=== PATIENT | female | born 1975 | race Caucasian/White ===

== ENCOUNTER → 2018-02-13 17:10 | Outpatient (CLI) | payer OTHER, SELFPAY | PROVIDERS: Family Provider Family Medicine; PCP Family Medicine; Visit Provider Otolaryngology Otolaryngology/Facial Plastic Surgery | DX: J31.2 Chronic pharyngitis (principal) | CPT/HCPCS: 87070 ==

== ENCOUNTER → 2018-04-16 18:28 | Outpatient (CLI) | payer OTHER, SELFPAY ==
[2018-04-24 09:43] LABS: HPV APTIMA, High Risk Negative (Negative)
== END ==
PROVIDERS: Family Provider Family Medicine; PCP Family Medicine; Visit Provider Nurse Practitioner Women's Health
DX: Z12.4 Encounter for screening for malignant neoplasm of cervix (principal)
CPT/HCPCS: 88175; G0145

== ENCOUNTER → 2018-04-20 08:52 | Outpatient (CLI) | payer OTHER, SELFPAY ==
--- NOTE | 2018-04-20 08:58 | BI_ITS ---
MAMMOGRAPHY - BILATERAL SCREENING REASON FOR EXAM: Female, 42 years old. Routine annual screening examination. PERTINENT HISTORY: Non-contributory. TECHNIQUE: Digital bilateral breast maria de jesus (3D mammographic acquisition) in the CC and MLO projections. 2-D mediolateral oblique (MLO) and craniocaudad (CC) views of both breasts were obtained. CAD: Full Field Digital Mammography with Computer Added Detection was performed. COMPARISON: None. Baseline examination. FINDINGS: Breast Composition: The breasts are extremely dense, which lowers the sensitivity of mammography. There are no dominant masses or suspicious calcifications. No other significant abnormalities are identified. BI/SCREENING MAMM (CAD), BILAT IMPRESSION: Negative screening mammogram. Yearly followup mammogram recommended. (A) ASSESSMENT CATEGORY: BIRADS Category 1: Negative. A letter regarding these results will be sent to the patient by the facility within 30 days. Approximately 10% of breast cancers are not detected by mammography. A normal mammogram should not delay biopsy of a clinically suspicious abnormality. [id number] Electronically Signed: Jaydon Carrazna MD at 8:52 EDT Tel [phone], Service support ,
--- NOTE | 2018-04-20 09:06 | US_ITS ---
STUDY: ULTRASOUND TRANSVAGINAL CLINICAL: Female, 42 years old. Irregular menstruation TECHNIQUE: Transvaginal COMPARISON: None. FINDINGS: The uterus is slightly enlarged and anteverted. It measures 10.9 x 6.9 x 6.0 cm. There are multiple uterine fibroids identified. The first is in the right myometrial wall measures 3.8 cm in widest diameter. The second is adjacent to the endometrial canal and measures 1.9 cm in widest diameter. The third is in the left myometrial wall with a maximum diameter of 2.4 cm. The fourth is adjacent to the endometrial canal and measures 1.3 cm. Both ovaries are visualized and they both demonstrate vascular flow through the. The right ovary measures 5.3 x 3.3 x 2.7 cm [multiple cysts within it with the largest measuring 3.3 x 2.2 x 2.2 cm. The left ovary measures 2.8 x 2.6 x 1.8 cm and has a 1.7 cm cyst within it. Is a small amount of free fluid in the cul-de-sac.] . US/Pelvic (Non ) IMPRESSION: Multiple uterine fibroids. Bilateral ovarian cysts. The largest on the right measures 3.3 cm in widest diameter. A small amount of free fluid in the cul-de-sac Electronically Signed: Omero Shukla, at 15:49 EDT Tel , Service support ,
--- NOTE | 2018-04-20 09:49 | US_ITS ---
STUDY: ULTRASOUND TRANSVAGINAL CLINICAL: Female, 42 years old. Irregular menstruation TECHNIQUE: Transvaginal COMPARISON: None. FINDINGS: The uterus is slightly enlarged and anteverted. It measures 10.9 x 6.9 x 6.0 cm. There are multiple uterine fibroids identified. The first is in the right myometrial wall measures 3.8 cm in widest diameter. The second is adjacent to the endometrial canal and measures 1.9 cm in widest diameter. The third is in the left myometrial wall with a maximum diameter of 2.4 cm. The fourth is adjacent to the endometrial canal and measures 1.3 cm. Both ovaries are visualized and they both demonstrate vascular flow through the. The right ovary measures 5.3 x 3.3 x 2.7 cm [multiple cysts within it with the largest measuring 3.3 x 2.2 x 2.2 cm. The left ovary measures 2.8 x 2.6 x 1.8 cm and has a 1.7 cm cyst within it. Is a small amount of free fluid in the cul-de-sac.] . US/Transvaginal Non- IMPRESSION: Multiple uterine fibroids. Bilateral ovarian cysts. The largest on the right measures 3.3 cm in widest diameter. A small amount of free fluid in the cul-de-sac Electronically Signed: Omero Shukla, at 15:49 EDT Tel , Service support ,
== END ==
PROVIDERS: Family Provider Family Medicine; PCP Family Medicine; Visit Provider Nurse Practitioner Women's Health
DX: D25.9 Leiomyoma of uterus, unspecified (principal); N83.202 Unspecified ovarian cyst, left side; N83.201 Unspecified ovarian cyst, right side; N92.6 Irregular menstruation, unspecified; Z12.31 Encounter for screening mammogram for malignant neoplasm of breast
CPT/HCPCS: 76830; 76856; 77063; 77067; 93976; C1769; C1894

== ENCOUNTER → 2018-05-27 16:07 | Outpatient (CLI) | payer OTHER, SELFPAY ==
[2018-05-27 18:33] LABS: Absolute Lymphocyte Count 1.74 X10^3/ul (0.83-4.51); Absolute Neutrophil Count 3.1 X10^3/uL (2.0-7.7); Basophil# 0.05 X10^3/uL; Basophil% 0.9 % (0-1); Eosinophil# 0.34 X10^3/uL; Eosinophils% 5.9 % (0-5); Hematocrit 30.1 % (37-47); Hemoglobin 9.9 g/dl (12.0-15.0); Lymphocyte # 1.74 X10^3/ul (4.0); Mean Corp Hgb Conc 32.9 g/gl (32-36); Mean Corpuscular Hgb 28.2 pg (27.0-32.0); Mean Corpuscular Volume 85.8 fL (81-99); Mean Platelet Vol. 12.2 fl (6.2-12.0); Monocyte# 0.57 X10^3/uL; Monocyte% 9.8 % (0-10); Neutrophil % 53.4 % (47-70); Platelet Count 319 K/mm3 (150-450); RBC Distribution Width SD 45.5 fl (35.1-43.9); Red Blood Count 3.51 M/mm3 (4.2-5.4); White Blood Count 5.8 K/mm3 (4.4-11.0)
[2018-05-27 18:43] LABS: POSITIVE COUNT NO; POSITIVE DIFFERENTIAL NO; POSITIVE MORPHOLOGY NO
[2018-05-31 09:54] LABS: Vitamin D 1,25-Dihydroxy 74.9 pg/mL (19.9-79.3)
== END ==
PROVIDERS: Family Provider Family Medicine; PCP Family Medicine; Visit Provider Obstetrics & Gynecology
DX: D25.9 Leiomyoma of uterus, unspecified (principal); R53.83 Other fatigue
CPT/HCPCS: 36415; 82652; 85025

== ENCOUNTER → 2018-07-10 15:28 | Outpatient (CLI) | payer OTHER, SELFPAY | PROVIDERS: Family Provider Family Medicine; PCP Family Medicine; Visit Provider Nurse Practitioner Women's Health | DX: N39.0 Urinary tract infection, site not specified (principal) | CPT/HCPCS: 87077; 87086; 87088; 87186 ==

== ENCOUNTER 2018-08-08 05:27 | Day surgery (SDC) | payer OTHER, SELFPAY ==
[2018-08-08] VITALS (13 sets, daily range): BP systolic 96–125; BP diastolic 65–83; PULSE 64–97; RESP 16–18; TEMP 36.1–37.1; O2SAT 95–100; BMI 27.7
--- NOTE | 2018-08-08 | IMM_PTH ---
PATIENT: MARY CORBETT LOC: [facility] [place] U#:[id number] AGE/SX: 42/F ROOM: RE08/08/[address]: Dr. Gale Goodwin MD : 1975 BED: DIS: 08/09/2018 SPEC #: [id number] RECD: 08/09/18 14:16 STATUS: JHONATAN REJeff #: [id number] HARVEY: 08/08/18 00:[address]: Gale Goodwin DEPT: IMMUNOHISTOCHEMISTRY RECD BY: Ann-Marie Conn ENTERED: 08/09/18 14:21 SP TYPE: IMMUNO OTHR DR: Dr. Tito Chandler MD Tissues: Uterus, NOS Procedures: Calretinin (initial) SMA (add) CK20 (add) CK7 (add) CK8 (add) DESMIN (add) Vimentin (add) PHYSICIAN & INSTITUTION [place] [id number] SPECIMEN INFORMATION: Tissue Source: Uterus, cervix and bilateral fallopian tubes Clinical Info: Uterine fibroid Specimen Number: [id number] #8 CPT code: 30405, 15720 x6 METHODOLOGY: Deparaffinized sections of prefer/formalin-fixed tissue or PAP/DQ stained slides are incubated with monoclonal/polyclonal antibodies/oligonucleotide probes. Localization is made via biotin free immunoperoxidase method. Appropriate controls are performed and reacted as expected. Results on target cell population are indicated in the following table: RESULTS: ANTIBODY / CLONE RESULT Block #8 CALRET (polyclonal) positive Vimentin (V9) positive CK7 (OV-TL12/30) positive CK8 (74rxhsU69) positive CK20 (KS20.8) negative Actin (1A4) positive (in background smooth muscle) Desmin (CE-R-11) positive (in background smooth muscle) These tests were developed and their performance characteristics determined by [facility]. They may not have been cleared or approved by the U.S. Food and Drug Administration. The FDA has determined that such clearance or approval is not necessary. INTERPRETATION: Uterus, hysterectomy: Consistent with adenomatoid tumor. Case has been reviewed in consultation with Dr. Johnson who concurs with the above diagnosis. IDC:CHENG SJ:chiara 08/12/18
--- NOTE | 2018-08-08 | HYST_PTH ---
PATIENT: MARY CORBETT LOC: [facility] [place] U#:[id number] AGE/SX: 42/F ROOM: RE08/08/[address]: Dr. Gale Goodwin MD : 1975 BED: DIS: 08/09/2018 SPEC #: [id number] RECD: 08/08/18 13:30 STATUS: JHONATAN KAROLINA #: [id number] HARVEY: 08/08/18 00:[address]: Gale Goodwin DEPT: SURGICAL PATHOLOGY RECD BY: Jerald Pearce ENTERED: 08/08/18 13:30 SP TYPE: HYSTERECT OTHR DR: Dr. Tito Chandler MD Tissues: Uterus, NOS Procedures: Surgery Specimen Level V HEADER OPERATION: Hysterectomy, lap-assisted vaginal, bilateral salpingectomy PRE-OP DIAGNOSIS: Uterine fibroid TISSUE SUBMITTED: Uterus, cervix and bilateral fallopian tubes MICROSCOPIC DIAGNOSIS Uterus, cervix and bilateral fallopian tubes, vaginal hysterectomy and bilateral salpingectomy: Cervix - chronic cystic cervicitis and squamous metaplasia. Endometrium - proliferative endometrium. - Benign endometrial polyps. Myometrium - leiomyomas (1 and 1.5 cm in greatest dimension). - Adenomatoid tumor (~3 cm in greatest dimension). See comment. Bilateral fallopian tubes - no pathologic diagnosis. Bilateral paratubal cysts. SJ:rg 08/09/18 COMMENT Immunohistochemistry ([id number]) supports the diagnosis of adenomatoid nodule. This case has been reviewed in consultation with Dr. Johnson who concurs with the above diagnosis. MICROSCOPIC DESCRIPTION Slides are reviewed. GROSS DESCRIPTION Received in fixative is one container labeled with the patient's name and designated uterus, cervix and bilateral fallopian tubes. The specimen consists of a hysterectomy specimen previously opened anteriorly and consisting of a uterus with cervix and attached bilateral fallopian tubes. The uterus with cervix weighs 133 gm and measures 11 x 8 x 5 cm. The serosal surface is catalan, glistening. The ectocervical mucosa is unremarkable. The external os is circular in contour. The endocervical canal measures 2.5 cm in length and the endocervical mucosa is catalan, glistening and unremarkable. The triangular endometrial cavity measures 5 cm in length and up to 3 cm in width. A polypoid lesion is noted measuring 1 x 0.8 x 0.2 cm. The myometrial wall underneath the polyp is not indurated. The larger polypoid lesion is present in the posterior uterine wall and a smaller polypoid lesion is also noted in the anterior uterine wall measuring 0.5 cm in greatest dimension. The myometrial wall underneath the polyp is not indurated. The rest of the endometrium is catalan, congested and measures <0.1 cm in thickness. Sections of the uterine wall reveal two submucosal and intramural nodular masses measuring 1 and 1.5 cm in greatest dimension. Sections of these masses reveal catalan whorled cut surfaces without areas of hemorrhage, necrosis or cystic degeneration. An ill-defined nodular mass is also noted measuring ~3 cm in greatest dimension. The uninvolved uterine wall measures up to 3 cm in thickness. The right fallopian tube measures 7.5 cm in length and up to 0.8 cm in diameter. The fimbrial end is identified. Two paratubal cysts are noted measuring 0.5 and 1 cm in greatest dimension. The fallopian tube is interrupted in the middle consistent with previous tubal occlusion. Sections reveal unremarkable cut surfaces. The left fallopian tube measures 6 cm in length and up to 0.6 cm in diameter. The fimbrial end is identified. It is interrupted in the middle consistent with previous tubal occlusion. Sections reveal unremarkable cut surfaces. Teenage Babysitter sections are submitted in 11 cassettes as follows: 1 - anterior cervix, 2 - posterior cervix, 3 & 4 - anterior uterine wall, 5 & 6 - posterior uterine wall, 7 - endometrial polyps with underlying uterine wall, 8 - ill-defined nodular mass, 9 - intramural and submucosal nodular masses, 10 - right fallopian tube and paratubal cyst, 11 - left fallopian tube. / VALDEZ:chiara 08/08/18 TC:1 CPT: 65902
--- NOTE | 2018-08-08 05:29 | HP.PCM_ITS ---
- Problem List (1) Uterine fibroid Status: Acute Qualifiers: Comment: chance BARBER cysto History and Physical Date of Admission: 08/08/18 05/27/18 Height 5 ft 5 in 05/27/18 Weight: 169 lb 05/27/18 Body Mass Index (BMI) 28.1 05/27/18 Blood Pressure 116/72 Intake Visit Reasons: Discuss treatment options/surgery [employer] Laboratory Assistant Required: No Accompanied by: Is patient in pain?: No Allergies latex Allergy (Verified 05/27/18 15:34) Rash sulfamethoxazole [From Bactrim] Allergy (Verified 05/27/18 15:34) Hives trimethoprim [From Bactrim] Allergy (Verified 05/27/18 15:34) Hives Medications acyclovir 400 mg tablet 400 mg PO BID 04/16/18 [History Confirmed 05/27/18] omeprazole 20 mg capsule,delayed release 20 mg PO QDAY 04/16/18 [History Confirmed 05/27/18] metronidazole 500 mg tablet 500 mg PO BID 7 Days #14 tab 05/27/18 [Rx Confirmed 05/27/18] Post menopausal: No Patient : No : No PFSH Medical History GERD (gastroesophageal reflux disease) (Acute) Recurrent cold sores (Acute) Surgical History H/O tubal ligation (Acute) Hx of appendectomy (Acute) Family History Mother Cancer brain Grandmother Cancer Father Cancer throat Uncle Cancer Social History Smoking Status: Current every day smoker alcohol intake: current details: social substance use type: does not use caffeine: Yes what type of physical activity do you participate in: none seatbelt use: always do you feel safe at home: Yes additional social history: [employer] Patient works at [employer] Discuss treatment options/surgery: Details: MARY CORBETT is a 42 year old who presents for an enlarged uterus due to multiple fibroids, has a history of 2 SVDs. Pregancy History 2 Elective abortions Hx Para 2 Spontaneous abortions Hx # Term Pregnancies Ectopic pregnancies Hx # Pregnancies Multiple births # of living children Past Pregnancies Del. Date Name GA/Weeks Outcome Route Bth Weight Infant Gen Labor Lgth Anesthesia Del Locatn Provider FOB Unknown 1996 Licha Unknown 1999 George JONES Const Constitutional: Denies poor appetite, headache(s), fever(s), increased appetite, weight gain, weight loss or fatigue Cardio Card: Denies chest pain Resp Resp: Denies dyspnea or cough GI GI: Reports as per HPI; denies vomiting, nausea, abdominal pain or constipation : Reports as per HPI; denies urinary urgency, vaginal discharge, urinary frequency, vaginal itching, vaginal odor, vaginal dryness, urinary incontinence, urinary hesitancy, difficulty urinating, painful urination or nipple discharge Skin Skin/Breast: Denies breast lump, breast pain, breast skin changes, nipple discharge or change in hair Exam Const General: cooperative, healthy appearing, comfortable, no acute distress, well developed Nutritional Appearance: average body habitus Orientation: alert HENMT Head: normal to inspection, normocephalic Neck Neck: normal visual inspection, trachea midline Thyroid: thyroid normal Resp Effort & Inspection: normal respiratory effort GI Inspection: normal to inspection, non-distended Palpation: soft, no hepatosplenomegaly Skin General: no rashes or lesions noted Assessment & Plan Problems 1. Intramural leiomyoma of uterus D25.1 plan LAVH BS cysto Plan discussed surgical risks including risks of anesthesia, infection, bleeding, injury to bowel, bladder or blood vessels, and patient wishes to proceed with surgery. plan lavh bs cysto. US findings- The uterus is slightly enlarged and anteverted. It measures 10.9 x 6.9 x 6.0 cm. There are multiple uterine fibroids identified. The first is in the right myometrial wall measures 3.8 cm in widest diameter. The second is adjacent to the endometrial canal and measures 1.9 cm in widest diameter. The third is in the left myometrial wall with a maximum diameter of 2.4 cm. The fourth is adjacent to the endometrial canal and measures 1.3 cm. Both ovaries are visualized and they both demonstrate vascular flow through the. The right ovary measures 5.3 x 3.3 x 2.7 cm [multiple cysts within it with the largest measuring 3.3 x 2.2 x 2.2 cm. The left ovary measures 2.8 x 2.6 x 1.8 cm and has a 1.7 cm cyst within it. Is a small amount of free fluid in the cul-de-sac.] UPDATE- I have seen the patient and performed any clinically relevant updates to the history and physical exam. Gale Goodwin MD
--- NOTE | 2018-08-08 05:41 | EKG12_ITS ---
Test Reason : PRE OP Blood Pressure : / mmHG Vent. Rate : 077 BPM Atrial Rate : 077 BPM P-R Int : 136 ms QRS Dur : 078 ms QT Int : 380 ms P-R-T Axes : 027 029 013 degrees QTc Int : 430 ms Normal sinus rhythm Normal ECG No previous ECGs available Confirmed by EDWARD GUILLAUME, CHANDRAKANT ([id number]), publication editor MARYSE COURTNEY ([id number]) on 08/12/2018 4:00:04 PM Referred By: Gale Goodwin Confirmed By:CHANDRAKANT LEON MD
[2018-08-08] MEDS: Phenazopyridine 95 MG Tablet 190 MG PO (06:06)
[2018-08-08 06:33] LABS: Hematocrit 36.3 % (37-47); Hemoglobin 12.3 g/dl (12.0-15.0); Mean Corp Hgb Conc 33.9 g/gl (32-36); Mean Corpuscular Hgb 30.8 pg (27.0-32.0); Mean Platelet Vol. 11.4 fl (6.2-12.0); Platelet Count 258 K/mm3 (150-450); RBC Distribution Width CV 17.5 % (11.6-14.6); RBC Distribution Width SD 56.2 fl (35.1-43.9); Red Blood Count 3.99 M/mm3 (4.2-5.4); Scan Indicated on CBC? Y/N NO; White Blood Count 4.8 K/mm3 (4.4-11.0)
[2018-08-08] MEDS: Bupivacaine Mpf 0.5% 30 ML VIAL (06:57)
--- NOTE | 2018-08-08 07:37 | PCM.OPRPT ---
Problem List (1) Uterine fibroid Status: Acute Qualifiers: Comment: plan LAVH BS cysto Report of Operation Date of Procedure: 08/08/18 Pre-Operative Diagnosis: aub fibroids Post-Operative Diagnosis: Same Surgery/Procedure Performed:: lavh bs cysto Description of Surgical Findings:: Enlarged uterus with 3 fibroids submucosal and intramural. Normal uterus and tubes. Mild left sigmoid adhesions normal upper abdomen heel shaver: Trupti Bah heel shaver: Katelin Tracy Type of Anesthesia:: General Special Medications: ricky Specimen's removed: uterus fibroids tubes Drains: marinelli Estimated Blood Loss (mL): 50 Fluids Replaced: crystalloid Description of Procedure: Patient received preoperative antibiotics and SCDs were on preoperatively. Patient was taken back to the operating room and placed in the dorsal lithotomy position. General anesthesia was induced and patient was prepped and draped in normal sterile fashion. Uterine manipulator was placed inside the uterus and Marinelli catheter placed in the bladder. The umbilicus was grasped with towel clamps and an intraumbilical incision was made after injecting with quarter percent Marcaine and a Veress needle entered into the abdomen confirmed to be intra-abdominal with a low opening pressure. Abdomen was insufflated with CO2 gas and the Veress needle removed and the 5 mm trocar was placed under direct visualization without complication. Right and left lower quadrants were transilluminated and injected with quarter percent Marcaine and 5 mm ports placed under direct visualization. Pelvis was well visualized see operative findings for additional information. Bilateral fallopian tubes were identified and transected with the LigaSure device across the mesosalpinx to the level of the utero-ovarian ligament which was also transected with the LigaSure device. The broad ligament was opened up by transecting the round ligament bilaterally and skeletonizing the uterine vessels bilaterally and creating a bladder flap using the LigaSure device. The uterine arteries were transected bilaterally with good visualization of the bladder and the ureters were seen to be inferior lateral to the operative area. Attention was then paid to the vaginal portion of the procedure and the cervix was grasped with Catherine clamps and circumferentially injected with dilute vasopressin. A circumferential incision was made and the vaginal mucosa was mobilized off posteriorly and the cul-de-sac entered into sharply and a longneck speculum placed. The anterior cul-de-sac was then identified and entered into sharply. The uterosacral ligaments were clamped cut and suture ligated with 0 Monocryl bilaterally followed by the cardinal ligaments which were clamped cut and suture ligated bilaterally with 0 Monocryl. The uterus serially descended and was removed without difficulty with minimal morcellation. Pelvic sidewall pedicles were checked and noted to have excellent hemostasis. The vaginal mucosa was reapproximated incorporating the posterior peritoneum. This was reapproximated using 0 Vicryl [id number] sutures. Excellent hemostasis was noted. The cystoscopy was then performed and bilateral ureteral strong spray was noted and the bladder was noted to have no abnormality or lesions seen. Marinelli catheter was replaced and then attention paid to the abdominal portion of the procedure again. The pelvis and cul-de-sac was well visualized and no significant active bleeding noted but some raw areas were seen on the peritoneum and therefore Ricky was applied. Pressure was taken down and the areas visualized and noted of excellent hemostasis. All ports were removed under direct visualization without complication and the abdomen was desufflated of air. The instruments removed from the abdomen and the vagina vaginal sweep was negative. Port sites on the abdomen were closed with 4-0 Monocryl interrupted sutures and Steri's and windows were applied. She was awoken and taken recovery in stable condition. Grafts/Implants Used: none - Complications none - Admit VTE Documentation VTE Present on Admission: No VTE Mechan Device Prophylaxis: SCD's
--- NOTE | 2018-08-08 07:40 | OP.PCM_ITS ---
Problem List (1) Uterine fibroid Status: Acute Qualifiers: Comment: plan LAVH BS cysto Report of Operation Date of Procedure: 08/08/18 Pre-Operative Diagnosis: aub fibroids Post-Operative Diagnosis: Same Surgery/Procedure Performed:: lavh bs cysto Description of Surgical Findings:: Enlarged uterus with 3 fibroids submucosal and intramural. Normal uterus and tubes. Mild left sigmoid adhesions normal upper abdomen delivery driver/customer service: Trupti Bah delivery driver/customer service: Katelin Tracy Type of Anesthesia:: General Special Medications: ricky Specimen's removed: uterus fibroids tubes Drains: marinelli Estimated Blood Loss (mL): 50 Fluids Replaced: crystalloid Description of Procedure: Patient received preoperative antibiotics and SCDs were on preoperatively. Patient was taken back to the operating room and placed in the dorsal lithotomy position. General anesthesia was induced and patient was prepped and draped in normal sterile fashion. Uterine manipulator was placed inside the uterus and Marinelli catheter placed in the bladder. The umbilicus was grasped with towel clamps and an intraumbilical incision was made after injecting with quarter percent Marcaine and a Veress needle entered into the abdomen confirmed to be intra-abdominal with a low opening pressure. Abdomen was insufflated with CO2 gas and the Veress needle removed and the 5 mm trocar was placed under direct visualization without complication. Right and left lower quadrants were transilluminated and injected with quarter percent Marcaine and 5 mm ports cookie dimas under direct visualization. Pelvis was well visualized see operative findings for additional information. Bilateral fallopian tubes were identified and transected with the LigaSure device across the mesosalpinx to the level of the utero-ovarian ligament which was also transected with the LigaSure device. The broad ligament was opened up by transecting the round ligament bilaterally and skeletonizing the uterine vessels bilaterally and creating a bladder flap using the LigaSure device. The uterine arteries were transected bilaterally with good visualization of the bladder and the ureters were seen to be inferior lateral to the operative area. Attention was then paid to the vaginal portion of the procedure and the cervix was grasped with Catherine clamps and circumferentially injected with dilute vasopressin. A circumferential incision was made and the vaginal mucosa was mobilized off posteriorly and the cul-de-sac entered into sharply and a longneck speculum placed. The anterior cul-de-sac was then identified and entered into sharply. The uterosacral ligaments were clamped cut and suture ligated with 0 Monocryl bilaterally followed by the cardinal ligaments which were clamped cut and suture ligated bilaterally with 0 Monocryl. The uterus serially descended and was removed without difficulty with minimal morcellation. Pelvic sidewall pedicles were checked and noted to have excellent hemostasis. The vaginal mucosa was reapproximated incorporating the posterior peritoneum. This was reapproximated using 0 Vicryl [id number] sutures. Excellent hemostasis was noted. The cystoscopy was then performed and bilateral ureteral strong spray was noted and the bladder was noted to have no abnormality or lesions seen. Marinelli catheter was replaced and then attention pa id to the abdominal portion of the procedure again. The pelvis and cul-de-sac was well visualized and no significant active bleeding noted but some raw areas were seen on the peritoneum and therefore Ricky was applied. Pressure was taken down and the areas visualized and noted of excellent hemostasis. All ports were removed under direct visualization without complication and the abdomen was desufflated of air. The instruments removed from the abdomen and the vagina vaginal sweep was negative. Port sites on the abdomen were closed with 4-0 Monocryl interrupted sutures and Steri's and windows were applied. She was awoken and taken recovery in stable condition. Grafts/Implants Used: none - Complications none - Admit VTE Documentation VTE Present on Admission: No VTE Mechan Device Prophylaxis: SCD's
[2018-08-08] MEDS: Vasopressin 20 UNITS/ML Vial (08:45)
[2018-08-08] MEDS: Lactated Ringers 1,000 ML 125 ML IV ×2 (12:04→20:51)
[2018-08-08] MEDS: Ketorolac 30 MG/ML Syringe IV ×2 (13:13→17:18)
--- NOTE | 2018-08-08 15:19 | DCINST_ITS ---
Discharge Diet: No Restrictions Discharge Activity: Return to Normal Activity, May Not Drive, May Shower May resume sexual activity in: 6-8 weeks Call your doctor if your incision/area has: Continuous Slow Oozing, Sudden Increased Bleeding, Increased Pain/ Swelling, Increased Redness, Foul Smelling Discharge Call your doctor if you observe: Fever of 101 or Higher, Inability to urinate, Inability to have a bowel movement, Using more than one pad per hour Allergies/Adverse Reactions: Allergies latex Allergy (Verified 05/27/18 15:34) Rash sulfamethoxazole [From Bactrim] Allergy (Verified 05/27/18 15:34) Hives trimethoprim [From Bactrim] Allergy (Verified 05/27/18 15:34) Hives Medications to take at Discharge acyclovir 400 mg tablet 400 mg PO BID 04/16/18 omeprazole 20 mg capsule,delayed release 20 mg PO BID 04/16/18 Naproxen [Naprosyn] 250 - 500 mg PO Q8H PRN PRN #30 tablet 08/08/18 Oxycodone HCl/Acetaminophen [Percocet 5-325] 1 - 2 tablet PO Q4H PRN PRN 7 Days #28 tablet 08/08/18 The following prescriptions were given: Oxycodone HCl/Acetaminophen [Percocet 5-325] 1 - 2 tablet PO Q4H PRN PRN 7 Days #28 tablet PRN Reason: Moderate-Severe pain Naproxen [Naprosyn] 250 - 500 mg PO Q8H PRN PRN #30 tablet PRN Reason: MILD PAIN Primary Care Physician: Tito Chandler MD [Primary Care Provider] - Test Results: Test results from this visit will be discussed in further detail at your follow- up appointment, if applicable. Please Follow Up With: Gale Goodwin MD - [phone]
[2018-08-08] MEDS: oxyCODONE 5 MG Tablet PO (15:29)
[2018-08-08] MEDS: Enoxaparin 40 MG/0.4 ML Syringe SC (20:53)
[2018-08-09] MEDS: Ketorolac 30 MG/ML Syringe IV ×2 (00:30→06:21)
[2018-08-09] MEDS: 0.9% NaCl Peripheral Flush Adult/Peds IV ×2 (00:30→06:22)
[2018-08-09 02:02] VITALS: BP 103/52; PULSE 75; RESP 14; TEMP 36.9; O2SAT 97
[2018-08-09] MEDS: oxyCODONE 5 MG Tablet PO (04:01)
[2018-08-09 07:15] LABS: Hematocrit 30.5 % (37-47); Hemoglobin 10.2 g/dl (12.0-15.0); Mean Corp Hgb Conc 33.4 g/gl (32-36); Mean Corpuscular Hgb 30.6 pg (27.0-32.0); Mean Corpuscular Volume 91.6 fL (81-99); Platelet Count 216 K/mm3 (150-450); RBC Distribution Width CV 17.1 % (11.6-14.6); RBC Distribution Width SD 54.6 fl (35.1-43.9); Red Blood Count 3.33 M/mm3 (4.2-5.4); White Blood Count 13.8 K/mm3 (4.4-11.0)
[2018-08-09 07:37] LABS: Scan Indicated on CBC? Y/N NO
[2018-08-09 07:52] VITALS: BP 97/65; PULSE 64; RESP 16; TEMP 36.9; O2SAT 96
[2018-08-09 07:57] VITALS: PULSE 70
--- NOTE | 2018-08-09 20:29 | PN.OBGYN_ITS ---
Subjective: doing well no complaints - Physical Exam General: Alert, Oriented x3 Vital Signs Temp Pulse Resp BP Pulse Ox 98.5 F 70 16 97/65 96 08/09/18 07:52 08/09/18 07:57 08/09/18 07:52 08/09/18 07:52 08/09/18 07:52 Oxygen Flow Rate (L/min) 2 Oxygen Delivery Method Room Air Weight: 166 lb 10.711 oz Body Mass Index (BMI) 27.7 Intake and Output for Last 24 Hours 08/07/18 08/08/18 08/09/18 23:59 23:59 23:59 Intake Total 3433 / 3433 1982 / 1982 Output Total 930 / 930 1450 / 1450 Balance 2503 / 2503 533 / 533 Laboratory Tests Past 24 Hrs 08/09/18 06:28 WBC 13.8 H RBC 3.33 L Hgb 10.2 L Hct 30.5 L MCV 91.6 MCH 30.6 MCHC 33.4 RDW 17.1 H RDW Differential 54.6 H Plt Count 216 MPV 12.0 Medical Necessity - Tobacco Use Smoking Status: Current every day smoker Tobacco Use: Cigarettes Assessment/Plan All Active Problems (Last Reviewed 05/27/18 @ 15:34 by Bonnie Kirk) Uterine fibroid (Acute) s/p [facility] routine care [facility]
== END 2018-08-09 09:31 | disposition home or self-care (01) ==
LOC: SDC 05:29 → AC 05:29 → MS2 08-09 07:54
PROVIDERS: Family Provider Family Medicine; PCP Family Medicine; Referring Provider Obstetrics & Gynecology; Visit Provider Obstetrics & Gynecology
PROC: 0UT9FZZ Resection of Uterus, Via Natural or Artificial Opening With Percutaneous Endoscopic Assistance (ICD-10-PCS; CPT 58552; principal; 2018-08-08 07:05)
DX: D25.1 Intramural leiomyoma of uterus (principal); N84.0 Polyp of corpus uteri; D26.1 Other benign neoplasm of corpus uteri; N83.8 Other noninflammatory disorders of ovary, fallopian tube and broad ligament; N87.9 Dysplasia of cervix uteri, unspecified; D25.0 Submucous leiomyoma of uterus; K21.9 Gastro-esophageal reflux disease without esophagitis; G25.81 Restless legs syndrome; Z79.899 Other long term (current) drug therapy; F17.200 Nicotine dependence, unspecified, uncomplicated
CPT/HCPCS: 00940; 58552; 36415; 85027; 86850; 86900; 88307; 88341; 88342; 93005; J7120; A4216; J2405

== ENCOUNTER → 2018-09-13 15:51 | Outpatient (CLI) | payer OTHER, SELFPAY ==
--- NOTE | 2018-09-13 16:01 | CT_ITS ---
STUDY: CT LUMBAR SPINE WITHOUT CONTRAST REASON FOR EXAM: Female, 42 years old. Chronic back pain after injury 10 years ago RADIATION DOSAGE (If Supplied By Facility): CTDIvol = ( 29.77 ) mGy, DLP = ( 870.45 ) mGycm TECHNIQUE: The patient was scanned in a multi detector CT scanner. High resolution transaxial imaging was performed. Images were obtained from L1 to L5. Sagittal and coronal images were reconstructed. Individualized dose optimization techniques were used for this CT. COMPARISON: None FINDINGS: Normal lumbar lordosis. There is no substantial scoliosis. A pathologic fracture of the L2 vertebral body is noted with minimal loss of anterior height and no significant retropulsion. The central aspect of the vertebral body is abnormally hypodense with sclerotic margins. Pattern of coarse residual peripheral trabeculation within the vertebral body suggests an underlying large hemangioma. Remote fracture of the left L2 transverse process. L1-2: Normal endplates. Normal disc height and morphology. Normal bilateral facet joints. Normal central canal and bilateral lateral recesses. Normal bilateral intervertebral neural foramina. L2-3: Normal endplates. Normal disc height and morphology. Normal bilateral facet joints. Normal central canal and bilateral lateral recesses. Normal bilateral intervertebral neural foramina. L3-4: Normal endplates. Normal disc height and morphology. Normal bilateral facet joints. Normal central canal and bilateral lateral recesses. Normal bilateral intervertebral neural foramina. L4-5: Normal endplates. Normal disc height and morphology. Normal bilateral facet joints. Normal central canal and bilateral lateral recesses. Normal bilateral intervertebral neural foramina. L5-S1: Disc osteophyte complex with moderate bilateral foraminal stenoses. Normal visualized paraspinous soft tissue structures. Indeterminate complex cystic lesion in the right kidney measuring 4.[address]/Spine Lumbar without Contrast IMPRESSION: Pathologic fracture of L2 with minimal loss of height and no retropulsion. Pattern of coarse trabeculation suggests an underlying large vertebral body hemangioma. Differential could also include plasmacytoma and other neoplastic entities. Overall, neurosurgery consultation and pre and postcontrast MRI are recommended. Indeterminate complex cystic lesion in the right ovary measuring up to 4.1 cm. Dedicated renal ultrasound or postcontrast CT or MRI is recommended. Electronically Signed: Orlando Harp MD at 2:50 EST Tel , Service support ,
== END ==
PROVIDERS: Family Provider Family Medicine; PCP Family Medicine
DX: M84.48XA Pathological fracture, other site, initial encounter for fracture (principal)
CPT/HCPCS: 72131

== ENCOUNTER → 2018-09-24 21:34 | Outpatient (CLI) | payer OTHER, SELFPAY ==
[2018-09-24 16:08] VITALS: BMI 28.6
== END ==
PROVIDERS: Family Provider Family Medicine; PCP Family Medicine; Referring Provider Obstetrics & Gynecology; Visit Provider Obstetrics & Gynecology
DX: N89.8 Other specified noninflammatory disorders of vagina (principal)
CPT/HCPCS: 87070; 87205

== ENCOUNTER → 2018-10-07 15:17 | Outpatient (CLI) | payer OTHER, SELFPAY ==
[2018-09-24 16:08] VITALS: BMI 28.6
--- NOTE | 2018-10-07 15:22 | MRI_ITS ---
STUDY: MRI LUMBAR SPINE WITH AND WITHOUT CONTRAST REASON FOR EXAM: Female, 42 years old. L2 vertebral fracture/hemangioma TECHNIQUE: Standardized fat and water weighted pulse sequences were obtained in the sagittal and axial planes. 7 ml of Gadavist contrast material was administered for the contrast portion of the examination. COMPARISON: None FINDINGS: There is diffuse low signal intensity seen within the L2 vertebral body on the T1-weighted imaging sequence which demonstrates multiple areas of both increased signal intensity and low signal on the T2-weighted imaging sequence and similar-appearing findings on the STIR imaging sequence. There is multifocal enhancement following contrast administration. The lesion extends into the left pedicle. There is mild compression of the vertebral body consistent with pathologic fracture but no retropulsion of bony fragments. T12-L1: Normal endplates. Normal disc height, hydration and morphology. Normal bilateral facet joints. Normal central canal and bilateral lateral recesses. Normal bilateral intervertebral neural foramina. Normal lumbar lordosis. There is no substantial scoliosis. Normal conus medullaris that terminates at T12-L1 L1-2: . Normal disc height, desiccation and normal morphology. Normal bilateral facet joints. Normal central canal and bilateral lateral recesses. Normal bilateral intervertebral neural foramina. L2-3: . Normal disc height, desiccation and normal morphology. Normal bilateral facet joints. Normal central canal and bilateral lateral recesses. Normal bilateral intervertebral neural foramina. L3-4: Normal endplates. Normal disc height, desiccation and tiny central disc protrusion.. Normal bilateral facet joints. Normal central canal and bilateral lateral recesses. Normal bilateral intervertebral neural foramina. L4-5: Normal endplates. Normal disc height, desiccation and minor annular bulge with tiny annular tear but no disc protrusion. Normal l bilateral facet joints. Normal central canal and bilateral lateral recesses. Normal bilateral intervertebral neural foramina. L5-S1: Normal endplates. Normal disc height, desiccation and minor annular bulge.. Bilateral facet arthropathy.. Normal central canal and bilateral lateral recesses. Minor bilateral neural foraminal encroachment Normal visualized sacral ala. There is a large multi septated cyst in the right kidney. Normal visualized paraspinous soft tissue structures. MRI/Spine Lumbar W/WO Contrast IMPRESSION: Pathologic fracture of L2 demonstrating changes which may be consistent with atypical hemangioma. Malignant neoplasm less likely but not entirely excluded. Mild spinal stenosis at L5-S1 secondary to annular bulge and facet arthropathy Tiny central disc protrusion at L3-4 without spinal stenosis Electronically Signed: Felipe Mazariegos MD at 19:20 EST , Service support ,
[2018-10-07 17:33] LABS: Absolute Lymphocyte Count 2.03 X10^3/ul (0.83-4.51); Absolute Neutrophil Count 2.9 X10^3/uL (2.0-7.7); Basophil# 0.07 X10^3/uL; Basophil% 1.2 % (0-1); Eosinophil# 0.43 X10^3/uL; Eosinophils% 7.2 % (0-5); Hematocrit 36.7 % (37-47); Hemoglobin 12.1 g/dl (12.0-15.0); Lymphocyte # 2.03 X10^3/ul (4.0); Lymphocyte % 33.9 % (19-41); Mean Corpuscular Hgb 30.9 pg (27.0-32.0); Mean Corpuscular Volume 93.9 fL (81-99); Mean Platelet Vol. 11.8 fl (6.2-12.0); Monocyte# 0.54 X10^3/uL; Neutrophil # 2.91 X10^3/uL (2.7-7.7); Neutrophil % 48.5 % (47-70); Platelet Count 265 K/mm3 (150-450); RBC Distribution Width CV 13.1 % (11.6-14.6); RBC Distribution Width SD 44.7 fl (35.1-43.9); Red Blood Count 3.91 M/mm3 (4.2-5.4)
[2018-10-07 17:34] LABS: POSITIVE COUNT NO; POSITIVE DIFFERENTIAL NO; POSITIVE MORPHOLOGY NO
== END ==
PROVIDERS: Family Provider Family Medicine; PCP Family Medicine; Referring Provider Orthopaedic Surgery Orthopaedic Surgery of the Spine; Visit Provider Orthopaedic Surgery Orthopaedic Surgery of the Spine
DX: S32.029A Unspecified fracture of second lumbar vertebra, initial encounter for closed fracture (principal); D18.09 Hemangioma of other sites; D64.9 Anemia, unspecified
CPT/HCPCS: 36415; 72158; 85025; A9585

== ENCOUNTER → 2018-10-12 10:06 | Outpatient (CLI) | payer OTHER, SELFPAY ==
[2018-09-24 16:08] VITALS: BMI 28.6
[2018-10-12 11:20] LABS: Color, Urine Yellow (Yellow); Glucose, Dipstick Normal (Normal); Ketone-Dipstick Negative (Negative); Leukocyte Esterase-Dipstick 25 /ul (Negative); Nitrite-Dipstick Negative (Negative); Occult Blood-Urine Negative /ul (Negative); Protein-Dipstick 15 mg/dl (Negative); Specific Gravity, Urine 1.015 (1.002-1.030); Urine Bilirubin Dipstick Negative (Negative); Urine Clarity Sl. Cloudy (Clear); Urine Urobilinogen Normal (Normal)
[2018-10-12 11:55] LABS: AST(SGOT) 25 U/L (15-37); Alanine Aminotransfer ALT/SGPT 34 U/L (13-56); Albumin, Serum 3.6 g/dL (3.2-5.0); Alkaline Phosphatase 139 U/L (45-117); Anion Gap 5 (5-15); BUN 19 mg/dL (7-18); BUN/Creat Ratio 26.8 RATIO (10-20); Calcium,Total 8.8 mg/dL (8.5-10.1); Chloride 109 mmol/L (98-107); Cholesterol 165 mg/dL (200); Creatinine, Serum 0.71 mg/dL (0.55-1.02); EST Glomerular Filtration Rate 95 mL/min (>60); Est Glom Filt Rate - Afr Amer 115 mL/min (>60); Globulin 3.5 g/dL (2.2-4.2); Glucose 93 mg/dL (74-106); High Density Lipoprotein 46 mg/dL; Iron 88 ug/dL (50-170); Iron Binding Capacity,Total 350 ug/dL (250-450); Potassium 4.6 mmol/L (3.5-5.1); Protein, Total 7.1 g/dL (6.4-8.2); Sodium Level 142 mmol/L (136-145); Thyroid Stim Hormone (TSH) 2.18 uIU/mL (0.358-3.74); Triglycerides 125 mg/dL; Very Low Density Lipoprotein 25 mg/dL (5-40)
== END ==
PROVIDERS: Family Provider Family Medicine; PCP Family Medicine; Referring Provider Family Medicine; Visit Provider Family Medicine
DX: D64.9 Anemia, unspecified (principal); R53.83 Other fatigue
CPT/HCPCS: 36415; 80053; 80061; 81002; 83540; 83550; 84443

== ENCOUNTER → 2019-06-21 09:13 | Outpatient (CLI) | payer OTHER, SELFPAY ==
[2018-09-24 16:08] VITALS: BMI 28.6
[2019-06-21 10:19] LABS: Absolute Neutrophil Count 3.4 X10^3/uL (2.0-7.7); Basophil# 0.07 X10^3/uL; Basophil% 1.1 % (0-1); Eosinophil# 0.41 X10^3/uL; Eosinophils% 6.2 % (0-5); Hematocrit 38.6 % (37-47); Hemoglobin 12.7 g/dL (12.0-15.0); Lymphocyte % 31.7 % (19-41); Mean Corp Hgb Conc 32.9 g/dL (32-36); Mean Corpuscular Hgb 31.4 pg (27.0-32.0); Mean Corpuscular Volume 95.3 fL (81-99); Mean Platelet Vol. 11.8 fl (6.2-12.0); Monocyte# 0.69 X10^3/uL; Monocyte% 10.4 % (0-10); NRBC Flagged by Analyzer 0 % (0-5); Neutrophil # 3.35 X10^3/uL (2.7-7.7); Neutrophil % 50.4 % (47-70); Platelet Count 254 K/mm3 (150-450); RBC Distribution Width CV 13.4 % (11.6-14.6); RBC Distribution Width SD 47.3 fl (35.1-43.9); Red Blood Count 4.05 M/mm3 (4.2-5.4); White Blood Count 6.6 K/mm3 (4.4-11.0)
[2019-06-21 10:20] LABS: Color, Urine Yellow (Yellow); Glucose, Dipstick Normal (Normal); Ketone-Dipstick Negative (Negative); Leukocyte Esterase-Dipstick Negative /ul (Negative); Nitrite-Dipstick Negative (Negative); Occult Blood-Urine Negative /ul (Negative); Protein-Dipstick Negative (Negative); Specific Gravity, Urine 1.015 (1.002-1.030); Urine Bilirubin Dipstick Negative (Negative); Urine Clarity Clear (Clear); Urine Urobilinogen Normal (Normal); Urine pH 6.5 (5.0 - 8.0)
[2019-06-21 10:43] LABS: AST(SGOT) 42 U/L (15-37); Alanine Aminotransfer ALT/SGPT 48 U/L (13-56); Albumin, Serum 3.3 g/dL (3.2-5.0); Alkaline Phosphatase 171 U/L (45-117); Anion Gap 3 (5-15); BUN 10 mg/dL (7-18); BUN/Creat Ratio 12.3 RATIO (10-20); Calcium,Total 8.7 mg/dL (8.5-10.1); Chloride 111 mmol/L (98-107); Cholesterol 160 mg/dL (200); Creatinine, Serum 0.81 mg/dL (0.55-1.02); EST Glomerular Filtration Rate 81 mL/min (>60); Est Glom Filt Rate - Afr Amer 98 mL/min (>60); Globulin 3.4 g/dL (2.2-4.2); Glucose 94 mg/dL (74-106); High Density Lipoprotein 44 mg/dL; Potassium 4.5 mmol/L (3.5-5.1); Protein, Total 6.7 g/dL (6.4-8.2); Sodium Level 142 mmol/L (136-145); Triglycerides 102 mg/dL; Very Low Density Lipoprotein 20 mg/dL (5-40)
== END ==
PROVIDERS: Family Provider Family Medicine; PCP Family Medicine; Referring Provider Family Medicine; Visit Provider Family Medicine
DX: Z00.00 Encounter for general adult medical examination without abnormal findings (principal); Z12.31 Encounter for screening mammogram for malignant neoplasm of breast; D64.9 Anemia, unspecified
CPT/HCPCS: 36415; 80053; 80061; 81002; 85025

== ENCOUNTER → 2019-06-25 15:25 | Outpatient (CLI) | payer OTHER, SELFPAY ==
[2018-09-24 16:08] VITALS: BMI 28.6
--- NOTE | 2019-06-25 15:27 | BI_ITS ---
MAMMOGRAPHY - BILATERAL SCREENING 3-D TOMOSYNTHESIS REASON FOR EXAM: Female, 43 years old. Bilateral Screening 3-D tomosynthesis PERTINENT HISTORY: No significant family history. TECHNIQUE: 2-D mammograms and 3-D Tomosynthesis of the breast (s) were performed. CAD was performed. COMPARISON: 04/20/2018 FINDINGS: The breast composition is heterogeneously dense that can obscure small breast masses. Unremarkable bilateral breast parenchyma. No dense spiculated masses or suspicious microcalcifications are identified. No architectural distortion is identified. There is no skin thickening or retraction. There has been no significant change since the prior study. BI/SCREEN MAMM (CAD) W/[place] BILAT IMPRESSION: No mammographic signs of malignancy. Routine yearly mammograms recommended. ASSESSMENT CATEGORY: BIRADS Category 1: Negative. A letter regarding these results will be sent to the patient by the facility within 30 days. FOLLOW UP RECOMMENDATION: Yearly follow up mammogram recommended. (A) Approximately 10% of breast cancers are not detected by mammography. A normal mammogram should not delay biopsy of a clinically suspicious abnormality. Electronically Signed: Feliz Angeles MD at 16:46 EDT Tel [phone], Service support ,
== END ==
PROVIDERS: Family Provider Family Medicine; PCP Family Medicine; Referring Provider Family Medicine; Visit Provider Family Medicine
DX: Z12.31 Encounter for screening mammogram for malignant neoplasm of breast (principal)
CPT/HCPCS: 77063; 77067

== ENCOUNTER → 2019-11-01 09:37 | Outpatient (CLI) | payer OTHER, SELFPAY ==
[2018-09-24 16:08] VITALS: BMI 28.6
[2019-11-01 10:36] LABS: Absolute Lymphocyte Count 2.27 X10^3/uL (0.83-4.51); Absolute Neutrophil Count 3.1 X10^3/uL (2.0-7.7); Basophil# 0.11 X10^3/uL; Basophil% 1.7 % (0-1); Eosinophils% 4.6 % (0-5); Hematocrit 40.4 % (37-47); Hemoglobin 13.3 g/dL (12.0-15.0); Lymphocyte # 2.27 X10^3/ul (4.0); Mean Corp Hgb Conc 32.9 g/dL (32-36); Mean Corpuscular Hgb 31.3 pg (27.0-32.0); Mean Corpuscular Volume 95.1 fL (81-99); Mean Platelet Vol. 11.1 fl (6.2-12.0); Monocyte# 0.66 X10^3/uL; Monocyte% 10.2 % (0-10); NRBC Flagged by Analyzer 0 % (0-5); Neutrophil # 3.12 X10^3/uL (2.7-7.7); Neutrophil % 48.2 % (47-70); Platelet Count 298 K/mm3 (150-450); RBC Distribution Width CV 12.9 % (11.6-14.6); RBC Distribution Width SD 44.7 fl (35.1-43.9); Red Blood Count 4.25 M/mm3 (4.2-5.4); White Blood Count 6.5 K/mm3 (4.4-11.0)
[2019-11-01 11:01] LABS: Iron 90 ug/dL (50-170)
== END ==
PROVIDERS: Family Provider Family Medicine; PCP Family Medicine; Referring Provider Family Medicine; Visit Provider Family Medicine
DX: D64.9 Anemia, unspecified (principal)
CPT/HCPCS: 36415; 83540; 85025

== ENCOUNTER → 2020-06-10 11:00 | Outpatient (CLI) | payer OTHER, SELFPAY ==
[2018-09-24 16:08] VITALS: BMI 28.6
--- NOTE | 2020-06-10 11:03 | US_ITS ---
STUDY: ULTRASOUND OF THE FEMALE PELVIS - COMPLETE REASON FOR EXAM: Female, 44 years old. BILATERAL PELVIC PAIN LMP: Unknown. TECHNIQUE: Transabdominal TECHNICAL QUALITY: Adequate. COMPARISON: April 20, 2018 FINDINGS: The uterus is not seen consistent with hysterectomy The right ovary is visualized. The right ovary measures 5.3 x 3.2 x 2.4 cm. There are 2.5 and 2.0 cm cysts. There is no visualized right adnexal mass or complex lesion. There is normal arterial and normal venous vascularity. The left ovary is visualized. The left ovary measures 3.7 x 2.1 x 1.9 cm. There is 1.9 cm cyst. There is no visualized left adnexal mass or complex lesion. There is normal arterial and normal venous vascularity. There is mild fluid in the cul-de-sac. The pre void volume of the bladder was 455 ml. US/Pelvic (Non ) IMPRESSION: Bilateral adnexal cysts. Status post hysterectomy. Mild free fluid. Electronically Signed: Kenneth Bates MD at 9:59 EDT , Service support ,
--- NOTE | 2020-06-10 11:03 | US_ITS ---
STUDY: ABDOMINAL ULTRASOUND REASON FOR EXAM: Female, 44 years old. ABD PAIN, ,HX RT RENAL CELL CA TECHNIQUE: Transabdominal ultrasound was performed with real-time and static browne scale imaging. TECHNICAL QUALITY: Adequate. COMPARISON: None. FINDINGS: Liver: The liver measures 14.1 cm. There is normal echogenicity of the liver. The bile ducts are within normal limits. There is hepatic color flow. The direction of portal flow is hepatopetal. There is no demonstrated mass lesion. Portal vein measurement: Gallbladder: Normal distended gallbladder. The gallbladder wall measures 2.4 mm. There is a negative sonographic Burciaga''s sign. There is no pericholecystic fluid. There are no gallstones. There is a 7 mm x 6 mm x 4 mm gallbladder polyp adherent to the gallbladder wall. Common Bile Duct (C.B.D.): The common bile duct measures 2.6 mm. Pancreas: Normal size of the head, body and tail of the pancreas. There is normal echogenicity of the pancreas. There is no demonstrated pancreatic mass or cyst. Spleen: Normal size of the spleen. The spleen measures 8.2 cm x 2.2 cm x 3.2 cm. Right Kidney: Normal size of the right kidney. The right kidney measures 10.7 cm x 5.1 cm x 4.4 cm. Normal renal cortex. The right cortex measures 1 cm. There is no demonstrated renal mass or cyst. There is no right hydronephrosis. Left Kidney: Normal size of the left kidney. The left kidney measures 10.9 cm x 4.7 cm x 6.4 cm. Normal renal cortex. The left cortex measures 2.0 cm. There is no demonstrated renal mass or cyst. There is no left hydronephrosis. Aorta: Unremarkable. I.V.C.: The IVC is patent. There is no ascites. US/Abdomen Complete IMPRESSION: Findings suggestive of a 7 mm x 6 mm x 4 mm gallbladder polyp. Electronically Signed: Jaydon Carranza, at 12:24 EDT , Service support ,
== END ==
LOC: US 11:02
PROVIDERS: PCP Family Medicine; Referring Provider Family Medicine; Visit Provider Family Medicine
DX: R10.2 Pelvic and perineal pain (principal); Z90.710 Acquired absence of both cervix and uterus
CPT/HCPCS: 76700; 76856; 93976

== ENCOUNTER → 2020-07-07 15:53 | Outpatient (CLI) | payer OTHER, SELFPAY ==
[2018-09-24 16:08] VITALS: BMI 28.6
--- NOTE | 2020-07-07 15:55 | BI_ITS ---
MAMMOGRAPHY - BILATERAL SCREENING REASON FOR EXAM: Female, 44 years old. Routine annual screening examination. PERTINENT HISTORY: Non-contributory. TECHNIQUE: Digital bilateral breast [place] (3D mammographic acquisition) in the CC and MLO projections. 2-D mediolateral oblique (MLO) and craniocaudad (CC) views of both breasts were obtained. CAD: Full Field Digital Mammography with Computer Added Detection was performed. COMPARISON: Comparison is made with prior examination dated 06/25/2019 and 04/20/2018. FINDINGS: Breast Composition: The breasts are extremely dense, which lowers the sensitivity of mammography. There are no dominant masses or suspicious calcifications. No other significant abnormalities are identified. There has been no significant change since the prior study. BI/SCREEN MAMM (CAD) W/[place] BILAT IMPRESSION: Stable bilateral screening mammogram. Yearly follow-up mammogram recommended. (A) ASSESSMENT CATEGORY: BIRADS Category 1: Negative. A letter regarding these results will be sent to the patient by the facility within 30 days. Approximately 10% of breast cancers are not detected by mammography. A normal mammogram should not delay biopsy of a clinically suspicious abnormality. [id number] Electronically Signed: Jaydon Carranza, at 7:06 EDT , Service support ,
== END ==
PROVIDERS: PCP Family Medicine; Referring Provider Family Medicine; Visit Provider Family Medicine
DX: Z12.31 Encounter for screening mammogram for malignant neoplasm of breast (principal)
CPT/HCPCS: 77063; 77067

== ENCOUNTER → 2020-07-24 11:47 | Outpatient (CLI) | payer OTHER, SELFPAY ==
[2018-09-24 16:08] VITALS: BMI 28.6
[2020-07-24 12:06] LABS: Color, Urine Yellow (Yellow); Glucose, Dipstick Normal (Normal); Ketone-Dipstick Negative (Negative); Leukocyte Esterase-Dipstick 25 /ul (Negative); Nitrite-Dipstick Negative (Negative); Occult Blood-Urine Negative /ul (Negative); Protein-Dipstick 15 mg/dl (Negative); Specific Gravity, Urine 1.015 (1.002-1.030); Urine Bilirubin Dipstick Negative (Negative); Urine Clarity Sl. Cloudy (Clear); Urine Urobilinogen 1 mg/dl (Normal)
[2020-07-24 12:10] LABS: Absolute Lymphocyte Count 2.09 X10^3/uL (0.83-4.51); Absolute Neutrophil Count 2.8 X10^3/uL (2.0-7.7); Basophil# 0.07 X10^3/uL; Basophil% 1.2 % (0-1); Eosinophils% 6.6 % (0-5); Hematocrit 39.6 % (37-47); Hemoglobin 13.1 g/dL (12.0-15.0); Lymphocyte # 2.09 X10^3/ul (4.0); Lymphocyte % 34.6 % (19-41); Mean Corp Hgb Conc 33.1 g/dL (32-36); Mean Corpuscular Hgb 32.4 pg (27.0-32.0); Mean Platelet Vol. 11.6 fl (6.2-12.0); Monocyte# 0.63 X10^3/uL; Monocyte% 10.4 % (0-10); NRBC Flagged by Analyzer 0 % (0-5); Neutrophil # 2.81 X10^3/uL (2.7-7.7); Neutrophil % 46.5 % (47-70); Platelet Count 252 K/mm3 (150-450); RBC Distribution Width SD 46.6 fl (35.1-43.9); Red Blood Count 4.04 M/mm3 (4.2-5.4)
[2020-07-24 12:22] LABS: ALB/GLOB Ratio 1.1 RATIO (0.9-2.4); AST(SGOT) 27 U/L (15-37); Alanine Aminotransfer ALT/SGPT 36 U/L (13-56); Albumin, Serum 3.7 g/dL (3.2-5.0); Alkaline Phosphatase 156 U/L (45-117); Anion Gap 3 (5-15); BUN 12 mg/dL (7-18); BUN/Creat Ratio 14.1 RATIO (10-20); Calcium,Total 9.3 mg/dL (8.5-10.1); Chloride 110 mmol/L (98-107); Cholesterol 157 mg/dL (200); Creatinine, Serum 0.85 mg/dL (0.55-1.02); EST Glomerular Filtration Rate 77 mL/min (>60); Est Glom Filt Rate - Afr Amer 93 mL/min (>60); Globulin 3.4 g/dL (2.2-4.2); Glucose 95 mg/dL (74-106); High Density Lipoprotein 78 mg/dL; Potassium 4.1 mmol/L (3.5-5.1); Protein, Total 7.1 g/dL (6.4-8.2); Sodium Level 143 mmol/L (136-145); Triglycerides 54 mg/dL; Very Low Density Lipoprotein 11 mg/dL (5-40)
== END ==
PROVIDERS: PCP Family Medicine; Referring Provider Family Medicine; Visit Provider Family Medicine
DX: Z00.00 Encounter for general adult medical examination without abnormal findings (principal)
CPT/HCPCS: 36415; 80053; 80061; 81002; 85025

== ENCOUNTER 2020-07-30 15:00 | Emergency (ER) | payer OTHER, SELFPAY ==
[2018-09-24 16:08] VITALS: BMI 28.6
[2020-07-30 15:01] VITALS: BP 137/86; PULSE 98; RESP 16; TEMP 36.4; O2SAT 99; BMI 20.3
--- NOTE | 2020-07-30 16:43 | ED.RN ---
pt name called from triage twice to go back to a room. pt not present in waiting room upon calling name. pt returns to ed from outside. still awaiting room.
--- NOTE | 2020-07-30 17:08 | ED.VIS.GEN ---
History of Present Illness Chief Complaint: Dental Informant: Patient Narrative: Patient is a 44-year-old previously healthy female who presents to the emergency department for dental infection. This is been going on over the past 5 days. She did see her dentist 3 days ago and was started on penicillin. She has taken almost 3 days worth so far. She feels like the swelling has slightly decreased. She still having pain. She has been taking Melbeta at home which does give her some relief but she is using it sparingly. Any systemic symptoms including any fever/chills. She is having a difficult time chewing due to the pain. She was told by her dentist to come in for IV antibiotics if her symptoms have not improved significantly. She denies any difficulty with swallowing or handling secretions. No shortness of breath. No chest pain. Past Medical History - Allergies and Home Meds Allergies/Adverse Reactions: Allergies latex Allergy (Verified 07/30/20 15:01) Rash sulfamethoxazole [From Bactrim] Allergy (Verified 07/30/20 15:01) Hives trimethoprim [From Bactrim] Allergy (Verified 07/30/20 15:01) Hives Primary Care Physician: Tito Chandler MD [Primary Care Provider] - Prior records reviewed: Yes Past Medical History: None Smoking Status: Current every day smoker Review of Systems All systems negative except as indicated General: Denies: Chills, Fever, Sweats Eyes: Denies: Visual changes - bilaterally, Diplopia ENT: Reports: - - Dental pain, facial swelling. Denies: Rhinorrhea, Sore throat Cardiovascular: Denies: Chest pain, Palpitations Respiratory: Denies: Dyspnea, Cough, Dyspnea on exertion Gastrointestinal: Denies: Abdominal pain, Nausea, Vomiting Musculoskeletal: Denies: Back pain, Extremity Pain Skin: Denies: Rash, Wounds Neurological: Denies: Headache, Weakness, Numbness Physical Exam Vital Signs/Narrative: Vital Signs Temp Pulse Resp BP Pulse Ox 07/30/20 15:01 97.5 F L 98 16 137/86 H 99 Inital Vital Signs reviewed: Yes General: Well nourished, Well developed, No Acute Distress Head: Normocephalic, Atraumatic Eyes: Perrl, EOMI ENT: Moist mucous membranes, No rhinorrhea, - - Facial swelling along the left cheek. No eye involvement. No obvious drainable fluctuating abscess. No overlying skin changes. This is very tender to touch. No changes around external ear. Neck: Supple, Nontender, No lymphadenopathy Cardiovascular: Regular rate, Regular rhythm, No murmurs Respiratory: No distress, CTA bilaterally, Chest nontender Abdomen: Soft, Nondistended Back: Nontender, Normal Inspection Extremities: Nontender, No edema Skin: Normal color, No rash Neurological: Alert, Oriented x3, Cranial nerves II-XII grossly intact, Normal Strength, Normal Sensation Psychological: Normal affect, Normal Mood Diagnostic/Tx/Re-eval - Medical Decision Making Patient presents to the emergency department for dental pain. Upon arrival to the ED vital signs within normal limits. I discussed IV versus oral antibiotics and the efficacy of both. I do not feel is necessary to give any IV antibiotics as she has been improving on the penicillin. She understands that it will take some time. Patient given a dose of Toradol. Recommend symptomatic treatment along with continued penicillin treatment at home. She needs follow-up with her dentist. Warning signs and symptoms which to return to the ED are reviewed with her. She understands and is agreeable this plan. Patient discharged home in stable condition. ED Disposition - Plan for ED Patient: Disposition: Home or Assisted Living Diagnosis: Dental infection Instructions: ED ABSCESS DENTAL Referrals: Tito Chandler MD [Primary Care Provider] - Additional Instructions: Please follow-up with your dentist in the next 2 to 3 days.
[2020-07-30] MEDS: Ketorolac 30 MG/ML Syringe IM (17:18)
== END 2020-07-30 17:34 | disposition home or self-care (01) ==
PROVIDERS: Emergency Provider Emergency Medicine; PCP Family Medicine
DX: K04.7 Periapical abscess without sinus (principal); F17.200 Nicotine dependence, unspecified, uncomplicated; Z88.1 Allergy status to other antibiotic agents; Z88.2 Allergy status to sulfonamides
CPT/HCPCS: 96372; 99282

== ENCOUNTER 2020-11-30 20:50 | Emergency (ER) | payer OTHER, SELFPAY ==
[2020-11-30 20:51] VITALS: BP 113/75; PULSE 92; RESP 18; TEMP 36.7; O2SAT 97; BMI 19.6
[2020-11-30] MEDS: 0.9% Normal Saline 1,000 ML 1000 ML IV (21:23)
[2020-11-30] MEDS: Ondansetron 4 MG/2 ML Vial IV (21:23)
--- NOTE | 2020-11-30 21:25 | ED.VIS.GEN ---
History of Present Illness Chief Complaint: Nausea/Vomiting/Diarrhea Informant: Patient Narrative: Patient is a 45-year-old female who presents to the emergency department for nausea/vomiting and diarrhea. Her initial symptoms started around 5 AM this morning. She does not know of any sick contact exposures. Nobody else in the household has similar symptoms. She denies any recent traveling or antibiotic use. She has developed some abdominal discomfort with the vomiting. She states he has had 3 episodes of throwing up but too numerous to count episodes of nonbloody, nonmelanotic diarrhea. She denies any fevers but has had chills. She denies any chest pain or shortness of breath. No cough. She has not tried taking anything for her symptoms. She states she would not have come into the emergency department if her did not make her. Past Medical History - Allergies and Home Meds Allergies/Adverse Reactions: Allergies latex Allergy (Verified 07/30/20 15:01) Rash sulfamethoxazole [From Bactrim] Allergy (Verified 07/30/20 15:01) Hives trimethoprim [From Bactrim] Allergy (Verified 07/30/20 15:01) Hives Primary Care Physician: Tito Chandler MD [Primary Care Provider] - 1-2 Days if not improving Prior records reviewed: Yes Past Medical History: - - GERD, cold sores Surgical History: - - Partial hysterectomy Smoking Status: Current every day smoker Review of Systems All systems negative except as indicated General: Reports: Chills. Denies: Fever, Sweats Eyes: Denies: Visual changes - bilaterally, Diplopia ENT: Denies: Rhinorrhea, Sore throat Cardiovascular: Denies: Chest pain, Palpitations Respiratory: Denies: Dyspnea, Cough, Dyspnea on exertion Gastrointestinal: Reports: Abdominal pain, Nausea, Vomiting, Diarrhea. Denies: Melena, Hematochezia Genitourinary: Denies: Dysuria, Hematuria, Frequency Musculoskeletal: Denies: Back pain, Extremity Pain Skin: Denies: Rash, Wounds Neurological: Denies: Headache, Weakness, Numbness Physical Exam Vital Signs/Narrative: Vital Signs Temp Pulse Resp BP Pulse Ox 11/30/20 20:51 98.1 F 92 18 113/75 97 Inital Vital Signs reviewed: Yes General: Well nourished, Well developed, No Acute Distress Head: Normocephalic, Atraumatic Eyes: Perrl, EOMI ENT: Moist mucous membranes, No rhinorrhea Neck: Supple, Nontender Cardiovascular: Regular rate, Regular rhythm, No murmurs Respiratory: No distress, CTA bilaterally, Chest nontender Abdomen: Soft, Nondistended, Normal bowel sounds, Tender - Lower quadrant midline. No pain over McBurney's point. Negative Burciaga sign. Back: Nontender, Normal Inspection. Negative for: CVA tenderness Extremities: Nontender, No edema Skin: Normal color, No rash Neurological: Alert, Oriented x3, Cranial nerves II-XII grossly intact, Normal Strength, Normal Sensation Psychological: Normal affect, Normal Mood Diagnostic/Tx/Re-eval - Medical Decision Making Patient presents emerged part for nausea/vomiting and diarrhea. Upon arrival to the emergency department she is not hypotensive or tachycardic. She is afebrile. She appears in no acute distress. Will treat symptomatically with a dose of Zofran start IV fluids. Will check basic lab work. Patient's lab work did not reveal any significant acute abnormality. CO2 is mildly low. She is feeling better after IV fluids and antiemetics. She does feel comfortable going home. Do not feel any CT imaging of the abdomen is necessary at this time as her main concern was the vomiting and diarrhea. This could be related to a gastritis. I do not feel it is acute surgical pathology given her benign abdominal exam. She is given a prescription for Zofran for home treatment. If she develops any worsening symptoms including pain or fever/chills she needs to return to the emergency department. She otherwise is follow-up with her PCP. She understands and is agreeable this plan. Discharged home in stable condition. All questions were answered. ED Disposition - Plan for ED Patient: Disposition: Home or Assisted Living Diagnosis: Nausea and vomiting, Diarrhea Instructions: ED Diarrhea, Unknown Cause, ED Vomiting (Adult) Prescriptions: Ondansetron [Zofran Odt] 4 mg PO Q8H PRN PRN #10 tab PRN Reason: Nausea Transmission Status: Received by [employer] [facility][id number] Referrals: Tito Chandler MD [Primary Care Provider] - 1-2 Days if not improving
[2020-11-30 21:34] LABS: Red Blood Cells-Urine 0 SEEN /hpf (0-5)
[2020-11-30 21:37] LABS: Absolute Lymphocyte Count 1.13 X10^3/uL (0.83-4.51); Basophil# 0.04 X10^3/uL; Basophil% 0.4 % (0-1); Color, Urine Yellow (Yellow); Eosinophil# 0.09 X10^3/uL; Eosinophils% 0.9 % (0-5); Glucose, Dipstick Normal (Normal); Hematocrit 44.3 % (37-47); Hemoglobin 15.1 g/dL (12.0-15.0); Ketone-Dipstick 150 mg/dl (Negative); Leukocyte Esterase-Dipstick 25 /ul (Negative); Lymphocyte # 1.13 X10^3/ul (4.0); Lymphocyte % 11.2 % (19-41); Mean Corp Hgb Conc 34.1 g/dL (32-36); Mean Corpuscular Hgb 31.9 pg (27.0-32.0); Mean Corpuscular Volume 93.5 fL (81-99); Mean Platelet Vol. 11.5 fl (6.2-12.0); Monocyte# 0.81 X10^3/uL; Monocyte% 8.1 % (0-10); NRBC Flagged by Analyzer 0 % (0-5); Neutrophil # 7.96 X10^3/uL (2.7-7.7); Neutrophil % 79.2 % (47-70); Nitrite-Dipstick Negative (Negative); Occult Blood-Urine 10 /ul (Negative); Platelet Count 208 K/mm3 (150-450); Protein-Dipstick 30 mg/dl (Negative); RBC Distribution Width CV 12.5 % (11.6-14.6); RBC Distribution Width SD 43.5 fl (35.1-43.9); Red Blood Count 4.74 M/mm3 (4.2-5.4); Urine Bilirubin Dipstick Negative (Negative); Urine Clarity Cloudy (Clear); Urine Urobilinogen Normal (Normal); White Blood Count 10.1 K/mm3 (4.4-11.0)
[2020-11-30 21:44] LABS: Amorphous Sediment 2+; Bacteria 2+ /hpf (None Seen); Mucous, Urine 1+ /hpf (<or=2+); Squamous Epithelial Cells - UA 10-25 SEEN /hpf (5-10); White Blood Cells 0-5 SEEN /hpf (0-5)
[2020-11-30 21:54] LABS: ALB/GLOB Ratio 1.1 RATIO (0.9-2.4); AST(SGOT) 16 U/L (15-37); Alanine Aminotransfer ALT/SGPT 28 U/L (13-56); Albumin, Serum 3.8 g/dL (3.2-5.0); Alkaline Phosphatase 141 U/L (45-117); Anion Gap 9 (5-15); BUN 12 mg/dL (7-18); BUN/Creat Ratio 16.3 RATIO (10-20); Calcium,Total 9.2 mg/dL (8.5-10.1); Chloride 109 mmol/L (98-107); Creatinine, Serum 0.74 mg/dL (0.55-1.02); EST Glomerular Filtration Rate 91 mL/min (>60); Est Glom Filt Rate - Afr Amer 110 mL/min (>60); Estimated Creatinine Clearance 80.23 ml/min; Globulin 3.5 g/dL (2.2-4.2); Glucose 100 mg/dL (74-106); Lipase 80 U/L (73-393); Potassium 3.6 mmol/L (3.5-5.1); Protein, Total 7.3 g/dL (6.4-8.2); Sodium Level 138 mmol/L (136-145)
[2020-11-30 23:16] VITALS: BP 102/74; PULSE 84; RESP 18; O2SAT 94
== END 2020-11-30 23:17 | disposition home or self-care (01) ==
PROVIDERS: Emergency Provider Emergency Medicine; PCP Family Medicine
DX: R11.2 Nausea with vomiting, unspecified (principal); R19.7 Diarrhea, unspecified; F17.200 Nicotine dependence, unspecified, uncomplicated
CPT/HCPCS: 80053; 81001; 83690; 85025; 96374; 99283; J7030; A4216; J2405

== ENCOUNTER → 2021-03-03 16:45 | Outpatient (CLI) | payer OTHER, SELFPAY ==
[2021-03-03 16:17] VITALS: BMI 19.6
[2021-03-03 18:03] LABS: Hemoglobin A1c 5.3 % (3.8-5.6)
== END ==
PROVIDERS: PCP Family Medicine; Referring Provider Obstetrics & Gynecology; Visit Provider Obstetrics & Gynecology
DX: N89.8 Other specified noninflammatory disorders of vagina (principal); Z13.1 Encounter for screening for diabetes mellitus
CPT/HCPCS: 36415; 83036; 87070; 87077; 87205

== ENCOUNTER → 2021-04-26 13:37 | Outpatient (CLI) | payer OTHER, SELFPAY ==
[2021-04-26 11:49] VITALS: BMI 19.6
== END ==
PROVIDERS: PCP Family Medicine; Referring Provider Obstetrics & Gynecology; Visit Provider Obstetrics & Gynecology
DX: B37.3 Candidiasis of vulva and vagina (principal)
CPT/HCPCS: 87070; 87205

== ENCOUNTER → 2021-06-24 | Outpatient (CLI) | payer OTHER, SELFPAY | END | disposition home or self-care (01) | LOC: LABSPEC 16:34 | PROVIDERS: PCP Family Medicine; Visit Provider Obstetrics & Gynecology | DX: R30.9 Painful micturition, unspecified (principal) | CPT/HCPCS: 87077; 87086; 87088; 87186 ==

== ENCOUNTER → 2022-10-31 | Outpatient (CLI) | payer OTHER, SELFPAY ==
[2022-10-31 18:09] LABS: Mucous, Urine 0 SEEN /hpf (<or=2+)
[2022-10-31 18:23] LABS: Glucose, Dipstick Normal (Normal); Ketone-Dipstick Negative (Negative); Leukocyte Esterase-Dipstick 500 /ul (Negative); Nitrite-Dipstick Positive (Negative); Occult Blood-Urine 150 /ul (Negative); Protein-Dipstick 30 mg/dl (Negative); Urine Clarity Sl. Cloudy (Clear); Urine Urobilinogen 4 mg/dl (Normal)
[2022-10-31 18:46] LABS: Color, Urine SEE COMMENT BELOW (Yellow); Urine Bilirubin Dipstick 3 mg/dL (Negative)
[2022-10-31 19:07] LABS: Bacteria 4+ /hpf (None Seen); Red Blood Cells-Urine 0-5 SEEN /hpf (0-5); Squamous Epithelial Cells - UA 0-5 SEEN /hpf (5-10)
[2022-10-31 19:14] LABS: White Blood Cells 10-25 SEEN /hpf (0-5)
== END | disposition home or self-care (01) ==
PROVIDERS: PCP Family Medicine; Visit Provider Physician Assistant Surgical
DX: N39.0 Urinary tract infection, site not specified (principal)
CPT/HCPCS: 81001; 87077; 87086; 87088; 87186

== ENCOUNTER 2023-06-06 08:05 | Day surgery (SDC) | payer OTHER, SELFPAY ==
[2023-06-06 08:36] VITALS: BP 112/72; PULSE 62; RESP 18; TEMP 36.4; O2SAT 100; BMI 24.9
[2023-06-06] MEDS: Lactated Ringers 1,000 ML 15 ML IV (08:54)
--- NOTE | 2023-06-06 09:15 | COLBX_PTH ---
PATIENT: MARY CORBETT LOC: EN U#:[id number] AGE/SX: 47/F ROOM: RE06/06/[address]: Dr. Gianfranco Hernandez DO : 1975 BED: DIS: 06/06/2023 SPEC #: [id number] RECD: 06/06/23 11:33 STATUS: JHONATAN KAROLINA #: [id number] HARVEY: 06/06/23 09:[address]: Gianfranco Hernandez DEPT: SURGICAL PATHOLOGY RECD BY: Josselyn Marino ENTERED: 06/06/23 13:27 SP TYPE: COLON BX NATACHA DR: Dr. Tito Chandler MD Tissues: COLON BIOPSY Procedures: Surgery Specimen Level IV HEADER OPERATION: Colonoscopy - open access (MAC), biopsy PRE-OP DIAGNOSIS: Screening TISSUE SUBMITTED: Hepatic flexure polyp biopsy MICROSCOPIC DIAGNOSIS Gastric polyp at hepatic flexure, biopsy: Fragments of tubular adenoma. AM:chiara 06/07/2023 MICROSCOPIC DESCRIPTION Slides are reviewed. GROSS DESCRIPTION Received in fixative is one container labeled with the patient's name and designated hepatic flexure polyp. The specimen consists of multiple irregular fragments of light catalan soft tissue that in aggregate measure 1.0 x 0.5 x 0.1 cm. The specimen is totally submitted in one cassette. / AM:chiara 06/06/2023 TC:5 CPT: 07346
--- NOTE | 2023-06-06 09:26 | HP.PCM_ITS ---
[facility] - General General Date of Admission: 06/06/23 Date of Service: 06/06/23 Chief Complaint: Screening colonoscopy HPI Narrative MARY CORBETT, is a 47 F who presents today for screening colonoscopy. She has a positive family history of colon cancer in a sister who was diagnosed at the age of 53. Currently now she has not had any pain. She is not having any nausea, vomiting or diarrhea. She has no change in bowel habits. She denies any lower GI bleeding. Overall she is in very good health. [facility] Medical History (Updated 05/31/23 @ 15:46 by Alesia De La Paz) Anxiety Arthritis Bladder disease Cancer Cancer of kidney Depression Former smoker GERD (gastroesophageal reflux disease) History of steroid therapy Polyarthritis Rash Recurrent cold sores Wears glasses Home Medications acyclovir 400 mg tablet 400 mg PO DAILY 04/16/18 [History Last Taken Unknown] cholecalciferol (vitamin D3) 1,250 mcg (50,000 unit) capsule 1,250 mcg PO QWEEK 04/30/23 [History Last Taken Unknown] Allergy/AdvReac Type Severity Reaction Status Date / Time famciclovir Allergy Hives Verified 04/30/23 16:16 latex Allergy Rash Verified 04/30/23 16:16 sulfamethoxazole Allergy Hives Verified 04/30/23 16:16 [From Bactrim] trimethoprim [From Bactrim] Allergy Hives Verified 04/30/23 16:16 Family History (Updated 04/30/23 @ 16:14 by Kelly Guzmán) Mother Cancer brain Grandmother Cancer Father Cancer throat Uncle Cancer Sister Colon cancer Surgical History (Updated 05/31/23 @ 15:46 by Alesia De La Paz) H/O tubal ligation History of kidney surgery Hx of appendectomy Social History Smoking Status: Former smoker alcohol intake: current details: social substance use type: does not use caffeine: Yes what type of physical activity do you participate in: none seatbelt use: always do you feel safe at home: Yes additional social history: [employer] Patient works at [employer] ROS Review of Systems ROS Unobtainable: other Constitutional Constitutional: Denies fatigue, fever(s), poor appetite, weight gain or weight loss ENT HEENT: Denies mouth lesions Cardiovascular Cardiovascular: Denies abdominal bloating, abdominal edema or abdominal pain Respiratory/Chest Respiratory/Chest: Denies change in mental status, change in phlegm color, chest congestion or chest tightness Gastrointestinal Gastrointestinal: Denies belching, bloating, change in bowel habits, change in stool character, chewing difficulty, coffee ground emesis, constipation, cramping, diarrhea, dyspepsia, dysphagia, early satiety, excessive flatus, fecal incontinence, heartburn, hematemesis, hematochezia, hemorrhoids, loose stools, melena, nausea, odynophagia, rectal bleeding, tenesmus, vomiting or weight changes Genitourinary Genitourinary: Denies abdominal discomfort, burning urination or itching Musculoskeletal Musculoskeletal: Reports as per HPI; Denies muscle weakness or myalgias Integumentary Integumentary: Denies jaundice Neurologic Neurologic: Denies lack of coordination or weakness Psychiatric Psychiatric: Denies confusion, depression, memory loss, mood swings, paranoia or suicidal ideation Endocrine Endocrinology: Denies systems reviewed and no addt'l complaints, except as documented Hematologic/Lymphatic Hematologic/Lymphatic: Denies anemia, easy bleeding, easy bruising or lymphadenopathy Allergic/Immunologic Allergic/Immunologic: Denies systems reviewed and no addt'l complaints, except as documented Vital Signs Vital Signs Vital Signs: 06/06/23 08:36 06/06/23 08:36 Temperature 97.5 F L Temperature Source Temporal Pulse Rate 62 Respiratory Rate 18 Respiratory Pattern Normal Blood Pressure 112/72 Blood Pressure Mean 85 Blood Pressure Source Monitor Blood Pressure Position Semi-Fowlers Blood Pressure Location Left Arm Pulse Ox 100 Oxygen Delivery Method Room Air Weight Weight: 149 lb 14.629 oz Body Mass Index (BMI) 24.9 Physical Exam Const alert General Appearance: cooperative Orientation / Consciousness: oriented to person HEENT hearing grossly normal bilaterally Head and Scalp: normal to inspection Face and Sinus: face symmetric Nose: external nose normal Mouth: oral and palatal mucosa normal Eyes conjunctivae normal General Eye: normal appearance of both eyes Neck full ROM General: normal visual inspection Lymph Lymphatic: no lymphadenopathy noted Chest inspection of chest normal and palpation of chest normal Chest: symmetrical chest wall rise Resp normal respiratory effort Effort and Inspection: able to speak in complete sentences Cardio regular rate GI non-distended Percussion: normal to percussion Rectal Exam: deferred Neuro Speech: speech normal Gait (Neuro): normal gait Assessment & Plan Assessment/Plan (1) Encounter for screening for malignant neoplasm of colon: PLAN: 47-year-old comes in for screening colonoscopy. She was explained alternatives, risk, benefits include not withstanding bleeding, infection, sepsis, perforation, need for emergent surgery . She will have an ASA of 2.
[2023-06-06 10:05] VITALS: BP 112/72; BP 117/84; PULSE 75; RESP 16; TEMP 36.3; O2SAT 99
--- NOTE | 2023-06-06 10:05 | OP.CCLET_ITS ---
06/06/2023 Tito Chandler Re : Colonoscopy procedure for Julia Lentz Dear Ramesh This procedure was performed on Tuesday, June 06, 2023. My impressions and recommendations are as follows: Impressions : - Diverticulosis in the sigmoid colon. - One 5 mm polyp at the hepatic flexure, removed with a cold snare. Resected and retrieved. - The examination was otherwise normal on direct and retroflexion views. Recommendations : - Discharge patient to home. - Resume previous diet. - Continue present medications. - Await pathology results. - Repeat colonoscopy in 5 years for surveillance. My findings are described in the full procedure note, which is enclosed. If I can be of further assistance, please feel free to contact me at . Sincerely, Gianfranco Hernandez, 06/06/2023 10:04:47 AM This report has been signed electronically.
--- NOTE | 2023-06-06 10:05 | OP.COLON_ITS ---
Patient Name: Julia Lentz Procedure Date: 06/06/2023 9:27 AM Date of : 1975 Age: 47 Procedure: Colonoscopy Indications: Screening for colorectal malignant neoplasm Providers: Gianfranco Hernandez DO Medicines: Monitored Anesthesia Care Patient Profile: This is a 47 year old female. Refer to note in patient chart for documentation of history and physical. Last Colonoscopy: none. The patient's first colonoscopy is today. Complications: No immediate complications. Procedure: Pre-Anesthesia Assessment: - Prior to the procedure, a History and Physical was performed, and patient medications and allergies were reviewed. The patient is competent. The risks and benefits of the procedure and the sedation options and risks were discussed with the patient. All questions were answered and informed consent was obtained. Patient identification and proposed procedure were verified by the physician in the pre-procedure area. Mental Status Examination: alert and oriented. Respiratory Examination: clear to auscultation. CV Examination: normal. Prophylactic Antibiotics: The patient does not require prophylactic antibiotics. Prior Anticoagulants: The patient has taken no previous anticoagulant or antiplatelet agents. ASA Grade Assessment: II - A patient with mild systemic disease. After reviewing the risks and benefits, the patient was deemed in satisfactory condition to undergo the procedure. The anesthesia plan was to use monitored anesthesia care (MAC). Immediately prior to administration of medications, the patient was re-assessed for adequacy to receive sedatives. The heart rate, respiratory rate, oxygen saturations, blood pressure, adequacy of pulmonary ventilation, and response to care were monitored throughout the procedure. The physical status of the patient was re-assessed after the procedure. After I obtained informed consent, the scope was passed under direct vision. Throughout the procedure, the patient's blood pressure, pulse, and oxygen saturations were monitored continuously. The pediatric colonoscope was introduced through the anus and advanced to the cecum, identified by appendiceal orifice and ileocecal valve. The colonoscopy was performed without difficulty. The patient tolerated the procedure well. The quality of the bowel preparation was good. Scope In: 9:41:09 AM Scope Withdrawal Time 0 hours 8 minutes 6 seconds Scope Out: 9:57:57 AM Total Procedure Duration Time 0 hours 16 minutes 48 seconds Findings: The perianal and digital rectal examinations were normal. A few small-mouthed diverticula were found in the sigmoid colon. A 5 mm polyp was found in the hepatic flexure. The polyp was sessile. The polyp was removed with a cold snare. Resection and retrieval were complete. Verification of patient identification for the specimen was done. Estimated blood loss was minimal. The exam was otherwise without abnormality on direct and retroflexion views. Impression: - Diverticulosis in the sigmoid colon. - One 5 mm polyp at the hepatic flexure, removed with a cold snare. Resected and retrieved. - The examination was otherwise normal on direct and retroflexion views. Recommendation: - Discharge patient to home. - Resume previous diet. - Continue present medications. - Await pathology results. - Repeat colonoscopy in 5 years for surveillance. Procedure Code(s): --- Professional --- 29371, Colonoscopy, flexible; with removal of tumor(s), polyp(s), or other lesion(s) by snare technique CPT copyright 2017 [employer]. All rights reserved. The codes documented in this report are preliminary and upon product manager e commerce review may be revised to meet current compliance requirements. Gianfranco Hernandez DO 06/06/2023 10:04:47 AM This report has been signed electronically. Number of Addenda: 0 Note Initiated On: 06/06/2023 9:27 AM
[2023-06-06 10:10] VITALS: BP 112/72; BP 119/78; PULSE 64; RESP 16; O2SAT 97
[2023-06-06 10:15] VITALS: BP 104/78; BP 112/72; PULSE 66; RESP 16; O2SAT 100
[2023-06-06 10:18] VITALS: BP 112/72; BP 113/79; PULSE 65; RESP 16; TEMP 36.8; O2SAT 99
[2023-06-06 10:38] VITALS: BP 112/72
== END 2023-06-06 11:01 | disposition home or self-care (01) ==
LOC: EN 08:10 → AC 08:10
PROVIDERS: PCP Family Medicine; Referring Provider Family Medicine; Visit Provider Internal Medicine Gastroenterology
PROC: 0DJD8ZZ Inspection of Lower Intestinal Tract, Via Natural or Artificial Opening Endoscopic (ICD-10-PCS; CPT 45378; principal; 2023-06-06 09:10)
DX: Z12.11 Encounter for screening for malignant neoplasm of colon (principal); D12.3 Benign neoplasm of transverse colon; K57.30 Diverticulosis of large intestine without perforation or abscess without bleeding; Z90.5 Acquired absence of kidney; Z85.528 Personal history of other malignant neoplasm of kidney; Z87.891 Personal history of nicotine dependence; Z80.0 Family history of malignant neoplasm of digestive organs
CPT/HCPCS: 45385; 88305; J7120; J2405

== ENCOUNTER → 2023-07-25 | Outpatient (CLI) | payer OTHER, SELFPAY ==
--- NOTE | 2023-07-25 10:05 | RAD_ITS ---
INDICATION: Inflammatory polyarthropathy EXAMINATION/TECHNIQUE: X-RAY - XR Spine Lumbar Min 4 Views COMPARISON: Lumbar spine CT 09/13/2018. FINDINGS: 5 views of the lumbar spine. BONES: Vertebroplasty cement within L2 vertebral body compression deformity. Normal anatomic alignment without evidence of acute fracture or subluxation. No concerning bony lesion or abnormal sclerosis to suggest lesion. DISCS/JOINTS: No significant degenerative change. SOFT TISSUES: Atherosclerotic vascular calcifications.. RAD/L/S Spine Min 4 Views IMPRESSION: Stable lumbar spine without obvious acute fracture. No significant degenerative change. If there is persistent clinical concern for spine fracture and this is a trauma patient, recommend dedicated lumbar spine CT. Electronically Signed: Aly Magaña MD at 2:55 EDT ,
--- NOTE | 2023-07-25 10:10 | RAD_ITS ---
STUDY: X-RAY - PELVIS REASON FOR EXAM: Female, 47 years old. Inflammatory polyarthropathy TECHNIQUE: One view of the pelvis was obtained. COMPARISON: None. FINDINGS: There is a non-specific bowel gas pattern. Normal visualized soft tissue structures. Normal bilateral iliac wings, sacroiliac joints and visualized sacrum. Normal visualized bilateral superior and inferior pubic rami. There is narrowing with sclerosis of the pubic symphysis. Normal ischial tuberosities. Normal visualized right femoral head. Normal right acetabulum. Normal right hip joint. Normal visualized left femoral head. Normal left acetabulum. Normal left hip joint. RAD/Pelvis 1 or 2 Views IMPRESSION: No definite acute or significant abnormality seen. Electronically Signed: Jorge Lange MD at 22:34 EDT ,
[2023-07-25 12:11] LABS: Erythrocyte Sedimentation Rate 32 mm/hr (0-30)
[2023-07-25 12:12] LABS: Absolute Lymphocyte Count 1.96 X10^3/uL (0.83-4.51); Absolute Neutrophil Count 2.4 X10^3/uL (2.0-7.7); Basophil% 1.8 % (0-1); Eosinophil# 0.36 X10^3/uL; Eosinophils% 6.6 % (0-5); Hematocrit 39.1 % (37-47); Hemoglobin 12.8 g/dL (12.0-15.0); Lymphocyte # 1.96 X10^3/ul (0.83-4.51); Lymphocyte % 35.8 % (19-41); Mean Corp Hgb Conc 32.7 g/dL (32-36); Mean Corpuscular Hgb 31.8 pg (27.0-32.0); Mean Corpuscular Volume 97.3 fL (81-99); Mean Platelet Vol. 11.9 fl (6.2-12.0); Monocyte# 0.63 X10^3/uL; Monocyte% 11.5 % (0-10); NRBC Flagged by Analyzer 0 % (0-5); Neutrophil # 2.42 X10^3/uL (2.7-7.7); Neutrophil % 44.3 % (47-70); Platelet Count 292 K/mm3 (150-450); RBC Distribution Width CV 12.8 % (11.6-14.6); RBC Distribution Width SD 46.5 fl (35.1-43.9); Red Blood Count 4.02 M/mm3 (4.2-5.4); White Blood Count 5.5 K/mm3 (4.4-11.0)
[2023-07-25 13:02] LABS: ALB/GLOB Ratio 0.8 RATIO (0.9-2.4); AST(SGOT) 78 U/L (15-37); Alanine Aminotransfer ALT/SGPT 97 U/L (13-56); Albumin, Serum 3.5 g/dL (3.2-5.0); Alkaline Phosphatase 355 U/L (45-117); Anion Gap 4 (5-15); BUN 12 mg/dL (7-18); BUN/Creat Ratio 16.6 RATIO (10-20); CRP 6.21 mg/L (0.0-3.0); Calcium,Total 9.3 mg/dL (8.5-10.1); Chloride 108 mmol/L (98-107); Creatinine, Serum 0.72 mg/dL (0.55-1.02); EST Glomerular Filtration Rate 91 mL/min (>60); Est Glom Filt Rate - Afr Amer 110 mL/min (>60); Globulin 4.2 g/dL (2.2-4.2); Glucose 102 mg/dL (74-106); Protein, Total 7.7 g/dL (6.4-8.2); Sodium Level 139 mmol/L (136-145)
[2023-07-25 13:26] LABS: Hepatitis B Surface Antibody Reactive; Hepatitis B Surface Antigen Non-Reactive (Nonreactive); Hepatitis C Antibody Non-Reactive (Nonreactive)
[2023-07-26 13:08] LABS: CCP IgG Antibodies 1 units (0-19)
== END | disposition home or self-care (01) ==
PROVIDERS: PCP Family Medicine; Referring Provider Internal Medicine Rheumatology; Visit Provider Internal Medicine Rheumatology
DX: M06.4 Inflammatory polyarthropathy (principal); M47.897 Other spondylosis, lumbosacral region; Q66.70 Congenital pes cavus, unspecified foot; B00.2 Herpesviral gingivostomatitis and pharyngotonsillitis
CPT/HCPCS: 36415; 72110; 72170; 80053; 85025; 85652; 86140; 86200; 86431; 86706; 86803; 87340

== ENCOUNTER 2023-08-23 06:43 | Emergency (ER) | payer OTHER, SELFPAY ==
[2023-08-23 06:44] VITALS: BP 145/103; PULSE 63; RESP 15; TEMP 36.6; O2SAT 99
--- NOTE | 2023-08-23 06:58 | EDS_ITS ---
HPI History of Present Illness Chief Complaint: Back Detail of Chief Complaint: Mid back pain Informant: patient and spouse/S.O. Onset/Context/Timing Onset: Weeks Context: - (Patient has been present for weeks.) Timing: Continuous Quality: Tingly sharp prickly Location: Para dorsal spine T5-T10 Current Severity: Severe Maximum Severity: Severe Worsened by: Movement, breathing, cough Relieved by: Nothing Associated Symptoms Associated Symptoms: Night sweats, recent diagnosis rheumatoid arthritis Narrative Narrative: Patient is a 47-year-old woman with history of rheumatoid arthritis who presents with weeks of atraumatic paradorsal's tenderness and pain that she describes as a tingly sharp prickly like pain. She states movement, breathing and any type of activity increases the pain. Nothing alleviates the pain. She was recently placed on prednisone to treat her rheumatoid arthritis. She was placed on Mobic by her doctor and has had no improvement over the past 2 weeks. Patient denies fever or chills. Patient denies weight loss. Patient denies cardiac symptoms or cardiac equivalent symptoms. Patient does have a slight cough. Her cough is nonproductive. There is no history of VTE and she has no risk factors for VTE. She denies leg pain, swelling or discoloration. She denies abdominal pain, nausea, vomiting or diarrhea. She denies intolerance to greasy or fried foods. She states she had a ultrasound in the past that revealed a fatty liver. She is scheduled for another ultrasound ultrasound prior to starting treatment for her rheumatoid arthritis. She denies dysuria, frequency, urgency or hematuria. She is status post partial hysterectomy. Has a remote history of renal/ureteral lithiasis. Prior similar symptoms: No Recent Illness/Hospitalization: No PFSH PFS Medical History Anxiety Arthritis Bladder disease Cancer Cancer of kidney Depression Former smoker GERD (gastroesophageal reflux disease) History of steroid therapy Polyarthritis Rash Recurrent cold sores Wears glasses Home Medications acyclovir 400 mg tablet 400 mg PO DAILY 04/16/18 [History Last Taken Unknown] cholecalciferol (vitamin D3) 1,250 mcg (50,000 unit) capsule 1,250 mcg PO QWEEK 04/30/23 [History Last Taken Unknown] hydrocodone-acetaminophen 5-325mg 5mg-325mg 1 tab PO Q6H PRN PRN Pain 3 days #10 TABLETS 08/23/23 [Rx Last Taken Unknown] Allergy/AdvReac Type Severity Reaction Status Date / Time famciclovir Allergy Hives Verified 08/23/23 06:49 latex Allergy Rash Verified 08/23/23 06:49 sulfamethoxazole Allergy Hives Verified 08/23/23 06:49 [From Bactrim] trimethoprim [From Bactrim] Allergy Hives Verified 08/23/23 06:49 Family History Mother Cancer brain Grandmother Cancer Father Cancer throat Uncle Cancer Sister Colon cancer Surgical History (Updated 08/23/23 @ 07:[address] Steven Sims MD) H/O tubal ligation History of kidney surgery Hx of appendectomy Social History (Updated 08/23/23 @ 07:[address] Steven Sims MD) household members: spouse Smoking Status: Former smoker alcohol intake: current details: social substance use type: does not use caffeine: Yes what type of physical activity do you participate in: none seatbelt use: always do you feel safe at home: Yes additional social history: [employer] Patient works at [employer] ROS ROS ED Constitutional Constitutional ED: Reports sweats; Denies chills, fever(s), subjective or weight loss Eyes Eyes: Denies blurry vision or change in vision ENT ENT ED: Denies ear pain, rhinorrhea or sore throat Cardiovascular Cardiovascular: Denies chest pain, orthopnea, palpitations, paroxysmal nocturnal dyspnea or racing heartbeat Respiratory/Chest Respiratory/Chest: Reports cough; Denies dyspnea, dyspnea on exertion, orthopnea, paroxysmal nocturnal dyspnea or sputum Gastrointestinal Gastrointestinal: Denies abdominal pain, constipation, diarrhea, melena, nausea or vomiting Genitourinary Genitourinary ED: Denies dysuria, hematuria or urinary frequency Musculoskeletal Musculoskeletal: Reports back pain; Denies arthralgias, myalgias or neck pain Integumentary Denies abscess or rash Neurologic Neurologic: Denies paresthesias or weakness Endocrine Endocrinology: Denies cold intolerance or heat intolerance Hematologic/Lymphatic Hematologic/Lymphatic: Reports systems reviewed and no addt'l complaints, except as documented EXAM Physical Exam Const Vital Signs: 08/23/23 06:44 Temperature 97.9 F Temperature Source Temporal Pulse Rate 63 Respiratory Rate 15 Blood Pressure 145/103 H Blood Pressure Mean 117 Pulse Ox 99 Oxygen Delivery Method Room Air Positive well nourished, well developed and obese Constitutional Narrative: As I entered the room patient was crying. General Appearance ED: well developed; Negative for cyanotic, diaphoretic, NAD or pallor Nutritional Appearance: obese HEENT Reports moist mucous membranes HEENT Narrative: Head is atraumatic and normocephalic. Ears are normal. Nares are patent. Posterior pharynx is normal. Eyes PERRL and EOMs intact bilaterally General Eye ED: Negative for pale conjunctiva or scleral icterus Neck no lymphadenopathy, supple and no JVD Chest Wall palpation of chest normal Resp normal respiratory effort and clear to auscultation bilaterally Cardio regular rate, regular rhythm, S1 normal heart sound, S2 normal heart sound and no murmurs GI normal to inspection, nondistended, normoactive bowel sounds, non-tender, non- distended and no masses; Negative for hepatosplenomegaly Palpation: soft Back/Spine no CVA tenderness Thoracic Spine / Upper Back: paraspinal muscle tenderness bilateral T5, T6, T7, T8, T9 and T10 Extremity normal to inspection Extremity Narrative: There is no asymmetry, swelling, discoloration, leg vein distention, palpable cords or tenderness along the distribution of the deep venous system. General Extremety ED: Negative for edema or tenderness General Extremity: Negative for edema Neuro oriented x3, CN's II-XII intact bilaterally and no sensory deficits noted Sensorium / Orientation: alert Motor Exam: strength 5/5 throughout Psych Mood & Affect: depressed and tearful Skin no rashes or lesions noted, no wounds and skin turgor normal General Skin Exam: Negative for jaundice or pallor MDM MDM MDM Narrative Medical decision making narrative: Even though there is a pleuritic component history and physical exam is not consistent with DVT. Furthermore patient is PERC negative. This may be exacerbation of rheumatoid arthritis. Also need to entertain possibility of compression fraction. Since patient has a cough which is unusual for her also need to consider parapneumonic process. There is no concern for biliary disease based on history and physical review of prior records indicates patient has history of renal carcinoma. In light of this 1 would need to consider possibility of malignancy. For this reason comprehensive metabolic panel was obtained to assess alkaline phosphatase, transaminases, calcium and a ESR was added. ESR may be elevated due to her rheumatoid arthritis. Since she has no urologic symptoms UA was not obtained even though she has prior history of renal/ureteral lithiasis. History & Record Review Additional record(s) reviewed:: Prior outpatient record (Patient had a hysterectomy in 2018 for fibroids. Has had recent colonoscopy for cancer screening by Dr. Hernandez June 2023), Prior ED visit and Prior labs Lab Data Attestation: I reviewed the patient's lab results. Lab results narrative: CBC is unremarkable. ESR is elevated at 67. This could be due to her rheumatoid arthritis. Transaminases are slightly elevated at 39 and 79 which could be due to fatty liver. Glucose is slightly evaded 122 with a normal CO2 and anion gap. Albumin is normal. Calcium is normal. Alkaline phosphatase is normal. Labs: Laboratory Results - last 24 hr 08/23/23 07:20 WBC 9.3 RBC 4.32 Hgb 13.7 Hct 41.2 MCV 95.4 MCH 31.7 MCHC 33.3 RDW Std Deviation 44.2 H RDW Coeff of Marge 12.6 Plt Count 423 MPV 10.9 Immature Gran % (Auto) 0.300 Neut % (Auto) 71.1 H Lymph % (Auto) 19.5 [place] % (Auto) 8.0 Eos % (Auto) 0.6 Baso % (Auto) 0.5 Absolute Neuts (auto) 6.6 Absolute Lymphs (auto) 1.80 Nucleated RBC % 0 ESR 67 H Sodium 139 Potassium 3.9 Chloride 109 H Carbon Dioxide 23.0 Anion Gap 7 BUN 14 Creatinine 0.62 Est GFR (MDRD) Af Amer 131 Est GFR (MDRD) Non-Af 108 BUN/Creatinine Ratio 22.4 H Glucose 122 H Calcium 9.3 Total Bilirubin 0.40 AST 39 H ALT 79 H Alkaline Phosphatase 314 H Total Protein 8.2 Albumin 3.6 Globulin 4.6 H Albumin/Globulin Ratio 0.8 L Radiography Chest X-Ray - ED: 2 View and Read by ED Physician (Cardiac silhouette and size normal. Perihilar regions unremarkable. Lung parenchyma is normal. Osseous structures reveal degenerative disc disease multiple levels dorsal spine. There is no obvious fracture noted.) Diagnostic Testing: Clinical Impression(s) from Imaging Studies Chest X-Ray 08/23/23 07:35 IMPRESSION: No radiographic evidence of acute cardiopulmonary disease. Electronically Signed: Gabby Viera MD at 8:12 EDT , Allergy report was read. And there is no discrepancy when compared to my interpretation. Treatment and Re-Evaluation :: Reassessed informed of her laboratory results at 0849. Patient reports no improvement. However, she is no longer crying. Additional dose of morphine was ordered. Patient was reassessed at 0959. Her pain has improved. She was discharged prescription for Vicodin. She was instructed [facility]. She was instructed to continue taking the prednisone and Mobic she was prescribed. Discharge Plan Triage Chief Complaint: Back ED Provider: Steven Sims Dx/Rx/DC Orders Clinical Impression: Rheumatoid arthritis, Bilateral thoracic back pain Instructions: ED Back Pain (Acute or Chronic), ED Rheumatoid Arthritis Prescriptions: New hydrocodone-acetaminophen [hydrocodone-acetaminophen] 5-325 mg tablet 1 tab PO Q6H PRN PRN (Reason: Pain) 3 Days Qty: 10 0RF No Action acyclovir 400 mg tablet 400 mg PO DAILY cholecalciferol (vitamin D3) 1,250 mcg (50,000 unit) capsule 1,250 mcg PO QWEEK Primary Care Provider: Tito Chandler Referrals: Tito Chandler MD [Primary Care Provider] - 3-5 Days if not improving Disposition Disposition: Home, Self Care
[2023-08-23] MEDS: Ondansetron 4 MG/2 ML Vial IV (07:20)
[2023-08-23] MEDS: Ketorolac 15 MG/ML Vial IV (07:20)
[2023-08-23] MEDS: Morphine 4 MG/ML Syringe IV ×2 (07:20→09:07)
--- NOTE | 2023-08-23 07:35 | RAD_ITS ---
INDICATION: Mid back pain, cough EXAMINATION/TECHNIQUE: X-RAY - XR Chest 2 Views COMPARISON: Lumbar spine dated July 25, 2023 FINDINGS: LINES/DEVICES: None. LUNGS: No consolidation, edema or effusion. No pneumothorax. MEDIASTINUM AND CARDIOVASCULAR STRUCTURES: Cardiac silhouette not enlarged. Central airways and mediastinal contour are unremarkable. BONES AND SOFT TISSUES: There are degenerative changes of the thoracic spine. There is evidence of prior L2 vertebral plasty. RAD/Chest PA and Lateral IMPRESSION: No radiographic evidence of acute cardiopulmonary disease. Electronically Signed: Gabby Viera MD at 8:12 EDT ,
[2023-08-23 07:37] LABS: Absolute Neutrophil Count 6.6 X10^3/uL (2.0-7.7); Basophil# 0.05 X10^3/uL; Basophil% 0.5 % (0-1); Eosinophil# 0.06 X10^3/uL; Eosinophils% 0.6 % (0-5); Hematocrit 41.2 % (37-47); Hemoglobin 13.7 g/dL (12.0-15.0); Lymphocyte % 19.5 % (19-41); Mean Corp Hgb Conc 33.3 g/dL (32-36); Mean Corpuscular Hgb 31.7 pg (27.0-32.0); Mean Corpuscular Volume 95.4 fL (81-99); Mean Platelet Vol. 10.9 fl (6.2-12.0); Monocyte# 0.74 X10^3/uL; NRBC Flagged by Analyzer 0 % (0-5); Neutrophil # 6.57 X10^3/uL (2.7-7.7); Neutrophil % 71.1 % (47-70); Platelet Count 423 K/mm3 (150-450); RBC Distribution Width CV 12.6 % (11.6-14.6); RBC Distribution Width SD 44.2 fl (35.1-43.9); Red Blood Count 4.32 M/mm3 (4.2-5.4); White Blood Count 9.3 K/mm3 (4.4-11.0)
[2023-08-23 07:47] LABS: Erythrocyte Sedimentation Rate 67 mm/hr (0-30)
[2023-08-23 07:56] LABS: ALB/GLOB Ratio 0.8 RATIO (0.9-2.4); AST(SGOT) 39 U/L (15-37); Alanine Aminotransfer ALT/SGPT 79 U/L (13-56); Albumin, Serum 3.6 g/dL (3.2-5.0); Alkaline Phosphatase 314 U/L (45-117); Anion Gap 7 (5-15); BUN 14 mg/dL (7-18); BUN/Creat Ratio 22.4 RATIO (10-20); Calcium,Total 9.3 mg/dL (8.5-10.1); Chloride 109 mmol/L (98-107); Creatinine, Serum 0.62 mg/dL (0.55-1.02); EST Glomerular Filtration Rate 108 mL/min (>60); Est Glom Filt Rate - Afr Amer 131 mL/min (>60); Globulin 4.6 g/dL (2.2-4.2); Glucose 122 mg/dL (74-106); Potassium 3.9 mmol/L (3.5-5.1); Protein, Total 8.2 g/dL (6.4-8.2); Sodium Level 139 mmol/L (136-145)
[2023-08-23 10:26] VITALS: BP 135/77; PULSE 61; RESP 15; O2SAT 97
== END 2023-08-23 10:27 | disposition home or self-care (01) ==
PROVIDERS: Emergency Provider Emergency Medicine; PCP Family Medicine; Visit Provider Emergency Medicine
DX: M45.4 Ankylosing spondylitis of thoracic region (principal); Z87.891 Personal history of nicotine dependence
CPT/HCPCS: 71046; 80053; 85025; 85652; 96374; 96375; 96376; 99283; J7030; A4216; J2405

== ENCOUNTER → 2023-08-30 | Outpatient (CLI) | payer OTHER, SELFPAY ==
--- NOTE | 2023-08-30 07:58 | US_ITS ---
STUDY: ABDOMINAL ULTRASOUND - RIGHT UPPER QUADRANT REASON FOR VISIT: Female, 47 years old ELEVATED LIVER ENZYMES TECHNIQUE: Ultrasound evaluation of the right upper quadrant was performed with real-time and static browne-scale imaging. TECHNICAL QUALITY: Adequate. COMPARISON: Comparison is made with prior sonogram dated June 10, 2020. FINDINGS: Liver: The liver measures 14.7 cm. There is increased echogenicity consistent with fatty infiltration. The bile ducts are within normal limits. There is hepatic color flow. The direction of portal flow is hepatopetal. There is no demonstrated mass lesion. Gallbladder: Normal distended gallbladder. The gallbladder wall measures 1.5 mm. There is a negative sonographic Burciaga''s sign. There is no pericholecystic fluid. There are no gallstones. There is a 3 mm x 3 mm x 2 mm gallbladder polyp. Common Bile Duct (C.B.D.): The common bile duct measures 5 mm. Pancreas: Normal size of the head, body and tail of the pancreas. There is increased echogenicity of the pancreas. There is no demonstrated pancreatic mass or cyst. Right Kidney: Normal size of the right kidney. The right kidney measures 10.4 cm x 5.1 cm x 4.5 cm. Normal renal cortex. The right cortex measures 1.2 cm. There is no demonstrated renal mass or cyst. There is no right hydronephrosis. US/Abdomen Limited IMPRESSION: Fatty infiltration of the liver. Small gallbladder polyp. Electronically Signed: Jaydon Carranza MD at 15:07 EDT ,
[2023-08-30 09:58] LABS: ALB/GLOB Ratio 0.8 RATIO (0.9-2.4); AST(SGOT) 28 U/L (15-37); Alanine Aminotransfer ALT/SGPT 47 U/L (13-56); Albumin, Serum 3.1 g/dL (3.2-5.0); Alkaline Phosphatase 199 U/L (45-117); Anion Gap 4 (5-15); BUN 15 mg/dL (7-18); BUN/Creat Ratio 21.5 RATIO (10-20); Calcium,Total 9.1 mg/dL (8.5-10.1); Chloride 108 mmol/L (98-107); EST Glomerular Filtration Rate 95 mL/min (>60); Est Glom Filt Rate - Afr Amer 115 mL/min (>60); Glucose 100 mg/dL (74-106); Protein, Total 7.1 g/dL (6.4-8.2); Sodium Level 140 mmol/L (136-145)
[2023-08-31 16:09] LABS: ANTINUCLEAR ANTIBODIES DIRECT Negative (Negative); Anti-Mitochondrial AB 176.1 Units (0.0-20.0); Anti-Smooth Muscle ABS 9 Units (0-19); Cytoplasmic Ab (C-ANCA) <1:20 titer (Neg:<1:20); Hepatitis A AB, Total Negative (Negative); Immunoglobulin A 150 mg/dL (87-352); Immunoglobulin G 820 mg/dL (586-1602); Immunoglobulin M 341 mg/dL (26-217); Perinuclear Ab (P-ANCA) <1:20 titer (Neg:<1:20)
== END | disposition home or self-care (01) ==
PROVIDERS: PCP Family Medicine; Referring Provider Internal Medicine Rheumatology; Visit Provider Internal Medicine Rheumatology
DX: M06.4 Inflammatory polyarthropathy (principal); M47.897 Other spondylosis, lumbosacral region; M77.11 Lateral epicondylitis, right elbow; B00.2 Herpesviral gingivostomatitis and pharyngotonsillitis; Q66.70 Congenital pes cavus, unspecified foot
CPT/HCPCS: 36415; 76705; 80053; 82784; 83516; 86038; 86256; 86334; 86708

== ENCOUNTER 2023-09-05 10:59 | Emergency (ER) | payer OTHER, SELFPAY ==
[2023-09-05 11:00] VITALS: BP 146/87; PULSE 83; RESP 14; TEMP 36.2; O2SAT 99; BMI 27.8
--- NOTE | 2023-09-05 11:12 | CT_ITS ---
STUDY: CT ABDOMEN AND PELVIS WITH CONTRAST REASON FOR EXAM: Female, 47 years old. Abdominal pain, constipation. RADIATION DOSAGE (If Supplied By Facility): CTDIvol = ( 13.09 ) mGy, DLP = ( 829.39 ) mGycm TECHNIQUE: Transaxial images were obtained from the dome of the diaphragm to the symphysis pubis without oral contrast. IV 100mL Isovue-300 was administered. Sagittal and coronal images were reconstructed. Individualized dose optimization techniques were used for this CT. COMPARISON: Comparison is made with prior ultrasound of the abdomen dated August 30, 2023. FINDINGS: The visualized lung bases are unremarkable. The visualized portions of the heart are within normal limits. Normal liver. There are surgical clips in the gallbladder fossa consistent with a prior cholecystectomy. Normal spleen. Normal pancreas. Normal bilateral adrenal glands. Normal right kidney. Normal left kidney. Normal visualized stomach. Normal small intestine. Findings inconclusive for colitis of the right hemicolon. There are surgical clips in the region of the appendix consistent with a prior appendectomy. There is scattered atherosclerotic calcification of the abdominal aorta, without a demonstrated aneurysm. Normal inferior vena cava. Normal retroperitoneum. Normal urinary bladder. There is absence of the uterus consistent with a prior hysterectomy. Small amount of free fluid in the pelvis. There is a 3.6 cm x 2.6 cm septated cyst in the left ovary. Normal abdominal wall. Prior vertebroplasty of the L2 vertebrae. Disc space narrowing at the L4-L5 and L5-S1 levels. CT/Abdomen/Pelvis W IV Cont ONLY IMPRESSION: Colitis of the right hemicolon. Septated cyst in the left ovary. Small amount of free fluid in the pelvis. Electronically Signed: Jaydon Carranza MD at 12:44 EDT ,
--- NOTE | 2023-09-05 11:14 | EDS_ITS ---
HPI <JOSÉ MANUEL Carnes - Last Filed: 09/05/23 13:06> History of Present Illness Chief Complaint: Constipation Narrative Narrative: 47-year-old female states she took Vicodin x4 days last month for back pain and since then has been constipated. She had 1 bowel movement on August 23 and another on September 03 after taking women's gentle laxatives and magnesium citrate. After drinking a bottle of mag citrate she vomited and since then has had poor p.o. intake but did have loose stool movement. Over the last 2 days she has had abdominal pain mainly in the epigastric region. No history of obstruction. She has had appendectomy, partial hysterectomy, and partial nephrectomy. PFSH <JOSÉ MANUEL Carnes - Last Filed: 09/05/23 13:06> [facility] Medical History Anxiety Arthritis Bladder disease Cancer Cancer of kidney Depression Former smoker GERD (gastroesophageal reflux disease) History of steroid therapy Polyarthritis Rash Recurrent cold sores Wears glasses Home Medications acyclovir 400 mg tablet 400 mg PO DAILY 04/16/18 [History Last Taken Unknown] cholecalciferol (vitamin D3) 1,250 mcg (50,000 unit) capsule 1,250 mcg PO QWEEK 04/30/23 [History Last Taken Unknown] hydrocodone-acetaminophen 5-325mg 5mg-325mg 1 tab PO Q6H PRN PRN Pain 3 days #10 TABLETS 08/23/23 [Rx Last Taken Unknown] dicyclomine 20 mg tablet 20 mg PO BID PRN abdominal pain #10 tabs 09/05/23 [Rx Last Taken Unknown] ondansetron 4 mg disintegrating tablet 4 mg PO Q8H PRN PRN Nausea #10 tabs 09/05/23 [Rx Last Taken Unknown] Allergy/AdvReac Type Severity Reaction Status Date / Time famciclovir Allergy Hives Verified 09/05/23 11:01 latex Allergy Rash Verified 09/05/23 11:01 sulfamethoxazole Allergy Hives Verified 09/05/23 11:01 [From Bactrim] trimethoprim [From Bactrim] Allergy Hives Verified 09/05/23 11:01 Family History Mother Cancer brain Grandmother Cancer Father Cancer throat Uncle Cancer Sister Colon cancer Surgical History H/O tubal ligation History of kidney surgery Hx of appendectomy Social History (Updated 08/23/23 @ 07:[address] Steven Sims MD) household members: spouse Smoking Status: Former smoker alcohol intake: current details: social substance use type: does not use caffeine: Yes what type of physical activity do you participate in: none seatbelt use: always do you feel safe at home: Yes additional social history: [employer] Patient works at [employer] ROS <JOSÉ MANUEL Carnes - Last Filed: 09/05/23 13:06> ROS ED ROS Narrative Constitutional: Negative for fever, chills, malaise. CVS: Negative for chest pain. Respiratory: Negative for shortness of breath. GI: Positive for abdominal pain, nausea, vomiting, constipation. Negative for melena, hematochezia. : Negative for dysuria. EXAM <JOSÉ MANUEL Carnes - Last Filed: 09/05/23 13:06> Physical Exam Narrative Exam Narrative: CONST: Patient sitting in no acute distress. EYES: Normal inspection.NECK: Normal inspection. RESP: No respiratory distress, CTAB. CVS: Regular rate and rhythm, no murmur, no gallop. ABD: Soft and nontender, no guarding or rebound, nondistended, no hepatosplenomegaly. Rectum: No stool in rectal vault. SKIN: Color normal, no rash, warm, dry, intact. EXTREMITIES: Normal appearance, no pedal edema. NEURO: Oriented x4. PSYCH: Normal affect. Const Vital Signs: 09/05/23 11:00 Temperature 97.1 F L Temperature Source Temporal Pulse Rate 83 Respiratory Rate 14 Blood Pressure 146/87 H Blood Pressure Mean 106 Pulse Ox 99 Oxygen Delivery Method Room Air <Dr. Ad Hutchison MD - Last Filed: 09/05/23 12:27> Physical Exam Const Vital Signs: 09/05/23 11:00 Temperature 97.1 F L Temperature Source Temporal Pulse Rate 83 Respiratory Rate 14 Blood Pressure 146/87 H Blood Pressure Mean 106 Pulse Ox 99 Oxygen Delivery Method Room Air MDM <JOSÉ MANUEL Carnes - Last Filed: 09/05/23 13:06> MDM MDM Narrative Medical decision making narrative: Patient typically typically has daily bowel movements but after a short course of opioids last month has had 2 BMs in the last 2 weeks and a few days of decreased appetite and abdominal pain. She appears well and nontoxic. Vital signs within normal limits. She has a soft, nonsurgical abdomen and rectum has no stool present. Labs and CT were ordered to rule out constipation versus obstruction versus other process such as diverticulitis. CBC is within normal limits. CMP shows chronically elevated alkaline phosphatase, otherwise normal. Lipase WNL. CT shows colitis of right hemicolon. There is no diverticulitis or obstruction and no leukocytosis I do not think this requires antibiotics. Her pain was controlled with IV morphine, Toradol, and Bentyl here. I prescribed Bentyl and Zofran for home and recommended a MiraLAX regimen. Return precautions were discussed and she was discharged in stable condition. Lab Data Attestation: I reviewed the patient's lab results. Labs: Laboratory Results - last 24 hr 09/05/23 11:20 WBC 7.9 RBC 4.08 L Hgb 13.2 Hct 38.1 MCV 93.4 MCH 32.4 H MCHC 34.6 RDW Std Deviation 42.1 RDW Coeff of Marge 12.1 Plt Count 295 MPV 10.8 Immature Gran % (Auto) 0.300 Neut % (Auto) 70.2 H Lymph % (Auto) 18.5 L [place] % (Auto) 9.0 Eos % (Auto) 1.1 Baso % (Auto) 0.9 Absolute Neuts (auto) 5.6 Absolute Lymphs (auto) 1.46 Nucleated RBC % 0 Sodium 138 Potassium 3.6 Chloride 108 H Carbon Dioxide 25.0 Anion Gap 5 BUN 12 Creatinine 0.62 Estim Creat Clear Calc 91.79 Est GFR (MDRD) Af Amer 132 Est GFR (MDRD) Non-Af 109 BUN/Creatinine Ratio 19.4 Glucose 101 Calcium 8.9 Total Bilirubin 0.50 AST 32 ALT 52 Alkaline Phosphatase 209 H Total Protein 7.2 Albumin 3.1 L Globulin 4.1 Albumin/Globulin Ratio 0.8 L Lipase 32 Radiography Diagnostic Testing: Clinical Impression(s) from Imaging Studies Abdomen/Pelvis CT 09/05/23 11:12 IMPRESSION: Colitis of the right hemicolon. Septated cyst in the left ovary. Small amount of free fluid in the pelvis. Electronically Signed: Jaydon Carranza MD at 12:44 EDT , <Dr. Ad Hutchison MD - Last Filed: 09/05/23 12:27> [facility] Lab Data Labs: Laboratory Results - last 24 hr 09/05/23 11:20 WBC 7.9 RBC 4.08 L Hgb 13.2 Hct 38.1 MCV 93.4 MCH 32.4 H MCHC 34.6 RDW Std Deviation 42.1 RDW Coeff of Marge 12.1 Plt Count 295 MPV 10.8 Immature Gran % (Auto) 0.300 Neut % (Auto) 70.2 H Lymph % (Auto) 18.5 L [place] % (Auto) 9.0 Eos % (Auto) 1.1 Baso % (Auto) 0.9 Absolute Neuts (auto) 5.6 Absolute Lymphs (auto) 1.46 Nucleated RBC % 0 Sodium 138 Potassium 3.6 Chloride 108 H Carbon Dioxide 25.0 Anion Gap 5 BUN 12 Creatinine 0.62 Estim Creat Clear Calc 91.79 Est GFR (MDRD) Af Amer 132 Est GFR (MDRD) Non-Af 109 BUN/Creatinine Ratio 19.4 Glucose 101 Calcium 8.9 Total Bilirubin 0.50 AST 32 ALT 52 Alkaline Phosphatase 209 H Total Protein 7.2 Albumin 3.1 L Globulin 4.1 Albumin/Globulin Ratio 0.8 L Lipase 32 Radiography Diagnostic Testing: Clinical Impression(s) from Imaging Studies Abdomen/Pelvis CT 09/05/23 11:12 IMPRESSION: Colitis of the right hemicolon. Septated cyst in the left ovary. Small amount of free fluid in the pelvis. Electronically Signed: Jaydon Carranza MD at 12:44 EDT , Treatment and Re-Evaluation :: I have personally performed a face to face assessment of the patient and have reviewed the RILEY Note. I performed a substantive portion of the visit including all aspects of the following. My tompkins findings include: History: Patient complains of constipation. This seems to have started after some Vicodin. But is continued. She is now getting cramping. She tried softener and some magnesium citrate. But that induce some nausea but no actual vomiting. She did have some liquid stool. No blood. She has not had fevers. She has pain in her abdomen more upper than lower but it is all over. She has already had hysterectomy, appendectomy and partial nephrectomy for kidney cancer in 2019. Never had diverticulitis. Exam: Does look mildly uncomfortable. She looks slightly dry. Abdomen is soft. There is some mild tenderness but I am not localizing it clearly to 1 area. Does not appear to be distended. Medical Decision Making: Patient is not improving with laxatives. She still having pain. She is developed nausea. We will do blood work and CT. Discharge Plan Triage Chief Complaint: Constipation ED Midlevel Provider: Barbara Galeana ED Provider: Ad Hutchison Dx/Rx/DC Orders Clinical Impression: Colitis, Constipation Instructions: Anatomy of the Digestive System, ED Constipation (Adult) Prescriptions: New dicyclomine 20 mg tablet 20 mg PO BID PRN (Reason: abdominal pain) Qty: 10 0RF ondansetron 4 mg tablet,disintegrating 4 mg PO Q8H PRN PRN (Reason: Nausea) Qty: 10 0RF No Action acyclovir 400 mg tablet 400 mg PO DAILY cholecalciferol (vitamin D3) 1,250 mcg (50,000 unit) capsule 1,250 mcg PO QWEEK hydrocodone-acetaminophen [hydrocodone-acetaminophen] 5-325 mg tablet 1 tab PO Q6H PRN PRN (Reason: Pain) 3 Days Qty: 10 0RF Primary Care Provider: Tito Chandler Referrals: Tito Chandler MD [Primary Care Provider] -
[2023-09-05] MEDS: 0.9% Normal Saline (1000mL) 1,000 ML 999 ML IV (11:20)
[2023-09-05] MEDS: Ondansetron 4 MG/2 ML Vial IV (11:21)
[2023-09-05] MEDS: Morphine 4 MG/ML Syringe IV ×2 (11:21→12:33)
[2023-09-05 11:38] LABS: Absolute Lymphocyte Count 1.46 X10^3/uL (0.83-4.51); Absolute Neutrophil Count 5.6 X10^3/uL (2.0-7.7); Basophil# 0.07 X10^3/uL; Basophil% 0.9 % (0-1); Eosinophil# 0.09 X10^3/uL; Eosinophils% 1.1 % (0-5); Hematocrit 38.1 % (37-47); Hemoglobin 13.2 g/dL (12.0-15.0); Lymphocyte # 1.46 X10^3/ul (0.83-4.51); Lymphocyte % 18.5 % (19-41); Mean Corp Hgb Conc 34.6 g/dL (32-36); Mean Corpuscular Hgb 32.4 pg (27.0-32.0); Mean Corpuscular Volume 93.4 fL (81-99); Mean Platelet Vol. 10.8 fl (6.2-12.0); Monocyte# 0.71 X10^3/uL; NRBC Flagged by Analyzer 0 % (0-5); Neutrophil # 5.55 X10^3/uL (2.7-7.7); Neutrophil % 70.2 % (47-70); Platelet Count 295 K/mm3 (150-450); RBC Distribution Width CV 12.1 % (11.6-14.6); RBC Distribution Width SD 42.1 fl (35.1-43.9); Red Blood Count 4.08 M/mm3 (4.2-5.4); White Blood Count 7.9 K/mm3 (4.4-11.0)
[2023-09-05 11:51] LABS: ALB/GLOB Ratio 0.8 RATIO (0.9-2.4); AST(SGOT) 32 U/L (15-37); Alanine Aminotransfer ALT/SGPT 52 U/L (13-56); Albumin, Serum 3.1 g/dL (3.2-5.0); Alkaline Phosphatase 209 U/L (45-117); Anion Gap 5 (5-15); BUN 12 mg/dL (7-18); BUN/Creat Ratio 19.4 RATIO (10-20); Calcium,Total 8.9 mg/dL (8.5-10.1); Chloride 108 mmol/L (98-107); Creatinine, Serum 0.62 mg/dL (0.55-1.02); EST Glomerular Filtration Rate 109 mL/min (>60); Est Glom Filt Rate - Afr Amer 132 mL/min (>60); Estimated Creatinine Clearance 91.79 ml/min; Globulin 4.1 g/dL (2.2-4.2); Glucose 101 mg/dL (74-106); Lipase 32 U/L (13-75); Potassium 3.6 mmol/L (3.5-5.1); Protein, Total 7.2 g/dL (6.4-8.2); Sodium Level 138 mmol/L (136-145)
[2023-09-05] MEDS: Dicyclomine 20 MG/2 ML Vial IM (12:42)
[2023-09-05 13:00] VITALS: BP 138/76; PULSE 64; RESP 14; TEMP 37; O2SAT 99
[2023-09-05] MEDS: Ketorolac 15 MG/ML Vial IV (13:15)
== END 2023-09-05 13:43 | disposition home or self-care (01) ==
PROVIDERS: Physician Assistant; Emergency Provider Emergency Medicine; PCP Family Medicine; Visit Provider Emergency Medicine
DX: K52.9 Noninfective gastroenteritis and colitis, unspecified (principal); K59.00 Constipation, unspecified; Z87.891 Personal history of nicotine dependence; Z90.5 Acquired absence of kidney
CPT/HCPCS: 74177; 80053; 83690; 85025; 96361; 96372; 96374; 96375; 96376; 99283; J7030; Q9967; A4216; J2405

== ENCOUNTER 2023-09-07 06:30 | Observation (INO) | payer OTHER, SELFPAY ==
[2023-09-07] VITALS (9 sets, daily range): BP systolic 110–137; BP diastolic 69–109; PULSE 70–100; RESP 15–26; TEMP 36.3–36.7; O2SAT 97–99; BMI 27.5; BMI 27.6
--- NOTE | 2023-09-07 07:04 | EX.ED.DYSGE1 ---
HPI History of Present Illness Chief Complaint: Back Informant: patient Narrative Narrative: Patient presents with with epigastric pain and some back pain. Patient states that all this started on about 23 August. It started in her right back. When I have her localize it it is actually her right lower lateral chest wall. She was seen here and evaluated. Sent home with some pain meds. Few days after that she felt constipated. She had stopped the pain meds though because of this. She was then seen again a couple days ago. By that point she had developed pain in the epigastrium area. Possibly a little bit more to the right side but more epigastric. The pain in the back was still there. But for about 4 to 6 days now most of the pain is epigastric. She does have nausea. She occasionally vomits but no blood. She did start taking MiraLAX. She has had several stools. They are softer almost a little bit watery. But no black or blood. She has never had a fever throughout this. She states she cannot get any relief from the pain meds. She states it hurts continuously. The nausea is continuous. These are both despite medications. She has never had anything like this. She has no travel surgery immobilization personal or family history of DVT or PE. She is not short of breath. Sometimes breathing makes the area hurt though. She has not had a cholecystectomy. She has had appendectomy and hysterectomy. Her primary physician ordered an ultrasound. I reviewed these outpatient tests that were done on 30 August. Showed a gallbladder polyp but no other marked abnormalities. Patient also states that she has had some mild elevation of liver function test since about February of this year. She states her physician worked her up and did extensive hepatitis panels all of which were negative. [facility] Medical History Anxiety Arthritis Bladder disease Cancer Cancer of kidney Depression Former smoker GERD (gastroesophageal reflux disease) History of steroid therapy Polyarthritis Rash Recurrent cold sores Wears glasses Home Medications acyclovir 400 mg tablet 400 mg PO DAILY 04/16/18 [History Last Taken Unknown] cholecalciferol (vitamin D3) 1,250 mcg (50,000 unit) capsule 1,250 mcg PO QWEEK 04/30/23 [History Last Taken Unknown] hydrocodone-acetaminophen 5-325mg 5mg-325mg 1 tab PO Q6H PRN PRN Pain 3 days #10 TABLETS 08/23/23 [Rx Last Taken Unknown] dicyclomine 20 mg tablet 20 mg PO BID PRN abdominal pain #10 tabs 09/05/23 [Rx Last Taken Unknown] ondansetron 4 mg disintegrating tablet 4 mg PO Q8H PRN PRN Nausea #10 tabs 09/05/23 [Rx Last Taken Unknown] Allergy/AdvReac Type Severity Reaction Status Date / Time famciclovir Allergy Hives Verified 09/05/23 11:01 latex Allergy Rash Verified 09/05/23 11:01 sulfamethoxazole Allergy Hives Verified 09/05/23 11:01 [From Bactrim] trimethoprim [From Bactrim] Allergy Hives Verified 09/05/23 11:01 Family History Mother Cancer brain Grandmother Cancer Father Cancer throat Uncle Cancer Sister Colon cancer Surgical History H/O tubal ligation History of kidney surgery Hx of appendectomy Social History household members: spouse Smoking Status: Former smoker alcohol intake: current details: social substance use type: does not use caffeine: Yes what type of physical activity do you participate in: none seatbelt use: always do you feel safe at home: Yes additional social history: [employer] Patient works at [employer] ROS ROS ED ROS Narrative A complete review of systems was performed and is negative except as documented in the history of present illness. Some specific details below. Constitutional: No recent fevers or chills at any time during the last 2 weeks of symptoms EYE: No visual complaints or pain. No change in eye color. ENT: No difficulty swallowing. No swelling. No pain. She denies GERD or ever having GERD. But the pain does seem to be a little worse when she lays down. But it stays in the same position. CV: No anterior chest pain or palpitations. It did start with pain in the right posterior lower chest wall. Her symptoms are nonexertional. Respiratory: No dyspnea. No hemoptysis. No difficulty taking breaths. Occasionally it hurts in the epigastric area with a deep breath but not in the chest. GI: Please see history of present illness. : No frequency dysuria or hematuria. Musculoskeletal: No recent trauma. No falls. Skin: No rash. Nondiaphoretic. Neuro: No focal weakness or numbness. No radicular symptoms. Endocrine: No polyuria or polydipsia. EXAM Physical Exam Narrative Exam Narrative: CONSTITUTIONAL: Patient does look uncomfortable. She is holding an empty emesis bag with 1 hand and her other hand is held over the epigastric region. HEENT: No notable trauma. Mucous membranes do look slightly dry. EYES: No conjunctival injection. No icterus. CARDIOVASCULAR: Regular rate. Rate is about 90. Regular rhythm. No notable murmur. No JVD. Tones are not muffled. Peripheral pulses are intact. RESPIRATORY: No respiratory distress. Breathing is unlabored. No wheezes. No rhonchi. No rales. No pain with a deep breath in the deep breath does not seem to aggravate her symptoms at this time. She describes the right lower chest as the area of pain but is not notably tender. There is a small lipoma in the area but its not at all inflamed. GASTROINTESTINAL: Not distended. Bowel sounds are normal. There is some epigastric tenderness and slight right upper quadrant tenderness but no left upper quadrant. Burciaga sign is negative. GENITOURINARY: No tenderness over the bladder. No CVA tenderness. The pain that still exists in her back is higher than the CVA region. This pain is also much less than the anterior pain. MUSCULOSKELETAL: Atraumatic. No peripheral edema. No cord. No tenderness along the deep venous system. No asymmetry. NEUROLOGICAL: Patient is alert and appropriate. No focal deficit noted. SKIN: No noted rashes. No diaphoresis. PSYCHIATRIC: Patient is tearful. She is very cooperative. She does look uncomfortable. Const Vital Signs: 09/07/23 06:31 09/07/23 06:37 Temperature 97.3 F L Temperature Source Temporal Pulse Rate 100 Respiratory Rate 26 H Respiratory Effort Normal Non-Labored Blood Pressure 136/109 H Blood Pressure Mean 118 Pulse Ox 99 Oxygen Delivery Method Room Air MDM MDM MDM Narrative Medical decision making narrative: Patient has now had 3 ER evaluations for this. She has had outpatient ultrasound. Her last CT findings inconclusive of colitis of the right hemicolon. She may have had some colitis due to straining from const patient. But she had no fever no white count. With her multiple visits and evaluations including outpatient and no diagnosis we will repeat blood work. I will give her meds for symptom control. I will do CT angiogram to make sure we do not see an acute vascular abnormality. I think if there has been ischemic areas on the last scan going on for days or weeks that would have been noted. But we will expand our search at this time. I also reviewed prior outpatient colonoscopy from June of this year that showed a polyp and some sigmoid diverticulosis. The procedure was done by gastroenterology, Dr. Hernandez. Patient CBC shows new minimal elevation of white count at 11.2. Hemoglobin and platelets are normal. Patient's metabolic panel shows shows marked abnormalities. Her carbon dioxide is slightly low but normal anion gap. Glucose is minimally elevated. Patient's liver function test shows mild elevation of the alkaline phosphatase but similar to the past. Patient's lactic acid is normal at 1.1. Patient's lipase is normal at 33 Patient's troponin is negative at 5 Patient's urinalysis shows My independent interpretation of the patient's CTA of the chest abdomen and pelvis show no marked abnormalities. No sign of intrathoracic illness. I do not see PE. Final reading shows no marked abnormalities and slight improvement of her right-sided colitis. I did discuss the case with Dr. Hernandez as he has done a colonoscopy on her before. He looked over some of the outpatient blood work that her primary physician had done and feels that this may be justify diagnosis of primary biliary cholangitis. She may need further work-up such as HIDA scan and further medicines. But with her now having her third visit to the ER and fourth visit to the medical system in the last less than 2 weeks not improving we will bring her in the hospital. Dr. Hernandez then looked further at some images. We find prior images it looks like she had kyphoplasty back in 2018 or early 2019. Looking at prior images this looks to be potentially a lytic lesion which makes me think this could be related to the kidney cancer. My understanding for the patient is that she had surgery in that resolved all of her symptoms. But I do not think her pain is coming from this L2 lesion. It is much higher than that and is only off to the right. But most of her pain is anterior. But with this further information, further work-up for metastatic disease may be important. Lab Data Attestation: I reviewed the patient's lab results. Labs: Laboratory Results - last 24 hr 09/07/23 09/07/23 06:45 07:25 WBC 11.2 H RBC 4.22 Hgb 13.3 Hct 38.4 MCV 91.0 MCH 31.5 MCHC 34.6 RDW Std Deviation 39.7 RDW Coeff of Marge 11.9 Plt Count 298 MPV 12.3 H Immature Gran % (Auto) 0.300 Neut % (Auto) 72.4 H Lymph % (Auto) 18.2 L [place] % (Auto) 7.4 Eos % (Auto) 1.0 Baso % (Auto) 0.7 Absolute Neuts (auto) 8.1 H Absolute Lymphs (auto) 2.04 Nucleated RBC % 0 Sodium 138 Potassium 3.7 Chloride 107 Carbon Dioxide 20.0 L Anion Gap 11 BUN 9 Creatinine 0.70 Estim Creat Clear Calc 81.30 Est GFR (MDRD) Af Amer 114 Est GFR (MDRD) Non-Af 95 BUN/Creatinine Ratio 12.9 Glucose 109 H Lactic Acid 1.1 Calcium 9.3 Total Bilirubin 0.60 AST 31 ALT 45 Alkaline Phosphatase 209 H Troponin I High Sens 5 Total Protein 7.8 Albumin 3.3 Globulin 4.5 H Albumin/Globulin Ratio 0.7 L Lipase 33 Radiography Diagnostic Testing: Clinical Impression(s) from Imaging Studies Chest/Abdomen/Pelvis CTA 09/07/23 07:11 IMPRESSION: No abnormality seen within the thoracic or abdominal aorta. Mild residual inflammatory changes in the right hemicolon. Small amount of free fluid in the pelvis. Stable left ovarian cyst. Normal contrast-enhanced CT of the chest. Normal contrast-enhanced CT of the abdomen and pelvis. Electronically Signed: Jaydon Carranza MD at 8:57 EDT , EKG Initial EKG: Comments: My independent interpretation of the patient's EKG shows normal sinus rhythm with a rate at 77. No ectopy. Mild nonspecific changes but no sign of acute ST elevation or depression. NH interval, QRS duration and QTc are normal. The EKG is similar to a prior of 08 August 2018. Discharge Plan Triage Chief Complaint: Back ED Provider: Ad Hutchison Dx/Rx/DC Orders Clinical Impression: Intractable vomiting with nausea, Colitis, Intractable abdominal pain, History of kidney cancer Prescriptions: No Action acyclovir 400 mg tablet 400 mg PO DAILY cholecalciferol (vitamin D3) 1,250 mcg (50,000 unit) capsule 1,250 mcg PO QWEEK hydrocodone-acetaminophen [hydrocodone-acetaminophen] 5-325 mg tablet 1 tab PO Q6H PRN PRN (Reason: Pain) 3 Days Qty: 10 0RF dicyclomine 20 mg tablet 20 mg PO BID PRN (Reason: abdominal pain) Qty: 10 0RF ondansetron 4 mg tablet,disintegrating 4 mg PO Q8H PRN PRN (Reason: Nausea) Qty: 10 0RF Primary Care Provider: Tito Chandler Referrals: Tito Chandler MD [Primary Care Provider] - Disposition Disposition: Acute Care Hospital [facility]
--- NOTE | 2023-09-07 07:11 | CT_ITS ---
INDICATION: Back pain that radiates to the front of the chest. EXAMINATION: CTA CHEST, ABDOMEN AND PELVIS WITH CONTRAST - TECHNIQUE: A CTA of the chest, abdomen, and pelvis is obtained with sagittal and coronal reconstructed MIP views. Three-dimensional surface rendered sequence of the thoracic and abdominal aorta was obtained. A radiation dose optimization technique was used for this scan. mL of Isovue-[id number]. Oral contrast: None. COMPARISON: Comparison is made with prior examination dated September 05, 2023. FINDINGS: CT CHEST: THORACIC AORTA: No atheromatous disease, no aneurysmal changes or dissection. ABDOMINAL AORTA: No aneurysm or dissection. Scattered atherosclerotic plaque.. The iliac arteries are unremarkable. LUNGS: The lungs are well-expanded without acute or chronic changes. No effusions or pneumothorax. MEDIASTINUM: The thyroid gland is normal. No mediastinal or hilar adenopathy. HEART: Heart is normal size. No pericardial effusion. No CAD. CT ABDOMEN AND PELVIS: LIVER: The liver enhances homogeneously. No masses identified. GALLBLADDER: The CBD is normal. The patient is status post cholecystectomy. SPLEEN: Normal. PANCREAS: No masses or inflammation. ADRENAL GLANDS: Normal. KIDNEYS AND URETERS: The kidneys both enhance appropriately. There are normal size and shape. No hydronephrosis or nephrolithiasis. No renal masses or cysts. STOMACH: Normal. SMALL BOWEL: No abnormal distention of the small bowel. MESENTERY: No mesenteric inflammation. No ascites. COLON: The inflammatory changes in the right hemicolon have improved. The colon otherwise is normal. There is a large fatty ileocecal valve. APPENDIX: Patient status post appendectomy. IVC: Normal. RETROPERITONEUM: No retroperitoneal lymphadenopathy. PELVIC STRUCTURES: Normal bladder. Small amount of free fluid is seen in the left hemipelvis. Status post hysterectomy. SOFT TISSUES ABDOMEN: The anterior abdominal wall is normal. SOFT TISSUE CHEST: The extrathoracic soft tissues are normal. BONES: Prior vertebral plasty of the L2 vertebrae. CT/CTA Chst, Abd, Pel W and/or WO IMPRESSION: No abnormality seen within the thoracic or abdominal aorta. Mild residual inflammatory changes in the right hemicolon. Small amount of free fluid in the pelvis. Stable left ovarian cyst. Normal contrast-enhanced CT of the chest. Normal contrast-enhanced CT of the abdomen and pelvis. Electronically Signed: Jaydon Carranza MD at 8:57 EDT ,
--- NOTE | 2023-09-07 07:13 | EKG12_ITS ---
Test Reason : EPIGASTRIC PAIN Blood Pressure : / mmHG Vent. Rate : 077 BPM Atrial Rate : 077 BPM P-R Int : 136 ms QRS Dur : 084 ms QT Int : 388 ms P-R-T Axes : 063 063 032 degrees QTc Int : 439 ms Normal sinus rhythm Normal ECG Confirmed by MARIA DEL ROSARIO GUILLAUME, ISH ([id number]), continuity editor CAROLE OTERO ([id number]) on 09/17/2023 7:43:47 AM Referred By: Confirmed By:GABO MIX MD
[2023-09-07] MEDS: Ondansetron 4 MG/2 ML Vial IV ×2 (07:22→14:17)
[2023-09-07] MEDS: Morphine 4 MG/ML Syringe IV ×2 (07:22→09:25)
[2023-09-07] MEDS: 0.9% Normal Saline (1000mL) 1,000 ML 1000 ML IV (07:22)
[2023-09-07 07:35] LABS: Absolute Lymphocyte Count 2.04 X10^3/uL (0.83-4.51); Absolute Neutrophil Count 8.1 X10^3/uL (2.0-7.7); Basophil# 0.08 X10^3/uL; Basophil% 0.7 % (0-1); Eosinophil# 0.11 X10^3/uL; Hematocrit 38.4 % (37-47); Hemoglobin 13.3 g/dL (12.0-15.0); Lymphocyte # 2.04 X10^3/ul (0.83-4.51); Lymphocyte % 18.2 % (19-41); Mean Corp Hgb Conc 34.6 g/dL (32-36); Mean Corpuscular Hgb 31.5 pg (27.0-32.0); Mean Platelet Vol. 12.3 fl (6.2-12.0); Monocyte# 0.83 X10^3/uL; Monocyte% 7.4 % (0-10); NRBC Flagged by Analyzer 0 % (0-5); Neutrophil # 8.11 X10^3/uL (2.7-7.7); Neutrophil % 72.4 % (47-70); Platelet Count 298 K/mm3 (150-450); RBC Distribution Width CV 11.9 % (11.6-14.6); RBC Distribution Width SD 39.7 fl (35.1-43.9); Red Blood Count 4.22 M/mm3 (4.2-5.4); White Blood Count 11.2 K/mm3 (4.4-11.0)
[2023-09-07 07:54] LABS: ALB/GLOB Ratio 0.7 RATIO (0.9-2.4); AST(SGOT) 31 U/L (15-37); Alanine Aminotransfer ALT/SGPT 45 U/L (13-56); Albumin, Serum 3.3 g/dL (3.2-5.0); Alkaline Phosphatase 209 U/L (45-117); Anion Gap 11 (5-15); BUN 9 mg/dL (7-18); BUN/Creat Ratio 12.9 RATIO (10-20); Calcium,Total 9.3 mg/dL (8.5-10.1); Chloride 107 mmol/L (98-107); EST Glomerular Filtration Rate 95 mL/min (>60); Est Glom Filt Rate - Afr Amer 114 mL/min (>60); Globulin 4.5 g/dL (2.2-4.2); Glucose 109 mg/dL (74-106); Lipase 33 U/L (13-75); Potassium 3.7 mmol/L (3.5-5.1); Protein, Total 7.8 g/dL (6.4-8.2); Sodium Level 138 mmol/L (136-145); Troponin-I HS 5 pg/mL (3.0-54.0)
[2023-09-07 08:09] LABS: Lactic Acid 1.1 mmol/L (0.4-1.9)
[2023-09-07] MEDS: Pantoprazole Sodium 80 MG in 0.9% Normal Saline (50mL Bag) 15 ML 420 MG IV BOLUS (09:29)
--- NOTE | 2023-09-07 09:42 | NM_ITS ---
CLINICAL: 47-year-old female with history of abdominal pain. RADIONUCLIDE HEPATOBILIARY SCINTIGRAPHY COMPARISON: CT of the abdomen-pelvis report of 09/05/2023 FINDINGS: Following the intravenous administration of 5.1 mCi of 99m Tc Mebrofenin, hepatobiliary images reveal: 1. Relatively prompt and homogeneous radiopharmaceutical concentration is noted by a normal sized liver. No parenchymal defects are identified. 2. Gallbladder activity is identified at 30 minutes post radiopharmaceutical administration. 3. Small intestinal tract is not visualized during 60 minutes of pre-CCK sequential imaging. Small bowel activity is identified following the administration of cholecystokinin. 4. Washout of the radiopharmaceutical by the hepatic parenchyma occurs in a normal fashion on qualitative inspection. Cholecystokinin (0.02 ug/kg) was administered intravenously over a 30-minute period. The post CCK gallbladder ejection fraction calculated at 20 minutes following Cholecystokinin administration was noted to be < 5 % (normal greater than 35%). NM/Hepatobilliary Img w/Pharm Int IMPRESSION: 1. ABNORMAL 99m Tc Mebrofenin hepatobiliary imaging examination with Cholecystokinin. A. A gallbladder ejection fraction calculated to be less than 35% following the administration of Cholecystokinin is consistent with the presence of functional hepatobiliary disease (gallbladder and/or sphincter of Oddi dyskinesia) and/or organic hepatobiliary disease (chronic acalculous cholecystitis and/or cystic duct syndrome) in patients with intermediate to high pretest likelihoods of hepatobiliary illness. (Forrest Carlin et al, Journal of Nuclear Medicine 32:1695, 1991). Electronically Signed: Rishabh Vasquez DO at 11:57 EDT ,
--- NOTE | 2023-09-07 09:43 | HP.PCM.HOS_ITS ---
HPI - General General Date of Admission: 09/07/23 Date of Service: 09/07/23 Chief Complaint: Epigastric discomfort HPI Narrative MARY CORBETT, is a 47 F who presents to the emergency department with epigastric discomfort associated with nausea and diarrhea. Patient symptoms started on 23 August 2023. Has had multiple visits to the ED. Symptoms initially started with back pain. Was prescribed Vicodin which resulted in patient being constipated. She subsequently tried stool softeners which were not helpful had to resort to MiraLAX. She was in her usual state of health prior to going to bed woke up on the morning of her presentation with significant epigastric discomfort. Presented to the emergency department as a result. Stated above she had significant nausea with epigastric discomfort and several loose bowel movement. [facility] Medical History Anxiety Arthritis Bladder disease Cancer Cancer of kidney Depression Former smoker GERD (gastroesophageal reflux disease) History of steroid therapy Polyarthritis Rash Recurrent cold sores Wears glasses Home Medications acyclovir 400 mg tablet 400 mg PO DAILY 04/16/18 [History Last Taken Unknown] cholecalciferol (vitamin D3) 1,250 mcg (50,000 unit) capsule 1,250 mcg PO QWEEK 04/30/23 [History Last Taken Unknown] hydrocodone-acetaminophen 5-325mg 5mg-325mg 1 tab PO Q6H PRN PRN Pain 3 days #10 TABLETS 08/23/23 [Rx Last Taken Unknown] dicyclomine 20 mg tablet 20 mg PO BID PRN abdominal pain #10 tabs 09/05/23 [Rx L ast Taken Unknown] ondansetron 4 mg disintegrating tablet 4 mg PO Q8H PRN PRN Nausea #10 tabs 09/05/23 [Rx Last Taken Unknown] Allergy/AdvReac Type Severity Reaction Status Date / Time famciclovir Allergy Hives Verified 09/05/23 11:01 latex Allergy Rash Verified 09/05/23 11:01 sulfamethoxazole Allergy Hives Verified 09/05/23 11:01 [From Bactrim] trimethoprim [From Bactrim] Allergy Hives Verified 09/05/23 11:01 Family History Mother Cancer brain Grandmother Cancer Father Cancer throat Uncle Cancer Sister Colon cancer Surgical History H/O tubal ligation History of kidney surgery Hx of appendectomy Social History household members: spouse Smoking Status: Former smoker alcohol intake: current details: social substance use type: does not use caffeine: Yes what type of physical activity do you participate in: none seatbelt use: always do you feel safe at home: Yes additional social history: [employer] Patient works at [employer] Narrative GENERAL: denies fever, chills, night sweats, weight loss, anorexia HEENT: denies headache, sinus congestion, or drainage, dysphagia RESPIRATORY: denies cough, sputum production, shortness of breath, dyspnea on exertion CARDIAC: denies chest pain, palpitations, orthopnea, PND GASTROINTESTINAL: Gastric discomfort, nausea, and diarrhea GENITOURINARY: denies dysuria, urgency, frequency, heamaturia EXTREMITY: denies swelling MUSCULOSKELETAL: denies current joint pain or tenderness NEUROLOGIC: denies focal numbness, weakness, tingling HEMATOLOGIC: denies easy bruising and/or hemorrhage INTEGUMENT: denies rashes PSYCHIATRIC: denies suicidal or homicidal ideation Vital Signs Vital Signs Vital Signs: 09/07/23 06:31 09/07/23 06:37 Temperature 97.3 F L Temperature Source Temporal Pulse Rate 100 Respiratory Rate 26 H Respiratory Effort Normal Non-Labored Blood Pressure 136/109 H Blood Pressure Mean 118 Pulse Ox 99 Oxygen Delivery Method Room Air Weight Weight: 70.4 kg Body Mass Index (BMI) 27.5 Physical Exam Narrative GENERAL: cooperative HEENT: Atraumatic; normocephalic EYES; Anicteric, Normal Conjunctiva NECK; supple, normal thyroid, RESPIRATORY: Diminished to auscultation CARDIOVASCULAR: Regular S1 S2, GI: soft, normoactive bowel sounds, : No Renal angle tenderness; EXTREMITIES: No edema, no clubbing, MUSCULOSKELETAL: no muscle wasting NEURO: Awake; no lateralizing signs. SKIN: No Rash PSYCH; Flat affect Results Lab / Micro Data 09/07/23 06:45 09/07/23 06:45 Labs: Laboratory Results - last 24 hr 09/07/23 06:45: WBC 11.2 H, RBC 4.22, Hgb 13.3, Hct 38.4, MCV 91.0, MCH 31.5, MCHC 34.6, RDW Std Deviation 39.7, RDW Coeff of Marge 11.9, Plt Count 298, MPV 12.3 H, Immature Gran % (Auto) 0.300, Neut % (Auto) 72.4 H, Lymph % (Auto) 18.2 L, Norton % (Auto) 7.4, Eos % (Auto) 1.0, Baso % (Auto) 0.7, Absolute Neuts (auto) 8.1 H, Absolute Lymphs (auto) 2.04, Nucleated RBC % 0, Sodium 138, Potassium 3.7, Chloride 107, Carbon Dioxide 20.0 L, Anion Gap 11, BUN 9, Creatinine 0.70, Estim Creat Clear Calc 81.30, Est GFR (MDRD) Af Amer 114, Est GFR (MDRD) Non-Af 95, BUN/Creatinine Ratio 12.9, Glucose 109 H, Calcium 9.3, Total Bilirubin 0.60, AST 31, ALT 45, Alkaline Phosphatase 209 H, Troponin I High Sens 5, Total Protein 7.8, Albumin 3.3, Globulin 4.5 H, Albumin/Globulin Ratio 0.7 L, Lipase 33 09/07/23 07:25: Lactic Acid 1.1 Radiology Impression Chest/Abdomen/Pelvis CTA 09/07/23 07:11 IMPRESSION: No abnormality seen within the thoracic or abdominal aorta. Mild residual inflammatory changes in the right hemicolon. Small amount of free fluid in the pelvis. Stable left ovarian cyst. Normal contrast-enhanced CT of the chest. Normal contrast-enhanced CT of the abdomen and pelvis. Electronically Signed: Jaydon Carranza MD at 8:57 EDT , Assessment & Plan Assessment/Plan (1) Intractable abdominal pain: PLAN: Plan Patient is a 47-year-old lady presented with epigastric discomfort with associated nausea and diarrhea 1. Epigastric discomfort ? Suspected to be secondary to gastritis Differential diagnoses include peptic ulcer disease. Patient has been admitted to regular nursing floor for symptom management. Started on Protonix. Consult placed to Dr. Hernandez with GI. Subsequent management decision including possible EGD deferred to GI 2. 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 Based on work-up as outpatient GI has been placed on consult 3. Recurrent herpes labialis ? Patient is on suppressive therapy with acyclovir 4. Previous history of tobacco dependence ? Patient did quit in November 2022 continued cessation encouraged 5. Diarrhea ? Medication induced diarrhea as a result of MiraLAX use. Suspected offending medications discontinued 6. DVT prophylaxis ? Low risk early ambulation encouraged Time spent in the patient's overall evaluation,decision-making process, review of diagnostic data, adjustment of management, discussion with other providers, nursing nursing and ancillary staff involved in patient's care documentation, 55 Minutes Charges/Coding Visit Charges Inpatient E&M: 78998 Init Hosp L2
[2023-09-07] MEDS: KCL 20MEQ in 0.45%NS 20 MEQ/1,000 ML IV.SOLN. 150 MEQ IV ×2 (14:05→22:29)
[2023-09-07] MEDS: 0.9% Saline Lock 10 ML Syringe IV ×2 (14:17→22:29)
[2023-09-07] MEDS: HYDROmorphone 0.5 MG/0.5 ML SYRINGE IV (14:17)
--- NOTE | 2023-09-07 17:10 | CON.PCM.GI_ITS ---
HPI Consult Data Date of Consult: 09/07/23 HPI Narrative Reason for Consultation: Abdominal pain with nausea vomiting HPI Narrative: MARY CORBETT, is a 47 F who t presents with with epigastric pain and some back pain. Patient states that all this started on about 23 August. It started in her right back. When I have her localize it it is actually her right lower lateral chest wall. She was seen here and evaluated. Sent home with some pain meds. Few days after that she felt constipated. She had stopped the pain meds though because of this. She was then seen again a couple days ago. By that point she had developed pain in the epigastrium area. Possibly a little bit more to the right side but more epigastric. The pain in the back was still there. But for about 4 to 6 days now most of the pain is epigastric. She does have nausea. She occasionally vomits but no blood. She did start taking MiraLAX. She has had several stools. They are softer almost a little bit watery. But no black or blood. She has never had a fever throughout this. She states she cannot get any relief from the pain meds. She states it hurts continuously. The nausea is continuous. These are both despite medications. She has never had anything like this. She has no travel surgery immobilization personal or family history of DVT or PE. She is not short of breath. Sometimes breathing makes the area hurt though. She has not had a cholecystectomy. She has had appendectomy and hysterectomy. Her primary physician ordered an ultrasound. I reviewed these outpatient tests that were done on 30 August. Showed a gallbladder polyp but no other marked abnormalities. Patient also states that she has had some mild elevation of liver function test since about February of this year. She states her physician worked her up and did extensive hepatitis panels all of which were negative. Her labs were positive for antimitochondrial antibody. [facility] Medical History (Updated 09/07/23 @ 13:36 by Lucía Barrientos) Anxiety Arthritis Bladder disease Cancer Cancer of kidney Depression Former smoker GERD (gastroesophageal reflux disease) History of steroid therapy Irregular heart beat Polyarthritis Rash Recurrent cold sores Wears glasses Home Medications acyclovir 400 mg tablet 400 mg PO DAILY 04/16/18 [History Last Taken 09/07/23] cholecalciferol (vitamin D3) 1,250 mcg (50,000 unit) capsule 1,250 mcg PO QWEEK 04/30/23 [History Last Taken 09/03/23] hydrocodone-acetaminophen 5-325mg 5mg-325mg 1 tab PO Q6H PRN PRN Pain 3 days #10 TABLETS 08/23/23 [Rx Last Taken Unknown] dicyclomine 20 mg tablet 20 mg PO BID PRN abdominal pain #10 tabs 09/05/23 [Rx Last Taken 09/07/23 00:00] ondansetron 4 mg disintegrating tablet 4 mg PO Q8H PRN PRN Nausea #10 tabs 09/05/23 [Rx Last Taken 09/07/23 00:00] Allergy/AdvReac Type Severity Reaction Status Date / Time famciclovir Allergy Hives Verified 09/05/23 11:01 latex Allergy Rash Verified 09/05/23 11:01 sulfamethoxazole Allergy Hives Verified 09/05/23 11:01 [From Bactrim] trimethoprim [From Bactrim] Allergy Hives Verified 09/05/23 11:01 Family History Mother Cancer brain Grandmother Cancer Father Cancer throat Uncle Cancer Sister Colon cancer Surgical History (Updated 09/07/23 @ 13:36 by Lucía Barrientos) H/O kyphoplasty H/O tubal ligation History of kidney surgery Hx of appendectomy Social History household members: spouse Smoking Status: Former smoker alcohol intake: current details: social substance use type: does not use caffeine: Yes what type of physical activity do you participate in: none seatbelt use: always do you feel safe at home: Yes additional social history: [employer] Patient works at [employer] Narrative GENERAL: denies fever, chills, night sweats, weight loss, anorexia HEENT: denies headache, sinus congestion, or drainage, dysphagia RESPIRATORY: denies cough, sputum production, shortness of breath, dyspnea on exertion CARDIAC: denies chest pain, palpitations, orthopnea, PND GASTROINTESTINAL: Gastric discomfort, nausea, and diarrhea GENITOURINARY: denies dysuria, urgency, frequency, heamaturia EXTREMITY: denies swelling MUSCULOSKELETAL: denies current joint pain or tenderness NEUROLOGIC: denies focal numbness, weakness, tingling HEMATOLOGIC: denies easy bruising and/or hemorrhage INTEGUMENT: denies rashes PSYCHIATRIC: denies suicidal or homicidal ideation Physical Exam Narrative GENERAL: cooperative HEENT: Atraumatic; normocephalic EYES; Anicteric, Normal Conjunctiva NECK; supple, normal thyroid, RESPIRATORY: Diminished to auscultation CARDIOVASCULAR: Regular S1 S2, GI: soft, normoactive bowel sounds, : No Renal angle tenderness; EXTREMITIES: No edema, no clubbing, MUSCULOSKELETAL: no muscle wasting NEURO: Awake; no lateralizing signs. SKIN: No Rash PSYCH; Flat affect Lab / Micro Data 09/07/23 06:45 09/07/23 06:45 Labs: Laboratory Results - last 24 hr 09/07/23 06:45: WBC 11.2 H, RBC 4.22, Hgb 13.3, Hct 38.4, MCV 91.0, MCH 31.5, MCHC 34.6, RDW Std Deviation 39.7, RDW Coeff of Marge 11.9, Plt Count 298, MPV 12.3 H, Immature Gran % (Auto) 0.300, Neut % (Auto) 72.4 H, Lymph % (Auto) 18.2 L, Butts % (Auto) 7.4, Eos % (Auto) 1.0, Baso % (Auto) 0.7, Absolute Neuts (auto) 8.1 H, Absolute Lymphs (auto) 2.04, Nucleated RBC % 0, Sodium 138, Potassium 3.7, Chloride 107, Carbon Dioxide 20.0 L, Anion Gap 11, BUN 9, Creatinine 0.70, Estim Creat Clear Calc 81.30, Est GFR (MDRD) Af Amer 114, Est GFR (MDRD) Non-Af 95, BUN/Creatinine Ratio 12.9, Glucose 109 H, Calcium 9.3, Total Bilirubin 0.60, AST 31, ALT 45, Alkaline Phosphatase 209 H, Troponin I High Sens 5, Total Pro tein 7.8, Albumin 3.3, Globulin 4.5 H, Albumin/Globulin Ratio 0.7 L, Lipase 33 09/07/23 07:25: Lactic Acid 1.1 Radiology Impression Chest/Abdomen/Pelvis CTA 09/07/23 07:11 IMPRESSION: No abnormality seen within the thoracic or abdominal aorta. Mild residual inflammatory changes in the right hemicolon. Small amount of free fluid in the pelvis. Stable left ovarian cyst. Normal contrast-enhanced CT of the chest. Normal contrast-enhanced CT of the abdomen and pelvis. Electronically Signed: Jaydon Carranza MD at 8:57 EDT , Hepatobiliary Scan Nuclear Medicine 09/07/23 09:42 IMPRESSION: 1. ABNORMAL 99m Tc Mebrofenin hepatobiliary imaging examination with Cholecystokinin. A. A gallbladder ejection fraction calculated to be less than 35% following the administration of Cholecystokinin is consistent with the presence of functional hepatobiliary disease (gallbladder and/or sphincter of Oddi dyskinesia) and/or organic hepatobiliary disease (chronic acalculous cholecystitis and/or cystic duct syndrome) in patients with intermediate to high pretest likelihoods of hepatobiliary illness. (Forrest Carlin et al, Journal of Nuclear Medicine 32:1695, 1990). Electronically Signed: Rishabh Vasquez DO at 11:57 EDT , Assessment & Plan Assessment/Plan (1) Intractable abdominal pain: PLAN: Plan Patient is a 47-year-old lady presented with epigastric discomfort with asso ciated nausea and diarrhea her CT shows improving colitis likely secondary to mild ischemic colitis from constipation from pain medicine. However she still does have a lot of nausea and abdominal pain. Differential diagnosis does include gastritis and peptic ulcer disease. She should undergo an upper endoscopy to evaluate upper GI tract. She was explained alternatives, risk, benefits include not withstanding bleeding, infection, sepsis, perforation, need for emergent or . She will have an ASA of 2. Charges/Coding Visit Charges Inpatient E&M: 42005 Init Hosp L3
[2023-09-07] MEDS: Lactated Ringers 1,000 ML 15 ML IV (17:32)
--- NOTE | 2023-09-07 18:31 | OP.EGD_ITS ---
Patient Name: Julia Lentz Procedure Date: 09/07/2023 6:10 PM Date of : 1975 Age: 47 Procedure: Upper GI endoscopy Indications: Abdominal pain in the right upper quadrant Providers: Gianfranco Hernandez DO Medicines: Monitored Anesthesia Care Patient Profile: This is a 47 year old female. Refer to note in patient chart for documentation of history and physical. Patient has symptoms of acute right upper quadrant abdominal pain. Complications: No immediate complications. Procedure: Pre-Anesthesia Assessment: - Prior to the procedure, a History and Physical was performed, and patient medications and allergies were reviewed. The patient is competent. The risks and benefits of the procedure and the sedation options and risks were discussed with the patient. All questions were answered and informed consent was obtained. Patient identification and proposed procedure were verified by the physician in the pre-procedure area. Mental Status Examination: alert and oriented. Airway Examination: normal oropharyngeal airway and neck mobility. Respiratory Examination: clear to auscultation. CV Examination: normal. Prophylactic Antibiotics: The patient does not require prophylactic antibiotics. Prior Anticoagulants: The patient has taken no previous anticoagulant or antiplatelet agents. ASA Grade Assessment: II - A patient with mild systemic disease. After reviewing the risks and benefits, the patient was deemed in satisfactory condition to undergo the procedure. The anesthesia plan was to use monitored anesthesia care (MAC). Immediately prior to administration of medications, the patient was re-assessed for adequacy to receive sedatives. The heart rate, respiratory rate, oxygen saturations, blood pressure, adequacy of pulmonary ventilation, and response to care were monitored throughout the procedure. The physical status of the patient was re-assessed after the procedure. After obtaining informed consent, the endoscope was passed under direct vision. Throughout the procedure, the patient's blood pressure, pulse, and oxygen saturations were monitored continuously. The gastroscope was introduced through the mouth, and advanced to the second part of duodenum. The upper GI endoscopy was accomplished without difficulty. The patient tolerated the procedure well. Scope In: 6:21:20 PM Scope Out: 6:26:51 PM Total Procedure Duration Time 0 hours 5 minutes 31 seconds Findings: LA Grade B (one or more mucosal breaks greater than 5 mm, not extending between the tops of two mucosal folds) esophagitis with no bleeding was found 34 to 37 cm from the incisors. Patchy moderate inflammation characterized by congestion (edema), erosions and erythema was found in the gastric body. One oozing cratered duodenal ulcer with pigmented material was found in the first portion of the duodenum. The lesion was 20 mm in largest dimension. Area was successfully injected with 5 mL of a 0.1 mg/mL solution of epinephrine for hemostasis. Biopsies were taken with a cold forceps for histology. Verification of patient identification for the specimen was done. Estimated blood loss was minimal. Coagulation for hemostasis using heater probe was successful. Estimated blood loss was minimal. Impression: - LA Grade B erosive esophagitis. - Acute gastritis. - Oozing duodenal ulcer with pigmented material. Injected. Biopsied. Treated with a heater probe. Recommendation: - Return patient to [facility] care. - Use sucralfate tablets 1 gram PO QID for 1 month. - Use Protonix (pantoprazole) 40 mg PO BID for 12 weeks. - Continue present medications. Procedure Code(s): --- Professional --- 16639, 59, Esophagogastroduodenoscopy, flexible, transoral; with control of bleeding, any method 01663, 51, Esophagogastroduodenoscopy, flexible, transoral; with biopsy, single or multiple CPT copyright 2021 [employer]. All rights reserved. The codes documented in this report are preliminary and upon food cart attendant review may be revised to meet current compliance requirements. Gianfranco Hernandez DO 09/07/2023 6:30:56 PM This report has been signed electronically. Number of Addenda: 0 Note Initiated On: 09/07/2023 6:10 PM
--- NOTE | 2023-09-07 18:31 | OP.CCLET_ITS ---
09/07/2023 Tito Chandler Re : Upper GI endoscopy procedure for Julia Lentz Dear Ramesh This procedure was performed on Thursday, September 07, 2023. My impressions and recommendations are as follows: Impressions : - LA Grade B erosive esophagitis. - Acute gastritis. - Oozing duodenal ulcer with pigmented material. Injected. Biopsied. Treated with a heater probe. Recommendations : - Return patient to [facility] care. - Use sucralfate tablets 1 gram PO QID for 1 month. - Use Protonix (pantoprazole) 40 mg PO BID for 12 weeks. - Continue present medications. My findings are described in the full procedure note, which is enclosed. If I can be of further assistance, please feel free to contact me at . Sincerely, Gianfranco Friend, 09/07/2023 6:30:56 PM This report has been signed electronically.
[2023-09-07] MEDS: Pantoprazole Sodium 40 MG Tablet PO (22:30)
[2023-09-07] MEDS: Acetaminophen 325 MG Tablet 650 MG PO (22:37)
[2023-09-08] MEDS: KCL 20MEQ in 0.45%NS 20 MEQ/1,000 ML IV.SOLN. 150 MEQ IV (05:06)
[2023-09-08 06:10] VITALS: BP 113/79; PULSE 67; RESP 18; TEMP 36.4; O2SAT 98
[2023-09-08] MEDS: Sucralfate 1 GM Tablet PO ×2 (06:13→12:47)
--- NOTE | 2023-09-08 07:02 | PN.HOSP_ITS ---
Reason for Visit Reason for Visit: Diagnoses Unspecified abdominal pain (09/07/23) Subjective Subjective Patient HIDA scan did show ABNORMAL 99m Tc Mebrofenin hepatobiliary imaging examination with Cholecystokinin. Consult subsequently placed general surgery Case discussed with Dr. Christianson. No plans for surgical intervention at this point. Patient was also seen in consultation by GI and plans for patient to undergo endoscopic evaluation to evaluate the upper GI Objective Data Objective Data Vital Signs: Vital Signs Temp Pulse Resp BP Pulse Ox O2 Del Method 97.5 F L 67 18 113/79 98 Room Air 09/08/23 06:10 09/08/23 06:10 09/08/23 06:10 09/08/23 06:10 09/08/23 06:10 09/08/23 06:10 Oxygen Delivery Method Room Air Weight: 70.76 kg Body Mass Index (BMI) 27.6 Intake & Output: Intake and Output for Last 24 Hours 09/06/23 09/07/23 09/08/23 23:59 23:59 23:59 Intake Total 1989.5 / 1988.5 1092.5 / 1092.5 Output Total 100 / 100 Balance 1889.5 / 1889.5 1092.5 / 1092.5 Lab / Micro Data 09/08/23 06:52 09/08/23 06:52 Labs: Laboratory Results - last 24 hr 09/07/23 06:45: WBC 11.2 H, RBC 4.22, Hgb 13.3, Hct 38.4, MCV 91.0, MCH 31.5, MCHC 34.6, RDW Std Deviation 39.7, RDW Coeff of Marge 11.9, Plt Count 298, MPV 12.3 H, Immature Gran % (Auto) 0.300, Neut % (Auto) 72.4 H, Lymph % (Auto) 18.2 L, [place] % (Auto) 7.4, Eos % (Auto) 1.0, Baso % (Auto) 0.7, Absolute Neuts (auto) 8.1 H, Absolute Lymphs (auto) 2.04, Nucleated RBC % 0, Sodium 138, Potassium 3.7, Chloride 107, Carbon Dioxide 20.0 L, Anion Gap 11, BUN 9, Creatinine 0.70, Estim Creat Clear Calc 81.30, Est GFR (MDRD) Af Amer 114, Est GFR (MDRD) Non-Af 95, BUN/Creatinine Ratio 12.9, Glucose 109 H, Calcium 9.3, Total Bilirubin 0.60, AST 31, ALT 45, Alkaline Phosphatase 209 H, Troponin I High Sens 5, Total Protein 7.8, Albumin 3.3, Globulin 4.5 H, Albumin/Globulin Ratio 0.7 L, Lipase 33 09/07/23 07:25: Lactic Acid 1.1 Radiography Diagnostic Testing: Radiology Impression Chest/Abdomen/Pelvis CTA 09/07/23 07:11 IMPRESSION: No abnormality seen within the thoracic or abdominal aorta. Mild residual inflammatory changes in the right hemicolon. Small amount of free fluid in the pelvis. Stable left ovarian cyst. Normal contrast-enhanced CT of the chest. Normal contrast-enhanced CT of the abdomen and pelvis. Electronically Signed: Jaydon Carranza MD at 8:57 EDT , Hepatobiliary Scan Nuclear Medicine 09/07/23 09:42 IMPRESSION: 1. ABNORMAL 99m Tc Mebrofenin hepatobiliary imaging examination with Cholecystokinin. A. A gallbladder ejection fraction calculated to be less than 35% following the administration of Cholecystokinin is consistent with the presence of functional hepatobiliary disease (gallbladder and/or sphincter of Oddi dyskinesia) and/or organic hepatobiliary disease (chronic acalculous cholecystitis and/or cystic duct syndrome) in patients with intermediate to high pretest likelihoods of hepatobiliary illness. (Forrest Carlin et al, Journal of Nuclear Medicine 32:1695, 1990). Electronically Signed: Rishabh Vasquez DO at 11:57 EDT , Physical Exam Narrative GENERAL: cooperative HEENT: Atraumatic; normocephalic EYES; Anicteric, Normal Conjunctiva NECK; supple, normal thyroid, RESPIRATORY: Diminished to auscultation CARDIOVASCULAR: Regular S1 S2, GI: soft, normoactive bowel sounds, : No Renal angle tenderness; EXTREMITIES: No edema, no clubbing, MUSCULOSKELETAL: no muscle wasting NEURO: Awake; no lateralizing signs. SKIN: No Rash PSYCH; Flat affect Assessment & Plan Assessment/Plan (1) Intractable abdominal pain: PLAN: Plan Patient is a 47-year-old lady presented with epigastric discomfort with associated nausea and diarrhea 1. Epigastric discomfort ? Suspected to be secondary to gastritis ;Differential diagnoses include peptic ulcer disease. Patient has been admitted to regular nursing floor for symptom management. Started on Protonix. Consult placed to Dr. Hernandez with GI. Subsequent management decision including possible EGD deferred to GI -09/18/2023; Patient HIDA scan did show ABNORMAL 99m Tc Mebrofenin hepatobiliary imaging examination with Cholecystokinin. Consult subsequently placed general s urgery Case discussed with Dr. Christianson. No plans for surgical intervention at this point. Patient was also seen in consultation by GI and plans for patient to undergo endoscopic evaluation to evaluate the upper GI 2. 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 Based on work-up as outpatient GI has been placed on consult 3. Recurrent herpes labialis ? Patient is on suppressive therapy with acyclovir 4. Previous history of tobacco dependence ? Patient did quit in November 2022 continued cessation encouraged 5. Diarrhea ? Medication induced diarrhea as a result of MiraLAX use. Suspected offending medications discontinued 6. DVT prophylaxis ? Low risk early ambulation encouraged Time spent in the patient's overall evaluation,decision-making process, review of diagnostic data, adjustment of management, discussion with other providers, nursing nursing and ancillary staff involved in patient's care documentation, 40 Minutes Charges/Coding Visit Charges Inpatient E&M: 73739 Subs Hosp L2
[2023-09-08 08:11] LABS: Absolute Lymphocyte Count 2.15 X10^3/uL (0.83-4.51); Absolute Neutrophil Count 4.2 X10^3/uL (2.0-7.7); Basophil# 0.06 X10^3/uL; Basophil% 0.8 % (0-1); Eosinophil# 0.15 X10^3/uL; Eosinophils% 2.1 % (0-5); Hematocrit 38.2 % (37-47); Hemoglobin 12.7 g/dL (12.0-15.0); Lymphocyte # 2.15 X10^3/ul (0.83-4.51); Lymphocyte % 29.5 % (19-41); Mean Corp Hgb Conc 33.2 g/dL (32-36); Mean Corpuscular Hgb 31.7 pg (27.0-32.0); Mean Corpuscular Volume 95.3 fL (81-99); Mean Platelet Vol. 12.2 fl (6.2-12.0); Monocyte# 0.74 X10^3/uL; Monocyte% 10.2 % (0-10); NRBC Flagged by Analyzer 0 % (0-5); Neutrophil # 4.18 X10^3/uL (2.7-7.7); Neutrophil % 57.3 % (47-70); Platelet Count 258 K/mm3 (150-450); RBC Distribution Width SD 42.1 fl (35.1-43.9); Red Blood Count 4.01 M/mm3 (4.2-5.4); White Blood Count 7.3 K/mm3 (4.4-11.0)
[2023-09-08] MEDS: Pantoprazole Sodium 40 MG Tablet PO (08:39)
[2023-09-08] MEDS: oxyCODONE 5 MG Tablet PO ×2 (08:39→16:03)
[2023-09-08] MEDS: Acyclovir 200 MG Capsule 400 MG PO (08:42)
[2023-09-08 08:46] VITALS: BP 132/83; PULSE 69; RESP 16; TEMP 36.6; O2SAT 99
--- NOTE | 2023-09-08 08:58 | EX.PCM.CON.S ---
Assessment & Plan Assessment/Plan (1) Intractable abdominal pain: PLAN: The patient has pain in the epigastric region. She had an ultrasound that showed a polyp in the gallbladder. She had a HIDA scan yesterday that showed normal filling but a decreased ejection fraction but the other abnormal part about the exam was that there was no entry of contrast into the small bowel until CCK was administered. I discussed with Dr. Hernandez who thinks she may have PBS. At this time I do not believe the patient has acute cholecystitis as there is good filling of the gallbladder. If she does have biliary dyskinesia is not explaining her epigastric pain radiating to the back. It is also constant and not intermittent like biliary dyskinesia pain would normally be. At this time I do not believe she needs laparoscopic cholecystectomy. Aly Christianson MD Pager: [facility] [address] [place] [address], [address] [place] [address] Office: HPI Consult Data Date of Consult: 09/08/23 HPI Narrative HPI Narrative: MARY CORBETT, is a 47 F who is admitted with abdominal pain. She reports her pain is epigastric and radiates to the back. She does not have right upper quadrant pain. She had EGD yesterday which showed gastritis with small ulcer. I was consulted due to abnormal HIDA exam. [facility] Medical History (Updated 09/07/23 @ 13:36 by Lucía Barrientos) Anxiety Arthritis Bladder disease Cancer Cancer of kidney Depression Former smoker GERD (gastroesophageal reflux disease) History of steroid therapy Irregular heart beat Polyarthritis Rash Recurrent cold sores Wears glasses Home Medications acyclovir 400 mg tablet 400 mg PO DAILY 04/16/18 [History Last Taken 09/07/23] cholecalciferol (vitamin D3) 1,250 mcg (50,000 unit) capsule 1,250 mcg PO QWEEK 04/30/23 [History Last Taken 09/03/23] hydrocodone-acetaminophen 5-325mg 5mg-325mg 1 tab PO Q6H PRN PRN Pain 3 days #10 TABLETS 08/23/23 [Rx Last Taken Unknown] dicyclomine 20 mg tablet 20 mg PO BID PRN abdominal pain #10 tabs 09/05/23 [Rx Last Taken 09/07/23 00:00] ondansetron 4 mg disintegrating tablet 4 mg PO Q8H PRN PRN Nausea #10 tabs 09/05/23 [Rx Last Taken 09/07/23 00:00] Allergy/AdvReac Type Severity Reaction Status Date / Time famciclovir Allergy Hives Verified 09/05/23 11:01 latex Allergy Rash Verified 09/05/23 11:01 sulfamethoxazole Allergy Hives Verified 09/05/23 11:01 [From Bactrim] trimethoprim [From Bactrim] Allergy Hives Verified 09/05/23 11:01 Family History Mother Cancer brain Grandmother Cancer Father Cancer throat Uncle Cancer Sister Colon cancer Surgical History (Updated 09/07/23 @ 13:36 by Lucía Barrientos) H/O kyphoplasty H/O tubal ligation History of kidney surgery Hx of appendectomy Social History household members: spouse Smoking Status: Former smoker alcohol intake: current details: social substance use type: does not use caffeine: Yes what type of physical activity do you participate in: none seatbelt use: always do you feel safe at home: Yes additional social history: [employer] Patient works at [employer] Constitutional Constitutional: Reports anorexia; Denies chills or fatigue Eyes Eyes: Denies blurry vision ENT HEENT: Denies abnormal hearing Cardiovascular Cardiovascular: Denies chest pain Respiratory/Chest Respiratory/Chest: Denies cough or dyspnea Gastrointestinal Gastrointestinal: Reports abdominal pain, nausea and vomiting; Denies constipation or diarrhea Genitourinary Genitourinary: Denies change in urinary stream Musculoskeletal Musculoskeletal: Denies abnormal gait Integumentary Integumentary: Denies jaundice Neurologic Neurologic: Denies abnormal gait Psychiatric Psychiatric: Denies anxiety Endocrine Endocrinology: Denies flushing Physical Exam Const alert and oriented x3 Eyes PERRL Resp normal respiratory effort GI soft to palpation and non-tender Lab / Micro Data 09/08/23 06:52 09/07/23 06:45 Labs: Laboratory Results - last 24 hr 09/08/23 06:52: WBC 7.3, RBC 4.01 L, Hgb 12.7, Hct 38.2, MCV 95.3, MCH 31.7, MCHC 33.2, RDW Std Deviation 42.1, RDW Coeff of Marge 12.0, Plt Count 258, MPV 12.2 H, Immature Gran % (Auto) 0.100, Neut % (Auto) 57.3, Lymph % (Auto) 29.5, [place] % (Auto) 10.2 H, Eos % (Auto) 2.1, Baso % (Auto) 0.8, Absolute Neuts (auto) 4.2, Absolute Lymphs (auto) 2.15, Nucleated RBC % 0 Radiology Impression Chest/Abdomen/Pelvis CTA 09/07/23 07:11 IMPRESSION: No abnormality seen within the thoracic or abdominal aorta. Mild residual inflammatory changes in the right hemicolon. Small amount of free fluid in the pelvis. Stable left ovarian cyst. Normal contrast-enhanced CT of the chest. Normal contrast-enhanced CT of the abdomen and pelvis. Electronically Signed: Jaydon Carranza MD at 8:57 EDT , Hepatobiliary Scan Nuclear Medicine 09/07/23 09:42 IMPRESSION: 1. ABNORMAL 99m Tc Mebrofenin hepatobiliary imaging examination with Cholecystokinin. A. A gallbladder ejection fraction calculated to be less than 35% following the administration of Cholecystokinin is consistent with the presence of functional hepatobiliary disease (gallbladder and/or sphincter of Oddi dyskinesia) and/or organic hepatobiliary disease (chronic acalculous cholecystitis and/or cystic duct syndrome) in patients with intermediate to high pretest likelihoods of hepatobiliary illness. (Forrest Carlin et al, Journal of Nuclear Medicine 32:1695, 1990). Electronically Signed: Rishabh Vasquez DO at 11:57 EDT ,
[2023-09-08 09:02] LABS: Anion Gap 8 (5-15); BUN 9 mg/dL (7-18); BUN/Creat Ratio 15.3 RATIO (10-20); Calcium,Total 8.9 mg/dL (8.5-10.1); Chloride 107 mmol/L (98-107); Creatinine, Serum 0.59 mg/dL (0.55-1.02); EST Glomerular Filtration Rate 115 mL/min (>60); Est Glom Filt Rate - Afr Amer 140 mL/min (>60); Estimated Creatinine Clearance 96.46 ml/min; Glucose 91 mg/dL (74-106); Magnesium 1.9 mg/dL (1.6-2.6); Phosphorus 3.2 mg/dL (2.5-4.9); Potassium 3.9 mmol/L (3.5-5.1); Sodium Level 139 mmol/L (136-145)
[2023-09-08 09:43] LABS: AST(SGOT) 24 U/L (15-37); Alanine Aminotransfer ALT/SGPT 34 U/L (13-56); Albumin, Serum 2.8 g/dL (3.2-5.0); Alkaline Phosphatase 165 U/L (45-117); Bilirubin, Direct 0.14 mg/dL (0.00-0.30); Globulin 3.7 g/dL (2.2-4.2); Protein, Total 6.5 g/dL (6.4-8.2)
--- NOTE | 2023-09-08 14:31 | DS.PCM_ITS ---
Providers Date of Admission: 09/07/23 Primary Care Physician: Dr. Tito Chandler MD Consultations 09/07/23 13:18 Consult: Gastroenterology Routine Consulting Provider: V[facility] Reason for Consult: abdominal pain EMERGENT Consult: No MD Notified: Yes Date Notified: 09/07/23 Time Notified: 09:42 Method of Notification: ED Physician Initiated Reason For Visit: NAUSEA, ADBOMINAL PAIN Diagnosis Discharge Diagnosis (1) Intractable abdominal pain: Status: Acute Code(s): R10.9 - Unspecified abdominal pain Plan Patient is a 47-year-old lady presented with epigastric discomfort with associated nausea and diarrhea 1. Epigastric discomfort ? Suspected to be secondary to gastritis ;Differential diagnoses include peptic ulcer disease. Patient has been admitted to regular nursing floor for symptom management. Started on Protonix. Consult placed to Dr. Hernandez with GI. Subsequent management decision including possible EGD deferred to GI -09/18/2023; Patient HIDA scan did show ABNORMAL 99m Tc Mebrofenin hepatobiliary imaging examination with Cholecystokinin. Consult subsequently placed general surgery Case discussed with Dr. Christianson. No plans for surgical intervention at this point. Patient was also seen in consultation by GI and plans for troy ent to undergo endoscopic evaluation to evaluate the upper GI -EGD performed the day prior results and recommendations from GI are as below Impressions : - LA Grade B erosive esophagitis. - Acute gastritis. - Oozing duodenal ulcer with pigmented material. Injected. Biopsied. Treated with a heater probe. Recommendations : - [facility]. - Use sucralfate tablets 1 gram PO QID for 1 month. - Use Protonix (pantoprazole) 40 mg PO BID for 12 weeks. - Continue present medications. 2. 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 Based on work-up as outpatient GI has been placed on consult 3. Recurrent herpes labialis ? Patient is on suppressive therapy with acyclovir 4. Previous history of tobacco dependence ? Patient did quit in November 2022 continued cessation encouraged 5. Diarrhea ? Medication induced diarrhea as a result of MiraLAX use. Suspected offending medications discontinued 6. DVT prophylaxis ? Low risk early ambulation encouraged Time spent in the patient's overall evaluation,decision-making process, review of diagnostic data, adjustment of management, discussion with other providers, nursing nursing and ancillary staff involved in patient's care documentation, 40 Minutes Medications at Discharge Home Medications acyclovir 400 mg tablet 400 mg PO DAILY 04/16/18 cholecalciferol (vitamin D3) 1,250 mcg (50,000 unit) capsule 1,250 mcg PO QWEEK 04/30/23 hydrocodone-acetaminophen 5-325mg 5mg-325mg 1 tab PO Q6H PRN PRN Pain 3 days #10 TABLETS 08/23/23 dicyclomine 20 mg tablet 20 mg PO BID PRN abdominal pain #10 tabs 09/05/23 ondansetron 4 mg disintegrating tablet 4 mg PO Q8H PRN PRN Nausea #10 tabs 1111/27 pantoprazole 40 mg tablet,delayed release 40 mg PO BID 60 days #120 tabs 09/08/23 sucralfate 1 gram tablet 1 g PO TIDAC 30 days #90 tabs 09/08/23 Hospital Course Summary of Care Provided Minutes Spent on Discharge: 40 Physical Exam Narrative GENERAL: cooperative HEENT: Atraumatic; normocephalic EYES; Anicteric, Normal Conjunctiva NECK; supple, normal thyroid, RESPIRATORY: Diminished to auscultation CARDIOVASCULAR: Regular S1 S2, GI: soft, normoactive bowel sounds, : No Renal angle tenderness; EXTREMITIES: No edema, no clubbing, MUSCULOSKELETAL: no muscle wasting NEURO: Awake; no lateralizing signs. SKIN: No Rash PSYCH; Flat affect Weight / BMI Weight Weight: 70.76 kg Body Mass Index (BMI) 27.6 ABG / Lab / Microbiology Data 09/08/23 06:52 09/08/23 06:52 Laboratory: Laboratory Results - last 24 hr 09/08/23 06:52: WBC 7.3, RBC 4.01 L, Hgb 12.7, Hct 38.2, MCV 95.3, MCH 31.7, MCHC 33.2, RDW Std Deviation 42.1, RDW Coeff of Marge 12.0, Plt Count 258, MPV 12.2 H, Immature Gran % (Auto) 0.100, Neut % (Auto) 57.3, Lymph % (Auto) 29.5, [place] % (Auto) 10.2 H, Eos % (Auto) 2.1, Baso % (Auto) 0.8, Absolute Neuts (auto) 4.2, Absolute Lymphs (auto) 2.15, Nucleated RBC % 0, Sodium 139, Potassium 3.9, Chloride 107, Carbon Dioxide 24.0, Anion Gap 8, BUN 9, Creatinine 0.59, Estim Creat Clear Calc 96.46, Est GFR (MDRD) Af Amer 140, Est GFR (MDRD) Non-Af 115, BUN/Creatinine Ratio 15.3, Glucose 91, Calcium 8.9, Phosphorus 3.2, Magnesium 1.9, Total Bilirubin 0.40, Direct Bilirubin 0.14, AST 24, ALT 34, Alkaline Phosphatase 165 H, Total Protein 6.5, Albumin 2.8 L, Globulin 3.7 D/C Instructions Discharge Diet: No restrictions Discharge Activity: Return to Normal Activity Call your doctor if you observe: Fever of 101 or Higher, Shortness of breath, Fainting spells and Chest pain Meaningful Use Info Meaningful Use Diagnoses (Choose all that apply): None applicable Discharge Plan Admission Admit Date/Time: 09/07/23 09:38 Attending Provider: Mina Mantilla Primary Care Provider: Tito Chandler Discharge Orders/Prescriptions Prescriptions: New sucralfate 1 gram Tablet 1 g PO TIDAC 30 Days Qty: 90 0RF pantoprazole 40 mg Tablet,Delayed Release (Dr/Ec) 40 mg PO BID 60 Days Qty: 120 0RF Continued acyclovir 400 mg tablet 400 mg PO DAILY cholecalciferol (vitamin D3) 1,250 mcg (50,000 unit) capsule 1,250 mcg PO QWEEK hydrocodone-acetaminophen 5-325 mg tablet 1 tab PO Q6H PRN PRN (Reason: Pain) 3 Days Qty: 10 0RF dicyclomine 20 mg tablet 20 mg PO BID PRN (Reason: abdominal pain) Qty: 10 0RF ondansetron 4 mg tablet,disintegrating 4 mg PO Q8H PRN PRN (Reason: Nausea) Qty: 10 0RF Referrals / Follow Up: Gianfranco Hernandez DO [Med Staff - Active Staff] - Within 2 Weeks Tito Chandler MD [Primary Care Provider] - Within 2 Weeks Disposition Disposition (needs filled in before D/C Order can be placed): Home, Self Care Charges/Coding Visit Charges Inpatient E&M: 26851 Disch Hosp >30min
[2023-09-08 16:00] VITALS: BP 125/65; PULSE 74; RESP 18; TEMP 36.4; O2SAT 99
--- NOTE | 2023-09-10 | EGD_PTH ---
PATIENT: MRAY CORBETT LOC: [facility]3 U#:[id number] AGE/SX: 47/F ROOM: [facility] RE09/07/[address]: Dr. Mina Mantilla MD : 1975 BED: 1 DIS: 09/08/2023 SPEC #: [id number] RECD: 09/10/23 10:13 STATUS: JHONATAN TURCIOS #: [id number] HARVEY: 09/10/23 00:[address]: Mina Mantilla DEPT: SURGICAL PATHOLOGY RECD BY: Pennie Wang ENTERED: 09/10/23 11:06 SP TYPE: EGD BIOPSY [facility] DR: Dr. Tito Chandler MD Tissues: Duodenum, NOS Procedures: Surgery Specimen Level IV HEADER OPERATION: EGD with biopsy PRE-OP DIAGNOSIS: Intractable abdominal pain POST_OP DIAGNOSIS: Intractable abdominal pain, duodenal ulcer TISSUE SUBMITTED: Duodenal ulcer MICROSCOPIC DIAGNOSIS Duodenal ulcer, biopsy: Fragments of duodenal mucosa with mild acute and chronic inflammation. : 09/11/2023 COMMENT Correlation with clinical, endoscopic findings and appropriate follow up are necessary. MICROSCOPIC DESCRIPTION Slides are reviewed. GROSS DESCRIPTION Received is one container labeled with the patient name and designated duodenal ulcer. The specimen consists of two irregular fragment of light catalan soft tissue that measures 0.6 x 0.3 x 0.1 cm. The specimen is totally submitted in one cassette. /Elsa 09/10/23 TC:2 CPT: 04899
== END 2023-09-08 16:12 | disposition home or self-care (01) ==
LOC: ED 10:10 → MS3 12:07
PROVIDERS: Internal Medicine Gastroenterology; Admitting Provider Internal Medicine; Emergency Provider Emergency Medicine; PCP Family Medicine; Visit Provider Internal Medicine
PROC: 0DJ08ZZ Inspection of Upper Intestinal Tract, Via Natural or Artificial Opening Endoscopic (ICD-10-PCS; CPT 43235; principal; 2023-09-07 17:55)
DX: K26.0 Acute duodenal ulcer with hemorrhage (principal); K52.9 Noninfective gastroenteritis and colitis, unspecified; Z87.891 Personal history of nicotine dependence; K57.30 Diverticulosis of large intestine without perforation or abscess without bleeding; K21.00 Gastro-esophageal reflux disease with esophagitis, without bleeding; K29.00 Acute gastritis without bleeding; Z79.899 Other long term (current) drug therapy; B00.1 Herpesviral vesicular dermatitis; R19.7 Diarrhea, unspecified
CPT/HCPCS: 43255; 43239; 36415; 71275; 74174; 78227; 80048; 80053; 80076; 83605; 83690; 83735; 84100; 84484; 85025; 88305; 93005; 96361; 96365; 96366; 96375; 96376; 99221; 99285; A9537; J7030; J7120; Q9967; A4216; G0378; J2405; J2805; J3490

== ENCOUNTER → 2023-12-22 | Outpatient (CLI) | payer OTHER, SELFPAY ==
--- OUTSIDE RECORDS SUMMARY | 2023-12-22 10:26 | XMS RPT_ITS | CCD ---
Author Name Unknown Address [address] [place] [address] Organization [facility] Care Team Providers Care Manager Of School Name Role Phone Mason GUILLAUME, Tito Gentile Primary Care Provider TITO CUEVAS Primary Care Unavailab le , TITO GENTILE Referring Unavailab le , TITO GENTILE Primary Care Unavailab le , TITO GENTILE Referring Unavailab le , TITO GENTILE Primary Care Unavailab le FERNY VÁZQUEZ A Referring Unavailable TITO Primary Care Unavailab le , TITO GENTILE Referring Unavailab le , TITO GENTILE Primary Care Unavailab le , TITO GENTILE Primary Care Unavailab le , TITO GENTILE Primary Care Unavailab le , TITO GENTILE Referring Unavailab le , TITO GENTILE Primary Care Unavailab le , TITO GENTILE Referring Unavailab le , TITO GENTILE Primary Care Unavailab le , TITO GENTILE Referring Unavailab le , TITO GNETILE Attending Unavailab le , TITO GENTILE Primary Care Unavailab le , TITO GENTILE Attending Unavailab le , TITO GENTILE Primary Care Unavailab le , TITO GENTILE Attending Unavailab le , TITO GENTILE Primary Care Unavailab le , TITO GENTILE Attending Unavailab le , TITO GENTILE Primary Care Unavailab le , TITO GENTILE Referring Unavailab le , TITO GENTILE Primary Care Unavailab le , TITO GENTILE Attending Unavailab le , TITO GENTILE Primary Care TITO Kurtz Attending TITO Kurtz Primary Care TITO Kurtz Referring TITO Kurtz Primary Care UnavailTITO Dey Attending TITO Kurtz Primary Care UnavailTITO Dey Referring TITO Kurtz Primary Care Nicolás Ortega MD, Tito Gentile Primary Care Provider Allergies Allergy Classification Reported Allergen(s) Allergy Type Date of Onset Reaction(s) Facility (20 sources) Sulfamethoxazole / Trimethoprim; Translations: [SULFAMETHOXAZOLE-T RIMETHOPRIM] Drug Allergy 06-27-20 05 [facility] Work Phone: (20 sources) latex gloves [Other] Propensity to adverse reactions 06-27-[address] [place] [address] Work Phone: (20 sources) famciclovir; Translations: [FAMCICLOVIR] Drug Allergy 05-06-20 21 Other: See Comments, [facility] (20 sources) Trimethoprim; Translations: [TRIMETHOPRIM] Drug Allergy 07-30-20 [facility] (3 sources) Latex; Translations: [LATEX] Propensity to adverse reactions to drug (disorder) 09-20-20 [facility] Repository (2 sources) OTHER; Translations: [OTHER] Propensity to adverse reactions (disorder) 06-27-20 05 [facility] Repository Medications Current Medications Medication Drug Class(es) Dates Sig (Normalized) Sig (Original) acyclovir 400 mg oral tablet (20 sources) Herpesvirus Nucleoside Analog DNA Polymerase Inhibitor, Herpes Simplex Virus Nucleoside Analog DNA Polymerase Inhibitor, Herpes Zoster Virus Nucleoside Analog DNA Polymerase Inhibitor Start: 11-27-2023 End: 11-26-2024 take 1 tablet by mouth once daily acyclovir (ZOVIRAX) 400 mg tablet Take 1 tablet by mouth once daily. 90 tablet 3 11/27/2023 11/26/2024 Active Completed/Discontinued Medications Medication Drug Class(es) Dates Sig (Normalized) Sig (Original) methylPREDNISolone (8 sources) Corticosteroid Start: 12-29-2021 End: 01-29-2023 methylPREDNISolone (MEDROL, YANA,) 4 mg Dose-Pack As Instructed per package 1 Package 0 12/29/2021 01/29/2023 Discontinued Problems Active Problems Problem Classification Problem Date Documented Da te Episodic/Chronic Allergic reactions (1 source) Inflammatory dermatosis; Translations: [Irritant contact dermatitis, unspecified cause] 05-21-2023 Episodic Anxiety disorders (1 source) Anxiety; Translations: [Anxiety disorder, unspecified] 09-28-2023 Chronic Cancer of kidney and renal pelvis (1 source) Renal cell carcinoma; Translations: [Malignant neoplasm of unspecified kidney, except renal pelvis] Chronic Gastroduodenal ulcer (except hemorrhage) (1 source) Acute gastric ulcer; Translations: [Acute gastric ulcer without hemorrhage or perforation] 09-28-2023 Episodic Menopausal disorders (3 sources) Menopausal flushing; Translations: [Menopausal and female climacteric states] Onset: 01-29-2023 Chronic Miscellaneous mental health disorders (2 sources) Primary insomnia; Translations: [Primary insomnia] Onset: 10-01-2023 09-28-2023 Chronic Mood disorders (1 source) Moderately severe depression; Translations: [Moderately severe depression] 09-28-2023 Chronic Nutritional deficiencies (2 sources) Vitamin D deficiency; Translations: [Vitamin D deficiency, unspecified] Onset: 04-23-2023 Chronic Other connective tissue disease (1 source) Cramp and spasm; Translations: [Leg cramping] Onset: 11-14-2023 Episodic Other diseases of kidney and ureters (20 sources) Renal mass; Translations: [Other specified disorders of kidney and ureter] Onset: 01-13-2019 01-17-2019 Chronic Other gastrointestinal disorders (20 sources) Irritable bowel syndrome with diarrhea; Translations: [Irritable bowel syndrome with diarrhea] Onset: 06-30-2020 03-08-2023 Chronic Other non-traumatic joint disorders (16 sources) Polyarthropathy; Translations: [Polyarthritis, unspecified] Onset: 03-07-2023 Chronic Other non-traumatic joint disorders (1 source) Polyarthritis, unspecified; Translations: [Polyarthritis] Onset: 03-07-2023 Chronic Residual codes; unclassified (1 source) Flushing; Translations: [Flushing] Episodic Rheumatoid arthritis and related disease (1 source) Rheumatoid arthritis; Translations: [Rheumatoid arthritis, unspecified] Onset: 09-05-2023 10-01-2023 Chronic Screening and history of mental health and substance abuse codes (1 source) Patient encounter status; Translations: [Encounter for screening for depression] Episodic Spondylosis; intervertebral disc disorders; other back problems (1 source) Low back pain; Translations: [Midline low back pain without sciatica, unspecified chronicity] 08-12-2023 Episodic Substance-related disorders (20 sources) Nicotine dependence; Translations: [Nicotine dependence, unspecified, uncomplicated] Onset: 09-19-2017 03-08-2023 Chronic Unclassified (1 source) Acute Visit Onset: 08-08-2023 Past or Other Problems Problem Classification Problem Date Documented Date Episodic/Chronic Deficiency and other anemia (20 sources) Anemia; Translations: [Anemia, unspecified] Onset: 09-30-2018 03-08-2023 Episodic E Codes: Adverse effects of medical drugs (1 source) Adverse reaction to drug; Translations: [Adverse effect of unspecified drugs, medicaments and biological substances, initial encounter] Onset: 03-12-2018 10-01-2023 Episodic Malaise and fatigue (20 sources) Fatigue; Translations: [Other fatigue] Onset: 10-10-2018 03-08-2023 Episodic Other and unspecified benign neoplasm (20 sources) Hemangioma of vertebral column; Translations: [Hemangioma of other sites] Onset: 11-08-2018 11-08-2018 Episodic Other fractures (20 sources) Compression fracture of lumbar spine; Translations: [Collapsed vertebra, not elsewhere classified, lumbar region, initial encounter for fracture] Onset: 11-08-2018 11-28-2018 Episodic Other screening for suspected conditions (not mental disorders or infectious disease) (20 sources) MRI of lumbar spine abnormal; Translations: [Abnormal findings on diagnostic imaging of other parts of musculoskeletal system] Onset: 01-29-2023 Episodic Pathological fracture (20 sources) Pathological fracture of lumbar vertebra; Translations: [Pathological fracture, other site, initial encounter for fracture] Onset: 11-28-2018 11-28-2018 Episodic Results Test Name Value Interpretation Reference Range Facil ity Vital Signs Date Time Vital Sign Value Performing Clinician Vonnie garcia 09-24-2023 16:57-0500 Body height 165.1 cm Tito Cuevas MD Work Phone: [facility] 09-24-2023 16:57-0500 Body temperature 97 [degF] Tito Cuevas MD Work Phone: [facility] 09-24-2023 16:57-0500 Body weight 71.22 kg Tito Cuevas MD Work Phone: [facility] 09-24-2023 16:57-0500 Diastolic blood pressure 80 mm[Hg] Tito Cuevas MD Work Phone: [facility] 09-24-2023 16:57-0500 Heart rate 100 /min Tito Cuevas MD Work Phone: [facility] 09-24-2023 16:57-0500 Respiratory rate 18 /min Tito Cuveas MD Work Phone: [facility] 09-24-2023 16:57-0500 SaO2% (BldA) [Mass fraction] 97 % Tito Cuevas MD Work Phone: [facility] 09-24-2023 16:57-0500 Systolic blood pressure 132 mm[Hg] Tito Cuevas MD Work Phone: [facility] 08-08-2023 17:15-0400 Body height 165.1 cm Tito Cuevas MD Work Phone: [facility] 08-08-2023 17:15-0400 Body temperature 98.4 [degF] Tito Cuevas MD Work Phone: [facility] 08-08-2023 17:15-0400 Body weight 72.94 kg Tito Cuevas MD Work Phone: [facility] 08-08-2023 17:15-0400 Diastolic blood pressure 80 mm[Hg] Tito Cuevas MD Work Phone: [facility] 08-08-2023 17:15-0400 Heart rate 75 /min Tito Cuevas MD Work Phone: [facility] 08-08-2023 17:15-0400 Respiratory rate 16 /min Tito Cuevas MD Work Phone: [facility] 08-08-2023 17:15-0400 SaO2% (BldA) [Mass fraction] 97 % Tito Cuevas MD Work Phone: [facility] 08-08-2023 17:15-0400 Systolic blood pressure 110 mm[Hg] Tito Cuevas MD Work Phone: [facility] 05-21-2023 15:56-0400 Body temperature 98.91 [degF] Ariadna Athy PA-C Work Phone: [facility] 05-21-2023 15:56-0400 Body weight 70.76 kg Ariadna Athy PA-C Work Phone: [facility] 05-21-2023 15:56-0400 Diastolic blood pressure 62 mm[Hg] Ariadna Athy PA-C Work Phone: [facility] 05-21-2023 15:56-0400 Heart rate 78 /min Ariadna Athy PA-C Work Phone: [facility] 05-21-2023 15:56-0400 Respiratory rate 18 /min Ariadna Athy PA-C Work Phone: [facility] 05-21-2023 15:56-0400 SaO2% (BldA) [Mass fraction] 99 % Ariadna Athy PA-C Work Phone: [facility] 05-21-2023 15:56-0400 Systolic blood pressure 102 mm[Hg] Ariadna Athy PA-C Work Phone: [facility] 04-23-2023 16:22-0400 Body height 165.1 cm Tito Cuevas MD Work Phone: [facility] 04-23-2023 16:22-0400 Body temperature 97.3 [degF] Tito Cuevas MD Work Phone: [facility] 04-23-2023 16:22-0400 Body weight 68.4 kg Tito Cuevas MD Work Phone: [facility] 04-23-2023 16:22-0400 Diastolic blood pressure 80 mm[Hg] Tito Cuevas MD Work Phone: [facility] 04-23-2023 16:22-0400 Heart rate 108 /min Tito Cuevas MD Work Phone: [facility] 04-23-2023 16:22-0400 Respiratory rate 14 /min Tito Cuevas MD Work Phone: [facility] 04-23-2023 16:22-0400 SaO2% (BldA) [Mass fraction] 98 % Tito Cuevas MD Work Phone: [facility] 04-23-2023 16:22-0400 Systolic blood pressure 112 mm[Hg] Tito Cuevas MD Work Phone: [facility] 03-07-2023 16:23-0400 Body height 165.1 cm Tito Cuevas MD Work Phone: [facility] 03-07-2023 16:23-0400 Body temperature 96.91 [degF] Tito Cuevas MD Work Phone: [facility] 03-07-2023 16:23-0400 Body weight 66.73 kg Tito Cuevas MD Work Phone: [facility] 03-07-2023 16:23-0400 Diastolic blood pressure 76 mm[Hg] Tito Cuevas MD Work Phone: [facility] 03-07-2023 16:23-0400 Heart rate 86 /min Tito Cuevas MD Work Phone: [facility] 03-07-2023 16:23-0400 Respiratory rate 18 /min Tito Cuevas MD Work Phone: [facility] 03-07-2023 16:23-0400 SaO2% (BldA) [Mass fraction] 99 % Tito Cuevas MD Work Phone: [facility] 03-07-2023 16:23-0400 Systolic blood pressure 124 mm[Hg] Tito Cuevas MD Work Phone: [facility] 01-29-2023 16:33-0400 Body height 165.1 cm Tito Cuevas MD Work Phone: [facility] 01-29-2023 16:33-0400 Body temperature 97.3 [degF] Tito Cuevas MD Work Phone: [facility] 01-29-2023 16:33-0400 Diastolic blood pressure 74 mm[Hg] Tito Cuevas MD Work Phone: [facility] 01-29-2023 16:33-0400 Heart rate 78 /min Tito Cuevas MD Work Phone: [facility] 01-29-2023 16:33-0400 Respiratory rate 18 /min Tito Cuevas MD Work Phone: [facility] 01-29-2023 16:33-0400 SaO2% (BldA) [Mass fraction] 99 % Tito Cuevas MD Work Phone: [facility] 01-29-2023 16:33-0400 Systolic blood pressure 122 mm[Hg] Tito Cuevas MD Work Phone: [facility] Encounters Encounter Date Encounter Type Care Provider Facility Start: 12-12-2023 Refill Tito Rehman MD Work Phone: [facility] Procedures Date Procedure Procedure Detail Performing Clinician Start: 04-18-2023 Us breast uni real t ene with image limited Tito Cuevas MD Work Phone: Start: 04-18-2023 End: 04-18-2023 Mammography Tito mullins MD Work Phone: Start: 02-28-2023 End: 02-28-2023 Mammography Tito mullins MD Work Phone: Start: 02-23-2023 Us abdominal real ti me w/image limited Tito Cuevas MD Work Phone: Start: 02-14-2023 Mri spinal canal lum bar w/o & w/contr joaquiml Ferny Vázquez MD Work Phone: Start: 02-09-2023 Lipid 1996 panel - S lj or Plasma Tito Cuevas MD Work Phone: Start: 05-08-2022 Adult depression scr eening assessment Ferny Vázquez MD Work Phone: Start: 04-11-[address] attenuation whole body Sara Narvaez PA-C Work Phone: Start: 12-29-2021 Adult depression scr eening assessment Lazarus Galvin DO, DO Work Phone: Plan of Treatment Date Care Activity Detail Author Start: 02-10-2028 Lipid 1996 panel - S lj or Plasma Lipid Screening [facility] Start: 02-10-2028 Lipid panel Lipid Screening [facility] Start: 02-10-2028 LIPID SCREEN LIPID SCREEN [facility] Start: 02-09-2026 DIABET[facility] Start: 02-09-2026 Diabetes Screening Diabetes Screenin g [facility] Start: 04-18-2024 Mammography [facility] Start: 04-18-2024 Screening for malign ant neoplasm of breast Mammogram Screening [facility] Start: 02-29-2024 Mammography MAMMOGRAM [facility] Start: 11-05-2023 Depression Assessment Depression Ass essment [facility] Start: 07-06-2023 Influenza vaccination [facility] Start: 06-18-2023 End: 08-18-2023 25-hydroxyvitamin D3 [Mass/volume] in Serum or Plasma VITAMIN D 25 HYDROXY Lab Routine Vitamin D deficiency Expected: 06/18/2023, Expires: 08/18/2023 [facility] Work Phone: Immunizations Immunization Date Immunization Notes Care Provider Tessa webb 09-05-2003 diphtheria and tetan us toxoids, adsorbed for pediatric use Lazarus Galvin DO, DO Work Phone: [facility] Work Phone: Payers Date Payer Category Payer Unknown MMO MMO [employer] [id number] 2016-Present [phone] [address] [place] [address] PPO [id number] 2016 Unknown [id number] 2002 Unknown [id number] Social History Date Type Detail Facility Start: [facility]-21-[facility] History of tobacco use Cigarette Smoker [facility] Start: 12-29-2021 End: 11-14-2023 Alcohol intake Current non-drinker of alcohol (finding) [facility] Start: 1975 Sex Assigned At Not on file [facility] Start: 02-04-2022 End: 04-11-2022 Exposure to SARS-CoV-2 (event) Not sure [facility] Start: 1975 Sex Assigned At Female [facility] Start: 11-21-2018 End: 03-07-2023 Cigarettes smoked current (pack per day) - Reported 1 [facility] Start: 11-21-2018 End: 01-29-2023 Tobacco use and exposure Smokeless tobacco non-user [facility] Start: 01-29-2023 [facility] History of tobacco use Current smoker [facility] Start: 01-29-2023 History SDOH Alcohol Frequency 1 [facility] Start: 01-29-2023 History SDOH Alcohol Std Drinks 0 [facility] Start: 01-29-2023 History SDOH Social Connections Phone 5 [facility] Start: 01-29-2023 History SDOH Social Connections Membership 2 [facility] Start: 01-29-2023 History SDOH Social Connections Living 3 [facility] Start: 01-29-2023 End: 03-07-2023 Social connection and isolation panel [facility] Do you belong to any clubs or organizations such as zoroastrianism groups, unions, fraternal or athletic groups, or school groups? No [facility] Are you now , , , , never or living with a partner? [facility] How often to you hav e a drink containing alcohol? Never [facility] How many standard dr inks containing alcohol do you have on a typical day? Patient does not drink [facility] Do you feel stress - tense, restless, nervous, or anxious, or unable to sleep at night because your mind is troubled all the time - these days [OSQ] Very much [facility] (I/We) worried wheth er (my/our) food would run out before (I/we) got money to buy more. Never true [facility] Start: 05-08-2022 Gender identity Identifies as female gender (finding) [facility] Start: 05-08-2022 Sexual orientation Heterosexual (iva martínez) [facility] Medical Equipment Procedure Code Equipment Code Equipment Origin al Text Equipment Identifier Dates [employer] - [id number] Start: 11-28-2018 Cement [employer] - [id number] Start: 11-28-2018 Clinical Notes 01-16-2022 to 12-13-2023 Telephone Encounter - Ofelia Landeros LPN - 12/13/2023 10:15 AM Tito Lizarraga MD - 09/28/2023 9:05 PM Gabriel Kline LPN - 09/24/2023 4:47 PM EST Note Date & Type Note Facility 12-13-2023 Miscellaneous Notes Pharmacy [facility] ([facility])t message requesting the following refill. Requested Prescriptions Pending Prescriptions Disp Refills ergocalciferol 50,000 unit capsule (VITAMIN D2, DRISDOL) 12 capsule 1 Sig: Take 1 capsule by mouth one time a week. Patient last appointment: 11/14/2023 Patient Phone numbers: [phone] (home) [phone] (work) Request is for script(s) to be escript to [facility]. Ofelia Landeros LPN documented in this encounter [facility] 11-15-2023 Note HNO ID: [id number] Author: TITO CUEVAS MD Service: ? Author Type: Physician Type: Progress Notes Filed: 11/15/2023 08:50 Note Text: This note was created using Thoughtlyriter. Subjective Julia Lentz is a 48 year old female.Patient is in office for follow up for chronic medical conditions. Patient was last seen in office on 10-01-2023 Patient was advised: Patient is advised to take her Zoloft as directed beginning on a half a tablet for 4 to 6 days. She also is advised to take her Protonix daily as directed. She may take BuSpar as needed for her anxiety. She is to discuss her intolerance to the ursodiol with her data security administrator. Follow-up in 3 weeks. Patient is Positive for Influenza B at this time. Patient states she is only taking Ursodiol and Acyclovir Review of Systems Constitutional: Negative. HENT: Negative. Eyes: Negative. Respiratory: Negative. Cardiovascular: Negative. Gastrointestinal: Negative. Endocrine: Negative. Genitourinary: Negative. Musculoskeletal: Negative. Skin: Negative. Allergic/Immunologic: Negative. Neurological: Negative. Hematological: Negative. Psychiatric/Behavioral: Negative. Objective BP 110/78 (BP Site: Left Arm, BP Position: Sitting, BP Cuff Size: Regular Adult) Pulse 62 Temp 36.4 ?C (97.6 ?F) (Temporal) Resp 18 Ht 165.1 cm (5' 5 ) Wt 71.7 kg (158 lb) LMP 07/12/2007 SpO2 97% BMI 26.29 kg/m? Physical Exam Vitals reviewed. Constitutional: Appearance: Normal appearance. HENT: Head: Normocephalic and atraumatic. Nose: Nose normal. Eyes: Extraocular Movements: Extraocular movements intact. Pupils: Pupils are equal, round, and reactive to light. Cardiovascular: Rate and Rhythm: Normal rate and regular rhythm. Pulmonary: Effort: Pulmonary effort is normal. Breath sounds: Normal breath sounds. Abdominal: General: Bowel sounds are normal. Palpations: Abdomen is soft. Musculoskeletal: General: Normal range of motion. Cervical back: Normal range of motion and neck supple. Skin: General: Skin is warm and dry. Capillary Refill: Capillary refill takes less than 2 seconds. Neurological: General: No focal deficit present. Mental Status: She is alert and oriented to person, place, and time. Mental status is at baseline. Psychiatric: Mood and Affect: Mood normal. Behavior: Behavior normal. Assessment and Plan Encounter Diagnosis ICD-10-CM 1. Anxiety F41.9 2. Leg cramping R25.2 MAGNESIUM BLD 3. Moderately severe depression F32.A 4. Irritable bowel syndrome with diarrhea K58.0 5. Rheumatoid arthritis, involving unspecified site, unspecified whether rheumatoid factor present ([facility]) M06.9 Patient did not start Zoloft or BuSpar. She wishes not to take medicine. Symptoms are unchanged. Encouraged her to increase activity, improve sleep, improve diet, increase exercise. Reduce stress. Check magnesium level due to leg cramps. Tito Cuevas MD [facility] 11-14-2023 Note HNO ID: [id number] Author: GABRIEL BROWN LPN Service: ? Author Type: LICENSED NURSE Type: Progress Notes Filed: 11/15/2023 08:50 Note Text: Patient is in office for follow up for chronic medical conditions. Patient was last seen in office on 10-01-2023 Patient was advised: Patient is advised to take her Zoloft as directed beginning on a half a tablet for 4 to 6 days. She also is advised to take her Protonix daily as directed. She may take BuSpar as needed for her anxiety. She is to discuss her intolerance to the ursodiol with her data security administrator. Follow-up in 3 weeks. Patient is Positive for Influenza B at this time. Patient states she is only taking Ursodiol and Acyclovir No refills needed Gabriel Brown LPN November 14, 2023 4:[address] [facility] 11-13-2023 Note HNO ID: [id number] Author: WENCESLAO MULLER APRN.TRACIE Service: ? Author Type: Nurse Practitioner Type: Progress Notes Filed: 11/13/2023 12:12 Note Text: This note was created using NoteWriter. Subjective Julia Lentz is a 48 year old female. 48 year old female with PMH IBS, RA, polyarthritis presents for illness. Acute onset 5 days ago +sore throat +headache +nasal congestion + cough +body aches +fever/chills +ill contacts at work The history is provided by the patient. No spanish interpreter/translator was used. URI She complains of cough. There is no chest tightness, difficulty breathing, frequent throat clearing, hemoptysis, hoarse voice, shortness of breath, sputum production or wheezing. This is a new problem. The current episode started in the past 7 days. The problem occurs constantly. The problem has been unchanged. The cough is non-productive. Associated symptoms include ear pain, a fever, headaches, malaise/fatigue, myalgias, nasal congestion, rhinorrhea and a sore throat. Pertinent negatives include no appetite change, chest pain, dyspnea on exertion, ear congestion, postnasal drip, trouble swallowing or weight loss. Her symptoms are aggravated by nothing. Her symptoms are alleviated by nothing. She reports no improvement on treatment. There are no known risk factors for lung disease. There is no history of asthma, bronchiectasis, bronchitis, COPD, emphysema or pneumonia. PAST MEDICAL HISTORY Diagnosis Date Dysplasia of cervix, unspecified PAST SURGICAL HISTORY Procedure Laterality Date APPENDECTOMY HYSTERECTOMY LEEP PROCEDURE ([facility])_*FL LIG/TRNSXJ FLP TUBE ABDL/VAG APPR UNI/BI ALLERGIES Famciclovir, Bactrim [Sulfamethoxazole-Trimethoprim], Latex, and Trimethoprim MEDICATIONS zolpidem (AMBIEN) 10 mg Take 1 tablet by mouth at bedtime as needed for up to 90 days. sucralfate (CARAFATE) 1 gram tablet TAKE 1 TABLET THREE TIMES DAILY BEFORE MEALS for 30 DAYS ergocalciferol 50,000 unit capsule (VITAMIN D2, DRISDOL) Take 1 capsule by mouth one time a week. acyclovir (ZOVIRAX) 400 mg tablet Take 1 tablet by mouth once daily. pantoprazole DR (PROTONIX) 40 mg tablet Take 1 tablet by mouth every 12 hours. (Patient not taking: Reported on 10/01/2023) ursodiol (ALLEN) 250 mg tablet Take 1 tablet by mouth every 12 hours. (Patient not taking: Reported on 10/01/2023) sertraline (ZOLOFT) 50 mg tablet Take 1 tablet by mouth once daily. (Patient not taking: Reported on 10/01/2023) FAMILY HISTORY Problem Relation Age of Onset Cancer Mother brain ca Breast Cancer Maternal Grandfather lung Cancer Maternal Uncle Cancer Maternal Grandmother Cancer Paternal Grandfather Social History Tobacco Use Smoking status: Former Packs/day: 1.00 Years: 29.00 Additional pack years: 0.00 Total pack years: 29.00 Types: Cigarettes Smokeless tobacco: Never Vaping Use Vaping Use: Never used Substance Use Topics Alcohol use: No Review of Systems Constitutional: Positive for fever and malaise/fatigue. Negative for appetite change and weight loss. HENT: Positive for congestion, ear pain, rhinorrhea and sore throat. Negative for hoarse voice, postnasal drip and trouble swallowing. Eyes: Negative for pain, discharge, redness and itching. Respiratory: Positive for cough. Negative for apnea, hemoptysis, sputum production, choking, chest tightness, shortness of breath and wheezing. Cardiovascular: Negative for chest pain and dyspnea on exertion. Gastrointestinal: Negative for abdominal pain. Musculoskeletal: Positive for myalgias. Skin: Negative for color change, pallor, rash and wound. Allergic/Immunologic: Negative for environmental allergies, food allergies and immunocompromised state. Neurological: Positive for headaches. Negative for dizziness and facial asymmetry. Hematological: Negative for adenopathy. Does not bruise/bleed easily. Psychiatric/Behavioral: Negative for agitation and behavioral problems. Objective BP 104/76 Pulse 89 Temp 36.8 ?C (98.3 ?F) (Tympanic) Resp 18 Wt 73.2 kg (161 lb 6.4 oz) LMP 07/12/2007 SpO2 96% BMI 26.86 kg/m? Physical Exam Vitals and nursing note reviewed. Constitutional: General: She is not in acute distress. Appearance: Normal appearance. She is normal weight. She is not ill-appearing, toxic-appearing or diaphoretic. HENT: Head: Normocephalic and atraumatic. Right Ear: Ear canal and external ear normal. Left Ear: Ear canal and external ear normal. Nose: Congestion present. No rhinorrhea. Mouth/Throat: Mouth: Mucous membranes are moist. Pharynx: Posterior oropharyngeal erythema (2 +enlarged bilateral tonsils. Uvula midline Handling secretions) present. No oropharyngeal exudate. Eyes: General: Right eye: No discharge. Left eye: No discharge. Extraocular Movements: Extraocular movements intact. Conjunctiva/sclera: Conjunctivae normal. Pupils: Pupils are (more content not included)... [facility] 10-01-2023 Note HNO ID: [id number] Author: Tito Ceuvas MD Service: ? Author Type: Physician Type: Progress Notes Filed: 10/01/2023 9:14 PM Note Text: This note was created using [employer]. Subjective Julia Lentz is a 47 year old female.Patient in the office today with reports her new medication is causing side effects. Patient was last seen in office on 09-24-2023 Patient was advised: begin BuSpar to 7.5 mg 3 times daily. Begin Zoloft 50 mg daily. She may increase Ambien to 10 mg at bedtime. Follow-up in 1 month Patient states that she has not been taking what was prescribed, due to being on so many other medications, and didn't want to mix them together. Patient has been seen by Gastroenterology and was placed on Sucralfate 1 gram three times daily before meals. Patient has been taking self off of different medications. Patient sates that Ursodiol was causing her to have chest pains with inhalation at left breast. Since taking self off of medication she has not been having any more pain. Patient also stopped taking pantoprazole, this has caused her stomach to feel better. Review of Systems Constitutional: Negative. HENT: Negative. Eyes: Negative. Respiratory: Negative. Cardiovascular: Negative. Gastrointestinal: Negative. Endocrine: Negative. Genitourinary: Negative. Musculoskeletal: Negative. Skin: Negative. Allergic/Immunologic: Negative. Neurological: Negative. Hematological: Negative. Psychiatric/Behavioral: Negative. Objective BP 138/86 (BP Site: Left Arm, BP Position: Sitting, BP Cuff Size: Regular Adult) Pulse 100 Temp 36.7 ?C (98 ?F) (Temporal) Resp 20 Ht 165.1 cm (5' 5 ) Wt 71.2 kg (157 lb) LMP 07/12/2007 SpO2 97% BMI 26.13 kg/m? Physical Exam Vitals reviewed. Constitutional: Appearance: Normal appearance. HENT: Head: Normocephalic and atraumatic. Nose: Nose normal. Eyes: Extraocular Movements: Extraocular movements intact. Pupils: Pupils are equal, round, and reactive to light. Cardiovascular: Rate and Rhythm: Normal rate and regular rhythm. Pulmonary: Effort: Pulmonary effort is normal. Breath sounds: Normal breath sounds. Abdominal: General: Bowel sounds are normal. Palpations: Abdomen is soft. Musculoskeletal: General: Normal range of motion. Cervical back: Normal range of motion and neck supple. Skin: General: Skin is warm and dry. Capillary Refill: Capillary refill takes less than 2 seconds. Neurological: General: No focal deficit present. Mental Status: She is alert and oriented to person, place, and time. Mental status is at baseline. Psychiatric: Mood and Affect: Mood normal. Behavior: Behavior normal. Assessment and Plan Encounter Diagnosis ICD-10-CM 1. Acute gastric ulcer, unspecified whether gastric ulcer hemorrhage or perforation present K25.3 2. Primary insomnia F51.01 zolpidem (AMBIEN) 10 mg 3. Moderately severe depression F32.A 4. Anxiety F41.9 Patient is advised to take her Zoloft as directed beginning on a half a tablet for 4 to 6 days. She also is advised to take her Protonix daily as directed. She may take BuSpar as needed for her anxiety. She is to discuss her intolerance to the ursodiol with her data security administrator. Follow-up in 3 weeks. Tito Cuevas MD [facility] 10-01-2023 Note HNO ID: [id number] Author: Gabriel Brown LPN Service: ? Author Type: LICENSED NURSE Type: Progress Notes Filed: 10/01/2023 9:14 PM Note Text: Patient in the office today with reports her new medication is causing side effects. Patient was last seen in office on 09-24-2023 Patient was advised: begin BuSpar to 7.5 mg 3 times daily. Begin Zoloft 50 mg daily. She may increase Ambien to 10 mg at bedtime. Follow-up in 1 month Patient states that she has not been taking what was prescribed, due to being on so many other medications, and didn't want to mix them together. Patient has been seen by Gastroenterology and was placed on Sucralfate 1 gram three times daily before meals. Patient has been taking self off of different medications. Patient sates that Ursodiol was causing her to have chest pains with inhalation at left breast. Since taking self off of medication she has not been having any more pain. Patient also stopped taking pantoprazole, this has caused her stomach to feel better. Gabriel Brown LPN October 01, 2023 11:[address] [facility] 09-28-2023 Note HNO ID: [id number] Author: Tito Cuevas MD Service: ? Author Type: Physician Type: Progress Notes Filed: 09/28/2023 9:16 PM Note Text: Carlitos Lentz is a 47 year old female.Patient is in office for transition of care visit. Patient was discharged from [facility] 09-08-2023 with an Ulcer. Patient has follow up with Gastroenterology. Patient states that in regards to the Ulcer she feels better, but over all she is tired, having insomnia Ambien was prescribed by GI and states that it makes her sleep for 2 hours then she is up again. Patient states she is also experiencing increased depression, due to her health, and everything that has occurred this year. Review of Systems Constitutional: Negative. HENT: Negative. Eyes: Negative. Respiratory: Negative. Cardiovascular: Negative. Gastrointestinal: Negative. Endocrine: Negative. Genitourinary: Negative. Musculoskeletal: Negative. Skin: Negative. Allergic/Immunologic: Negative. Neurological: Negative. Hematological: Negative. Psychiatric/Behavioral: Negative. PAST SURGICAL HISTORY Procedure Laterality Date APPENDECTOMY HYSTERECTOMY LEEP PROCEDURE ([facility])_*FL LIG/TRNSXJ FLP TUBE ABDL/VAG APPR UNI/BI PAST MEDICAL HISTORY Diagnosis Date Dysplasia of cervix, unspecified FAMILY HISTORY Problem Relation Age of Onset Cancer Mother brain ca Breast Cancer Maternal Grandfather lung Cancer Maternal Uncle Cancer Maternal Grandmother Cancer Paternal Grandfather Social History Tobacco Use Smoking status: Former Packs/day: 1.00 Years: 29.00 Additional pack years: 0.00 Total pack years: 29.00 Types: Cigarettes Smokeless tobacco: Never Vaping Use Vaping Use: Never used Substance Use Topics Alcohol use: No ALLERGIES Allergen Reactions Famciclovir Rash Bactrim [Sulfametho* Swelling Trimethoprim Hives MEDICATIONS: zolpidem (AMBIEN) 5 mg tablet TAKE 1 TABLET BY MOUTH AT BEDTIME, may repeat if no response in 30-[address] (PROTONIX) 40 mg tablet Take 1 tablet by mouth every 12 hours. ursodiol (ALLEN) 250 mg tablet Take 1 tablet by mouth every 12 hours. sucralfate (CARAFATE) 1 gram tablet TAKE 1 TABLET THREE TIMES DAILY BEFORE MEALS for 30 DAYS meloxicam (MOBIC) 15 mg tablet Take 1 tablet by mouth once daily. acyclovir (ZOVIRAX) 400 mg tablet Take 1 tablet by mouth once daily. sertraline (ZOLOFT) 50 mg tablet Take 1 tablet by mouth once daily. busPIRone (BUSPAR) 7.5 mg tablet Take 1 tablet by mouth three times a day. ergocalciferol 50,000 unit capsule (VITAMIN D2, DRISDOL) Take 1 capsule by mouth one time a week. Allergies, past surgical history, family history and past medical history were reviewed per this encounter. Medications were reviewed and verified. Objective BP 132/80 (BP Site: Left Arm, BP Position: Sitting, BP Cuff Size: Regular Adult) Pulse 100 Temp 36.1 ?C (97 ?F) (Temporal) Resp 18 Ht 165.1 cm (5' 5 ) Wt 71.2 kg (157 lb) LMP 07/12/2007 SpO2 97% BMI 26.13 kg/m? Physical Exam Vitals reviewed. Constitutional: Appearance: Normal appearance. HENT: Head: Normocephalic and atraumatic. Nose: Nose normal. Eyes: Extraocular Movements: Extraocular movements intact. Pupils: Pupils are equal, round, and reactive to light. Cardiovascular: Rate and Rhythm: Normal rate and regular rhythm. Pulmonary: Effort: Pulmonary effort is normal. Breath sounds: Normal breath sounds. Abdominal: General: Bowel sounds are normal. Palpations: Abdomen is soft. Musculoskeletal: General: Normal range of motion. Cervical back: Normal range of motion and neck supple. Skin: General: Skin is warm and dry. Capillary Refill: Capillary refill takes less than 2 seconds. Neurological: General: No focal deficit present. Mental Status: She is alert and oriented to person, place, and time. Mental status is at baseline. Psychiatric: Mood and Affect: Mood normal. Behavior: Behavior normal. Assessment and Plan Encounter Diagnosis ICD-10-CM 1. Acute gastric ulcer, unspecified whether gastric ulcer hemorrhage or perforation present K25.3 2. Anxiety F41.9 3. Moderately severe depression F32.A 4. Primary insomnia F51.01 begin BuSpar to 7.5 mg 3 times daily. Begin Zoloft 50 mg daily. She may increase Ambien to 10 mg at bedtime. Follow-up in [address] month[address] T[address] Cue[address] MD [facility] 09-28-2023 History of Presen t illness Narrative Subjective Julia Lentz is a 47 year old female.Patient is in office for transition of care visit. Patient was discharged from [facility] 09-08-2023 with an Ulcer. Patient has follow up with Gastroenterology. Patient states that in regards to the Ulcer she feels better, but over all she is tired, having insomnia Ambien was prescribed by GI and states that it makes her sleep for 2 hours then she is up again. Patient states she is also experiencing increased depression, due to her health, and everything that has occurred this year. Review of Systems Constitutional: Negative. HENT: Negative. Eyes: Negative. Respiratory: Negative. Cardiovascular: Negative. Gastrointestinal: Negative. Endocrine: Negative. Genitourinary: Negative. Musculoskeletal: Negative. Skin: Negative. Allergic/Immunologic: Negative. Neurological: Negative. Hematological: Negative. Psychiatric/Behavioral: Negative. PAST SURGICAL HISTORY Procedure Laterality Date APPENDECTOMY HYSTERECTOMY LEEP PROCEDURE ([facility])_*FL LIG/TRNSXJ FLP TUBE ABDL/VAG APPR UNI/BI PAST MEDICAL HISTORY Diagnosis Date Dysplasia of cervix, unspecified FAMILY HISTORY Problem Relation Age of Onset Cancer Mother brain ca Breast Cancer Maternal Grandfather lung Cancer Maternal Uncle Cancer Maternal Grandmother Cancer Paternal Grandfather Social History Tobacco Use Smoking status: Former Packs/day: 1.00 Years: 29.00 Additional pack years: 0.00 Total pack years: 29.00 Types: Cigarettes Smokeless tobacco: Never Vaping Use Vaping Use: Never used Substance Use Topics Alcohol use: No ALLERGIES Allergen Reactions Famciclovir Rash Bactrim [Sulfametho* Swelling Trimethoprim Hives MEDICATIONS: zolpidem (AMBIEN) 5 mg tablet TAKE 1 TABLET BY MOUTH AT BEDTIME, may repeat if no response in 30-[address] (PROTONIX) 40 mg tablet Take 1 tablet by mouth every 12 hours. ursodiol (ALLEN) 250 mg tablet Take 1 tablet by mouth every 12 hours. sucralfate (CARAFATE) 1 gram tablet TAKE 1 TABLET THREE TIMES DAILY BEFORE MEALS for 30 DAYS meloxicam (MOBIC) 15 mg tablet Take 1 tablet by mouth once daily. acyclovir (ZOVIRAX) 400 mg tablet Take 1 tablet by mouth once daily. sertraline (ZOLOFT) 50 mg tablet Take 1 tablet by mouth once daily. busPIRone (BUSPAR) 7.5 mg tablet Take 1 tablet by mouth three times a day. ergocalciferol 50,000 unit capsule (VITAMIN D2, DRISDOL) Take 1 capsule by mouth one time a week. Allergies, past surgical history, family history and past medical history were reviewed per this encounter. Medications were reviewed and verified. Objective BP 132/80 (BP Site: Left Arm, BP Position: Sitting, BP Cuff Size: Regular Adult) Pulse 100 Temp 36.1 C (97 F) (Temporal) Resp 18 Ht 165.1 cm (5' 5 ) Wt 71.2 kg (157 lb) LMP 07/12/2007 SpO2 97% BMI 26.13 kg/m Physical Exam Vitals reviewed. Constitutional: Appearance: Normal appearance. HENT: Head: Normocephalic and atraumatic. Nose: Nose normal. Eyes: Extraocular Movements: Extraocular movements intact. Pupils: Pupils are equal, round, and reactive to light. Cardiovascular: Rate and Rhythm: Normal rate and regular rhythm. Pulmonary: Effort: Pulmonary effort is normal. Breath sounds: Normal breath sounds. Abdominal: General: Bowel sounds are normal. Palpations: Abdomen is soft. Musculoskeletal: General: Normal range of motion. Cervical back: Normal range of motion and neck supple. Skin: General: Skin is warm and dry. Capillary Refill: Capillary refill takes less than 2 seconds. Neurological: General: No focal deficit present. Mental Status: She is alert and oriented to person, place, and time. Mental status is at baseline. Psychiatric: Mood and Affect: Mood normal. Behavior: Behavior normal. Assessment and Plan Encounter Diagnosis ICD-10-CM 1. Acute gastric ulcer, unspecified whether gastric ulcer hemorrhage or perforation present K25.3 2. Anxiety F41.9 3. Moderately severe depression F32.A 4. Primary insomnia F51.01 begin BuSpar to 7.5 mg 3 times daily. Begin Zoloft 50 mg daily. She may increase Ambien to 10 mg at bedtime. Follow-up in 1 month. Tito Cuevas MD Patient is in office for transition of care visit. Patient was discharged from [facility] 09-08-2023 with an Ulcer. Patient has follow up with Gastroenterology. Patient states that in regards to the Ulcer she feels better, but over all she is tired, having insomnia Ambien was prescribed by GI and states that it makes her sleep for 2 hours then she is up again. Patient states she is also experiencing increased depression, due to her health, and everything that has occurred this year. No refills needed Gabriel Brown LPN September 24, 2023 5:00 PM documented in this encounter [facility] 09-24-2023 Note HNO ID: [id number] Author: Gabriel Brown LPN Service: ? Author Type: LICENSED NURSE Type: Progress Notes Filed: 09/28/2023 9:16 PM Note Text: Patient is in office for transition of care visit. Patient was discharged from [facility] 09-08-2023 with an Ulcer. Patient has follow up with Gastroenterology. Patient states that in regards to the Ulcer she feels better, but over all she is tired, having insomnia Ambien was prescribed by GI and states that it makes her sleep for 2 hours then she is up again. Patient states she is also experiencing increased depression, due to her health, and everything that has occurred this year. No refills needed Gabriel Brown LPN September 24, 2023 5:[address] [facility] 08-12-2023 Note HNO ID: [id number] Author: Tito Cuevas MD Service: ? Author Type: Physician Type: Progress Notes Filed: 08/12/2023 8:32 PM Note Text: This note was created using [employer]. Subjective Julia Lentz is a 47 year old female.Patient Julia is here because she is having low back pain and right arm pain She called off two days last week because she was in so much pain, she got sent home from work She had an appointment with arthritis doctor Tawny and she was told that she has rheumatoid arthritis She has a follow up appointment with her Dr Hector was going to put her on Methotrexate but cannot because Julia's liver enzymes are elevated She is instead suggesting Plaquenil Julia wants dr Cuevas's opinion on this medication A liver ultrasound has been ordered The pain is in her low mid back the pain is not radiating She said it hurst so bad at times she can't walk, sleep, sit, etc. Review of Systems Constitutional: Negative. HENT: Negative. Eyes: Negative. Respiratory: Negative. Cardiovascular: Negative. Gastrointestinal: Negative. Endocrine: Negative. Genitourinary: Negative. Musculoskeletal: Negative. Skin: Negative. Allergic/Immunologic: Negative. Neurological: Negative. Hematological: Negative. Psychiatric/Behavioral: Negative. Objective BP 110/80 (BP Site: Left Arm, BP Position: Sitting) Pulse 75 Temp 36.9 ?C (98.4 ?F) (Temporal) Resp 16 Ht 165.1 cm (5' 5 ) Wt 72.9 kg (160 lb 12.8 oz) LMP 07/12/2007 SpO2 97% BMI 26.76 kg/m? Physical Exam Vitals reviewed. Constitutional: Appearance: Normal appearance. HENT: Head: Normocephalic and atraumatic. Nose: Nose normal. Eyes: Extraocular Movements: Extraocular movements intact. Pupils: Pupils are equal, round, and reactive to light. Cardiovascular: Rate and Rhythm: Normal rate and regular rhythm. Pulmonary: Effort: Pulmonary effort is normal. Breath sounds: Normal breath sounds. Abdominal: General: Bowel sounds are normal. Palpations: Abdomen is soft. Musculoskeletal: General: Swelling, tenderness and signs of injury present. Normal range of motion. Cervical back: Normal range of motion and neck supple. Skin: General: Skin is warm and dry. Capillary Refill: Capillary refill takes less than 2 seconds. Neurological: General: No focal deficit present. Mental Status: She is alert and oriented to person, place, and time. Mental status is at baseline. Psychiatric: Mood and Affect: Mood normal. Behavior: Behavior normal. Assessment and Plan Encounter Diagnosis ICD-10-CM 1. Midline low back pain without sciatica, unspecified chronicity M54.50 2. Polyarthritis, unspecified M13.0 Treat with meloxicam. Follow-up with insulation inspector. Okay to begin Plaquenil if she cannot take methotrexate. If she has more questions she may discuss this with her insulation inspector. Tito Cuevas MD [facility] 08-12-2023 History of Presen t illness Narrative This note was created using [employer]. Subjective Julia Lentz is a 47 year old female.Patient Julia is here because she is having low back pain and right arm pain She called off two days last week because she was in so much pain, she got sent home from work She had an appointment with arthritis doctor Tawny and she was told that she has rheumatoid arthritis She has a follow up appointment with her Dr Hector was going to put her on Methotrexate but cannot because Julia's liver enzymes are elevated She is instead suggesting Plaquenil Julia wants dr Cuevas's opinion on this medication A liver ultrasound has been ordered The pain is in her low mid back the pain is not radiating She said it hurst so bad at times she can't walk, sleep, sit, etc. Review of Systems Constitutional: Negative. HENT: Negative. Eyes: Negative. Respiratory: Negative. Cardiovascular: Negative. Gastrointestinal: Negative. Endocrine: Negative. Genitourinary: Negative. Musculoskeletal: Negative. Skin: Negative. Allergic/Immunologic: Negative. Neurological: Negative. Hematological: Negative. Psychiatric/Behavioral: Negative. Objective BP 110/80 (BP Site: Left Arm, BP Position: Sitting) Pulse 75 Temp 36.9 C (98.4 F) (Temporal) Resp 16 Ht 165.1 cm (5' 5 ) Wt 72.9 kg (160 lb 12.8 oz) LMP 07/12/2007 SpO2 97% BMI 26.76 kg/m Physical Exam Vitals reviewed. Constitutional: Appearance: Normal appearance. HENT: Head: Normocephalic and atraumatic. Nose: Nose normal. Eyes: Extraocular Movements: Extraocular movements intact. Pupils: Pupils are equal, round, and reactive to light. Cardiovascular: Rate and Rhythm: Normal rate and regular rhythm. Pulmonary: Effort: Pulmonary effort is normal. Breath sounds: Normal breath sounds. Abdominal: General: Bowel sounds are normal. Palpations: Abdomen is soft. Musculoskeletal: General: Swelling, tenderness and signs of injury present. Normal range of motion. Cervical back: Normal range of motion and neck supple. Skin: General: Skin is warm and dry. Capillary Refill: Capillary refill takes less than 2 seconds. Neurological: General: No focal deficit present. Mental Status: She is alert and oriented to person, place, and time. Mental status is at baseline. Psychiatric: Mood and Affect: Mood normal. Behavior: Behavior normal. Assessment and Plan Encounter Diagnosis ICD-10-CM 1. Midline low back pain without sciatica, unspecified chronicity M54.50 2. Polyarthritis, unspecified M13.0 Treat with meloxicam. Follow-up with insulation inspector. Okay to begin Plaquenil if she cannot take methotrexate. If she has more questions she may discuss this with her insulation inspector. Tito Cuevas MD Patient Julia is here because she is having low back pain and right arm pain She called off two days last week because she was in so much pain, she got sent home from work She had an appointment with arthritis doctor Tawny and she was told that she has rheumatoid arthritis She has a follow up appointment with her Dr Hector was going to put her on Methotrexate but cannot because Julia's liver enzymes are elevated She is instead suggesting Plaquenil Julia wants dr Cuevas's opinion on this medication A liver ultrasound has been ordered The pain is in her low mid back the pain is not radiating She said it hurst so bad at times she can't walk, sleep, sit, etc. Ofelia Landeros LPN August 08, 2023 5:19 PM ' documented in this encounter [facility] 08-08-2023 Note HNO ID: [id number] Author: Ofelia Landeros LPN Service: ? Author Type: LICENSED NURSE Type: Progress Notes Filed: 08/12/2023 8:32 PM Note Text: Patient Julia is here because she is having low back pain and right arm pain She called off two days last week because she was in so much pain, she got sent home from work She had an appointment with arthritis doctor Tawny and she was told that she has rheumatoid arthritis She has a follow up appointment with her Dr Hector was going to put her on Methotrexate but cannot because Julia's liver enzymes are elevated She is instead suggesting Plaquenil Julia wants dr Cuevas's opinion on this medication A liver ultrasound has been ordered The pain is in her low mid back the pain is not radiating She said it hurst so bad at times she can't walk, sleep, sit, etc. Ofelia Landeros LPN August 08, 2023 5:19 PM [facility] 05-21-2023 Note HNO ID: [id number] Author: Ariadna Rubio PA-C Service: ? Author Type: Physician Hotel Maintenance Technician Type: Progress Notes Filed: 05/21/2023 4:58 PM Note Text: This note was created using [employer]. Subjective Julia Lentz is a 47 year old female. HPI Presents with sores on her ears since she had gotten her hair dyed 6 days ago. She states it had started almost immediately when the stylus started dying her hair. She has had her hair this color previously. She has had a reaction to bleaching her hair before but not usually with dark color. She states it is very itchy. She has had some crusting on her ears. She also had some sores on her scalp. No other new exposures. She tried some antibiotic ointment [id number]. Review of Systems HENT: Ear sores, scalp sores All other systems reviewed and are negative. PAST MEDICAL HISTORY Diagnosis Date Dysplasia of cervix, unspecified Current Outpatient Medications Medication Sig Dispense Refill ergocalciferol 50,000 unit capsule (VITAMIN D2, DRISDOL) Take 1 capsule by mouth one time a week. 12 capsule 1 acyclovir (ZOVIRAX) 400 mg tablet Take 1 tablet by mouth once daily. 90 tablet 3 mupirocin (BACTROBAN) 2 % ointment Apply to affected area three times daily for 5 days. 30 g 0 predniSONE (DELTASONE) 20 mg tablet Take 2 tablets by mouth once daily for 5 days. 10 tablet 0 No current facility-administered medications for this visit. PAST SURGICAL HISTORY Procedure Laterality Date APPENDECTOMY HYSTERECTOMY LEEP PROCEDURE ([facility])_*FL LIG/TRNSXJ FLP TUBE ABDL/VAG APPR UNI/BI FAMILY HISTORY Problem Relation Age of Onset Cancer Mother brain ca Breast Cancer Maternal Grandfather lung Cancer Maternal Uncle Cancer Maternal Grandmother Cancer Paternal Grandfather Social History Tobacco Use Smoking status: Former Packs/day: 1.00 Years: 29.00 Total pack years: 29.00 Types: Cigarettes Smokeless tobacco: Never Vaping Use Vaping Use: Never used Substance Use Topics Alcohol use: No Objective BP 102/62 Pulse 78 Temp 37.2 ?C (98.9 ?F) Resp 18 Wt 70.8 kg (156 lb) LMP 07/12/2007 SpO2 99% BMI 25.96 kg/m? Physical Exam Vitals reviewed. Constitutional: Appearance: Normal appearance. HENT: Head: Normocephalic. Ears: Comments: Patient has erythema and some crusting in the bilateral helix of both ears. Some small spots scattered on her scalp as well. Skin: General: Skin is warm and dry. Findings: Rash present. Neurological: General: No focal deficit present. Mental Status: She is alert. Assessment and Plan ASSESSMENT/PLAN: 1. Irritant dermatitis - ICD9: 692.9, ICD10: L24.9 - Oral Steriod tx -Prednisone burst and topical mupirocin - discussed skin care of rash - follow up if symptoms persist or worsen. Ariadna Rubio PA-C [facility] 05-21-2023 History of Presen t illness Narrative This note was created using Fitzeal. Subjective Julia Lentz is a 47 year old female. HPI Presents with sores on her ears since she had gotten her hair dyed 6 days ago. She states it had started almost immediately when the stylus started dying her hair. She has had her hair this color previously. She has had a reaction to bleaching her hair before but not usually with dark color. She states it is very itchy. She has had some crusting on her ears. She also had some sores on her scalp. No other new exposures. She tried some antibiotic ointment [id number]. Review of Systems HENT: Ear sores, scalp sores All other systems reviewed and are negative. PAST MEDICAL HISTORY Diagnosis Date Dysplasia of cervix, unspecified Current Outpatient Medications Medication Sig Dispense Refill ergocalciferol 50,000 unit capsule (VITAMIN D2, DRISDOL) Take 1 capsule by mouth one time a week. 12 capsule 1 acyclovir (ZOVIRAX) 400 mg tablet Take 1 tablet by mouth once daily. 90 tablet 3 mupirocin (BACTROBAN) 2 % ointment Apply to affected area three times daily for 5 days. 30 g 0 predniSONE (DELTASONE) 20 mg tablet Take 2 tablets by mouth once daily for 5 days. 10 tablet 0 No current facility-administered medications for this visit. PAST SURGICAL HISTORY Procedure Laterality Date APPENDECTOMY HYSTERECTOMY LEEP PROCEDURE ([facility])_*FL LIG/TRNSXJ FLP TUBE ABDL/VAG APPR UNI/BI FAMILY HISTORY Problem Relation Age of Onset Cancer Mother brain ca Breast Cancer Maternal Grandfather lung Cancer Maternal Uncle Cancer Maternal Grandmother Cancer Paternal Grandfather Social History Tobacco Use Smoking status: Former Packs/day: 1.00 Years: 29.00 Total pack years: 29.00 Types: Cigarettes Smokeless tobacco: Never Vaping Use Vaping Use: Never used Substance Use Topics Alcohol use: No Objective BP 102/62 Pulse 78 Temp 37.2 C (98.9 F) Resp 18 Wt 70.8 kg (156 lb) LMP 07/12/2007 SpO2 99% BMI 25.96 kg/m Physical Exam Vitals reviewed. Constitutional: Appearance: Normal appearance. HENT: Head: Normocephalic. Ears: Comments: Patient has erythema and some crusting in the bilateral helix of both ears. Some small spots scattered on her scalp as well. Skin: General: Skin is warm and dry. Findings: Rash present. Neurological: General: No focal deficit present. Mental Status: She is alert. Assessment and Plan ASSESSMENT/PLAN: 1. Irritant dermatitis - ICD9: 692.9, ICD10: L24.9 - Oral Steriod tx -Prednisone burst and topical mupirocin - discussed skin care of rash - follow up if symptoms persist or worsen. Ariadna Rubio PA-C documented in this encounter [facility] 04-25-2023 Miscellaneous Notes Patient notified of result information on My Chart. Notification will be sent to this nurse if message has not been read within 2 days. Patient will be contacted by another form of communication if notification of not reading My Chart message is received. Gabriel Brown LPN April 25, 2023 11:10 AM ----- Message from Tito Cuevas MD sent at 04/25/2023 9:36 AM EDT ----- Sed rate increased. DOMENICA and rheumatoid factor negative. Consult rheumatology in [place] documented in this encounter [facility] 04-24-2023 Miscellaneous Notes Referral faxed to [facility] (for colonoscopy) #[phone] fax#[phone]. Ofelia Landeros LPN April 24, 2023 2:45 PM documented in this encounter [facility] 04-23-2023 Note HNO ID: [id number] Author: Tito Cuevas MD Service: ? Author Type: Physician Type: Progress Notes Filed: 04/23/2023 5:40 PM Note Text: This note was created using Fitzeal. Subjective Julia Lentz is a 47 year old female. Julia presents today for follow-up. She is continues to have occasional hot flashes but they seem to be improving. She has increased joint pain especially her fingers. And hands. She reports that gastroenterology never contacted her about completing her colonoscopy. She has a first-degree relative recently diagnosed with colon cancer. Review of Systems Constitutional: Negative. HENT: Negative. Eyes: Negative. Respiratory: Negative. Cardiovascular: Negative. Gastrointestinal: Negative. Endocrine: Negative. Genitourinary: Negative. Musculoskeletal: Positive for arthralgias. Skin: Negative. Allergic/Immunologic: Negative. Neurological: Negative. Hematological: Negative. Psychiatric/Behavioral: Negative. Objective BP 112/80 (BP Site: Left Arm, BP Position: Sitting) Pulse 108 Temp 36.3 ?C (97.3 ?F) (Temporal) Resp 14 Ht 165.1 cm (5' 5 ) Wt 68.4 kg (150 lb 12.8 oz) LMP 07/12/2007 SpO2 98% BMI 25.09 kg/m? Physical Exam Vitals reviewed. Constitutional: Appearance: Normal appearance. HENT: Head: Normocephalic and atraumatic. Nose: Nose normal. Eyes: Extraocular Movements: Extraocular movements intact. Pupils: Pupils are equal, round, and reactive to light. Cardiovascular: Rate and Rhythm: Normal rate and regular rhythm. Pulmonary: Effort: Pulmonary effort is normal. Breath sounds: Normal breath sounds. Abdominal: General: Bowel sounds are normal. Palpations: Abdomen is soft. Musculoskeletal: General: Swelling and tenderness present. Normal range of motion. Cervical back: Normal range of motion and neck supple. Skin: General: Skin is warm and dry. Capillary Refill: Capillary refill takes less than 2 seconds. Neurological: General: No focal deficit present. Mental Status: She is alert and oriented to person, place, and time. Mental status is at baseline. Psychiatric: Mood and Affect: Mood normal. Behavior: Behavior normal. Assessment and Plan Encounter Diagnosis ICD-10-CM 1. Polyarthritis M13.0 SED RATE WESTERGREN DOMENICA BLOOD RHEUMATOID FACTOR BL 2. Screening for colon cancer Z12.11 CONSULT TO GENERAL SURGERY Repeat consult for colon cancer screening. Labs as above for polyarthritis evaluation. Tito Cuevas MD [facility] 04-23-2023 Note HNO ID: [id number] Author: Ofelia Landeros LPN Service: ? Author Type: LICENSED NURSE Type: Progress Notes Filed: 04/23/2023 5:40 PM Note Text: Patient is in office for follow up for chronic medical conditions. Patient was last seen in office on 03-07-2023 with complaint of hot flashes, hormone testing was negative for being menopausal.patient also had an ultrasound due to mammogram results, and there is a benign lesion in breast. Patient was advised to recheck in one year. She has an elevated sed rate Ofelia Landeros LPN April 23, 2023 4:[address] [facility] 04-23-2023 History of Presen t illness Narrative This note was created using Fitzeal. Subjective Julia Lentz is a 47 year old female. Julia presents today for follow-up. She is continues to have occasional hot flashes but they seem to be improving. She has increased joint pain especially her fingers. And hands. She reports that gastroenterology never contacted her about completing her colonoscopy. She has a first-degree relative recently diagnosed with colon cancer. Review of Systems Constitutional: Negative. HENT: Negative. Eyes: Negative. Respiratory: Negative. Cardiovascular: Negative. Gastrointestinal: Negative. Endocrine: Negative. Genitourinary: Negative. Musculoskeletal: Positive for arthralgias. Skin: Negative. Allergic/Immunologic: Negative. Neurological: Negative. Hematological: Negative. Psychiatric/Behavioral: Negative. Objective BP 112/80 (BP Site: Left Arm, BP Position: Sitting) Pulse 108 Temp 36.3 C (97.3 F) (Temporal) Resp 14 Ht 165.1 cm (5' 5 ) Wt 68.4 kg (150 lb 12.8 oz) LMP 07/12/2007 SpO2 98% BMI 25.09 kg/m Physical Exam Vitals reviewed. Constitutional: Appearance: Normal appearance. HENT: Head: Normocephalic and atraumatic. Nose: Nose normal. Eyes: Extraocular Movements: Extraocular movements intact. Pupils: Pupils are equal, round, and reactive to light. Cardiovascular: Rate and Rhythm: Normal rate and regular rhythm. Pulmonary: Effort: Pulmonary effort is normal. Breath sounds: Normal breath sounds. Abdominal: General: Bowel sounds are normal. Palpations: Abdomen is soft. Musculoskeletal: General: Swelling and tenderness present. Normal range of motion. Cervical back: Normal range of motion and neck supple. Skin: General: Skin is warm and dry. Capillary Refill: Capillary refill takes less than 2 seconds. Neurological: General: No focal deficit present. Mental Status: She is alert and oriented to person, place, and time. Mental status is at baseline. Psychiatric: Mood and Affect: Mood normal. Behavior: Behavior normal. Assessment and Plan Encounter Diagnosis ICD-10-CM 1. Polyarthritis M13.0 SED RATE WESTERGREN DOMENICA BLOOD RHEUMATOID FACTOR BL 2. Screening for colon cancer Z12.11 CONSULT TO GENERAL SURGERY Repeat consult for colon cancer screening. Labs as above for polyarthritis evaluation. Tito Cuevas MD Patient is in office for follow up for chronic medical conditions. Patient was last seen in office on 03-07-2023 with complaint of hot flashes, hormone testing was negative for being menopausal.patient also had an ultrasound due to mammogram results, and there is a benign lesion in breast. Patient was advised to recheck in one year. She has an elevated sed rate Ofelai Landeros LPN April 23, 2023 4:18 PM documented in this encounter [facility] 04-18-2023 Note HNO ID: [id number] Author: Wenceslao Wilkerson RDMS Service: ? Author Type: Craniologist Type: Progress Notes Filed: 04/18/2023 3:46 PM Note Text: Radiology Service Progress Note PATIENT NAME: Julia Lentz DATE OF SERVICE: April 18, 2023 TIME: 3:46 PM PATIENT IDENTITY VERIFICATION COMPLETED USING TWO (2) IDENTIFIERS: Name and Date of confirmed by patient verbally. FALL SCREENING: Has the patient had 2 falls in the last year or 1 fall with injury or currently using an Ambulatory Assistive Device (Walker, Cane, Wheelchair, Crutches, etc.)? No PATIENT GENDER DATA: Female. status: : No status: NO. PATIENT RELEVANT IMPLANT DATA REVIEWED: Not Applicable RADIOLOGY DEPARTMENT: Ultrasound PERIPHERAL IV DATA: Not applicable SIGNED BY: Wenceslao Wilkerson RDMS RVT April 18, 2023 3:46 PM [facility] 04-18-2023 Note HNO ID: [id number] Author: RT Rivera(R) Service: ? Author Type: Technologist Type: Progress Notes Filed: 04/18/2023 3:34 PM Note Text: Radiology Service Progress Note PATIENT NAME: Julia Lentz DATE OF SERVICE: April 18, 2023 TIME: 3:34 PM PATIENT IDENTITY VERIFICATION COMPLETED USING TWO (2) IDENTIFIERS: Name and Date of confirmed by patient verbally. FALL SCREENING: Has the patient had 2 falls in the last year or 1 fall with injury or currently using an Ambulatory Assistive Device (Walker, Cane, Wheelchair, Crutches, etc.)? No PATIENT GENDER DATA: Female. status: : No status: NO. PATIENT RELEVANT IMPLANT DATA REVIEWED: Not Applicable RADIOLOGY DEPARTMENT: Mammography PERIPHERAL IV DATA: Not applicable SIGNED BY: RT Rivera(R) April 18, 2023 3:34 PM [facility] 04-18-2023 History of Presen t illness Narrative Radiology Service Progress Note PATIENT NAME: Julia GRULLONN: [id number] DATE OF SERVICE: April 18, 2023 TIME: 3:46 PM PATIENT IDENTITY VERIFICATION COMPLETED USING TWO (2) IDENTIFIERS: Name and Date of confirmed by patient verbally. FALL SCREENING: Has the patient had 2 falls in the last year or 1 fall with injury or currently using an Ambulatory Assistive Device (Walker, Cane, Wheelchair, Crutches, etc.)? No PATIENT GENDER DATA: Female. status: : No status: NO. PATIENT RELEVANT IMPLANT DATA REVIEWED: Not Applicable RADIOLOGY DEPARTMENT: Ultrasound PERIPHERAL IV DATA: Not applicable SIGNED BY: Wenceslao Wilkerson RDMS RVT April 18, 2023 3:46 PM documented in this encounter [facility] 04-18-2023 History of Presen t illness Narrative Radiology Service Progress Note PATIENT NAME: Julia Lentz DATE OF SERVICE: April 18, 2023 TIME: 3:34 PM PATIENT IDENTITY VERIFICATION COMPLETED USING TWO (2) IDENTIFIERS: Name and Date of confirmed by patient verbally. FALL SCREENING: Has the patient had 2 falls in the last year or 1 fall with injury or currently using an Ambulatory Assistive Device (Walker, Cane, Wheelchair, Crutches, etc.)? No PATIENT GENDER DATA: Female. status: : No status: NO. PATIENT RELEVANT IMPLANT DATA REVIEWED: Not Applicable RADIOLOGY DEPARTMENT: Mammography PERIPHERAL IV DATA: Not applicable SIGNED BY: RT Rivera(R) April 18, 2023 3:34 PM documented in this encounter [facility] 03-19-2023 Miscellaneous Notes Patient notified of result information on My Chart. Notification will be sent to this nurse if message has not been read within 2 days. Patient will be contacted by another form of communication if notification of not reading My Chart message is received. Gabriel Brown LPN March 19, 2023 11:02 AM ----- Message from Tito Cuevas MD sent at 03/18/2023 9:09 PM EDT ----- Vitamin D is low. Begin vitamin D 50,000 units once a week for 12 weeks. Recheck vitamin D in 12 weeks documented in this encounter [facility] 03-08-2023 Miscellaneous Notes March 09, 2023 PID: [id number] Julia Lentz [address] [place] [address] Dear Ms. Lentz, Your prior imaging studies have arrived and been compared to your current study performed on 02/28/2023 which showed a possible finding that requires additional imaging studies for a complete evaluation. Most such findings are probably benign (not cancer). Your mammogram demonstrates that you have dense breast tissue, which could hide abnormalities. Dense breast tissue, in and of itself, is a relatively common condition. Therefore, this information is not provided to cause undue concern; rather, it is to raise your awareness and promote discussion with your health care provider regarding the presence of dense breast tissue in addition to other risk factors. If you have a healthcare provider who ordered/prescribed your screening mammogram: Please call [phone] or [phone]: [phone] to schedule an appointment for your additional imaging (if you have not already done so). If you DO NOT have a healthcare provider (ie you did not have an order/prescription for your screening mammogram): Please call to schedule an appointment for your additional imaging (if you have not already done so). You must have an order/prescription from your physician when calling to schedule your appointment. If your order/prescription is not electronic, you must bring the hard copy with you on the day of your exam to avoid delays. Your imaging studies and reports are kept on file at [facility] as part of your permanent medical record, and are available for your continuing care. Thank you for allowing us to help in meeting your health care needs. Sincerely, Dr. Silvestre Interpreting Radiologist [facility] (compared needs addl imaging) documented in this encounter [facility] 03-08-2023 Note HNO ID: [id number] Author: Tito Cuevas MD Service: ? Author Type: Physician Type: Progress Notes Filed: 03/08/2023 11:48 AM Note Text: This note was created using Fitzeal. Subjective Julia Lentz is a 47 year old female. Julia presents today for follow-up for multiple medical problems. See list. She had an abnormal mammogram which she has not scheduled additional imaging yet. That ordered needed clarification and has been done so today. Additionally she has hot flashes. Hormone testing was negative for being menopausal. Review of Systems Constitutional: Negative. HENT: Negative. Eyes: Negative. Respiratory: Negative. Cardiovascular: Negative. Gastrointestinal: Negative. Endocrine: Negative. Genitourinary: Negative. Musculoskeletal: Negative. Skin: Negative. Allergic/Immunologic: Negative. Neurological: Negative. Hematological: Negative. Psychiatric/Behavioral: Negative. Objective BP 124/76 (BP Site: Left Arm, BP Position: Sitting, BP Cuff Size: Regular Adult) Pulse 86 Temp 36.1 ?C (96.9 ?F) (Temporal) Resp 18 Ht 165.1 cm (5' 5 ) Wt 66.7 kg (147 lb 2 oz) LMP 07/12/2007 SpO2 99% BMI 24.48 kg/m? Physical Exam Vitals reviewed. Constitutional: Appearance: Normal appearance. HENT: Head: Normocephalic and atraumatic. Nose: Nose normal. Eyes: Extraocular Movements: Extraocular movements intact. Pupils: Pupils are equal, round, and reactive to light. Cardiovascular: Rate and Rhythm: Normal rate and regular rhythm. Pulmonary: Effort: Pulmonary effort is normal. Breath sounds: Normal breath sounds. Abdominal: General: Bowel sounds are normal. Palpations: Abdomen is soft. Musculoskeletal: General: Normal range of motion. Cervical back: Normal range of motion and neck supple. Skin: General: Skin is warm and dry. Capillary Refill: Capillary refill takes less than 2 seconds. Neurological: General: No focal deficit present. Mental Status: She is alert and oriented to person, place, and time. Mental status is at baseline. Psychiatric: Mood and Affect: Mood normal. Behavior: Behavior normal. Assessment and Plan Encounter Diagnosis ICD-10-CM 1. Fatigue, unspecified type R53.83 TSH BLD VITAMIN D 25 HYDROXY 2. Abnormal mammogram R92.8 YAW DIAGNOSTIC BILATERAL US BREAST LTD LEFT US BREAST LTD RIGHT 3. Polyarthritis M13.0 SED RATE WESTERGREN 4. Hot flashes R23.2 Obtain follow-up mammogram. Obtain labs to further assess hot flashes. Tito Cuevas MD [facility] 03-08-2023 History of Presen t illness Narrative This note was created using Fitzeal. Subjective Julia Lentz is a 47 year old female. Julia presents today for follow-up for multiple medical problems. See list. She had an abnormal mammogram which she has not scheduled additional imaging yet. That ordered needed clarification and has been done so today. Additionally she has hot flashes. Hormone testing was negative for being menopausal. Review of Systems Constitutional: Negative. HENT: Negative. Eyes: Negative. Respiratory: Negative. Cardiovascular: Negative. Gastrointestinal: Negative. Endocrine: Negative. Genitourinary: Negative. Musculoskeletal: Negative. Skin: Negative. Allergic/Immunologic: Negative. Neurological: Negative. Hematological: Negative. Psychiatric/Behavioral: Negative. Objective BP 124/76 (BP Site: Left Arm, BP Position: Sitting, BP Cuff Size: Regular Adult) Pulse 86 Temp 36.1 C (96.9 F) (Temporal) Resp 18 Ht 165.1 cm (5' 5 ) Wt 66.7 kg (147 lb 2 oz) LMP 07/12/2007 SpO2 99% BMI 24.48 kg/m Physical Exam Vitals reviewed. Constitutional: Appearance: Normal appearance. HENT: Head: Normocephalic and atraumatic. Nose: Nose normal. Eyes: Extraocular Movements: Extraocular movements intact. Pupils: Pupils are equal, round, and reactive to light. Cardiovascular: Rate and Rhythm: Normal rate and regular rhythm. Pulmonary: Effort: Pulmonary effort is normal. Breath sounds: Normal breath sounds. Abdominal: General: Bowel sounds are normal. Palpations: Abdomen is soft. Musculoskeletal: General: Normal range of motion. Cervical back: Normal range of motion and neck supple. Skin: General: Skin is warm and dry. Capillary Refill: Capillary refill takes less than 2 seconds. Neurological: General: No focal deficit present. Mental Status: She is alert and oriented to person, place, and time. Mental status is at baseline. Psychiatric: Mood and Affect: Mood normal. Behavior: Behavior normal. Assessment and Plan Encounter Diagnosis ICD-10-CM 1. Fatigue, unspecified type R53.83 TSH BLD VITAMIN D 25 HYDROXY 2. Abnormal mammogram R92.8 YAW DIAGNOSTIC BILATERAL US BREAST LTD LEFT US BREAST LTD RIGHT 3. Polyarthritis M13.0 SED RATE WESTERGREN 4. Hot flashes R23.2 Obtain follow-up mammogram. Obtain labs to further assess hot flashes. Tito Cuevas MD Patient in office today to follow up on multiple medical conditions. Patient states she has been having issues scheduling the extra imaging for mammogram so she has not had the extra imaging done as of today. Patient was told that there needs to be an order for the imaging. Leny Jason LPN March 07, 2023 4:31 PM documented in this encounter [facility] 03-08-2023 Miscellaneous Notes Patient was given orders at visit yesterday. Gabriel Brown LPN March 08, 2023 10:55 AM Reenter new orders so she can have necessary imaging completed documented in this encounter [facility] 03-07-2023 Note HNO ID: [id number] Author: Leny Jason LPN Service: ? Author Type: LICENSED NURSE Type: Progress Notes Filed: 03/08/2023 11:48 AM Note Text: Patient in office today to follow up on multiple medical conditions. Patient states she has been having issues scheduling the extra imaging for mammogram so she has not had the extra imaging done as of today. Patient was told that there needs to be an order for the imaging. Leny Jason LPN March 07, 2023 4:[address] [facility] 03-01-2023 Miscellaneous Notes Patient notified of information. Verbalized understanding Gabriel Brown LPN March 01, 2023 2:32 PM ----- Message from Tito Cuevas MD sent at 03/01/2023 1:14 PM EDT ----- Has additional imaging been scheduled? documented in this encounter [facility] 03-01-2023 Miscellaneous Notes March 02, 2023 PID: [id number] Julia Lentz [address] [place] [address] Dear Ms. Lentz, Your breast imaging exam 02/28/2023 showed a possible finding that may require additional imaging studies for a complete evaluation. However, we recognize you have prior imaging studies at facilities other than [facility], and would like the opportunity to compare your recent imaging with those studies to evaluate for any change. At this time, we have requested your prior studies. Your mammogram demonstrates that you have dense breast tissue, which could hide abnormalities. Dense breast tissue, in and of itself, is a relatively common condition. Therefore, this information is not provided to cause undue concern; rather, it is to raise your awareness and promote discussion with your health care provider regarding the presence of dense breast tissue in addition to other risk factors. If/when your prior studies arrive, a final report will be sent to your healthcare provider and/or you. In addition, you will receive a new result letter and or phone call If you need additional imaging. If we do not receive prior studies within 30 days of your exam, you will receive a reminder letter and or phone call to schedule your diagnostic imaging. Your imaging studies and reports are kept on file at [facility] as part of your permanent medical record, and are available for your continuing care. If you have any questions or concerns, please call [phone]. Thank you for choosing [facility] for your imaging needs. Sincerely, Dr. Silvestre Interpreting Radiologist [facility] documented in this encounter [facility] 02-28-2023 Note HNO ID: [id number] Author: RT Rivera(Anthony) Service: ? Author Type: Technologist Type: Progress Notes Filed: 02/28/2023 3:30 PM Note Text: Radiology Service Progress Note PATIENT NAME: Julia Lentz DATE OF SERVICE: February 28, 2023 TIME: 3:29 PM PATIENT IDENTITY VERIFICATION COMPLETED USING TWO (2) IDENTIFIERS: Name and Date of confirmed by patient verbally. FALL SCREENING: Has the patient had 2 falls in the last year or 1 fall with injury or currently using an Ambulatory Assistive Device (Walker, Cane, Wheelchair, Crutches, etc.)? No PATIENT GENDER DATA: Female. status: : No status: NO. PATIENT RELEVANT IMPLANT DATA REVIEWED: Not Applicable RADIOLOGY DEPARTMENT: Mammography PERIPHERAL IV DATA: Not applicable SIGNED BY: RT Rivera(R) February 28, 2023 3:29 PM [facility] 02-28-2023 History of Presen t illness Narrative Radiology Service Progress Note PATIENT NAME: Julia Lentz DATE OF SERVICE: February 28, 2023 TIME: 3:29 PM PATIENT IDENTITY VERIFICATION COMPLETED USING TWO (2) IDENTIFIERS: Name and Date of confirmed by patient verbally. FALL SCREENING: Has the patient had 2 falls in the last year or 1 fall with injury or currently using an Ambulatory Assistive Device (Walker, Cane, Wheelchair, Crutches, etc.)? No PATIENT GENDER DATA: Female. status: : No status: NO. PATIENT RELEVANT IMPLANT DATA REVIEWED: Not Applicable RADIOLOGY DEPARTMENT: Mammography PERIPHERAL IV DATA: Not applicable SIGNED BY: RT Rivera(Anthony) February 28, 2023 3:29 PM documented in this encounter [facility] 02-27-2023 Miscellaneous Notes Patient called and made aware of result and stated that it doesn't make sense. I again read patient response and she said ok. She declined an appt to come in regarding emotional issue As previously stated, patient is not in menopause. Patient states that he is confused and never got a straight answer about whether or not she going through menopause documented in this encounter [facility] 02-26-2023 Miscellaneous Notes Patient notified of result information on My Chart. Notification will be sent to this nurse if message has not been read within 2 days. Patient will be contacted by another form of communication if notification of not reading My Chart message is received. This nurse phoned patient, but phone would not ring. Gabriel Brown LPN February 26, 2023 11:45 AM ----- Message from Tito Cuevas MD sent at 02/25/2023 8:07 PM EDT ----- Possible fatty liver. documented in this encounter [facility] 02-23-2023 Note HNO ID: [id number] Author: Maria Del Carmen Ruelas RDMS Service: ? Author Type: Restrictive Preparation Operator Type: Progress Notes Filed: 02/23/2023 7:38 AM Note Text: Radiology Service Progress Note PATIENT NAME: Julia Lentz DATE OF SERVICE: February 23, 2023 TIME: 7:38 AM PATIENT IDENTITY VERIFICATION COMPLETED USING TWO (2) IDENTIFIERS: Name and Date of confirmed by patient verbally. FALL SCREENING: Has the patient had 2 falls in the last year or 1 fall with injury or currently using an Ambulatory Assistive Device (Walker, Cane, Wheelchair, Crutches, etc.)? No PATIENT GENDER DATA: Female. status: : No status: NO. PATIENT RELEVANT IMPLANT DATA REVIEWED: Not Applicable RADIOLOGY DEPARTMENT: Ultrasound PERIPHERAL IV DATA: Not applicable SIGNED BY: Maria Del Carmen Ruelas RDMS February 23, 2023 7:38 AM [facility] 02-23-2023 History of Presen t illness Narrative Radiology Service Progress Note PATIENT NAME: Julia Lentz DATE OF SERVICE: February 23, 2023 TIME: 7:38 AM PATIENT IDENTITY VERIFICATION COMPLETED USING TWO (2) IDENTIFIERS: Name and Date of confirmed by patient verbally. FALL SCREENING: Has the patient had 2 falls in the last year or 1 fall with injury or currently using an Ambulatory Assistive Device (Walker, Cane, Wheelchair, Crutches, etc.)? No PATIENT GENDER DATA: Female. status: : No status: NO. PATIENT RELEVANT IMPLANT DATA REVIEWED: Not Applicable RADIOLOGY DEPARTMENT: Ultrasound PERIPHERAL IV DATA: Not applicable SIGNED BY: Maria Del Carmen Ruelas RDMS February 23, 2023 7:38 AM documented in this encounter [facility] 02-22-2023 Miscellaneous Notes I spoke with patient Julia and advised her of all information and instructions per Dr Cuevas's note. Patient did voice understanding and is agreeable. Ofelia Landeros LPN February 22, 2023 3:56 PM Not postmenopausal. She will need a follow-up appointment to discuss her emotional issues. Julia Lentz called today. : 1975 Allergies: Famciclovir, Bactrim [Sulfamethoxazole-Trimethoprim], Latex Gloves [Other], and Trimethoprim (home) [phone] (work) [phone] (cell) Reason for call: patient is asking about the blood tests she had done on 02/09/2023 to check her hormone levels to determine if she is menopausal or not. She wants to know if she is or not. She said I am a mess, I am so emotional lately and I want to know what I can do about it. I told her I will ask Dr Cuevas and if she wants to address these issues she will need an appointment to discuss it. Julia said it is okay to leave a detailed voice mail message on her phone if she does not answer the call back. Please advise. Thank you. Patient last appointment: 02/02/2023 The patients preferred pharmacy has been captured for this encounter? no Ofelia Landeros LPN documented in this encounter [facility] 02-20-2023 Miscellaneous Notes I spoke with patient Julia and advised her of all information and instructions per Dr Cuevas's note. Patient did voice understanding and is agreeable. She plans on getting the blood test and ultrasound at the [facility] in [place]. She will call to schedule the ultrasound. I told her to call if she has any problems getting any of this testing done and she agreed to do so. Ofelia Landeros LPN February 20, 2023 4:[address] Cuevas regarding patient's recent test results: Liver enzymes and alk phos elevated. Obtain hepatitis panel and ultrasound of the liver and gallbladder system I left a message for patient to return call to office. Ofelia Landeros LPN February 19, 2023 10:02 AM documented in this encounter [facility] 02-14-2023 Note HNO ID: [id number] Author: RT Matt(Anthony) Service: ? Author Type: Technologist Type: Progress Notes Filed: 02/14/2023 3:28 PM Note Text: Radiology Service Progress Note DATE OF SERVICE: February 14, 2023 TIME: 3:28 PM PATIENT IDENTITY VERIFICATION COMPLETED USING TWO (2) STANDARD IDENTIFIERS: Name and Date of confirmed by patient verbally. FALL SCREENING: Has the patient had 2 falls in the last year or 1 fall with injury or currently using an Ambulatory Assistive Device (Walker, Cane, Wheelchair, Crutches, etc.)? No PATIENT GENDER DATA: Female. status: : No status: NO. PATIENT RELEVANT IMPLANT DATA REVIEWED: Yes ALLERGIES: Reviewed and unchanged CONTRAST ALLERGY: NO. EXAM: MRI - CONTRAST TYPE: GROUP II PERIPHERAL IV DATA: Ambulatory: A peripheral IV was started in the Right antecubital site with a Angio cath: 22 gauge. RADIOLOGY DEPARTMENT: MR; Exam(s) Completed: Spine: Lumbar spine SIGNATURE: RT Matt(R) PATIENT NAME: Julia Lentz DATE: February 14, 2023 TIME: 3:28 PM [facility] 02-14-2023 History of Presen t illness Narrative Radiology Service Progress Note DATE OF SERVICE: February 14, 2023 TIME: 3:28 PM PATIENT IDENTITY VERIFICATION COMPLETED USING TWO (2) STANDARD IDENTIFIERS: Name and Date of confirmed by patient verbally. FALL SCREENING: Has the patient had 2 falls in the last year or 1 fall with injury or currently using an Ambulatory Assistive Device (Walker, Cane, Wheelchair, Crutches, etc.)? No PATIENT GENDER DATA: Female. status: : No status: NO. PATIENT RELEVANT IMPLANT DATA REVIEWED: Yes ALLERGIES: Reviewed and unchanged CONTRAST ALLERGY: NO. EXAM: MRI - CONTRAST TYPE: GROUP II PERIPHERAL IV DATA: Ambulatory: A peripheral IV was started in the Right antecubital site with a Angio cath: 22 gauge. RADIOLOGY DEPARTMENT: MR; Exam(s) Completed: Spine: Lumbar spine SIGNATURE: RT Matt(R) PATIENT NAME: Julia Lentz DATE: February 14, 2023 TIME: 3:28 PM documented in this encounter [facility] 01-31-2023 Note HNO ID: [id number] Author: Tito Cuevas MD Service: ? Author Type: Physician Type: Progress Notes Filed: 01/31/2023 8:46 AM Note Text: This note was created using [employer]. Subjective Julia Lentz is a 47 year old female. Julia presents today for annual wellness exam. Review of Systems Constitutional: Negative. HENT: Negative. Eyes: Negative. Respiratory: Negative. Cardiovascular: Negative. Gastrointestinal: Negative. Endocrine: Negative. Genitourinary: Negative. Musculoskeletal: Negative. Skin: Negative. Allergic/Immunologic: Negative. Neurological: Negative. Hematological: Negative. Psychiatric/Behavioral: Negative. Objective BP 122/74 (BP Site: Left Arm, BP Position: Sitting, BP Cuff Size: Regular Adult) Pulse 78 Temp 36.3 ?C (97.3 ?F) (Temporal) Resp 18 Ht 165.1 cm (5' 5 ) LMP 07/12/2007 SpO2 99% BMI 19.97 kg/m? Physical Exam Vitals reviewed. Constitutional: Appearance: Normal appearance. HENT: Head: Normocephalic and atraumatic. Nose: Nose normal. Eyes: Extraocular Movements: Extraocular movements intact. Pupils: Pupils are equal, round, and reactive to light. Cardiovascular: Rate and Rhythm: Normal rate and regular rhythm. Pulmonary: Effort: Pulmonary effort is normal. Breath sounds: Normal breath sounds. Abdominal: General: Bowel sounds are normal. Palpations: Abdomen is soft. Musculoskeletal: General: Normal range of motion. Cervical back: Normal range of motion and neck supple. Skin: General: Skin is warm and dry. Capillary Refill: Capillary refill takes less than 2 seconds. Neurological: General: No focal deficit present. Mental Status: She is alert and oriented to person, place, and time. Mental status is at baseline. Psychiatric: Mood and Affect: Mood normal. Behavior: Behavior normal. Assessment and Plan Julia was seen today for wellness. Diagnoses and all orders for this visit: Encounter for screening mammogram for breast cancer - YAW SCREENING; Future Wellness examination - COMP METABOLIC PANEL; Future Lipid screening - LIPID PANEL BASIC; Future Screening for deficiency anemia - CBC + DIFF; Future Menopausal hot flushes - FSH BLD; Future - LUTEINIZING HORMONE; Future - ESTROGEN FRACTION BL; Future Screening for colon cancer - CONSULT TO GASTROENTEROLOGY; Future Encounter for screening for depression - DEPRESSION SCREENING/ASSESSMENT [facility] 01-31-2023 History of Presen t illness Narrative This note was created using [employer]. Subjective Julia Lentz is a 47 year old female. Julia presents today for annual wellness exam. Review of Systems Constitutional: Negative. HENT: Negative. Eyes: Negative. Respiratory: Negative. Cardiovascular: Negative. Gastrointestinal: Negative. Endocrine: Negative. Genitourinary: Negative. Musculoskeletal: Negative. Skin: Negative. Allergic/Immunologic: Negative. Neurological: Negative. Hematological: Negative. Psychiatric/Behavioral: Negative. Objective BP 122/74 (BP Site: Left Arm, BP Position: Sitting, BP Cuff Size: Regular Adult) Pulse 78 Temp 36.3 C (97.3 F) (Temporal) Resp 18 Ht 165.1 cm (5' 5 ) LMP 07/12/2007 SpO2 99% BMI 19.97 kg/m Physical Exam Vitals reviewed. Constitutional: Appearance: Normal appearance. HENT: Head: Normocephalic and atraumatic. Nose: Nose normal. Eyes: Extraocular Movements: Extraocular movements intact. Pupils: Pupils are equal, round, and reactive to light. Cardiovascular: Rate and Rhythm: Normal rate and regular rhythm. Pulmonary: Effort: Pulmonary effort is normal. Breath sounds: Normal breath sounds. Abdominal: General: Bowel sounds are normal. Palpations: Abdomen is soft. Musculoskeletal: General: Normal range of motion. Cervical back: Normal range of motion and neck supple. Skin: General: Skin is warm and dry. Capillary Refill: Capillary refill takes less than 2 seconds. Neurological: General: No focal deficit present. Mental Status: She is alert and oriented to person, place, and time. Mental status is at baseline. Psychiatric: Mood and Affect: Mood normal. Behavior: Behavior normal. Assessment and Plan Julia was seen today for wellness. Diagnoses and all orders for this visit: Encounter for screening mammogram for breast cancer - YAW SCREENING; Future Wellness examination - COMP METABOLIC PANEL; Future Lipid screening - LIPID PANEL BASIC; Future Screening for deficiency anemia - CBC + DIFF; Future Menopausal hot flushes - FSH BLD; Future - LUTEINIZING HORMONE; Future - ESTROGEN FRACTION BL; Future Screening for colon cancer - CONSULT TO GASTROENTEROLOGY; Future Encounter for screening for depression - DEPRESSION SCREENING/ASSESSMENT [facility] [employer]TE[employer] HEPATITIS B(1 of 3 - 3-dose series) declined COVID-19 VACCINE(1 declined PNEUMOCOCCAL(1 - PCV) declined HEPATITIS C SCREENING HIV SCREENING PAP TESTING had hysterectomy HPV TESTING DTAP,TDAP,TD(2 - Tdap) DIABETES SCREEN INFLUENZA(1) declined Gabreil Brown LPN January 29, 2023 5:13 PM documented in this encounter [facility] 01-29-2023 Note HNO ID: [id number] Author: Gabriel Brown LPN Service: ? Author Type: LICENSED NURSE Type: Progress Notes Filed: 01/31/2023 8:46 AM Note Text: DUE HEALTH MAINTENANCE HEPATITIS B(1 of 3 - 3-dose series) declined COVID-19 VACCINE(1 declined PNEUMOCOCCAL(1 - PCV) declined HEPATITIS C SCREENING HIV SCREENING PAP TESTING had hysterectomy HPV TESTING DTAP,TDAP,TD(2 - Tdap) DIABETES SCREEN INFLUENZA(1) declined Gabriel Brown LPN January 29, 2023 5:[address] [facility] 11-22-2022 Miscellaneous Notes Patient is in office today with for his appointment. Requesting refill. Last Office Visit: 02-21-2021 Next Scheduled Office Visit: 12-25-2022 Requested Prescriptions Pending Prescriptions Disp Refills acyclovir (ZOVIRAX) 400 mg tablet 60 tablet 0 Sig: Take 1 tablet by mouth once daily. Gabriel Brown LPN November 22, 2022 2:24 PM documented in this encounter [facility] 05-11-2022 History of Presen t illness Narrative SPINE SURGERY ESTABLISHED VIRTUAL VISIT DATE OF SERVICE: 05/11/2022 DATE OF LAST VISIT: 11/08/2018 SUBJECTIVE: HPI:Julia Lentz is a 46 year old female presenting with spouse Pain is better now, but still there. L2 hemangioma s/p kyphoplasty, Appears to have continued growth around cement w/ further fracture -- biopsy x2 negative for malignancy. MEDICATIONS: methylPREDNISolone (MEDROL, YANA,) 4 mg Dose-Pack As Instructed per package acyclovir (ZOVIRAX) 400 mg tablet Take 400 mg by mouth once daily. Patient Entered Questionnaires Spine Questions 12/29/2021 05/08/2022 Pain Location: Lower back Lower back Pain Duration: More than 5 years More than 5 years Pain over last 6 months: Every day or nearly every day in the past 6 months At least half the days in the past 6 months Symptoms from neck/cervical spine: No No Employment Status: Working now Working now Involved in law suit/legal claim: No No Spine Red Flags 12/29/2021 Any type of cancer: Yes Unexplained fever: No Bowel or bladder disfunction: No Unintentional weight loss: No Osteoporosis: No PROMIS Score Percentiles Physical Health 12/29/2021 05/08/2022 Physical Function Percentile 8 16* Sleep Percentile 34 42 Fatigue Percentile 1 8 Pain Interference Percentile 1 18* PROMIS SOCIAL ROLE SCORE 12/29/2021 05/08/2022 Social Role Satisfaction Percentile 7 21* PROMIS Global Health Scale 12/29/2021 05/08/2022 Physical Health Percentile 7 4 Mental Health Percentile 3 9 Percentiles provide an indication of how the patient's score ranks in relation to the general population. Higher percentile rankings indicate better function/quality of life. 50th percentile is the average of the general population and indicates half of respondents had a worse score. Depression Screening: PHQ-9 11/08/2018 12/29/2021 05/08/2022 Score 8 8 8 PHQ-9 Self-harm Question 11/08/2018 12/29/2021 05/08/2022 Thoughts that you would be better off , or of hurting yourself in some way 0 0 0 PHQ-9 Self-Harm (Item 9) response options: 0 Not at all 1 Several days 2 More than half the days 3 Nearly every day PHQ-9 Levels: 0-4 No to mild depression 5-9 Mild depression 10-14 Moderate depression 15-19 Moderately severe depression 20-27 Severe depression OBJECTIVE: PHYSICAL EXAM: GENERAL APPEARANCE: Well nourished, well developed, and no apparent distress. NEURO PSYCH: Patient oriented to person, place, and time. Mood pleasant. Benign affect. MUSCULOSKELETAL VISUAL INSPECTION CERVICAL: WNL THORACIC: WNL LUMBAR: WNL ASSESSMENT/PLAN (M48.56XG) Pathologic compression fracture of lumbar vertebra, with delayed healing, subsequent encounter (primary encounter diagnosis) (R93.7) Abnormal MRI, lumbar spine Progressive bony changes in L2, likely hemangioma, discussed surgical resection / reconstruction vs expectant management. Would like to continue to observe at this time. Will plan for f/u imaging in January 2023 Julia Lentz will continue with medical management of his/her condition. 1. No Orders Entered Today 2. Follow up: Nine [address] and MRI I spent a total of 25 minutes on the date of the service which included preparing to see the patient, [id number] patient care, completing clinical documentation, obtaining and/or reviewing separately obtained history, counseling and educating the patient/family/caregiver, independently interpreting results (not separately reported), communicating results to the patient/family/caregiver and care coordination (not separately reported). SIGNATURE: Ferny Vázquez MD PATIENT NAME: Julia Lentz DATE: May 11, 2022 TIME: 10:07 AM PAGER: documented in this encounter [facility] 04-17-2022 Miscellaneous Notes Called to pt and left brief message for her to call back to arrange appt. If she wants VV, will need to got set up. Called and spoke with patient As per last review- Spine Tumor Board 03/02/22: Stable. Possible atypical hemangioma? Have pathology take a second look. Get PET CT (or CT Abd/pelvis) to rule out other mets. Nothing to offer from a treatment perspective. As per Dr Vázquez: PET First, if clean consider the fusion PET scan in [facility] now - Dr Vázquez revluz elenauewed, as per him: One last time at , but I think we ll have to fuse would do front- back with urology to expose L2 corpectomy and fusion, then perc screws L1-3 can do same day, all day case Added to tumor board 04/20/22. Vicky - she would really like to have a VV with Dr Vázquez to discuss the surgery prior to her making her decision, can you help set up. Thank you Sara Narvaez PA-C documented in this encounter [facility] 04-11-2022 Note HNO ID: [id number] Author: Camron Santamaria RT(R) Service: Nuclear Medicine Author Type: Technologist Type: Progress Notes Filed: 04/11/2022 9:15 AM Note Text: RADIOLOGY SERVICE PROGRESS NOTE SERVICE DATE: 04/11/2022 SERVICE TIME: 9:12 AM PATIENT IDENTITY VERIFICATION COMPLETED USING TWO (2) STANDARD IDENTIFIERS: Name and Date of confirmed by patient verbally FALL SCREENING: Has the patient had 2 falls in the last year or 1 fall with injury or currently using an Ambulatory Assistive Device (Walker, Cane, Wheelchair, Crutches, etc.)? No PATIENT GENDER DATA: .female ALLERGIES: NA MEDICATIONS REVIEWED: Not applicable PATIENT RELEVANT IMPLANT DATA REVIEWED: Not Applicable CREATININE: Creatinine Date Value Ref Range Status 01/17/2019 0.71 0.58 - 0.96 mg/dL Final 01/15/2019 0.76 0.58 - 0.96 mg/dL Final Creatinine (POCT) Date Value Ref Range Status 02/01/2021 0.70 0.7 - 1.4 mg/dL Final eGFR (POCT) Date Value Ref Range Status 02/01/2021 >60 mL/min/1.73 m2 Final eGFR- (POCT) Date Value Ref Range Status 02/01/2021 >60 mL/min/1.73 m2 Final P.O.C.T. RESULTS: N/A April 11, [address] PERFORMED: No IV SITE: Ambulatory: NM only - direct IV injection in the Left antecubital site POST EXAM PIV STATUS: Discontinued PROCEDURE TYPE: NM INJECT: PET/CT BODY SCAN. 7.6 mCi F18 FDG. No other medications given.. ADMINISTRATION TIME: 904 PATIENT DISCHARGED TO: Ambulatory patient, left NM department area. A Diagnostic radioactive procedure has taken place, with no further precautions necessary other than routine body substance precautions. More information regarding radiation safety can be found using this link: [email or web address] [email or web address] SIGNATURE: RT Mary(R) PATIENT NAME: Julia Lentz DATE: April 11, 2022 TIME: 9:12 AM PAGER/CONTACT #: [facility] 04-11-2022 History of Presen t illness Narrative RADIOLOGY SERVICE PROGRESS NOTE SERVICE DATE: 04/11/2022 SERVICE TIME: 9:12 AM PATIENT IDENTITY VERIFICATION COMPLETED USING TWO (2) STANDARD IDENTIFIERS: Name and Date of confirmed by patient verbally FALL SCREENING: Has the patient had 2 falls in the last year or 1 fall with injury or currently using an Ambulatory Assistive Device (Walker, Cane, Wheelchair, Crutches, etc.)? No PATIENT GENDER DATA: .female ALLERGIES: NA MEDICATIONS REVIEWED: Not applicable PATIENT RELEVANT IMPLANT DATA REVIEWED: Not Applicable CREATININE: Creatinine Date Value Ref Range Status 01/17/2019 0.71 0.58 - 0.96 mg/dL Final 01/15/2019 0.76 0.58 - 0.96 mg/dL Final Creatinine (POCT) Date Value Ref Range Status 02/01/2021 0.70 0.7 - 1.4 mg/dL Final eGFR (POCT) Date Value Ref Range Status 02/01/2021 >60 mL/min/1.73 m2 Final eGFR- (POCT) Date Value Ref Range Status 02/01/2021 >60 mL/min/1.73 m2 Final P.O.C.T. RESULTS: N/A April 11, [address] PERFORMED: No IV SITE: Ambulatory: NM only - direct IV injection in the Left antecubital site POST EXAM PIV STATUS: Discontinued PROCEDURE TYPE: NM INJECT: PET/CT BODY SCAN. 7.6 mCi F18 FDG. No other medications given.. ADMINISTRATION TIME: 904 PATIENT DISCHARGED TO: Ambulatory patient, left NM department area. A Diagnostic radioactive procedure has taken place, with no further precautions necessary other than routine body substance precautions. More information regarding radiation safety can be found using this link: [email or web address] [email or web address] SIGNATURE: RT Mary(R) PATIENT NAME: Julia Lentz DATE: April 11, 2022 TIME: 9:12 AM PAGER/CONTACT #: documented in this encounter [facility] 02-28-2022 Miscellaneous Notes Called and spoke with patient. Pathology report - FINAL DIAGNOSIS A. Bone, L2 vertebral body, core needle biopsy: - Sclerotic bone with reactive changes and trilineage marrow elements. As per Dr Vázquez Let s put her on TB w/ new path plan for L1-3 fusion, but may need corpectomy as well depending on TB recs Added to tumor board for 03/02/22. Patient voiced understanding Sara Narvaez PA-C Patient called; requesting call back re: biopsy results; pls call; ph. [phone] documented in this encounter [facility] 01-16-2022 Miscellaneous Notes Patient received CD/report. 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 documented in this encounter [facility] Pathologic compression fracture of lumbar vertebra, with delayed healing, subsequent encounter- Primary Abnormal MRI, lumbar spine Nonspecific (abnormal) findings on radiological and other examination of musculoskeletal system Pathological fracture, other site, initial encounter for fracture [facility] Encounter for screening mammogram for breast cancer- Primary Wellness examination Lipid screening Screening for lipoid disorders Screening for deficiency anemia Screening for other and unspecified deficiency anemia Menopausal hot flushes Symptomatic menopausal or female climacteric states Screening for colon cancer Special screening for malignant neoplasms, colon Encounter for screening for depression [facility] Fatigue, unspecified type- Primary Abnormal mammogram Abnormal mammogram, unspecified Polyarthritis Unspecified polyarthropathy or polyarthritis, site unspecified Hot flashes Symptomatic menopausal or female climacteric states [facility] Diagnosis Vitamin D deficiency- Primary Unspecified vitamin D deficiency [facility] Diagnosis Polyarthritis- Primary Unspecified polyarthropathy or polyarthritis, site unspecified Screening for colon cancer Special screening for malignant neoplasms, colon [facility] Diagnosis Polyarthritis- Primary Unspecified polyarthropathy or polyarthritis, site unspecified [facility] Diagnosis Irritant dermatitis- Primary Contact dermatitis and other eczema, due to unspecified cause [facility]* Diagnosis Midline low back pain without sciatica, unspecified chronicity- Primary Polyarthritis, unspecified [facility]* Diagnosis Pathological fracture, other site, initial encounter for [facility] Diagnosis Encounter for screening mammogram for breast cancer documented in this encounter [facility]* Diagnosis Elevated LFTs Other abnormal blood chemistry documented in this encounter [facility] note* Diagnosis Abnormal mammogram Abnormal mammogram, unspecified documented in this encounter [facility] note* Diagnosis Abnormal mammogram Abnormal mammogram, unspecified documented in this encounter [facility] note* Diagnosis Acute gastric ulcer, unspecified whether gastric ulcer hemorrhage or perforation present- Primary Anxiety Anxiety state, unspecified Moderately severe depression Primary insomnia Persistent disorder of initiating or maintaining sleep documented in this encounter [facility] for referral (narrative)* Diagnostic Procedure Only (Routine) - Authorized Specialty Diagnoses / Procedures Referred By Rea braswell Referred To Contact MOLECULAR & FUNCTIONAL IMAGING Diagnoses Vertebral body hemangioma Pathological fracture of lumbar vertebra, sequela Renal cell carcinoma, unspecified laterality (HCC) Procedures NM PET/CT WHOLE BODY INITIAL PET IMAGING FOR CT ATTENUATION WHOLE BODY Sara Narvaez PA-C [address] [place] [address] Molecular & Functional Imaging [address] [place] [address] Referral ID Status Reason Start Date Expiration Date Visits Requested Visits Authorized [id number] Authorized Auto-Generat ed Referral 03/22/2022 05/06/2022 2 2 [facility] for referral (narrative)* Diagnostic Procedure Only (Routine) - Pending Review Specialty Diagnoses / Procedures Referred By Rea braswell Referred To Contact BR IMAGING Diagnoses Abnormal mammogram Procedures US BREAST LTD RIGHT US BREAST UNI REAL TIME WITH IMAGE LIMITED Tito Cuevas MD [address] [place] [address] Br Imaging [address] [place] [address] Referral ID Status Reason Start Date Expiration Date Visits Requested Visits Authorized [id number] Pending Review Auto-Generat ed Referral 03/07/2023 04/05/2024 1 1 * Diagnostic Procedure Only (Routine) - Pending Review Specialty Diagnoses / Procedures Referred By Rea braswell Referred To Contact BR IMAGING Diagnoses Abnormal mammogram Procedures US BREAST LTD LEFT US BREAST UNI REAL TIME WITH IMAGE LIMITED Tito Cuevas MD [address] [place] [address] Br Imaging [address] [place] [address] Referral ID Status Reason Start Date Expiration Date Visits Requested Visits Authorized [id number] Pending Review Auto-Generat ed Referral 03/07/2023 04/05/2024 1 1 * Diagnostic Procedure Only (Routine) - Pending Review Specialty Diagnoses / Procedures Referred By Rea braswell Referred To Contact BR IMAGING Diagnoses Abnormal mammogram Procedures YAW DIAGNOSTIC BILATERAL DIAGNOSTIC MAMMOGRAPHY COMPUTER-AIDED DETCJ BI Tito Cuevas MD [address] [place] [address] Br Imaging [address] [place] [address] Referral ID Status Reason Start Date Expiration Date Visits Requested Visits Authorized [id number] Pending Review Auto-Generat ed Referral 03/07/2023 04/05/2024 1 1 [facility] for referral (narrative)* Diagnostic Procedure Only (Routine) - Closed Specialty Diagnoses / Procedures Referred By Rea braswell Referred To Contact BR IMAGING Diagnoses Encounter for screening mammogram for breast cancer Procedures YAW SCREENING SCREENING MAMMOGRAPHY BI 2-VIEW BREAST INC CAD Tito Cuevas MD [address] [place] [address] Br Imaging [address] [place] [address] Referral ID Status Reason Start Date Expiration Date V isits Requested Visits Authorized [id number] Closed Auto-Generate d Referral 01/29/2023 02/28/2024 1 1 [facility] for referral (narrative)* Diagnostic Procedure Only (Routine) - Closed Specialty Diagnoses / Procedures [facility] Diagnoses Elevated LFTs Procedures US ABD RIGHT UPPER QUADRANT US ABDOMINAL REAL TIME W/IMAGE LIMITED Tito Cuevas MD [address] [place] [address] [place] [address] Referral ID Status Reason Start Date Expiration Date V isits Requested Visits Authorized [id number] Closed Auto-Generate d Referral 02/15/2023 03/16/2024 1 1 [facility] for referral (narrative)* Diagnostic Procedure Only (Routine) - Closed Specialty Diagnoses / Procedures [facility] Diagnoses Abnormal mammogram Procedures US BREAST LTD RIGHT US BREAST UNI REAL TIME WITH IMAGE LIMITED Tito Cuevas MD [address] [place] [address] Br Imaging [address] [place] [address] Referral ID Status Reason Start Date Expiration Date V isits Requested Visits Authorized [id number] Closed Auto-Generate d Referral 03/07/2023 04/05/2024 1 1 [facility] for visit Narrative* Diagnostic Procedure Only (Routine) - Authorized Specialty Diagnoses / Procedures [facility] To Contact MOLECULAR & FUNCTIONAL IMAGING Diagnoses Vertebral body hemangioma Pathological fracture of lumbar vertebra, sequela Renal cell carcinoma, unspecified laterality (HCC) Procedures NM PET/CT WHOLE BODY INITIAL PET IMAGING FOR CT ATTENUATION WHOLE BODY Sara Narvaez PA-C [address] [place] [address] Molecular & Functional Imaging [address] [place] [address] Referral ID Status Reason Start Date Expiration Date Visits Requested Visits Authorized [id number] Authorized Auto-Generat ed Referral 03/22/2022 05/06/2022 2 2 [facility] for visit Narrative* Diagnostic Procedure Only (Routine) - Closed Specialty Diagnoses / Procedures Referred By Contdemarco t Referred To Contact BR IMAGING Diagnoses Encounter for screening mammogram for breast cancer Procedures YAW SCREENING SCREENING MAMMOGRAPHY BI 2-VIEW BREAST INC CAD Tito Cuevas MD [address] [place] [address] Br Imaging [address] [place] [address] Referral ID Status Reason Start Date Expiration Date V isits Requested Visits Authorized [id number] Closed Auto-Generate d Referral 01/29/2023 02/28/2024 1 1 [facility] for visit Narrative* Diagnostic Procedure Only (Routine) - Closed Specialty Diagnoses / Procedures Referred By Rea braswell Referred To Contact BR IMAGING Diagnoses Abnormal mammogram Procedures YAW DIAGNOSTIC BILATERAL DIAGNOSTIC MAMMOGRAPHY COMPUTER-AIDED DETCJ BI Tito Cuevas MD [address] [place] [address] Br Imaging [address] [place] [address] Referral ID Status Reason Start Date Expiration Date V isits Requested Visits Authorized [id number] Closed Auto-Generate d Referral 03/07/2023 04/05/2024 1 1 [facility] Advance Directives Documents on File Type Date Recorded 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 Advance Directive(s) 02/08/2022 10:11 AM Advance Directive(s) 01/13/2019 10:24 AM Advance Directive(s) 11/21/2018 10:11 AM Advance Directive(s) 11/21/2018 2:33 PM Documents on File Type Date Recorded 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 Advance Directive(s) 02/08/2022 10:11 AM Advance Directive(s) 01/13/2019 10:24 AM Advance Directive(s) 11/21/2018 10:11 AM Advance Directive(s) 11/21/2018 2:33 PM Documents on File Type Date Recorded 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 Advance Directive(s) 11/21/2018 2:33 PM Documents on File Type Date Recorded 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 Advance Directive(s) 11/21/2018 2:33 PM Summary Purpose Family History No Family History Records FoundNo Family History Records FoundNo Family History Records Found Reason for Referral Specialty Diagnoses / Procedures Referred By Contac t Referred To Contact MR IMAGING Diagnoses Pathological fracture, other site, initial encounter for fracture Procedures MRI LUMBAR SPINE WO/W IVCON MRI SPINAL CANAL LUMBAR W/O & W/CONTR Ferny Zavala MD [address] [place] [address] Mr Imaging Referral ID Status Reason Start Date Expiration Date Visits Requested Visits Authorized [id number] Pending Review Auto-Generat ed Referral 05/11/2023 06/10/2023 1 1 Specialty Diagnoses / Procedures Referred By Contac t Referred To Contact Gastroenterology Diagnoses Screening for colon cancer Procedures CONSULT TO GASTROENTEROLOGY OFFICE/OUTPATIENT [facility] 60-74 MINUTES Tito Cuevas MD [address] [place] [address] Referral ID Status Reason Start Date Expiration Date Visits Requested Visits Authorized [id number] Authorized PCP Requested Referral 01/29/2023 01/29/2024 1 1 Specialty Diagnoses / Procedures Referred By Contac t Referred To Contact BR IMAGING Diagnoses Encounter for screening mammogram for breast cancer Procedures YAW SCREENING SCREENING MAMMOGRAPHY BI 2-VIEW BREAST INC CAD Tito Cuevas MD [address] [place] [address] Br Imaging [address] [place] [address] Referral ID Status Reason Start Date Expiration Date Visits Requested Visits Authorized [id number] Pending Review Auto-Generat ed Referral 01/29/2023 02/28/2024 1 1 Specialty Diagnoses / Procedures Referred By Contac t Referred To Contact General Surgery Diagnoses Screening for colon cancer Procedures CONSULT TO GENERAL SURGERY OFFICE/OUTPATIENT [facility] 60-74 MINUTES Tito Cuevas MD [address] [place] [address] Referral ID Status Reason Start Date Expiration Date Visits Requested Visits Authorized [id number] Authorized PCP Requested Referral 04/23/2023 04/22/2024 1 1 Specialty Diagnoses / Procedures Referred By Contac t Referred To Contact Rheumatology Diagnoses Polyarthritis Procedures CONSULT TO RHEUM/IMMUN DISEASE OFFICE/OUTPATIENT NEW HIGH MDM 60-74 MINUTES Tito Cuevas MD [address] [place] [address] Referral ID Status Reason Start Date Expiration Date Visits Requested Visits Authorized [id number] Authorized PCP Requested Referral 04/25/2023 04/24/2024 1 1 Specialty Diagnoses / Procedures Referred By Contac t Referred To Contact MR IMAGING Diagnoses Pathological fracture, other site, initial encounter for fracture Procedures MRI LUMBAR SPINE WO/W IVCON MRI SPINAL CANAL LUMBAR W/O & W/CONTR Ferny Zavala MD [address] [place] [address] [place] [address] Referral ID Status Reason Start Date Expiration Date V isits Requested Visits Authorized [id number] Closed Auto-Generate d Referral 01/29/2023 03/15/2023 1 1 Additional Source Comments Source Comments (unrecognize d section and content) In the event this informatio n is protected by the Federal Confidentiality of Alcohol and Drug Abuse Patient Records regulations: The Federal rules restrict any use of the information to criminally investigate or prosecute any alcohol or drug abuse patient.[facility] event this information is protected by the Federal Confidentiality of Alcohol and Drug Abuse Patient Records regulations: The Federal rules restrict any use of the information to criminally investigate or prosecute any alcohol or drug abuse patient.[facility] the event this information is protected by the Federal Confidentiality of Alcohol and Drug Abuse Patient Records regulations: The Federal rules restrict any use of the information to criminally investigate or prosecute any alcohol or drug abuse patient.[facility] the event this information is protected by the Federal Confidentiality of Alcohol and Drug Abuse Patient Records regulations: The Federal rules restrict any use of the information to criminally investigate or prosecute any alcohol or drug abuse patient.[facility] the event this information is protected by the Federal Confidentiality of Alcohol and Drug Abuse Patient Records regulations: The Federal rules restrict any use of the information to criminally investigate or prosecute any alcohol or drug abuse patient.[facility] the event this information is protected by the Federal Confidentiality of Alcohol and Drug Abuse Patient Records regulations: The Federal rules restrict any use of the information to criminally investigate or prosecute any alcohol or drug abuse patient.[facility] the event this information is protected by the Federal Confidentiality of Alcohol and Drug Abuse Patient Records regulations: The Federal rules restrict any use of the information to criminally investigate or prosecute any alcohol or drug abuse patient.[facility] the event this information is protected by the Federal Confidentiality of Alcohol and Drug Abuse Patient Records regulations: The Federal rules restrict any use of the information to criminally investigate or prosecute any alcohol or drug abuse patient.[facility] the event this information is protected by the Federal Confidentiality of Alcohol and Drug Abuse Patient Records regulations: The Federal rules restrict any use of the information to criminally investigate or prosecute any alcohol or drug abuse patient.[facility] the event this information is protected by the Federal Confidentiality of Alcohol and Drug Abuse Patient Records regulations: The Federal rules restrict any use of the information to criminally investigate or prosecute any alcohol or drug abuse patient.[facility] the event this information is protected by the Federal Confidentiality of Alcohol and Drug Abuse Patient Records regulations: The Federal rules restrict any use of the information to criminally investigate or prosecute any alcohol or drug abuse patient.[facility] the event this information is protected by the Federal Confidentiality of Alcohol and Drug Abuse Patient Records regulations: The Federal rules restrict any use of the information to criminally investigate or prosecute any alcohol or drug abuse patient.[facility] the event this information is protected by the Federal Confidentiality of Alcohol and Drug Abuse Patient Records regulations: The Federal rules restrict any use of the information to criminally investigate or prosecute any alcohol or drug abuse patient.[facility] the event this information is protected by the Federal Confidentiality of Alcohol and Drug Abuse Patient Records regulations: The Federal rules restrict any use of the information to criminally investigate or prosecute any alcohol or drug abuse patient.[facility] the event this information is protected by the Federal Confidentiality of Alcohol and Drug Abuse Patient Records regulations: The Federal rules restrict any use of the information to criminally investigate or prosecute any alcohol or drug abuse patient.[facility] the event this information is protected by the Federal Confidentiality of Alcohol and Drug Abuse Patient Records regulations: The Federal rules restrict any use of the information to criminally investigate or prosecute any alcohol or drug abuse patient.[facility] the event this information is protected by the Federal Confidentiality of Alcohol and Drug Abuse Patient Records regulations: The Federal rules restrict any use of the information to criminally investigate or prosecute any alcohol or drug abuse patient.[facility] the event this information is protected by the Federal Confidentiality of Alcohol and Drug Abuse Patient Records regulations: The Federal rules restrict any use of the information to criminally investigate or prosecute any alcohol or drug abuse patient.[facility] the event this information is protected by the Federal Confidentiality of Alcohol and Drug Abuse Patient Records regulations: The Federal rules restrict any use of the information to criminally investigate or prosecute any alcohol or drug abuse patient.[facility] the event this information is protected by the Federal Confidentiality of Alcohol and Drug Abuse Patient Records regulations: The Federal rules restrict any use of the information to criminally investigate or prosecute any alcohol or drug abuse patient.[facility] the event this information is protected by the Federal Confidentiality of Alcohol and Drug Abuse Patient Records regulations: The Federal rules restrict any use of the information to criminally investigate or prosecute any alcohol or drug abuse patient.[facility] the event this information is protected by the Federal Confidentiality of Alcohol and Drug Abuse Patient Records regulations: The Federal rules restrict any use of the information to criminally investigate or prosecute any alcohol or drug abuse patient.[facility] the event this information is protected by the Federal Confidentiality of Alcohol and Drug Abuse Patient Records regulations: The Federal rules restrict any use of the information to criminally investigate or prosecute any alcohol or drug abuse patient.[facility] the event this information is protected by the Federal Confidentiality of Alcohol and Drug Abuse Patient Records regulations: The Federal rules restrict any use of the information to criminally investigate or prosecute any alcohol or drug abuse patient.[facility] the event this information is protected by the Federal Confidentiality of Alcohol and Drug Abuse Patient Records regulations: The Federal rules restrict any use of the information to criminally investigate or prosecute any alcohol or drug abuse patient.[facility] the event this information is protected by the Federal Confidentiality of Alcohol and Drug Abuse Patient Records regulations: The Federal rules restrict any use of the information to criminally investigate or prosecute any alcohol or drug abuse patient.[facility] the event this information is protected by the Federal Confidentiality of Alcohol and Drug Abuse Patient Records regulations: The Federal rules restrict any use of the information to criminally investigate or prosecute any alcohol or drug abuse patient.[facility] the event this information is protected by the Federal Confidentiality of Alcohol and Drug Abuse Patient Records regulations: The Federal rules restrict any use of the information to criminally investigate or prosecute any alcohol or drug abuse patient.[facility] the event this information is protected by the Federal Confidentiality of Alcohol and Drug Abuse Patient Records regulations: The Federal rules restrict any use of the information to criminally investigate or prosecute any alcohol or drug abuse patient.[facility] the event this information is protected by the Federal Confidentiality of Alcohol and Drug Abuse Patient Records regulations: The Federal rules restrict any use of the information to criminally investigate or prosecute any alcohol or drug abuse patient.[facility] the event this information is protected by the Federal Confidentiality of Alcohol and Drug Abuse Patient Records regulations: The Federal rules restrict any use of the information to criminally investigate or prosecute any alcohol or drug abuse patient.[facility] the event this information is protected by the Federal Confidentiality of Alcohol and Drug Abuse Patient Records regulations: The Federal rules restrict any use of the information to criminally investigate or prosecute any alcohol or drug abuse patient.[facility] the event this information is protected by the Federal Confidentiality of Alcohol and Drug Abuse Patient Records regulations: The Federal rules restrict any use of the information to criminally investigate or prosecute any alcohol or drug abuse patient.[facility] the event this information is protected by the Federal Confidentiality of Alcohol and Drug Abuse Patient Records regulations: The Federal rules restrict any use of the information to criminally investigate or prosecute any alcohol or drug abuse patient.[facility] the event this information is protected by the Federal Confidentiality of Alcohol and Drug Abuse Patient Records regulations: The Federal rules restrict any use of the information to criminally investigate or prosecute any alcohol or drug abuse patient.[facility] the event this information is protected by the Federal Confidentiality of Alcohol and Drug Abuse Patient Records regulations: The Federal rules restrict any use of the information to criminally investigate or prosecute any alcohol or drug abuse patient.[facility] the event this information is protected by the Federal Confidentiality of Alcohol and Drug Abuse Patient Records regulations: The Federal rules restrict any use of the information to criminally investigate or prosecute any alcohol or drug abuse patient.[facility] the event this information is protected by the Federal Confidentiality of Alcohol and Drug Abuse Patient Records regulations: The Federal rules restrict any use of the information to criminally investigate or prosecute any alcohol or drug abuse patient.[facility] the event this information is protected by the Federal Confidentiality of Alcohol and Drug Abuse Patient Records regulations: The Federal rules restrict any use of the information to criminally investigate or prosecute any alcohol or drug abuse patient.[facility] the event this information is protected by the Federal Confidentiality of Alcohol and Drug Abuse Patient Records regulations: The Federal rules restrict any use of the information to criminally investigate or prosecute any alcohol or drug abuse patient.[facility] the event this information is protected by the Federal Confidentiality of Alcohol and Drug Abuse Patient Records regulations: The Federal rules restrict any use of the information to criminally investigate or prosecute any alcohol or drug abuse patient.[facility] Reason for Visit (unrecogniz ed section and content) Specialty Diagnoses / Procedures Referred By Contac t Referred To Contact BR IMAGING Diagnoses Abnormal mammogram Procedures US BREAST LTD RIGHT US BREAST UNI REAL TIME WITH IMAGE LIMITED Tito Cuevas MD [address] [place] [address] Br Imaging [address] [place] [address] Referral ID Status Reason Start Date Expiration Date V isits Requested Visits Authorized [id number] Closed Auto-Generate d Referral 03/07/2023 04/05/2024 1 1 Reason Comments Patient Update Reason Comments Results Reason Comments Radiology NM Reason Comments Follow Up Reason Onset Date Comments Refill Request 11/22/2022 Reason Comments Wellness Reason Comments Results Patient Question Reason Comments Patient Question Reason Onset Date Comments Refill Request 03/03/2023 Reason Comments Follow Up Reason Comments Orders Reason Comments Follow Up chronic conditions/e levated sed rate Reason Comments Referral Information general surgery for colonoscopy Reason Comments Orders Reason Comments Ear Problem sores on ears x 6 da ys, after getting hair dyed Reason Comments Acute Visit back pain and right arm pain Specialty Diagnoses / Procedures Referred By Contac t Referred To Contact MR IMAGING Diagnoses Pathological fracture, other site, initial encounter for fracture Procedures MRI LUMBAR SPINE WO/W IVCON MRI SPINAL CANAL LUMBAR W/O & W/CONTR Ferny Zavala MD [address] [place] [address] [place] [address] Referral ID Status Reason Start Date Expiration Date V isits Requested Visits Authorized [id number] Closed Auto-Generate d Referral 01/29/2023 03/15/2023 1 1 Specialty Diagnoses / Procedures Referred By Contac t Referred To Contact US IMAGING Diagnoses Elevated LFTs Procedures US ABD RIGHT UPPER QUADRANT US ABDOMINAL REAL TIME W/IMAGE LIMITED Tito Cuevas MD [address] [place] [address] [place] [address] Referral ID Status Reason Start Date Expiration Date V isits Requested Visits Authorized [id number] Closed Auto-Generate d Referral 02/15/2023 03/16/2024 1 1 Reason Comments Transition Of Care Reason Onset Date Comments Refill Request 12/12/2023 Care Teams (unrecognized sec tion and content) Manager Of [employer] Relationship Specialty Start Date End Date Tito Cuevas MD [address] [place] [address] PCP - General Family Practice 10/14/18 Manager Of [employer] Relationship Specialty Start Date End Date Tito Cuevas MD [address] [place] [address] PCP - General Family Practice 10/14/18 Manager Of [employer] Relationship Specialty Start Date End Date Tito Cuevas MD [address] [place] [address] PCP - General Family Practice 10/14/18 Manager Of School Relationship Specialty Start Date End Date Tito Cuevas MD [address] [place] [address] PCP - General Family Medicine 10/14/18 Manager Of School Relationship Specialty Start Date End Date Tito Cuevas MD [address] [place] [address] PCP - General Family Medicine 10/14/18 Manager Of [employer] Relationship Specialty Start Date End Date Tito Cuevas MD [address] [place] [address] PCP - General Family Medicine 10/14/18 Manager Of School Relationship Specialty Start Date End Date Tito Cuevas MD [address] [place] [address] PCP - General Family Medicine 10/14/18 Manager Of School Relationship Specialty Start Date End Date Tito Cuevas MD [address] [place] [address] PCP - General Family Medicine 10/14/18 Manager Of School Relationship Specialty Start Date End Date Tito Cuevas MD [address] [place] [address] PCP - General Family Medicine 10/14/18 Manager Of School Relationship Specialty Start Date End Date Tito Cuevas MD [address] [place] [address] PCP - General Family Medicine 10/14/18 Manager Of School Relationship Specialty Start Date End Date Tito Cuevas MD [address] [place] [address] PCP - General Family Medicine 10/14/18 Manager Of School Relationship Specialty Start Date End Date Tito Cuevas MD [address] [place] [address] PCP - General Family Medicine 10/14/18 Manager Of School Relationship Specialty Start Date End Date Tito Cuevas MD [address] [place] [address] PCP - General Family Medicine 10/14/18 Manager Of School Relationship Specialty Start Date End Date Tito Cuevas MD [address] [place] [address] PCP - General Family Medicine 10/14/18 Manager Of School Relationship Specialty Start Date End Date Tito Cuevas MD [address] [place] [address] PCP - General Family Medicine 10/14/18 Manager Of School Relationship Specialty Start Date End Date Tito Cuevas MD [address] [place] [address] PCP - General Family Medicine 10/14/18 Manager Of School Relationship Specialty Start Date End Date Tito Cuevas MD [address] [place] [address] PCP - General Family Medicine 10/14/18 Manager Of School Relationship Specialty Start Date End Date Tito Cuevas MD [address] [place] [address] PCP - General Family Medicine 10/14/18 Manager Of School Relationship Specialty Start Date End Date Tito Cuevas MD [address] [place] [address] PCP - General Family Medicine 10/14/18 Manager Of School Relationship Specialty Start Date End Date Tito Cuevas MD [address] [place] [address] PCP - General Family Medicine 10/14/18 Manager Of School Relationship Specialty Start Date End Date Tito Cuevas MD [address] [place] [address] PCP - General Family Medicine 10/14/18 Manager Of School Relationship Specialty Start Date End Date Tito Cuevas MD [address] [place] [address] PCP - General Family Medicine 10/14/18 Manager Of School Relationship Specialty Start Date End Date Tito Cuevas MD [address] [place] [address] PCP - General Family [facility] 10/14/18 Manager Of School Relationship Specialty Start Date End Date Tito Cuevas MD [address] [place] [address] PCP - General Family [facility] 10/14/18 Manager Of School Relationship Specialty Start Date End Date Tito Cuevas MD [address] [place] [address] PCP - General Family [facility] 10/14/18 Manager Of School Relationship Specialty Start Date End Date Tito Cuevas MD [address] [place] [address] PCP - General Family [facility] 10/14/18 INFORMATION SOURCE (unrecogn ized section and content) DATE CREATED AUTHOR AUTHOR'S ORGANIZ ATION 11/14/2023 [facility] DATE CREATED AUTHOR AUTHOR'S ORGANIZ ATION 11/28/2023 [facility] nter FOR RECORDS PERTAINING TO PATIENTS WHO ARE OR HAVE BEEN ENROLLED IN A CHEMICAL DEPENDENCY/SUBSTANCEABUSE PROGRAM, SOME INFORMATION MAY BE OMITTED. This clinical summary was aggregated from multiple sources. Caution should be exercised in using it in the provision of clinical care. This summary normalizes information from multiple sources, and as a consequence, information in this document may materially change the coding, format and clinical context of patient data. In addition, data may be omitted in some cases. CLINICAL DECISIONS SHOULD BE BASED ON THE PRIMARY CLINICAL RECORDS. [facility] provides no warranty or guarantee of the accuracy or completeness of information in this document.
[2023-12-22 11:14] LABS: International Normalized Ratio 0.9; Prothrombin Time (Protime)PT. 12.1 SECONDS (11.7-14.9)
[2023-12-22 11:24] LABS: Hemoglobin A1c 5.7 % (3.8-5.6)
[2023-12-22 11:33] LABS: ALB/GLOB Ratio 0.9 RATIO (0.9-2.4); AST(SGOT) 23 U/L (15-37); Alanine Aminotransfer ALT/SGPT 31 U/L (13-56); Albumin, Serum 3.3 g/dL (3.2-5.0); Alkaline Phosphatase 114 U/L (45-117); Anion Gap 3 (5-15); BUN 12 mg/dL (7-18); BUN/Creat Ratio 16.6 RATIO (10-20); CRP 4.86 mg/L (0.0-3.0); Calcium,Total 9.2 mg/dL (8.5-10.1); Chloride 112 mmol/L (98-107); Cholesterol 186 mg/dL (200); Creatinine, Serum 0.72 mg/dL (0.55-1.02); EST Glomerular Filtration Rate 91 mL/min (>60); Est Glom Filt Rate - Afr Amer 110 mL/min (>60); Ferritin 40 ng/mL (8-252); Globulin 3.7 g/dL (2.2-4.2); Glucose 101 mg/dL (74-106); High Density Lipoprotein 68 mg/dL; Iron 79 ug/dL (50-170); Iron Binding Capacity,Total 329 ug/dL (250-450); LDH 169 U/L (84-246); Sodium Level 141 mmol/L (136-145); Triglycerides 78 mg/dL; Very Low Density Lipoprotein 16 mg/dL (5-40)
[2023-12-24 08:30] LABS: Vitamin D,25 Hydroxy 38.1 ng/mL
[2023-12-24 13:07] LABS: ANTINUCLEAR ANTIBODIES DIRECT Negative (Negative); Anti-Mitochondrial AB 172.5 Units (0.0-20.0)
[2023-12-24 14:08] LABS: AFP, Tumor Marker 3.2 ng/mL (0.0-6.4); Anti-Smooth Muscle ABS 12 Units (0-19); Cytoplasmic Ab (C-ANCA) <1:20 titer (Neg:<1:20); Immunoglobulin A 167 mg/dL (87-352); Immunoglobulin G 899 mg/dL (586-1602); Immunoglobulin M 245 mg/dL (26-217); Perinuclear Ab (P-ANCA) <1:20 titer (Neg:<1:20)
== END | disposition home or self-care (01) ==
LOC: MTLAB 10:24 → LAB 10:25
PROVIDERS: PCP Family Medicine; Referring Provider Internal Medicine; Visit Provider Internal Medicine
DX: K74.3 Primary biliary cirrhosis (principal); K76.0 Fatty (change of) liver, not elsewhere classified
CPT/HCPCS: 36415; 80053; 80061; 82105; 82306; 82728; 82784; 83036; 83516; 83540; 83550; 83615; 85610; 86038; 86140; 86225; 86235; 86256

== ENCOUNTER → 2024-01-05 | Outpatient (CLI) | payer OTHER, SELFPAY ==
--- NOTE | 2024-01-05 09:01 | US_ITS ---
STUDY: ABDOMINAL ULTRASOUND - RIGHT UPPER QUADRANT; ELASTOGRAPHY REASON FOR VISIT: Female, 48 years old. Primary biliary cirrhosis. TECHNIQUE: Ultrasound evaluation of the right upper quadrant was performed with real-time and static browne-scale imaging. Point quantification shear wave elastography was performed ([employer]). TECHNICAL QUALITY: Adequate. COMPARISON: Comparison is made with prior study dated August 30, 2023. FINDINGS: Liver: The liver measures 16.3 cm. There is increased echogenicity consistent with fatty infiltration. The bile ducts are within normal limits. There is hepatic color flow. The direction of portal flow is hepatopetal. There is no demonstrated mass lesion. Median liver stiffness measured 7.3 kPa. Gallbladder: Normal distended gallbladder. The gallbladder wall measures 1.8 mm. There is a negative sonographic Burciaga''s sign. There is no pericholecystic fluid. There are no gallstones. Common Bile Duct (C.B.D.): The common bile duct measures 5.0 mm. Pancreas: There is normal echogenicity of the visualized pancreas. There is no demonstrated pancreatic mass or cyst. Right Kidney: Normal size of the right kidney. The right kidney measures 9.9 cm x 4.6 x 4 cm. Normal renal cortex. The right cortex measures 1.1 cm. There is no demonstrated renal mass or cyst. There is no right hydronephrosis. US/ABD Limited w/ Elastography IMPRESSION: 1. 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 2. Fatty infiltration of the liver. Electronically Signed: Jaydon Carranza MD at 8:42 EDT ,
--- OUTSIDE RECORDS SUMMARY | 2024-01-05 09:04 | XMS RPT_ITS | CCD ---
Author Name Unknown Address [address] [place] [address] Organization [facility] Care Team Providers Care Banking Assistant Name Role Phone Mason GUILLAUME, Tito Gentile Primary Care Provider TITO CUEVAS Primary Care Unavailab le , TITO GENTILE Referring Unavailab le , TITO GENTILE Primary Care Unavailab le , TITO GENTILE Referring Unavailab le , TITO GENTILE Primary Care Unavailab le ISIAH, FERNY A Referring Unavailable TITO Primary Care Unavailab [...] GENTILE Referring Unavailab le , TITO GENTILE Attending Unavailab [...] Translations: [SULFAMETHOXAZOLE-T RIMETHOPRIM] Drug Allergy 06-27-20 05 [facility] Work Phone: (20 sources) latex gloves [Other] Propensity to adverse reactions 06-27-[address] [place] [address] Work Phone: (20 sources) famciclovir; Translations: [FAMCICLOVIR] Drug Allergy 05-06-20 21 Other: See Comments, [facility] (20 sources) Trimethoprim; Translations: [TRIMETHOPRIM] Drug Allergy 07-30-20 [facility] (4 sources) Latex; Translations: [LATEX] Propensity to adverse reactions to drug (disorder) 09-20-20 [facility] (2 sources) OTHER; Translations: [OTHER] Propensity to adverse reactions (disorder) 06-27-[address] [place] [address] Repository Medications Current Medications Medication Drug Class(es) [...] and ureter] Onset: 01-13-2019 01-17-2019 Chronic Other fractures (20 sources) Compression fracture of lumbar spine; Translations: [Collapsed vertebra, not elsewhere classified, lumbar region, initial encounter for fracture] Onset: 11-08-2018 11-28-2018 Episodic Other fractures (1 source) Compression fracture of L2; Translations: [Wedge compression fracture of second lumbar vertebra, sequela] 12-28-2023 Episodic Other gastrointestinal disorders (20 sources) Irritable bowel syndrome with diarrhea; Translations: [Irritable bowel syndrome with diarrhea] Onset: 06-30-2020 03-08-2023 Chronic Other non-traumatic joint disorders (17 sources) Polyarthropathy; Translations: [Polyarthritis, unspecified] Onset: 03-07-2023 Chronic Other non-traumatic joint disorders (1 source) Polyarthritis, unspecified; Translations: [Polyarthritis] Onset: 03-07-2023 Chronic Other screening for suspected conditions (not mental disorders or infectious disease) (20 sources) MRI of lumbar spine abnormal; Translations: [Abnormal findings on diagnostic imaging of other parts of musculoskeletal system] Onset: 01-29-2023 Episodic Pathological fracture (20 sources) Pathological fracture of lumbar vertebra; Translations: [Pathological fracture, other site, initial encounter for fracture] Onset: 11-28-2018 11-28-2018 Episodic Residual codes; unclassified (1 source) Flushing; Translations: [Flushing] Episodic Rheumatoid arthritis and related disease (2 sources) Rheumatoid arthritis; Translations: [Rheumatoid arthritis, unspecified] Onset: [...] Other Problems Problem Classification Problem Date Documented Da te Episodic/Chronic Deficiency and other anemia (20 sources) Anemia; Translations: [Anemia, unspecified] Onset: 09-30-2018 03-08-2023 Episodic E Codes: Adverse effects of medical drugs (2 sources) Adverse reaction to drug; Translations: [Adverse effect of unspecified drugs, medicaments and biological substances, initial encounter] Onset: 03-12-2018 10-01-2023 Episodic Malaise and fatigue (20 sources) Fatigue; Translations: [Other fatigue] Onset: 10-10-2018 03-08-2023 Episodic Other and unspecified benign neoplasm (20 sources) Hemangioma of vertebral column; Translations: [Hemangioma of other sites] Onset: 11-08-2018 11-08-2018 Episodic Results Test Name Value Interpretation Reference Range Facil ity Vital Signs Date Time Vital Sign Value Performing Clinician Faci lity 02-23-2024 16:20-0500 Body height 165.1 cm Sara Narvaez PA-C Work Phone: [facility] 12-28-2023 16:20-0500 Body weight 77.11 kg Sara Narvaez PA-C Work Phone: [facility] 09-24-2023 16:57-0500 Body height 165.1 cm Tito Cuevas MD Work Phone: [facility] 09-24-2023 16:57-0500 Body temperature 97 [degF] Tito Cuevas MD Work Phone: [facility] 09-24-2023 16:57-0500 Body weight 71.22 kg Tito Cuevas MD Work Phone: [facility] 09-24-2023 16:57-0500 Diastolic blood pressure 80 mm[Hg] Tito Cuevas MD Work Phone: [facility] 09-24-2023 16:57-0500 Heart rate 100 /min Tito Cuevas MD Work Phone: [facility] 09-24-2023 16:57-0500 Respiratory rate 18 /min Tito Cuevas MD Work Phone: [facility] 09-24-2023 16:57-0500 SaO2% (BldA) [Mass fraction] 97 % Tito Cuevas MD Work Phone: [facility] 09-24-2023 16:57-0500 Systolic blood pressure 132 mm[Hg] Tito Cuevas MD Work Phone: [facility] 08-08-2023 17:15-0400 Body height 165.1 cm Tito Cuevas MD Work Phone: [facility] 08-08-2023 17:15-0400 Body temperature 98.4 [degF] Tito Cuevas MD Work Phone: [facility] 08-08-2023 17:15-0400 Body weight 72.94 kg Tito Cuevas MD Work Phone: [facility] 10-04-2023 17:15-0400 Diastolic blood pressure 80 mm[Hg] Tito Cuevas MD Work Phone: [facility] 08-08-2023 17:15-0400 Heart rate 75 /min Tito Cuevas MD Work Phone: [facility] 08-08-2023 17:15-0400 Respiratory rate 16 /min Tito Cuevas MD Work Phone: [facility] 08-08-2023 17:15-0400 SaO2% (BldA) [Mass fraction] 97 % Tito Cuevas MD Work Phone: [facility] 08-08-2023 17:15-0400 Systolic blood pressure 110 mm[Hg] Tito Cuevas MD Work Phone: [facility] 05-21-2023 15:56-0400 Body temperature 98.91 [degF] Ariadna Athy PA-C Work Phone: [facility] 05-21-2023 15:56-0400 Body weight 70.76 kg Ariadna Athy PA-C Work Phone: [facility] 05-21-2023 15:56-0400 Diastolic blood pressure 62 mm[Hg] Ariadna Athy PA-C Work Phone: [facility] 05-21-2023 15:56-0400 Heart rate 78 /min Ariadna Athy PA-C Work Phone: [facility] 05-21-2023 15:56-0400 Respiratory rate 18 /min Ariadna Athy PA-C Work Phone: [facility] 05-21-2023 15:56-0400 SaO2% (BldA) [Mass fraction] 99 % Ariadna Athy PA-C Work Phone: [facility] 05-21-2023 15:56-0400 Systolic blood pressure 102 mm[Hg] Ariadna Athy PA-C Work Phone: [facility] 04-23-2023 16:22-0400 Body height 165.1 cm Tito Cuevas MD Work Phone: [facility] 04-23-2023 16:22-0400 Body temperature 97.3 [degF] Tito Cuevas MD Work Phone: [facility] 04-23-2023 16:22-0400 Body weight 68.4 kg Tito Cuevas MD Work Phone: [facility] 04-23-2023 16:22-0400 Diastolic blood pressure 80 mm[Hg] Tito Cuevas MD Work Phone: [facility] 04-23-2023 16:22-0400 Heart rate 108 /min Tito Cuevas MD Work Phone: [facility] 04-23-2023 16:22-0400 Respiratory rate 14 /min Tito Cuevas MD Work Phone: [facility] 04-23-2023 16:22-0400 SaO2% (BldA) [Mass fraction] 98 % Tito Cuevas MD Work Phone: [facility] 04-23-2023 16:22-0400 Systolic blood pressure 112 mm[Hg] Tito Cuevas MD Work Phone: [facility] 03-07-2023 16:23-0400 Body height 165.1 cm Tito Cuevas MD Work Phone: [facility] 03-07-2023 16:23-0400 Body temperature 96.91 [degF] Tito Cuevas MD Work Phone: [facility] 03-07-2023 16:23-0400 Body weight 66.73 kg Tito Cuevas MD Work Phone: [facility] 03-07-2023 16:23-0400 Diastolic blood pressure 76 mm[Hg] Tito Cuevas MD Work Phone: [facility] 03-07-2023 16:23-0400 Heart rate 86 /min Tito Cuevas MD Work Phone: [facility] 03-07-2023 16:23-0400 Respiratory rate 18 /min Tito Cuevas MD Work Phone: [facility] 03-07-2023 16:23-0400 SaO2% (BldA) [Mass fraction] 99 % Tito Cuevas MD Work Phone: [facility] 03-07-2023 16:23-0400 Systolic blood pressure 124 mm[Hg] Tito Cuevas MD Work Phone: [facility] 01-29-2023 16:33-0400 Body height 165.1 cm Tito Cuevas MD Work Phone: [facility] 01-29-2023 16:33-0400 Body temperature 97.3 [degF] Tito Cuevas MD Work Phone: [facility] 01-29-2023 16:33-0400 Diastolic blood pressure 74 mm[Hg] Tito Cuevas MD Work Phone: [facility] 01-29-2023 16:33-0400 Heart rate 78 /min Tito Cuevas MD Work Phone: [facility] 01-29-2023 16:33-0400 Respiratory rate 18 /min Tito Cuevas MD Work Phone: [facility] 01-29-2023 16:33-0400 SaO2% (BldA) [Mass fraction] 99 % Tito Cuevas MD Work Phone: [facility] 01-29-2023 16:33-0400 Systolic blood pressure 122 mm[Hg] Tito Cuevas MD Work Phone: [facility] Encounters Encounter Date Encounter Type Care Provider Facility Start: 12-28-2023 End: 12-28-2023 ambulatory Sara Narvaez PA-C Work Phone: [facility] Procedures Date Procedure Procedure Detail Performing Clinician [...] spinal canal lum bar w/o & w/contr matrl Ferny Vázquez MD Work Phone: Start: 02-09-2023 Lipid 1996 panel - S lj or Plasma Tito Cuevas MD Work Phone: Start: 05-08-2022 Adult depression scr eening assessment Ferny Vázquez MD Work Phone: Start: 04-11-[address] attenuation whole body Sara Brice TSE Work Phone: Start: 12-29-2021 Adult depression scr eening assessment Lazarus Galvin DO, DO Work Phone: Plan of Treatment Date Care Activity Detail Author Start: 02-10-2028 Lipid 1996 panel - S lj or Plasma Lipid Screening [facility] Start: 02-10-2028 Lipid panel Lipid Screening [facility] Start: 02-10-2028 LIPID SCREEN LIPID SCREEN [facility] Start: 02-09-2026 DIABET[facility]EN [facility] Start: 02-09-2026 Diabetes Screening Diabetes Screenin g [facility] Start: 04-18-[address] [facility] Start: 04-18-2024 Screening for malign ant neoplasm of breast Mammogram Screening [facility] Start: 02-29-[address] [facility] Start: 11-05-2023 Depression Assessment Depression Ass essment [facility] Start: 07-06-2023 Influenza vaccination [facility] Start: 06-18-2023 End: 08-18-2023 25-hydroxyvitamin D3 [Mass/volume] in Serum or Plasma VITAMIN D 25 HYDROXY Lab Routine Vitamin D deficiency Expected: 06/18/2023, Expires: 08/18/2023 [facility] Work Phone: Immunizations Immunization Date Immunization Notes Care Provider Tessa webb 09-05-2003 diphtheria and tetan us toxoids, adsorbed for pediatric use Lazarus Larrick DO, DO Work Phone: [facility] Work Phone: Payers Date Payer Category Payer Unknown MMO MMO [employer] [id number] 2016-Present [phone] [address] [place] [address] PPO [id number] 2016 Unknown [id number] 2002 Unknown [id number] Social History Date Type Detail Facility Start: 11-21-2018 [facility] History of tobacco use Cigarette Smoker [facility] Start: 12-29-2021 End: 11-14-2023 Alcohol intake Current non-drinker of alcohol (finding) [facility] Start: 1975 Sex Assigned At Not on file [facility] Start: 02-04-2022 End: 04-11-2022 Exposure to SARS-CoV-2 (event) Not sure [facility] Start: 1975 Sex Assigned At Female [facility] Start: 11-21-2018 End: 03-07-2023 Cigarettes smoked current (pack per day) - Reported [address] [facility] Start: 11-21-2018 End: 01-29-2023 Tobacco use and exposure Smokeless tobacco non-user [facility] Start: 01-29-2023 [facility] History of tobacco use Current smoker [facility] Start: 01-29-2023 History SDOH Alcohol Frequency [address] [facility] Start: 01-29-2023 History SDOH Alcohol Std Drinks [address] [facility] Start: 01-29-2023 History SDOH Social Connections Phone [address] [facility] Start: 01-29-2023 History SDOH Social Connections Membership [address] [facility] Start: 01-29-2023 History SDOH Social Connections Living [address] [facility] Start: 01-29-2023 End: 03-07-2023 Social connection and isolation panel [facility] Do you belong to any clubs or organizations such as jainism groups, unions, fraternal or athletic groups, or school groups? No [facility] Are you now , , , , never or living with a partner? [facility] How often to you hav e a drink containing alcohol? Never [facility] How many standard dr inks containing alcohol do you have on a typical day? Patient does not drink [facility] Do you feel stress - tense, restless, nervous, or anxious, or unable to sleep at night because your mind is troubled all the time - these days [OSQ] Very much [facility] (I/We) worried wheth er (my/our) food would run out before (I/we) got money to buy more. Never true [facility] Start: 05-08-2022 Gender identity Identifies as female gender (finding) [facility] Start: 05-08-2022 Sexual orientation Heterosexual (iva martínez) [facility] Medical Equipment Procedure Code Equipment Code Equipment Origin al Text Equipment Identifier Dates Cement [employer] - [id number] Start: 11-28-2018 Cement [employer] - [id number] Start: 11-28-2018 Clinical Notes 01-16-2022 to 12-28-2023 Patient InstructionsSara Narvaez PA-C - 12/28/2023 3:42 PM ESTTelephone Encounter - Ofelia Landeros LPN - 12/13/2023 10:15 AM Tito Lizarraga MD - 09/28/2023 9:05 PM EST Note Date & Type Note Facility 12-28-2023 Instructions Sara Narvaez PA-C - 12/28/2023 3:56 PM EST Dear Tor Please mail in or upload imaging from outside facility. If you upload (see instructions below), please let the office know. Thank you. Mailing instructions: [facility] C/O Ferny Vázquez MD/Sara Narvaez PA-C [address] [place] [address]/[place] [address] Upload Instructions: The [facility] has a secure web link that allows you to transfer your images to your healthcare provider in advance of your appointment. The attached patient image upload instructions will walk you through the process to transfer your images. Once your images are successfully uploaded into our secure system, you will receive an email confirmation. If you experience any issues during the process or have questions, please email us at . To upload images to the secure [facility] website please click on the following link: [email or web address] [facility] as the center. OR Use link below [email or web address] Please have imaging reports faxed to us at [phone] PLEASE NOTE: [employer] ([employer]) computers are not supported by this application at this time. The application will work with the latest versions of [employer], [employer], [employer], and [employer]. Thank you Sara Narvaez PA-C documented in this encounter [facility] 12-28-2023 History of Presen t illness Narrative Images from the original note were not included. SPINE SURGERY ESTABLISHED This is a virtual visit using [employer] Video Visit. It required patient-provider interaction for the medical decision making as documented below. I have communicated my name and active licensure. The patient's identity and physical location were verified at the time of this visit. Either the patient or their legal corporate sales representative has been informed of the risks and benefits of -- and alternatives to -- treatment through a remote evaluation and consents to proceed with the evaluation remotely. DATE OF SERVICE: 12/28/2023 DATE OF LAST VISIT: 05/11/22 SUBJECTIVE: HPI:Julia Lentz is a 48 year old female presenting with spouse. She is following up on her lumbar spine. She has an L2 hemangioma status post kyphoplasty with Dr Vázquez on 11/28/2018. Biopsy x2 negative for malignancy. She unfortunately continues to have ongoing chronic lower back pain. In 2021 Dr Vázquez had discussed surgical resection / reconstruction vs expectant management. But she wanted to continue to watch it. She reports since her last visit she is not doing any better she continues to be in significant amount of pain. She denies any pain or numbness down her legs. The pain is worse with everything. Nothing makes it better She used to take anti-inflammatories but not any longer as she developed an ulcer PAIN EVALUATION 12/25/2023 1649 Pain Level: 8 Pain Location: Back-Lower Description: Aching;Sharp;Sore;Spasm;Stabbing ;Stiffness;Throbbing Duration Amount of Time: 24 Duration Units: Hours Frequency: Continuous Intervention/Comfort measure: Medication;Reposition;Relaxation ;Cold;Heat;Massage;Pillow support;Positioning Comments: I am in constant pain Pain Radiation: Pain does not radiate Aggravating Factors: Everything Alleviating Factors: None Pain Ratio: N/A AMBULATORY STATUS: Independent Community Distances ANTIPLATELET OR ANTICOAGULATION STATUS: No PREVIOUS CONSERVATIVE TREATMENTS: OTC NSAIDS for 3 Months or Greater (Tylenol / acetaminophen) Heat and ice application REVIEW OF SYSTEMS: GENERAL: No weight loss or malaise MUSCULOSKELETAL: Negative for joint pain, swelling or muscle pain NEURO: No history of headaches, syncope, paralysis, seizures or tremors MEDICATIONS: iv contrast (will be provided with radiology test) MRI LSP Inject, intravenously, once for 1 dose. No IV access, insert saline lock prior to the beginning of sedation, infusion, injection of imaging exam. Discontinue saline lock post exam. If Pt. has a central line or IVAD, may access for administration according to line specific nursing protocol. Once exam is complete flush line and de-access according to line specific nursing protocol in the MR contrast administration guidelines link. ergocalciferol 50,000 unit capsule (VITAMIN D2, DRISDOL) Take 1 capsule by mouth one time a week. acyclovir (ZOVIRAX) 400 mg tablet Take 1 tablet by mouth once daily. ursodiol (ALLEN) 250 mg tablet Take 1 tablet by mouth every 12 hours. Patient Entered Questionnaires Spine Questions 05/08/2022 03/02/2023 12/25/2023 Pain Location: Lower back Lower back Lower back Pain Duration: More than 5 years More than 5 years More than 5 years Pain over last 6 months: At least half the days in the past 6 months Every day or nearly every day in the past 6 months Every day or nearly every day in the past 6 months Symptoms from neck/cervical spine: No Yes No Employment Status: Working now Working now Working now Involved in law suit/legal claim: No - No Spine Red Flags 12/29/2021 Any type of cancer: Yes Unexplained fever: No Bowel or bladder disfunction: No Unintentional weight loss: No Osteoporosis: No Neck Questionnaires 03/02/2023 Benzel Modified BERKLEY Score 18 (A lower score indicates increased pain and issues.) PROMIS Score Percentiles Physical Health 05/08/2022 03/02/2023 12/25/2023 Physical Function Percentile 16* 10 7 Sleep Percentile 42 16* 12 Fatigue Percentile 8 8 1 Pain Interference Percentile 18* 12 4 PROMIS SOCIAL ROLE SCORE 05/08/2022 03/02/2023 12/25/2023 Social Role Satisfaction Percentile 21* 18* 4 PROMIS Global Health Scale 05/08/2022 03/02/2023 12/25/2023 Physical Health Percentile 4 7 2 Mental Health Percentile 9 9 3 Percentiles provide an indication of how the patient's score ranks in relation to the general population. Higher percentile rankings indicate better function/quality of life. 50th percentile is the average of the general population and indicates half of respondents had a worse score. Depression Screening: PHQ-9 05/08/2022 03/02/2023 12/25/2023 Score 8 7 17 PHQ-9 Self-harm Question 05/08/2022 03/02/2023 12/25/2023 Thoughts that you would be better off , or of hurting yourself in some way 0 0 1 PHQ-9 Self-Harm (Item 9) response options: 0 Not at all 1 Several days 2 More than half the days 3 Nearly every day PHQ-9 Levels: 0-4 No to mild depression 5-9 Mild depression 10-14 Moderate depression 15-19 Moderately severe depression 20-27 Severe depression OBJECTIVE: PHYSICAL EXAM: Ht 5' 5 (1.65m) Wt 170 lb (77.1kg) LMP 07/12/2007 BMI 28.29 kg/(m^2). GENERAL APPEARANCE: Well nourished, well developed, and no apparent distress. NEURO PSYCH: Patient oriented to person, place, and time. Mood pleasant. Benign affect. DATA REVIEW:Diagnostic tests reviewed for today's visit, films/specimens were personally reviewed by me: [facility] records independently reviewed CT abdomen pelvis report only 09/07/2023: Evidence of L2 vertebroplasty with spondylosis at L4-5 and L5-S1 Lumbar x-ray 07/25/2023: Vertebroplasty cement within the L2 vertebral body compression deformity MRI lumbar spine 02/14/2023: No substantial change relative to the 01/13/2022 exam. Chronic fracture of the L2 vertebral body and sequelae of kyphoplasty. Mild multilevel degenerative changes as detailed without high-grade spinal canal stenosis. Foraminal narrowing most pronounced and mild to moderate severity on the left at L3-L3. ASSESSMENT/PLAN (M48.56XG) Pathologic compression fracture of lumbar vertebra, with delayed healing, subsequent encounter (primary encounter diagnosis) (R93.7) Abnormal MRI, lumbar spine (M84.48XA) Pathological fracture, other site, initial encounter for fracture (S32.020S) Closed compression fracture of L2 vertebra, sequela Julia Lentz has a condition that requires further workup. Recommend MRI lumbar spine with and without contrast to reassess her L2 hemangioma better. She did have the CT abdomen pelvis done in September 2023 and I recommend she either mail the CD or have it uploaded electronically Once imaging have been completed I will have Dr Vázquez review and get back to her 1. Imaging: Lumbar MRI With and Without Contrast Tumor follow up 2. Follow up: Following above Imaging Ordered: L2 hemangioma follow-up The majority of the visit was spent counseling and/or coordinating care for the patient. The patient was counseled regarding x-ray results. Total face to face time was 15 minutes. SIGNATURE: Sara Narvaez PA-C PATIENT NAME: Julia Lentz DATE: December 28, 2023 TIME: 4:15 PM PAGER: documented in this encounter [facility] 12-13-2023 Miscellaneous Notes Pharmacy [facility] message requesting the following refill. Requested Prescriptions Pending Prescriptions Disp Refills ergocalciferol 50,000 unit capsule (VITAMIN D2, DRISDOL) 12 capsule 1 Sig: Take 1 capsule by mouth one time a week. Patient last appointment: 11/14/2023 Patient Phone numbers: [phone] (home) [phone] (work) Request is for script(s) to be escript to [facility]. Ofelia Landeros LPN documented in this encounter [facility] 11-15-2023 Note HNO ID: [id number] Author: TITO CUEVAS MD Service: ? Author Type: Physician Type: Progress Notes Filed: 11/15/2023 08:50 Note Text: This note was created using [employer]. 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 Follow-up in 3 weeks. Patient is Positive [...] unspecified site, unspecified whether rheumatoid factor present ([facility]) M06.9 Patient did not start Zoloft or BuSpar. She wishes not to take medicine. Symptoms are unchanged. Encouraged her to increase activity, improve sleep, improve diet, increase exercise. Reduce stress. Check magnesium level due to leg cramps. Tito Cuevas MD [facility] 11-14-2023 Note HNO ID: [id number] Author: GABRIEL BROWN LPN Service: ? 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 Follow-up in 3 weeks. Patient is Positive for Influenza B at this time. Patient states she is only taking Ursodiol and Acyclovir No refills needed Gabriel Brown LPN November 14, 2023 4:58 PM [facility] 11-13-2023 Note HNO ID: [id number] Author: WENCESLAO MULLER APRN.DIRECTOR GLOBAL DEVELOPMENT Service: ? Author Type: Nurse Practitioner Type: Progress Notes Filed: 11/13/2023 12:12 Note Text: This note was created using Tevinriter. Subjective Julia Lentz is a 48 year old female. 48 year old female with PMH IBS, RA, polyarthritis presents for illness. Acute onset 5 days ago +sore throat +headache +nasal congestion + cough +body aches +fever/chills +ill contacts at work The history is provided by the patient. No sign language interpreter was used. URI She complains of cough. [...] Procedure Laterality Date APPENDECTOMY HYSTERECTOMY LEEP PROCEDURE (MANAGER LPN DEPT)_*FL LIG/TRNSXJ FLP TUBE ABDL/VAG APPR UNI/BI [...] Pupils: Pupils are (more content not included)... [facility] 10-01-2023 Note HNO ID: [id number] Author: Tito Cuevas MD Service: ? Author Type: Physician Type: Progress Notes Filed: 10/01/2023 9:14 PM Note Text: This note was created using ChallengePost. 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 Follow-up in 3 weeks. Tito Cuevas MD [facility] 10-01-2023 Note HNO ID: [id number] Author: Gabriel Brown LPN Service: ? Author [...] caused her stomach to feel better. Gabriel BrownPATTY October 01, 2023 11:05 AM [facility] 09-28-2023 Note HNO ID: [id number] Author: Tito Cuevas MD Service: ? Author Type: Physician Type: Progress Notes Filed: 09/28/2023 9:16 PM Note Text: Subjective Julia Lentz is a 47 year old female.Patient is in office for transition of care visit. Patient was discharged from [facility] 09-08-2023 with an Ulcer. Patient has [...] Procedure Laterality Date APPENDECTOMY HYSTERECTOMY LEEP PROCEDURE (MANAGER LPN DEPT)_*FL LIG/TRNSXJ FLP TUBE ABDL/VAG APPR UNI/BI [...] Follow-up in 1 month. Tito Cuevas MD [facility] 09-28-2023 History of Presen t illness Narrative Subjective Julia Lentz is a 47 year old female.Patient is in office for transition of care visit. Patient was discharged from [facility] 09-08-2023 with an Ulcer. Patient has [...] Procedure Laterality Date APPENDECTOMY HYSTERECTOMY LEEP PROCEDURE (MANAGER LPN DEPT)_*FL LIG/TRNSXJ FLP TUBE ABDL/VAG APPR UNI/BI [...] at bedtime. Follow-up in 1 month. Tito Ceuvas MD Patient is in office for transition of care visit. Patient was discharged from [facility] 09-08-2023 with an Ulcer. Patient has [...] 2023 5:00 PM documented in this encounter [facility] 09-24-2023 Note HNO ID: [id number] Author: Gabriel Brown LPN Service: ? Author Type: LICENSED NURSE Type: Progress Notes Filed: 09/28/2023 9:16 PM Note Text: Patient is in office for transition of care visit. Patient was discharged from [facility] 09-08-2023 with an Ulcer. Patient has [...] Brown LPN September 24, 2023 5:00 PM [facility] 08-12-2023 Note HNO ID: [id number] Author: Tito Cuevas MD Service: ? Author Type: Physician Type: Progress Notes Filed: 08/12/2023 8:32 PM Note Text: This note was created using ChallengePost. Subjective Julia Lentz is a 47 year [...] unspecified M13.0 Treat with meloxicam. Follow-up with signal integrity engineer. Okay to begin Plaquenil if she cannot take methotrexate. If she has more questions she may discuss this with her signal integrity engineer. Tito Cuevas MD [facility] 08-12-2023 History of Presen t illness Narrative This note was created using ChallengePost. Subjective Julia Lentz is a 47 year [...] unspecified M13.0 Treat with meloxicam. Follow-up with signal integrity engineer. Okay to begin Plaquenil if she cannot take methotrexate. If she has more questions she may discuss this with her signal integrity engineer. Tito Cuevas MD Patient Julia is here [...] 5:19 PM ' documented in this encounter [facility] 08-08-2023 Note HNO ID: [id number] Author: Ofelia Landeros LPN Service: ? Author [...] Landeros LPN August 08, 2023 5:19 PM [facility] 05-21-2023 Note HNO ID: [id number] Author: Ariadna Rubio PA-C Service: ? Author Type: Physician Forest Examiner Type: Progress Notes Filed: 05/21/2023 4:58 PM Note Text: This note was created using News Republicriter. Subjective Julia Lentz is a 47 year [...] new exposures. She tried some antibiotic ointment [id number]. Review of Systems HENT: Ear sores, scalp [...] Procedure Laterality Date APPENDECTOMY HYSTERECTOMY LEEP PROCEDURE (MANAGER LPN DEPT)_*FL LIG/TRNSXJ FLP TUBE ABDL/VAG APPR UNI/BI [...] symptoms persist or worsen. Ariadna Rubio PA-C [facility] 05-21-2023 History of Presen t illness Narrative This note was created using News Republicriter. Subjective Julia Lentz is a 47 year [...] new exposures. She tried some antibiotic ointment [id number]. Review of Systems HENT: Ear sores, scalp [...] Procedure Laterality Date APPENDECTOMY HYSTERECTOMY LEEP PROCEDURE (MANAGER LPN DEPT)_*FL LIG/TRNSXJ FLP TUBE ABDL/VAG APPR UNI/BI [...] Ariadna Rubio PA-C documented in this encounter [facility] 04-25-2023 Miscellaneous Notes Patient notified of [...] and rheumatoid factor negative. Consult rheumatology in [place] documented in this encounter [facility] 04-24-2023 Miscellaneous Notes Referral faxed to [facility] (for colonoscopy) #[phone] fax#[phone]. Ofelia Landeros LPN April 24, 2023 2:45 PM documented in this encounter [facility] 04-23-2023 Note HNO ID: [id number] Author: Tito Cuevas MD Service: ? Author Type: Physician Type: Progress Notes Filed: 04/23/2023 5:40 PM Note Text: This note was created using ChallengePost. Subjective Julia Lentz is a 47 year [...] above for polyarthritis evaluation. Tito Cuevas MD [facility] 04-23-2023 Note HNO ID: [id number] Author: Ofelia Landeros LPN Service: ? Author [...] Landeros LPN April 23, 2023 4:18 PM [facility] 04-23-2023 History of Presen t illness Narrative This note was created using Terma Software Labster. Subjective Julia Lentz is a 47 year [...] 2023 4:18 PM documented in this encounter [facility] 04-18-2023 Note HNO ID: [id number] Author: Wenceslao Wilkerson RDMS Service: ? Author Type: In Classroom Tutor Type: Progress Notes Filed: 04/18/2023 3:46 PM [...] RDMS RVT April 18, 2023 3:46 PM [facility] 04-18-2023 Note HNO ID: [id number] Author: RT Rivera(R) Service: ? Author Type: [...] RT Rivera(R) April 18, 2023 3:34 PM [facility] 04-18-2023 History of Presen t illness [...] 2023 3:46 PM documented in this encounter [facility] 04-18-2023 History of Presen t illness [...] 2023 3:34 PM documented in this encounter [facility] 03-19-2023 Miscellaneous Notes Patient notified of [...] in 12 weeks documented in this encounter [facility] 03-08-2023 Miscellaneous Notes March 09, 2023 PID: [id number] Julia Lentz [address] [place] [address] Dear Ms. Lentz, Your prior imaging studies [...] who ordered/prescribed your screening mammogram: Please call [phone] or [phone]: [phone] to schedule an appointment for your additional [...] and reports are kept on file at [facility] as part of your permanent medical record, and are available for your continuing care. Thank you for allowing us to help in meeting your health care needs. Sincerely, Dr. Silvestre Interpreting Radiologist [facility] (compared needs addl imaging) documented in this encounter [facility] 03-08-2023 Note HNO ID: [id number] Author: Tito Cuevas MD Service: ? Author Type: Physician Type: Progress Notes Filed: 03/08/2023 11:48 AM Note Text: This note was created using ChallengePost. Subjective Julia Lentz is a 47 year [...] further assess hot flashes. Tito Cuevas MD [facility] 03-08-2023 History of Presen t illness Narrative This note was created using Terma Software Labster. Subjective Julia Lentz is a 47 year [...] 2023 4:31 PM documented in this encounter [facility] 03-08-2023 Miscellaneous Notes Patient was given orders at visit yesterday. Gabriel Brown LPN March 08, 2023 10:55 AM Reenter new orders so she can have necessary imaging completed documented in this encounter [facility] 03-07-2023 Note HNO ID: [id number] Author: Leny Jason LPN Service: ? Author [...] Jason LPN March 07, 2023 4:31 PM [facility] 03-01-2023 Miscellaneous Notes Patient notified of information. Verbalized understanding Gabriel Brown LPN March 01, 2023 2:32 PM ----- Message from Tito Cuevas MD sent at 03/01/2023 1:14 PM EDT ----- Has additional imaging been scheduled? documented in this encounter [facility] 03-01-2023 Miscellaneous Notes March 02, 2023 PID: [id number] Julia Lentz [address] [place] [address] Dear Ms. Lentz, Your breast imaging exam 02/28/2023 showed a possible finding that may require additional imaging studies for a complete evaluation. However, we recognize you have prior imaging studies at facilities other than [facility], and would like the opportunity to [...] and reports are kept on file at [facility] as part of your permanent medical record, and are available for your continuing care. If you have any questions or concerns, please call [phone]. Thank you for choosing [facility] for your imaging needs. Sincerely, Dr. Silvestre Interpreting Radiologist [facility] ([employer]) documented in this encounter [facility] 02-28-2023 Note HNO ID: [id number] Author: RT Rivera(R) Service: ? Author Type: [...] RT Rivera(R) February 28, 2023 3:29 PM [facility] 02-28-2023 History of Presen t illness Narrative [...] RT Rivera(R) February 28, 2023 3:29 PM documented in this encounter [facility] 02-27-2023 Miscellaneous Notes Patient called and [...] going through menopause documented in this encounter [facility] 02-26-2023 Miscellaneous Notes Patient notified of [...] Possible fatty liver. documented in this encounter [facility] 02-23-2023 Note HNO ID: [id number] Author: Maria Del Carmen Ruelas RDMS Service: ? Author Type: Continuous Process Rotary Drum Tanner Type: Progress Notes Filed: 02/23/2023 7:38 AM [...] Ruelas RDMS February 23, 2023 7:38 AM [facility] 02-23-2023 History of Presen t illness Narrative [...] 2023 7:38 AM documented in this encounter [facility] 02-22-2023 Miscellaneous Notes I spoke with [...] [Sulfamethoxazole-Trimethoprim], Latex Gloves [Other], and Trimethoprim (home) [phone] (work) [phone] (cell) Reason for call: patient is asking [...] Ofelia Landeros LPN documented in this encounter [facility] 02-20-2023 Miscellaneous Notes I spoke with patient Julia and advised her of all information and instructions per Dr Cuevas's note. Patient did voice understanding and is agreeable. She plans on getting the blood test and ultrasound at the [facility] in [place]. She will call to schedule the ultrasound. [...] 2023 10:02 AM documented in this encounter [facility] 02-14-2023 Note HNO ID: [id number] Author: CHANDRA Gutierrez) Service: ? Author Type: Technologist Type: Progress [...] DATE: February 14, 2023 TIME: 3:28 PM [facility] 02-14-2023 History of Presen t illness Narrative [...] TIME: 3:28 PM documented in this encounter [facility] 01-31-2023 Note HNO ID: [id number] Author: Tito Cuevas MD Service: ? Author Type: Physician Type: Progress Notes Filed: 01/31/2023 8:46 AM Note Text: This note was created using ChallengePost. Subjective Julia Lentz is a 47 year [...] for screening for depression - DEPRESSION SCREENING/ASSESSMENT [facility] 01-31-2023 History of Presen t illness Narrative This note was created using Term[employer] Software Labster. Subjective Julia Lentz is a 47 year [...] 2023 5:13 PM documented in this encounter [facility] 01-29-2023 Note HNO ID: [id number] Author: Gabriel Brown LPN Service: ? Author Type: LICENSED NURSE Type: Progress Notes Filed: 01/31/2023 8:46 AM Note Text: DUE HEALTH MAINTENANCE HEPATITIS B(1 of 3 - 3-dose series) declined COVID-19 VACCINE(1 declined PNEUMOCOCCAL(1 - PCV) declined HEPATITIS C SCREENING HIV SCREENING PAP TESTING had hysterectomy HPV TESTING DTAP,TDAP,TD(2 - Tdap) DIABETES SCREEN INFLUENZA(1) declined Gabriel Brown LPN January 29, 2023 5:13 PM [facility] 11-22-2022 Miscellaneous Notes Patient is in office today with for his appointment. Requesting refill. Last Office Visit: 02-21-2021 Next Scheduled Office Visit: 12-25-2022 Requested Prescriptions Pending Prescriptions Disp Refills acyclovir (ZOVIRAX) 400 mg tablet 60 tablet 0 Sig: Take 1 tablet by mouth once daily. Gabriel Brown LPN November 22, 2022 2:24 PM documented in this encounter [facility] 05-11-2022 History of Presen t illness [...] which included preparing to see the patient, [id number]-[id number] patient care, completing clinical documentation, obtaining and/or reviewing separately obtained history, counseling and educating the patient/family/caregiver, independently interpreting results (not separately reported), communicating results to the patient/family/caregiver and care coordination (not separately reported). SIGNATURE: Ferny Vázquez MD PATIENT NAME: Julia Lentz DATE: May 11, 2022 TIME: 10:07 AM PAGER: documented in this encounter [facility] 04-17-2022 Miscellaneous Notes Called to pt and left brief message for her to call back to arrange appt. If she wants VV, will need to got [facility] set up. Called and spoke with patient As per last review- Spine Tumor Board 03/02/22: Stable. Possible atypical hemangioma? Have pathology take a second look. Get PET CT (or CT Abd/pelvis) to rule out other mets. Nothing to offer from a treatment perspective. As per Dr Vázquez: PET First, if clean consider the fusion PET scan in [facility] now - Dr Vázquez reviuewed, as per him: One last time at [...] Sara Narvaez PA-C documented in this encounter [facility] 04-11-2022 Note HNO ID: [id number] Author: Camron Santamaria RT(R) Service: Nuclear Medicine [...] FDG. No other medications given.. ADMINISTRATION TIME: 09 PATIENT DISCHARGED TO: Ambulatory patient, left [place] department area. A Diagnostic radioactive procedure has taken place, with no further precautions necessary other than routine body substance precautions. More information regarding radiation safety can be found using this link: [email or web address]%20Nuclear%20Me dicine%[email or web address] SIGNATURE: RT Mary(R) PATIENT NAME: Julia Lentz DATE: April 11, 2022 TIME: 9:12 AM PAGER/CONTACT #: [facility] 04-11-2022 History of Presen t illness Narrative [...] DIAGNOSTIC CT PERFORMED: No IV SITE: Ambulatory: DE only - direct IV injection in the [...] be found using this link: [email or web address]%20N uclear%20Medicine%20Procedures.p df SIGNATURE: RT Mary(R) PATIENT NAME: Julia Lentz DATE: April 11, 2022 TIME: 9:12 AM PAGER/CONTACT #: documented in this encounter [facility] 02-28-2022 Miscellaneous Notes Called and spoke [...] back re: biopsy results; pls call; ph. [phone] documented in this encounter [facility] 01-16-2022 Miscellaneous Notes Patient received CD/report. 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 documented in this encounter [facility] Diagnosis Pathologic compression fracture of lumbar vertebra, with delayed healing, subsequent encounter- Primary Abnormal MRI, lumbar spine Nonspecific (abnormal) findings on radiological and other examination of musculoskeletal system Pathological fracture, other site, initial encounter for fracture [facility] Diagnosis Encounter for screening mammogram for breast cancer- Primary Wellness examination Lipid screening Screening for lipoid disorders Screening for deficiency anemia Screening for other and unspecified deficiency anemia Menopausal hot flushes Symptomatic menopausal or female climacteric states Screening for colon cancer Special screening for malignant neoplasms, colon Encounter for screening for depression [facility] Diagnosis Fatigue, unspecified type- Primary Abnormal mammogram Abnormal mammogram, unspecified Polyarthritis Unspecified polyarthropathy or polyarthritis, site unspecified Hot flashes Symptomatic menopausal or female climacteric states documented in this encounter [facility] note* Diagnosis Vitamin D deficiency- Primary Unspecified vitamin D deficiency documented in this encounter [facility] note* Diagnosis Polyarthritis- Primary Unspecified polyarthropathy or polyarthritis, site unspecified Screening for colon cancer Special screening for malignant neoplasms, colon documented in this encounter [facility] note* Diagnosis Polyarthritis- Primary Unspecified polyarthropathy or polyarthritis, site unspecified documented in this encounter [facility] note* Diagnosis Irritant dermatitis- Primary Contact dermatitis and other eczema, due to unspecified cause [facility] Diagnosis Midline low back pain without sciatica, unspecified chronicity- Primary Polyarthritis, unspecified documented in this encounter [facility] note* Diagnosis Pathological fracture, other site, initial encounter for fracture documented in this encounter [facility] note* Diagnosis Encounter for screening mammogram for breast cancer documented in this encounter [facility] note* Diagnosis Elevated LFTs Other abnormal blood chemistry documented in this encounter [facility] note* Diagnosis Abnormal mammogram Abnormal mammogram, unspecified documented in this encounter [facility] note* Diagnosis Abnormal mammogram Abnormal mammogram, unspecified [facility] Diagnosis Acute gastric ulcer, unspecified whether gastric ulcer hemorrhage or perforation present- Primary Anxiety Anxiety state, unspecified Moderately severe depression Primary insomnia Persistent disorder of initiating or maintaining sleep documented in this encounter [facility] note* Diagnosis Pathologic compression fracture of lumbar vertebra, with delayed healing, subsequent encounter- Primary Abnormal MRI, lumbar spine Nonspecific (abnormal) findings on radiological and other examination of musculoskeletal system Pathological fracture, other site, initial encounter for fracture Closed compression fracture of L2 vertebra, sequela documented in this encounter [facility] for referral (narrative)* Diagnostic Procedure Only (Routine) - Authorized Specialty Diagnoses / Procedures Referred By Rea t Referred To Contact MOLECULAR & FUNCTIONAL IMAGING Diagnoses Vertebral body hemangioma Pathological fracture of lumbar vertebra, sequela Renal cell carcinoma, unspecified laterality (HCC) Procedures NM PET/CT WHOLE BODY INITIAL PET IMAGING FOR CT ATTENUATION WHOLE BODY Sara Narvaez PA-C [address] [place] [address] Molecular & Functional Imaging [address] [place] [address] Referral ID Status Reason Start Date Expiration Date Visits Requested Visits Authorized [id number] Authorized Auto-Generat ed Referral 03/22/2022 05/06/2022 2 2 [facility] for referral (narrative)* Diagnostic Procedure Only (Routine) - Pending Review Specialty Diagnoses / Procedures Referred By Contac t Referred To Contact [facility] Diagnoses Abnormal mammogram Procedures US BREAST LTD RIGHT US BREAST UNI REAL TIME WITH IMAGE LIMITED Tito Cuevas MD [address] [place] [address] [facility] [address] [place] [id number] Referral ID Status Reason Start Date Expiration Date Visits Requested Visits Authorized [id number] Pending Review Auto-Generat ed Referral 03/07/2023 04/05/2024 1 1 * Diagnostic Procedure Only (Routine) - Pending Review Specialty Diagnoses / Procedures Referred By Rea t Referred To Contact BR IMAGING Diagnoses Abnormal mammogram Procedures US BREAST LTD LEFT US BREAST UNI REAL TIME WITH IMAGE LIMITED Tito Cuevas MD [address] [place] [address] [facility] [address] [place] [address] Referral ID Status Reason Start Date Expiration Date Visits Requested Visits Authorized [id number] Pending Review Auto-Generat ed Referral 03/07/2023 04/05/2024 1 1 * Diagnostic Procedure Only (Routine) - Pending Review Specialty Diagnoses / Procedures Referred By Contdemarco t Referred To Contact BR IMAGING Diagnoses Abnormal mammogram Procedures YAW DIAGNOSTIC BILATERAL DIAGNOSTIC MAMMOGRAPHY COMPUTER-AIDED DETCJ BI Tito Cuevas MD [address] [place] [address] [facility] [address] [place] [id number] Referral ID Status Reason Start Date Expiration Date Visits Requested Visits Authorized [id number] Pending Review Auto-Generat ed Referral 03/07/2023 04/05/2024 1 1 [facility] for referral (narrative)* Diagnostic Procedure Only (Routine) - Closed Specialty Diagnoses / Procedures Referred By Pettyac t Referred To Contact BR IMAGING Diagnoses Encounter for screening mammogram for breast cancer Procedures YAW SCREENING SCREENING MAMMOGRAPHY BI 2-VIEW BREAST INC CAD Tito Cuevas MD [address] [place] [address] [facility] [address] [place] [address] Referral ID Status Reason Start Date Expiration Date V isits Requested Visits Authorized [id number] Closed Auto-Generate d Referral 01/29/2023 02/28/2024 1 1 [facility] for referral (narrative)* Diagnostic Procedure Only (Routine) - Closed Specialty Diagnoses / Procedures Referred By Rea braswell Referred To Contact US IMAGING Diagnoses Elevated LFTs Procedures US ABD RIGHT UPPER QUADRANT US ABDOMINAL REAL TIME W/IMAGE LIMITED Tito Cuevas MD [address] [place] [address] Us Imaging [facility] Referral ID Status Reason Start Date Expiration Date V isits Requested Visits Authorized [id number] Closed Auto-Generate d Referral 02/15/2023 03/16/2024 1 1 [facility] for referral (narrative)* Diagnostic Procedure Only (Routine) - Closed Specialty Diagnoses / Procedures Referred By Rea braswell Referred To Contact BR IMAGING Diagnoses Abnormal mammogram Procedures US BREAST LTD RIGHT US BREAST UNI REAL TIME WITH IMAGE LIMITED Tito Cuevas MD [address] [place] [address] [facility] [address] [place] [address] Referral ID Status Reason Start Date Expiration Date V isits Requested Visits Authorized [id number] Closed Auto-Generate d Referral 03/07/2023 04/05/2024 1 1 [facility] for visit Narrative* Diagnostic Procedure Only (Routine) - Authorized Specialty Diagnoses / Procedures Referred By Rea t Referred To Contact MOLECULAR & FUNCTIONAL IMAGING Diagnoses Vertebral body hemangioma Pathological fracture of lumbar vertebra, sequela Renal cell carcinoma, unspecified laterality (HCC) Procedures NM PET/CT WHOLE BODY INITIAL PET IMAGING FOR CT ATTENUATION WHOLE BODY Sara Narvaez PA-C [address] [place] [address] Molecular & Functional Imaging [address] [place] [address] Referral ID Status Reason Start Date Expiration Date Visits Requested Visits Authorized [id number] Authorized Auto-Generat ed Referral 03/22/2022 05/06/2022 2 2 [facility] for visit Narrative* Diagnostic Procedure Only (Routine) - Closed Specialty Diagnoses / Procedures Referred By Rea braswell Referred To Contact [facility] Diagnoses Encounter for screening mammogram for breast cancer Procedures YAW SCREENING SCREENING MAMMOGRAPHY BI 2-VIEW BREAST INC CAD Tito Cuevas MD [address] [place] [address] [facility] [address] [place] [address] Referral ID Status Reason Start Date Expiration Date V isits Requested Visits Authorized [id number] Closed Auto-Generate d Referral 01/29/2023 02/28/2024 1 1 [facility] for visit Narrative* Diagnostic Procedure Only (Routine) - Closed Specialty Diagnoses / Procedures Referred By Rea braswell Referred To Contact [facility] Diagnoses Abnormal mammogram Procedures YAW DIAGNOSTIC BILATERAL DIAGNOSTIC MAMMOGRAPHY COMPUTER-AIDED DETCJ BI Tito Cuevas MD [address] [place] [address] [facility] Imaging [address] [place] [address] Referral ID Status Reason Start Date Expiration Date V isits Requested Visits Authorized [id number] Closed Auto-Generate d Referral 03/07/2023 04/05/[address] [facility] Advance Directives Documents on File Type Date Recorded Patient Quality Assurance Practice Manager Expl anation Advance Directive(s) 02/08/2022 10:11 AM Advance Directive(s) 01/13/2019 10:24 AM Advance Directive(s) 11/21/2018 10:11 AM Advance Directive(s) 11/21/2018 2:33 PM Documents on File Type Date Recorded Patient Quality Assurance Practice Manager Expl anation Advance Directive(s) 02/08/2022 10:11 AM Advance Directive(s) 01/13/2019 10:24 AM Advance Directive(s) 11/21/2018 10:11 AM Advance Directive(s) 11/21/2018 2:33 PM Documents on File Type Date Recorded Patient Quality Assurance Practice Manager Expl anation Advance Directive(s) 11/21/2018 2:33 PM Documents on File Type Date Recorded Patient Quality Assurance Practice Manager Expl anation Advance Directive(s) 11/21/2018 2:33 [...] LUMBAR W/O & W/CONTR Ferny Zavala MD [address] [place] [address] Mr Imaging Referral ID Status Reason Start Date Expiration Date Visits Requested Visits Authorized [id number] Pending Review Auto-Generat ed Referral 05/11/2023 06/10/2023 1 1 Specialty Diagnoses / Procedures Referred By Contac t Referred To Contact Gastroenterology Diagnoses Screening for colon cancer Procedures CONSULT TO GASTROENTEROLOGY OFFICE/OUTPATIENT [facility] 60-74 MINUTES Ttio Cuevas MD [address] [place] [address] Referral ID Status Reason Start Date Expiration Date Visits Requested Visits Authorized [id number] Authorized PCP Requested Referral 01/29/2023 01/29/2024 1 1 Specialty Diagnoses / Procedures Referred By Contac t Referred To Contact [facility] Diagnoses Encounter for screening mammogram for breast cancer Procedures YAW SCREENING SCREENING MAMMOGRAPHY BI 2-VIEW BREAST INC CAD Tito Cuevas MD [address] [place] [address] Br Imaging [address] [place] [phone] Referral ID Status Reason Start Date Expiration Date Visits Requested Visits Authorized [id number] Pending Review Auto-Generat ed Referral 01/29/2023 02/28/2024 1 1 Specialty Diagnoses / Procedures Referred By Contac t Referred To Contact General Surgery Diagnoses Screening for colon cancer Procedures CONSULT TO GENERAL SURGERY OFFICE/OUTPATIENT [facility] 60-74 MINUTES Tito Cuevas MD [address] [place] [address] Referral ID Status Reason Start Date Expiration Date Visits Requested Visits Authorized [id number] Authorized PCP Requested Referral 04/23/2023 04/22/2024 1 1 Specialty Diagnoses / Procedures Referred By Contac t Referred To Contact Rheumatology Diagnoses Polyarthritis Procedures CONSULT TO RHEUM/IMMUN DISEASE OFFICE/OUTPATIENT [facility] 60-74 MINUTES Tito Cuevas MD [address] [place] [address] Referral ID Status Reason Start Date Expiration Date Visits Requested Visits Authorized [id number] Authorized PCP Requested Referral 04/25/2023 04/24/2024 1 1 Specialty Diagnoses / Procedures Referred By Contac t Referred To Contact [facility] IMAGING Diagnoses Pathological fracture, other site, initial encounter for fracture Procedures MRI LUMBAR SPINE WO/W IVCON MRI SPINAL CANAL LUMBAR W/O & W/CONTR Ferny Zavala MD [address] [place] [address] [place] [address] Referral ID Status Reason Start Date Expiration Date V isits Requested Visits Authorized [id number] Closed Auto-Generate d Referral 01/29/2023 03/15/2023 1 1 Specialty Diagnoses / Procedures Referred By Contac t Referred To Contact [facility] IMAGING Diagnoses Pathological fracture, other site, initial encounter for fracture Procedures MRI LUMBAR SPINE WO/W IVCON MRI SPINAL CANAL LUMBAR W/O & W/CONTR Sara Marsh PA-C [address] [place] [address] [place] [address] Referral ID Status Reason Start Date Expiration Date Visits Requested Visits Authorized [id number] Pending Review Auto-Generat ed Referral 12/28/2023 01/26/2025 1 1 Additional Source Comments Source Comments (unrecognize d section and content) In the event this informatio n is protected by the Federal Confidentiality of Alcohol and Drug Abuse Patient Records regulations: The Federal rules restrict any use of the information to criminally investigate or prosecute any alcohol or drug abuse patient.[facility] the event this information is protected by the Federal Confidentiality of Alcohol and Drug Abuse Patient Records regulations: The Federal rules restrict any use of the information to criminally investigate or prosecute any alcohol or drug abuse patient.[facility] the event this information is protected by the Federal Confidentiality of Alcohol and Drug Abuse Patient Records regulations: The Federal rules restrict any use of the information to criminally investigate or prosecute any alcohol or drug abuse patient.[facility] the event this information is protected by the Federal Confidentiality of Alcohol and Drug Abuse Patient Records regulations: The Federal rules restrict any use of the information to criminally investigate or prosecute any alcohol or drug abuse patient.[facility] the event this information is protected by the Federal Confidentiality of Alcohol and Drug Abuse Patient Records regulations: The Federal rules restrict any use of the information to criminally investigate or prosecute any alcohol or drug abuse patient.[facility] the event this information is protected by the Federal Confidentiality of Alcohol and Drug Abuse Patient Records regulations: The Federal rules restrict any use of the information to criminally investigate or prosecute any alcohol or drug abuse patient.[facility] the event this information is protected by the Federal Confidentiality of Alcohol and Drug Abuse Patient Records regulations: The Federal rules restrict any use of the information to criminally investigate or prosecute any alcohol or drug abuse patient.[facility] the event this information is protected by the Federal Confidentiality of Alcohol and Drug Abuse Patient Records regulations: The Federal rules restrict any use of the information to criminally investigate or prosecute any alcohol or drug abuse patient.[facility] the event this information is protected by the Federal Confidentiality of Alcohol and Drug Abuse Patient Records regulations: The Federal rules restrict any use of the information to criminally investigate or prosecute any alcohol or drug abuse patient.[facility] the event this information is protected by the Federal Confidentiality of Alcohol and Drug Abuse Patient Records regulations: The Federal rules restrict any use of the information to criminally investigate or prosecute any alcohol or drug abuse patient.[facility] the event this information is protected by the Federal Confidentiality of Alcohol and Drug Abuse Patient Records regulations: The Federal rules restrict any use of the information to criminally investigate or prosecute any alcohol or drug abuse patient.[facility] the event this information is protected by the Federal Confidentiality of Alcohol and Drug Abuse Patient Records regulations: The Federal rules restrict any use of the information to criminally investigate or prosecute any alcohol or drug abuse patient.[facility] the event this information is protected by the Federal Confidentiality of Alcohol and Drug Abuse Patient Records regulations: The Federal rules restrict any use of the information to criminally investigate or prosecute any alcohol or drug abuse patient.[facility] the event this information is protected by the Federal Confidentiality of Alcohol and Drug Abuse Patient Records regulations: The Federal rules restrict any use of the information to criminally investigate or prosecute any alcohol or drug abuse patient.[facility] the event this information is protected by the Federal Confidentiality of Alcohol and Drug Abuse Patient Records regulations: The Federal rules restrict any use of the information to criminally investigate or prosecute any alcohol or drug abuse patient.[facility] the event this information is protected by the Federal Confidentiality of Alcohol and Drug Abuse Patient Records regulations: The Federal rules restrict any use of the information to criminally investigate or prosecute any alcohol or drug abuse patient.[facility] the event this information is protected by the Federal Confidentiality of Alcohol and Drug Abuse Patient Records regulations: The Federal rules restrict any use of the information to criminally investigate or prosecute any alcohol or drug abuse patient.[facility] the event this information is protected by the Federal Confidentiality of Alcohol and Drug Abuse Patient Records regulations: The Federal rules restrict any use of the information to criminally investigate or prosecute any alcohol or drug abuse patient.[facility] the event this information is protected by the Federal Confidentiality of Alcohol and Drug Abuse Patient Records regulations: The Federal rules restrict any use of the information to criminally investigate or prosecute any alcohol or drug abuse patient.[facility] the event this information is protected by the Federal Confidentiality of Alcohol and Drug Abuse Patient Records regulations: The Federal rules restrict any use of the information to criminally investigate or prosecute any alcohol or drug abuse patient.[facility] the event this information is protected by the Federal Confidentiality of Alcohol and Drug Abuse Patient Records regulations: The Federal rules restrict any use of the information to criminally investigate or prosecute any alcohol or drug abuse patient.[facility] the event this information is protected by the Federal Confidentiality of Alcohol and Drug Abuse Patient Records regulations: The Federal rules restrict any use of the information to criminally investigate or prosecute any alcohol or drug abuse patient.[facility] the event this information is protected by the Federal Confidentiality of Alcohol and Drug Abuse Patient Records regulations: The Federal rules restrict any use of the information to criminally investigate or prosecute any alcohol or drug abuse patient.[facility] the event this information is protected by the Federal Confidentiality of Alcohol and Drug Abuse Patient Records regulations: The Federal rules restrict any use of the information to criminally investigate or prosecute any alcohol or drug abuse patient.[facility] the event this information is protected by the Federal Confidentiality of Alcohol and Drug Abuse Patient Records regulations: The Federal rules restrict any use of the information to criminally investigate or prosecute any alcohol or drug abuse patient.[facility] the event this information is protected by the Federal Confidentiality of Alcohol and Drug Abuse Patient Records regulations: The Federal rules restrict any use of the information to criminally investigate or prosecute any alcohol or drug abuse patient.[facility] the event this information is protected by the Federal Confidentiality of Alcohol and Drug Abuse Patient Records regulations: The Federal rules restrict any use of the information to criminally investigate or prosecute any alcohol or drug abuse patient.[facility] the event this information is protected by the Federal Confidentiality of Alcohol and Drug Abuse Patient Records regulations: The Federal rules restrict any use of the information to criminally investigate or prosecute any alcohol or drug abuse patient.[facility] the event this information is protected by the Federal Confidentiality of Alcohol and Drug Abuse Patient Records regulations: The Federal rules restrict any use of the information to criminally investigate or prosecute any alcohol or drug abuse patient.[facility] the event this information is protected by the Federal Confidentiality of Alcohol and Drug Abuse Patient Records regulations: The Federal rules restrict any use of the information to criminally investigate or prosecute any alcohol or drug abuse patient.[facility] the event this information is protected by the Federal Confidentiality of Alcohol and Drug Abuse Patient Records regulations: The Federal rules restrict any use of the information to criminally investigate or prosecute any alcohol or drug abuse patient.[facility] the event this information is protected by the Federal Confidentiality of Alcohol and Drug Abuse Patient Records regulations: The Federal rules restrict any use of the information to criminally investigate or prosecute any alcohol or drug abuse patient.[facility] the event this information is protected by the Federal Confidentiality of Alcohol and Drug Abuse Patient Records regulations: The Federal rules restrict any use of the information to criminally investigate or prosecute any alcohol or drug abuse patient.[facility] the event this information is protected by the Federal Confidentiality of Alcohol and Drug Abuse Patient Records regulations: The Federal rules restrict any use of the information to criminally investigate or prosecute any alcohol or drug abuse patient.[facility] the event this information is protected by the Federal Confidentiality of Alcohol and Drug Abuse Patient Records regulations: The Federal rules restrict any use of the information to criminally investigate or prosecute any alcohol or drug abuse patient.[facility] the event this information is protected by the Federal Confidentiality of Alcohol and Drug Abuse Patient Records regulations: The Federal rules restrict any use of the information to criminally investigate or prosecute any alcohol or drug abuse patient.[facility] the event this information is protected by the Federal Confidentiality of Alcohol and Drug Abuse Patient Records regulations: The Federal rules restrict any use of the information to criminally investigate or prosecute any alcohol or drug abuse patient.[facility] the event this information is protected by the Federal Confidentiality of Alcohol and Drug Abuse Patient Records regulations: The Federal rules restrict any use of the information to criminally investigate or prosecute any alcohol or drug abuse patient.[facility]In the event this information is protected by the Federal Confidentiality of Alcohol and Drug Abuse Patient Records regulations: The Federal rules restrict any use of the information to criminally investigate or prosecute any alcohol or drug abuse patient.[facility]In the event this information is protected by the Federal Confidentiality of Alcohol and Drug Abuse Patient Records regulations: The Federal rules restrict any use of the information to criminally investigate or prosecute any alcohol or drug abuse patient.[facility]In the event this information is protected by the Federal Confidentiality of Alcohol and Drug Abuse Patient Records regulations: The Federal rules restrict any use of the information to criminally investigate or prosecute any alcohol or drug abuse patient.[facility]In the event this information is protected by the Federal Confidentiality of Alcohol and Drug Abuse Patient Records regulations: The Federal rules restrict any use of the information to criminally investigate or prosecute any alcohol or drug abuse patient.[facility] Reason for Visit (unrecogniz ed section and content) Specialty Diagnoses / Procedures Referred By Contac t Referred To Contact [facility] Diagnoses Abnormal mammogram Procedures US BREAST LTD RIGHT US BREAST UNI REAL TIME WITH IMAGE LIMITED Tito Cuevas MD [address] [place] [address] Br Imaging [address] [place] [address] Referral ID Status Reason Start Date Expiration Date V isits Requested Visits Authorized [id number] Closed Auto-Generate d Referral 03/07/2023 04/05/2024 1 [...] LUMBAR W/O & W/CONTR Ferny Zavala MD [address] [place] [address] Mr Imaging [facility] Referral ID Status Reason Start Date Expiration Date V isits Requested Visits Authorized [id number] Closed Auto-Generate d Referral 01/29/2023 03/15/2023 1 1 Specialty Diagnoses / Procedures Referred By Contac t Referred To Contact US IMAGING Diagnoses Elevated LFTs Procedures US ABD RIGHT UPPER QUADRANT US ABDOMINAL REAL TIME W/IMAGE LIMITED Tito Cuevas MD [address] [place] [address] [place] [address] Referral ID Status Reason Start Date Expiration Date V isits Requested Visits Authorized [id number] Closed Auto-Generate d Referral 02/15/2023 03/16/2024 1 1 Reason Comments Transition Of Care Reason Onset Date Comments Refill Request 12/12/2023 Care Teams (unrecognized sec tion and content) Banking Assistant Relationship Specialty Start Date End Date Tito Cuevas MD [address] [place] [address] PCP - General Family Practice 10/14/18 Banking Assistant Relationship Specialty Start Date End Date Tito Cuevas MD [address] [place] [address] PCP - General Family Practice 10/14/18 Banking Assistant Relationship Specialty Start Date End Date Tito Cuevas MD [address] [place] [address] PCP - General Family Practice 10/14/18 Banking Assistant Relationship Specialty Start Date End Date Tito Cuevas MD [address] [place] [address] PCP - General Family Medicine 10/14/18 Banking Assistant Relationship Specialty Start Date End Date Tito Cuevas MD [address] [place] [address] PCP - General Family Medicine 10/14/18 Banking Assistant Relationship Specialty Start Date End Date Tito Cuevas MD [address] [place] [address] PCP - General Family Medicine 10/14/18 Banking Assistant Relationship Specialty Start Date End Date Tito Cuevas MD [address] [place] [address] PCP - General Family Medicine 10/14/18 Banking Assistant Relationship Specialty Start Date End Date Tito Cuevas MD [address] [place] [address] PCP - General Family Medicine 10/14/18 Banking Assistant Relationship Specialty Start Date End Date Tito Cuevas MD [address] [place] [address] PCP - General Family Medicine 10/14/18 Banking Assistant Relationship Specialty Start Date End Date Tito Cuevas MD [address] [place] [address] PCP - General Family Medicine 10/14/18 Banking Assistant Relationship Specialty Start Date End Date Tito Cuevas MD [address] [facility] [place] [address] PCP - General Family Medicine 10/14/18 Banking Assistant Relationship Specialty Start Date End Date Tito Cuevas MD [address] [place] [address] PCP - General Family Medicine 10/14/18 Banking Assistant Relationship Specialty Start Date End Date Tito Cuevas MD [address] [facility] [place] [place] [place] [address] PCP - General Family Medicine 10/14/18 Banking Assistant Relationship Specialty Start Date End Date Tito Cuevas MD [address] [facility] [place] [place] [place] [address] PCP - General Family Medicine 10/14/18 Banking Assistant Relationship Specialty Start Date End Date Tito Cuevas MD [address] [place] [address] PCP - General Family Medicine 10/14/18 Banking Assistant Relationship Specialty Start Date End Date iTto Cuevas MD [address] [place] [address] PCP - General Family Medicine 10/14/18 Banking Assistant Relationship Specialty Start Date End Date Tito Cuevas MD [address] [place] [address] PCP - General Family Medicine 10/14/18 Banking Assistant Relationship Specialty Start Date End Date Tito Cuevas MD [address] [place] [address] PCP - General Family Medicine 10/14/18 Banking Assistant Relationship Specialty Start Date End Date Tito Cuevas MD [address] [place] [address] PCP - General Family Medicine 10/14/18 Banking Assistant Relationship Specialty Start Date End Date Tito Cuevas MD [address] [place] [address] PCP - General Family Medicine 10/14/18 Banking Assistant Relationship Specialty Start Date End Date Tito Cuevas MD [address] [place] [address] PCP - General Family Medicine 10/14/18 Banking Assistant Relationship Specialty Start Date End Date Tito Cuevas MD [address] [place] [address] PCP - General Family Medicine 10/14/18 Banking Assistant Relationship Specialty Start Date End Date Tito Cuevas MD [address] [place] [address] PCP - General Family Medicine 10/14/18 Banking Assistant Relationship Specialty Start Date End Date Tito Cuevas MD [address] [place] [address] PCP - General Family Medicine 10/14/18 Banking Assistant Relationship Specialty Start Date End Date Tito Cuevas MD [address] [place] [address] PCP - General Family Medicine 10/14/18 Banking Assistant Relationship Specialty Start Date End Date Tito Cuevas MD [address] [place] [address] PCP - General Family Medicine 10/14/18 Banking Assistant Relationship Specialty Start Date End Date Tito Cuevas MD [address] [place] [address] PCP - General Family Medicine 10/14/18 INFORMATION SOURCE (unrecogn ized section and content) DATE CREATED AUTHOR AUTHOR'S ORGANIZ ATION 11/14/2023 [facility] DATE CREATED AUTHOR AUTHOR'S ORGANIZ ATION 11/28/2023 [facility] nter FOR RECORDS PERTAINING TO PATIENTS WHO [...] BE BASED ON THE PRIMARY CLINICAL RECORDS. [facility] [employer] [facility]. provides no warranty or guarantee of the accuracy or completeness of information in this document.
== END | disposition home or self-care (01) ==
LOC: US 09:00
PROVIDERS: PCP Family Medicine; Referring Provider Internal Medicine; Visit Provider Internal Medicine
DX: K76.0 Fatty (change of) liver, not elsewhere classified (principal); K74.3 Primary biliary cirrhosis
CPT/HCPCS: 76705; 76981

== ENCOUNTER → 2024-01-30 | Outpatient (CLI) | payer OTHER, SELFPAY ==
[2024-01-30 17:38] LABS: Absolute Lymphocyte Count 2.11 X10^3/uL (0.83-4.51); Absolute Neutrophil Count 3.2 X10^3/uL (2.0-7.7); Basophil% 1.6 % (0-1); Eosinophil# 0.18 X10^3/uL; Eosinophils% 2.9 % (0-5); Hemoglobin 12.4 g/dL (12.0-15.0); Lymphocyte # 2.11 X10^3/ul (0.83-4.51); Mean Corp Hgb Conc 32.6 g/dL (32-36); Mean Corpuscular Hgb 31.4 pg (27.0-32.0); Mean Corpuscular Volume 96.2 fL (81-99); Mean Platelet Vol. 11.7 fl (6.2-12.0); Monocyte# 0.64 X10^3/uL; Monocyte% 10.3 % (0-10); NRBC Flagged by Analyzer 0 % (0-5); Neutrophil # 3.17 X10^3/uL (2.7-7.7); Platelet Count 311 K/mm3 (150-450); RBC Distribution Width CV 12.4 % (11.6-14.6); RBC Distribution Width SD 44.2 fl (35.1-43.9); Red Blood Count 3.95 M/mm3 (4.2-5.4); White Blood Count 6.2 K/mm3 (4.4-11.0)
[2024-01-30 17:55] LABS: AST(SGOT) 22 U/L (15-37); Alanine Aminotransfer ALT/SGPT 32 U/L (13-56); Albumin, Serum 3.8 g/dL (3.2-5.0); Alkaline Phosphatase 108 U/L (45-117); Anion Gap 4 (5-15); BUN 13 mg/dL (7-18); BUN/Creat Ratio 16.1 RATIO (10-20); Calcium,Total 9.8 mg/dL (8.5-10.1); Chloride 107 mmol/L (98-107); Creatinine, Serum 0.81 mg/dL (0.55-1.02); EST Glomerular Filtration Rate 80 mL/min (>60); Est Glom Filt Rate - Afr Amer 97 mL/min (>60); Glucose 98 mg/dL (74-106); Potassium 4.3 mmol/L (3.5-5.1); Protein, Total 7.8 g/dL (6.4-8.2); Sodium Level 140 mmol/L (136-145)
== END | disposition home or self-care (01) ==
PROVIDERS: PCP Family Medicine; Referring Provider Internal Medicine Rheumatology; Visit Provider Internal Medicine Rheumatology
DX: M06.4 Inflammatory polyarthropathy (principal); Z79.899 Other long term (current) drug therapy
CPT/HCPCS: 36415; 80053; 85025

== ENCOUNTER → 2024-04-16 | Outpatient (CLI) | payer OTHER, SELFPAY ==
[2024-04-16 17:42] LABS: Absolute Lymphocyte Count 2.16 X10^3/uL (0.83-4.51); Absolute Neutrophil Count 3.4 X10^3/uL (2.0-7.7); Basophil# 0.08 X10^3/uL; Basophil% 1.2 % (0-1); Eosinophil# 0.16 X10^3/uL; Eosinophils% 2.5 % (0-5); Hematocrit 36.9 % (37-47); Hemoglobin 11.9 g/dL (12.0-15.0); Lymphocyte # 2.16 X10^3/ul (0.83-4.51); Lymphocyte % 33.6 % (19-41); Mean Corp Hgb Conc 32.2 g/dL (32-36); Mean Corpuscular Hgb 30.4 pg (27.0-32.0); Mean Corpuscular Volume 94.1 fL (81-99); Mean Platelet Vol. 11.8 fl (6.2-12.0); Monocyte# 0.62 X10^3/uL; Monocyte% 9.6 % (0-10); NRBC Flagged by Analyzer 0 % (0-5); Neutrophil # 3.39 X10^3/uL (2.7-7.7); Neutrophil % 52.8 % (47-70); Platelet Count 263 K/mm3 (150-450); RBC Distribution Width CV 12.3 % (11.6-14.6); RBC Distribution Width SD 42.7 fl (35.1-43.9); Red Blood Count 3.92 M/mm3 (4.2-5.4); White Blood Count 6.4 K/mm3 (4.4-11.0)
[2024-04-16 18:13] LABS: ALB/GLOB Ratio 1.1 RATIO (0.9-2.4); AST(SGOT) 25 U/L (15-37); Alanine Aminotransfer ALT/SGPT 32 U/L (13-56); Albumin, Serum 3.9 g/dL (3.2-5.0); Alkaline Phosphatase 89 U/L (45-117); Anion Gap 4 (5-15); BUN 15 mg/dL (7-18); BUN/Creat Ratio 18.3 RATIO (10-20); Calcium,Total 9.2 mg/dL (8.5-10.1); Chloride 108 mmol/L (98-107); Creatinine, Serum 0.82 mg/dL (0.55-1.02); EST Glomerular Filtration Rate 79 mL/min (>60); Est Glom Filt Rate - Afr Amer 95 mL/min (>60); Globulin 3.7 g/dL (2.2-4.2); Glucose 94 mg/dL (74-106); Potassium 3.7 mmol/L (3.5-5.1); Protein, Total 7.6 g/dL (6.4-8.2); Sodium Level 139 mmol/L (136-145)
== END | disposition home or self-care (01) ==
LOC: MTLAB 15:14
PROVIDERS: PCP Family Medicine; Referring Provider Internal Medicine Rheumatology; Visit Provider Internal Medicine Rheumatology
DX: M06.4 Inflammatory polyarthropathy (principal); M47.897 Other spondylosis, lumbosacral region
CPT/HCPCS: 36415; 80053; 85025

== ENCOUNTER → 2024-04-29 | Outpatient (CLI) | payer OTHER, SELFPAY ==
--- NOTE | 2024-04-29 10:05 | US_ITS ---
STUDY: ABDOMINAL ULTRASOUND - RIGHT UPPER QUADRANT; ELASTOGRAPHY REASON FOR VISIT: Female, 48 years old. Elevated liver enzymes. TECHNIQUE: Ultrasound evaluation of the right upper quadrant was performed with real-time and static browne-scale imaging. Point quantification shear wave elastography was performed ([employer]). TECHNICAL QUALITY: Adequate. COMPARISON: Comparison is made with prior examination of January 05, 2024. FINDINGS: Liver: The liver measures 15.5 cm. There is increased echogenicity consistent with fatty infiltration. The bile ducts are within normal limits. There is hepatic color flow. The direction of portal flow is hepatopetal. There is no demonstrated mass lesion. Median liver stiffness measured 9.4 kPa. Gallbladder: Normal distended gallbladder. The gallbladder wall measures 2.0 mm. There is a negative sonographic Burciaga''s sign. There is no pericholecystic fluid. There is a solitary echogenic gallstone within the gallbladder. Common Bile Duct (C.B.D.): The common bile duct measures 3 mm. Pancreas: There is normal echogenicity of the visualized pancreas. There is no demonstrated pancreatic mass or cyst. Right Kidney: Normal size of the right kidney. The right kidney measures 10.9 cm x 5.7 cm x 4.7 cm. Normal renal cortex. The right cortex measures 1.5 cm. There is no demonstrated renal mass or cyst. There is no right hydronephrosis. There is a 3 mm x 4 mm nonobstructive intrarenal calculus. US/ABD Limited w/ Elastography IMPRESSION: 1. Liver stiffness measures 9.4 kPa compatible with F2-F3 (Mild to moderate liver fibrosis) Metavir score. Electronically Signed: Jaydon Carranza MD at 11:09 EDT ,
== END | disposition home or self-care (01) ==
PROVIDERS: PCP Family Medicine; Referring Provider Internal Medicine; Visit Provider Internal Medicine
DX: R10.30 Lower abdominal pain, unspecified (principal); K74.3 Primary biliary cirrhosis; K76.0 Fatty (change of) liver, not elsewhere classified
CPT/HCPCS: 76705; 76981

== ENCOUNTER → 2024-07-14 | Outpatient (CLI) | payer OTHER, SELFPAY ==
[2024-07-14 17:54] LABS: Absolute Lymphocyte Count 2.25 X10^3/uL (0.83-4.51); Absolute Neutrophil Count 2.9 X10^3/uL (2.0-7.7); Basophil# 0.07 X10^3/uL; Basophil% 1.2 % (0-1); Eosinophil# 0.13 X10^3/uL; Eosinophils% 2.2 % (0-5); Hemoglobin 11.5 g/dL (12.0-15.0); Lymphocyte # 2.25 X10^3/ul (0.83-4.51); Lymphocyte % 37.8 % (19-41); Mean Corp Hgb Conc 32.9 g/dL (32-36); Mean Corpuscular Hgb 31.1 pg (27.0-32.0); Mean Corpuscular Volume 94.6 fL (81-99); Mean Platelet Vol. 11.7 fl (6.2-12.0); Monocyte# 0.64 X10^3/uL; Monocyte% 10.7 % (0-10); NRBC Flagged by Analyzer 0 % (0-5); Neutrophil # 2.86 X10^3/uL (2.7-7.7); Neutrophil % 47.9 % (47-70); Platelet Count 271 K/mm3 (150-450); RBC Distribution Width CV 12.4 % (11.6-14.6); RBC Distribution Width SD 43.2 fl (35.1-43.9)
[2024-07-14 18:28] LABS: ALB/GLOB Ratio 1.2 RATIO (0.9-2.4); AST(SGOT) 26 U/L (15-37); Alanine Aminotransfer ALT/SGPT 29 U/L (13-56); Albumin, Serum 3.8 g/dL (3.2-5.0); Alkaline Phosphatase 86 U/L (45-117); Anion Gap 5 (5-15); BUN 12 mg/dL (7-18); BUN/Creat Ratio 13.2 RATIO (10-20); Calcium,Total 9.2 mg/dL (8.5-10.1); Chloride 107 mmol/L (98-107); Creatinine, Serum 0.91 mg/dL (0.55-1.02); EST Glomerular Filtration Rate 70 mL/min (>60); Est Glom Filt Rate - Afr Amer 84 mL/min (>60); Globulin 3.3 g/dL (2.2-4.2); Glucose 98 mg/dL (74-106); Potassium 3.9 mmol/L (3.5-5.1); Protein, Total 7.1 g/dL (6.4-8.2); Sodium Level 141 mmol/L (136-145)
== END | disposition home or self-care (01) ==
LOC: MTLAB 16:05
PROVIDERS: PCP Family Medicine; Referring Provider Internal Medicine Rheumatology; Visit Provider Internal Medicine Rheumatology
DX: M06.4 Inflammatory polyarthropathy (principal); Z79.899 Other long term (current) drug therapy
CPT/HCPCS: 36415; 80053; 85025

== ENCOUNTER → 2024-10-10 | Outpatient (CLI) | payer OTHER, SELFPAY ==
[2024-10-10] VITALS (13 sets, daily range): BP systolic 101–158; BP diastolic 56–105; PULSE 74–84; RESP 10–18; TEMP 36.3; O2SAT 90–100; BMI 30.1
--- NOTE | 2024-10-10 | LIVB_PTH ---
PATIENT: MARY CORBETT LOC: [place] U#:[id number] AGE/SX: 48/F ROOM: RE10/10/[address]: Dr. Adama Gilman MD : 1975 BED: DIS: 10/10/2024 SPEC #: [id number] RECD: 10/10/24 12:29 STATUS: JHONATAN TURCIOS #: [id number] HARVEY: 10/10/24 00:[address]: Adama Gilman DEPT: SURGICAL PATHOLOGY RECD BY: Josselyn Marino ENTERED: 10/10/24 13:45 SP TYPE: LIVER BX OTHR DR: Dr. Tito Chandler MD Tissues: Liver, NOS Procedures: PAS with Diastase (control) Trichrome (control) Special Stain Group I PAS Stain (control) Surgery Specimen Level V Retic (control) Iron Stain (control) HEADER OPERATION: CT guided liver biopsy PRE-OP DIAGNOSIS: Elevated PCB, rule out autoimmune hepatitis TISSUE SUBMITTED: 18 gauge x 4 cores MICROSCOPIC DIAGNOSIS Liver, CT guided core biopsy: Portal and ductular pattern injury. See comment. 10/14/2024 COMMENT There is moderate portal-ductular inflammation comprising of mostly small blue lymphocytes, occasional plasma cell and rare eosinophils. There is focal duct loss with focal regenerative/reactive ductular proliferation in background of lobular cholestasis. Macrophages collections are noted within lobules and portal areas Trichrome and reticulin stain reveals expansive fibrosis and focal areas suspicious for bridging fibrosis. 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 Iron stain does not reveal accumulation of intraparenchymal iron. PAS and PASD stains do not reveal accumulation of abnormal proteins. All matched controls are appropriate. Immunohistochemistry ([id number]) supports the above diagnosis. Case has been reviewed in consultation with Dr. Roman who concurs with the above diagnosis. IDC:SJ Clinical correlation is suggested. MICROSCOPIC DESCRIPTION Slides are reviewed. GROSS DESCRIPTION Received is one container labeled with the patient's name and not further designated. The specimen consists of multiple elongated cores of catalan soft tissue that in aggregate measure 1.2 x 0.5 x <0.1 cm. The specimen is totally submitted in one cassette. 10/10/2024 TC:3 CPT:16096
--- NOTE | 2024-10-10 | IMM_PTH ---
PATIENT: MARY CORBETT LOC: [place] U#:[id number] AGE/SX: 48/F ROOM: RE10/10/[address]: Dr. Adama Gilman MD : 1975 BED: DIS: 10/10/2024 SPEC #: [id number] RECD: 10/14/24 13:13 STATUS: JHONATAN REQ #: [id number] HARVEY: 10/10/24 00:[address]: Adama Gilman DEPT: IMMUNOHISTOCHEMISTRY RECD BY: Roger Botello ENTERED: 10/14/24 13:14 SP TYPE: IMMUNO OTHR DR: Dr. Tito Chandler MD Tissues: Liver, NOS Procedures: CK7 (add) Pankeratin (initial) CD68 (ADD) S-100 (add) PHYSICIAN & INSTITUTION [place] [id number] SPECIMEN INFORMATION: Tissue Source: Liver biopsy Clinical Info: Elevated PCB, rule out autoimmune hepatitis Specimen Number: [id number] CPT code: 50380,78806o5 METHODOLOGY: Deparaffinized sections of prefer/formalin-fixed tissue or PAP/DQ stained slides are incubated with monoclonal/polyclonal antibodies/oligonucleotide probes. Localization is made via biotin free immunoperoxidase method. Appropriate controls are performed and reacted as expected. Results on target cell population are indicated in the following table: RESULTS: ANTIBODY / CLONE RESULT AE1-3 (AE1/AE3/PCK26) positive, ducts CK7 (OV-TL12/30) positive, ducts CD68 (KP-1) positive, ducts S-100 (4C4.9) negative, macrophages These tests were developed and their performance characteristics determined by [facility]. They may not have been cleared or approved by the U.[place]. Food and Drug Administration. The FDA has determined that such clearance or approval is not necessary. The above immunohistochemical/dualISH markers are ordered and reviewed by the Pathologist. INTERPRETATION: Liver, CT guided core biopsy: Attenuated ducts present. Reactive/Proliferative ductal changes. Case has been reviewed in consultation with Dr. Roman who concurs with the above diagnosis. IDC:VALDEZ Lewis 10/15/2024
--- NOTE | 2024-10-10 09:55 | CT_ITS ---
PROCEDURE: CT DIRECTED CORE LIVER BIOPSY INDICATION: Female, 48 years old. PBC, IgM elevated. possib Other autoimmine disease -- R/O Autoimmune hepatitis,ASC or overlap syndrom PHYSICIAN: Dr. Tere Burton CONSENT: Written informed consent was obtained having explained the risks, benefits and alternatives in detail with the patient who accepted the risks and agreed to proceed. Laboratory review and clinical assessment was performed. CONSCIOUS SEDATION PROTOCOL: The Drugs used were: 2 mg Versed, IV., and 50 mcg Fentanyl, IV. The sedation time was: 22 minutes. Conscious sedation was started at 10:38 AM and terminated at 11:00 AM. The conscious sedation protocol was independently monitored. RADIATION DOSAGE (If Supplied By Facility): CTDIvol = ( 17.5 ) mGy, DLP = ( 305.63 ) mGycm Individualized dose optimization techniques were used for this CT. TECHNIQUE: Using CT image guidance with image documentation, a suitable location in the left lobe of the liver was identified. Using an anterior approach, puncture of the liver was uneventful with an 18-gauge core needle system. 4, 18-gauge core samples were obtained, and submitted in formalin to the pathologist for further assessment. Followup CT scan revealed no distinct sequelae. CT/Biopsy/Inj or Needle Placement IMPRESSION: 1. CT directed core needle biopsy of the liver, using CT image guidance with image documentation as described. 2. Conscious Sedation protocol utilized with independent monitoring. Electronically Signed: Jaydon Carranza MD at 11:20 EST ,
[2024-10-10 10:11] LABS: Absolute Neutrophil Count 2.4 X10^3/uL (2.0-7.7); Basophil# 0.08 X10^3/uL; Basophil% 1.5 % (0-1); Eosinophil# 0.13 X10^3/uL; Eosinophils% 2.5 % (0-5); Hemoglobin 12.5 g/dL (12.0-15.0); Lymphocyte % 41.5 % (19-41); Mean Corp Hgb Conc 32.9 g/dL (32-36); Mean Corpuscular Hgb 31.3 pg (27.0-32.0); Mean Platelet Vol. 10.9 fl (6.2-12.0); Monocyte# 0.49 X10^3/uL; Monocyte% 9.2 % (0-10); NRBC Flagged by Analyzer 0 % (0-5); Neutrophil # 2.38 X10^3/uL (2.7-7.7); Neutrophil % 44.9 % (47-70); Platelet Count 283 K/mm3 (150-450); RBC Distribution Width SD 42.2 fl (35.1-43.9); White Blood Count 5.3 K/mm3 (4.4-11.0)
[2024-10-10 10:13] LABS: International Normalized Ratio 0.9; Prothrombin Time (Protime)PT. 12.5 SECONDS (11.7-14.9)
[2024-10-10 10:14] LABS: Erythrocyte Sedimentation Rate 10 mm/hr (0-30)
[2024-10-10 10:20] LABS: ALB/GLOB Ratio 1.1 RATIO (0.9-2.4); AST(SGOT) 20 U/L (15-37); Alanine Aminotransfer ALT/SGPT 35 U/L (13-56); Albumin, Serum 3.6 g/dL (3.2-5.0); Alkaline Phosphatase 84 U/L (45-117); Anion Gap 3 (5-15); BUN 15 mg/dL (7-18); BUN/Creat Ratio 18.8 RATIO (10-20); CRP 3.81 mg/L (0.0-3.0); Calcium,Total 9.1 mg/dL (8.5-10.1); Chloride 108 mmol/L (98-107); Cholesterol 163 mg/dL (200); EST Glomerular Filtration Rate 81 mL/min (>60); Est Glom Filt Rate - Afr Amer 98 mL/min (>60); Globulin 3.4 g/dL (2.2-4.2); Glucose 97 mg/dL (74-106); High Density Lipoprotein 74 mg/dL; Potassium 3.9 mmol/L (3.5-5.1); Sodium Level 139 mmol/L (136-145); Triglycerides 53 mg/dL; Very Low Density Lipoprotein 11 mg/dL (5-40)
[2024-10-10] MEDS: Midazolam 2 MG/2 ML Syringe IV (10:38)
[2024-10-10] MEDS: fentaNYL 100 MCG/2 ML Ampul IV (10:41)
[2024-10-10] MEDS: 0.9% Saline Lock 10 ML Syringe IV (10:44)
[2024-10-10] MEDS: Lidocaine 2% (20 ml mdv) 20 ML Vial INFILT (10:52)
[2024-10-10] MEDS: Ketorolac 30 MG/ML Syringe IV (11:10)
[2024-10-10 12:26] LABS: Hemoglobin A1c 5.2 % (3.8-5.6)
[2024-10-11 15:07] LABS: Anti-Mitochondrial AB 191.4 Units (0.0-20.0); Anti-Smooth Muscle ABS 11 Units (0-19)
== END | disposition home or self-care (01) ==
PROVIDERS: PCP Family Medicine; Referring Provider Internal Medicine; Visit Provider Internal Medicine
DX: K74.3 Primary biliary cirrhosis (principal); R10.30 Lower abdominal pain, unspecified; K76.0 Fatty (change of) liver, not elsewhere classified
CPT/HCPCS: 47000; 36415; 77012; 80053; 80061; 83036; 83516; 85025; 85610; 85652; 86140; 88307; 88312; 88341; 88342; 99156; A4216

== ENCOUNTER → 2025-01-22 | Outpatient (CLI) | payer OTHER, SELFPAY ==
[2025-01-22 17:46] LABS: Absolute Lymphocyte Count 2.25 X10^3/uL (0.83-4.51); Absolute Neutrophil Count 2.9 X10^3/uL (2.0-7.7); Basophil# 0.04 X10^3/uL; Basophil% 0.7 % (0-1); Eosinophil# 0.14 X10^3/uL; Eosinophils% 2.3 % (0-5); Hematocrit 35.7 % (37-47); Hemoglobin 11.7 g/dL (12.0-15.0); Lymphocyte # 2.25 X10^3/ul (0.83-4.51); Lymphocyte % 37.8 % (19-41); Mean Corp Hgb Conc 32.8 g/dL (32-36); Mean Corpuscular Hgb 31.5 pg (27.0-32.0); Mean Platelet Vol. 11.6 fl (6.2-12.0); Monocyte% 10.1 % (0-10); NRBC Flagged by Analyzer 0 % (0-5); Neutrophil # 2.92 X10^3/uL (2.7-7.7); Neutrophil % 48.9 % (47-70); Platelet Count 249 K/mm3 (150-450); Red Blood Count 3.72 M/mm3 (4.2-5.4)
[2025-01-22 18:20] LABS: ALB/GLOB Ratio 1.5 RATIO (0.9-2.4); AST(SGOT) 26 U/L (<=31); Alanine Aminotransfer ALT/SGPT 32 U/L (<=34); Albumin, Serum 4.4 g/dL (3.5-5.0); Alkaline Phosphatase 92 U/L (35-104); Anion Gap 12 (5-15); BUN 15 mg/dL (4-19); BUN/Creat Ratio 16.6 RATIO (10-20); Calcium,Total 9.8 mg/dL (7.6-11.0); Carbon Dioxide 25.8 mmol/L (21.0-32.0); Chloride 102 mmol/L (98-108); Creatinine, Serum 0.87 mg/dL (0.70-1.20); EST Glomerular Filtration Rate 81 (>60); Globulin 2.9 g/dL (2.2-4.2); Glucose 89 mg/dL (70-99); Protein, Total 7.3 g/dL (5.9-8.4); Sodium Level 140 mmol/L (133-145); Total Bilirubin 0.25 mg/dL (0.00-1.30)
== END | disposition home or self-care (01) ==
LOC: MTLAB 16:06
PROVIDERS: PCP Family Medicine; Referring Provider Internal Medicine Rheumatology; Visit Provider Internal Medicine Rheumatology
DX: M06.4 Inflammatory polyarthropathy (principal); Z79.899 Other long term (current) drug therapy
CPT/HCPCS: 36415; 80053; 85025

== ENCOUNTER → 2025-01-30 | Outpatient (CLI) | payer OTHER, SELFPAY ==
[2025-02-03 13:08] LABS: QNTFERON TB Mitogen Value > 10.00 IU/mL (.); QNTFERON TB Nil Value 0 IU/mL (.); QNTFERON TB1+ Ag Value 0.03 IU/mL (.); QNTFERON TB2+ Ag Value 0.02 IU/mL (.); QNTIFERON TB Positive Criteria Negative (Negative)
== END | disposition home or self-care (01) ==
LOC: MTLAB 16:30
PROVIDERS: PCP Family Medicine; Referring Provider Internal Medicine Rheumatology; Visit Provider Internal Medicine Rheumatology
DX: M06.09 Rheumatoid arthritis without rheumatoid factor, multiple sites (principal); Z79.899 Other long term (current) drug therapy
CPT/HCPCS: 36415; 86480

== ENCOUNTER → 2025-02-05 | Outpatient (CLI) | payer OTHER, SELFPAY ==
--- NOTE | 2025-02-05 09:10 | US_ITS ---
PROCEDURE: ABD LIMITED W/ ELASTOGRAPHY REASON FOR EXAM: PBC, LIVER FIBROSIS COMPARISON: Comparison is made with prior study dated April 29, 2024. TECHNIQUE: Right upper quadrant abdominal ultrasound. [employer] ElastQ Imaging shear wave elastography for non-invasive assessment of liver tissue stiffness. [place] EPIQ Elite. FINDINGS: LIVER: Size: Unremarkable Length: 15 cm Echotexture: Diffusely echogenic suggesting fatty infiltration Contour: Normal Lesions: None identified Elastography: EQI Med: 9.77 kPa EQI Med Roberto: 1.79 m/s IQR/Med: 18 %* GALLBLADDER: 5 mm x 4 mm x 4 mm gallbladder polyp. COMMON BILE DUCT: Normal 3.8 mm. PANCREAS: Visualized portions are unremarkable. The distal body and tail are obscured by bowel gas. Visualized portions of the right kidney are unremarkable. No right upper quadrant ascites. US/ABD Limited w/ Elastography IMPRESSION: Moderate hepatic fibrosis. Gallbladder polyp. Reference Values: SRU <1.37 m/s (5.7kPa): No to mild fibrosis 1.37 m/s - 2.2 m/s: Moderate to severe fibrosis >2.2 m/s (15kPa): Significant fibrosis / cirrhosis METAVIR Score F2 or higher: 1.34 m/s (5.7kPa) F3 or higher: 1.55 m/s (7.3kPa) F4: 1.80 m/s (10kPa) * If the IQR/Med is >30%, the variance in the measurements is a large and the a ccuracy of the measurement may be in question. Reading Location: [place] [id number]
--- NOTE | 2025-02-05 09:21 | BI_ITS ---
EXAM: SCRN MAMM (CAD)W/[place] BILAT DATE: 02/05/2025 CLINICAL HISTORY: F, Age 49 y/o , SCREENING BREAST CANCER RISK ASSESSMENT: Not assessed. TECHNIQUE: Bilateral screening digital breast tomosynthesis with 2D and 3D images. Computer aided detection. COMPARISON: Prior exam(s) dated July 07, 2020.. FINDINGS: TISSUE DENSITY: The breast tissue is heterogenously dense, which may obscure small masses. Bilateral Breast Mammographic Findings: No significant masses, calcifications or other abnormalities are identified. No suspicious masses, areas of developing architectural distortion, or suspicious calcifications. There has been no significant interval change. BI/SCRN MAMM (CAD)W/[place] BILAT IMPRESSION: Right Breast: BIRADS 1 NEGATIVE. Left Breast: BIRADS 1 NEGATIVE. OVERALL FINAL ASSESSMENT: BIRADS 1 NEGATIVE RECOMMENDATION: Routine annual follow-up in 1 Year A letter with findings and recommendations will be mailed to the patient. Reading Location: [place] [id number]
[2025-02-05 10:29] LABS: Absolute Lymphocyte Count 1.68 X10^3/uL (0.83-4.51); Basophil# 0.06 X10^3/uL; Basophil% 1.4 % (0-1); Eosinophil# 0.14 X10^3/uL; Eosinophils% 3.2 % (0-5); Hematocrit 36.6 % (37-47); Hemoglobin 12.2 g/dL (12.0-15.0); Lymphocyte # 1.68 X10^3/ul (0.83-4.51); Lymphocyte % 38.5 % (19-41); Mean Corp Hgb Conc 33.3 g/dL (32-36); Mean Corpuscular Hgb 31.3 pg (27.0-32.0); Mean Corpuscular Volume 93.8 fL (81-99); Mean Platelet Vol. 10.7 fl (6.2-12.0); Monocyte# 0.51 X10^3/uL; Monocyte% 11.7 % (0-10); NRBC Flagged by Analyzer 0 % (0-5); Neutrophil # 1.96 X10^3/uL (2.7-7.7); Platelet Count 255 K/mm3 (150-450); RBC Distribution Width CV 12.1 % (11.6-14.6); RBC Distribution Width SD 41.5 fl (35.1-43.9); White Blood Count 4.4 K/mm3 (4.4-11.0)
[2025-02-05 11:12] LABS: International Normalized Ratio 0.9; Prothrombin Time (Protime)PT. 11.8 SECONDS (11.7-14.9)
[2025-02-05 12:06] LABS: ALB/GLOB Ratio 1.5 RATIO (0.9-2.4); AST(SGOT) 22 U/L (<=31); Alanine Aminotransfer ALT/SGPT 25 U/L (<=34); Albumin, Serum 4.2 g/dL (3.5-5.0); Alkaline Phosphatase 87 U/L (35-104); Anion Gap 11 (5-15); BUN 13 mg/dL (4-19); BUN/Creat Ratio 15.8 RATIO (10-20); Calcium,Total 9.4 mg/dL (7.6-11.0); Carbon Dioxide 24.3 mmol/L (21.0-32.0); Chloride 106 mmol/L (98-108); Cholesterol 174 mg/dL (<=200); Creatinine, Serum 0.83 mg/dL (0.70-1.20); EST Glomerular Filtration Rate 86 (>60); Globulin 2.8 g/dL (2.2-4.2); Glucose 91 mg/dL (70-99); High Density Lipoprotein 68 mg/dL; Low Density Lipoprotein Calc. 91 mg/dL; Potassium 4.5 mmol/L (3.3-5.1); Protein, Total 6.9 g/dL (5.9-8.4); Sodium Level 141 mmol/L (133-145); Total Bilirubin 0.32 mg/dL (0.00-1.30); Triglycerides 77 mg/dL; Very Low Density Lipoprotein 15 mg/dL (5-40); Vitamin D,25 Hydroxy 43.6 ng/mL (30-100); cholesterol:hdl ratio screen 2.56
[2025-02-05 12:08] LABS: CRP < 3.00 mg/L (0.0-3.0)
== END | disposition home or self-care (01) ==
LOC: US 09:08 → OPUS 09:09
PROVIDERS: PCP Family Medicine; Referring Provider Internal Medicine; Visit Provider Internal Medicine
DX: Z12.31 Encounter for screening mammogram for malignant neoplasm of breast (principal); K74.3 Primary biliary cirrhosis; K76.0 Fatty (change of) liver, not elsewhere classified; Z13.220 Encounter for screening for lipoid disorders
CPT/HCPCS: 36415; 76705; 76981; 77063; 77067; 80053; 80061; 82306; 85025; 85610; 86140

== ENCOUNTER → 2025-04-21 | Outpatient (CLI) | payer OTHER, SELFPAY ==
[2025-04-21 17:58] LABS: Absolute Lymphocyte Count 2.42 X10^3/uL (0.83-4.51); Absolute Neutrophil Count 2.1 X10^3/uL (2.0-7.7); Basophil# 0.04 X10^3/uL; Basophil% 0.8 % (0-1); Eosinophil# 0.16 X10^3/uL; Hematocrit 33.6 % (37-47); Hemoglobin 11.2 g/dL (12.0-15.0); Lymphocyte # 2.42 X10^3/ul (0.83-4.51); Lymphocyte % 45.9 % (19-41); Mean Corp Hgb Conc 33.3 g/dL (32-36); Mean Platelet Vol. 12.3 fl (6.2-12.0); Monocyte% 11.4 % (0-10); NRBC Flagged by Analyzer 0 % (0-5); Neutrophil # 2.05 X10^3/uL (2.7-7.7); Neutrophil % 38.9 % (47-70); Platelet Count 238 K/mm3 (150-450); RBC Distribution Width CV 12.2 % (11.6-14.6); RBC Distribution Width SD 42.5 fl (35.1-43.9); White Blood Count 5.3 K/mm3 (4.4-11.0)
[2025-04-21 18:27] LABS: ALB/GLOB Ratio 1.6 RATIO (0.9-2.4); AST(SGOT) 25 U/L (<=31); Alanine Aminotransfer ALT/SGPT 30 U/L (<=34); Albumin, Serum 4.3 g/dL (3.5-5.0); Alkaline Phosphatase 103 U/L (35-104); Anion Gap 10 (5-15); BUN 11 mg/dL (4-19); BUN/Creat Ratio 12.7 RATIO (10-20); Calcium,Total 9.2 mg/dL (7.6-11.0); Carbon Dioxide 25.9 mmol/L (21.0-32.0); Chloride 104 mmol/L (98-108); Creatinine, Serum 0.84 mg/dL (0.70-1.20); EST Glomerular Filtration Rate 85 (>60); Globulin 2.7 g/dL (2.2-4.2); Glucose 93 mg/dL (70-99); Protein, Total 6.9 g/dL (5.9-8.4); Sodium Level 141 mmol/L (133-145); Total Bilirubin 0.22 mg/dL (0.00-1.30)
== END | disposition home or self-care (01) ==
LOC: MTLAB 15:51
PROVIDERS: PCP Family Medicine; Referring Provider Internal Medicine Rheumatology; Visit Provider Internal Medicine Rheumatology
DX: M06.09 Rheumatoid arthritis without rheumatoid factor, multiple sites (principal); Z79.899 Other long term (current) drug therapy
CPT/HCPCS: 36415; 80053; 85025

== ENCOUNTER → 2025-07-21 | Outpatient (CLI) | payer OTHER, SELFPAY ==
[2025-07-21 17:56] LABS: Hematocrit 33.5 % (37-47); Hemoglobin 11.3 g/dL (12.0-15.0); Immature Granulocytes Count 0.010 X10^3/uL (0.0-0.0); Mean Corp Hgb Conc 33.7 g/dL (32-36); Mean Corpuscular Volume 94.1 fL (81-99); Mean Platelet Vol. 12.0 fl (6.2-12.0); NRBC Flagged by Analyzer 0 % (0-5); Platelet Count 240 K/mm3 (150-450); RBC Distribution Width CV 11.9 % (11.6-14.6); RBC Distribution Width SD 41.3 fl (35.1-43.9); Red Blood Count 3.56 M/mm3 (4.2-5.4); White Blood Count 5.2 K/mm3 (4.4-11.0)
[2025-07-21 18:10] LABS: AST(SGOT) 24 U/L (<=31); Alanine Aminotransfer ALT/SGPT 24 U/L (<=34); Albumin, Serum 4.4 g/dL (3.5-5.0); Alkaline Phosphatase 76 U/L (35-104); Anion Gap 11 (5-15); BUN 10 mg/dL (4-19); BUN/Creat Ratio 11.2 RATIO (10-20); Calcium,Total 9.4 mg/dL (7.6-11.0); Carbon Dioxide 24.3 mmol/L (21.0-32.0); Chloride 106 mmol/L (98-108); Globulin 2.7 g/dL (2.2-4.2); Glucose 76 mg/dL (70-99); Potassium 3.9 mmol/L (3.3-5.1)
== END | disposition home or self-care (01) ==
LOC: MTLAB 15:31
PROVIDERS: PCP Family Medicine; Referring Provider Internal Medicine Rheumatology; Visit Provider Internal Medicine Rheumatology
DX: M05.79 Rheumatoid arthritis with rheumatoid factor of multiple sites without organ or systems involvement (principal)
CPT/HCPCS: 36415; 80053; 85025

== ENCOUNTER → 2025-10-08 | Outpatient (CLI) | payer OTHER, SELFPAY ==
[2025-10-08 17:36] LABS: Hematocrit 33.8 % (37-47); Hemoglobin 11.0 g/dL (12.0-15.0); Immature Granulocytes Count 0.010 X10^3/uL (0.0-0.0); Mean Corp Hgb Conc 32.5 g/dL (32-36); Mean Corpuscular Volume 96.6 fL (81-99); Mean Platelet Vol. 12.0 fl (6.2-12.0); NRBC Flagged by Analyzer 0 % (0-5); Platelet Count 245 K/mm3 (150-450); RBC Distribution Width CV 12.3 % (11.6-14.6); RBC Distribution Width SD 43.1 fl (35.1-43.9); Red Blood Count 3.50 M/mm3 (4.2-5.4); White Blood Count 4.9 K/mm3 (4.4-11.0)
[2025-10-08 17:50] LABS: AST(SGOT) 23 U/L (<=31); Alanine Aminotransfer ALT/SGPT 21 U/L (<=34); Albumin, Serum 4.4 g/dL (3.5-5.0); Alkaline Phosphatase 80 U/L (35-104); Anion Gap 12 (5-15); BUN 12 mg/dL (4-19); BUN/Creat Ratio 15.5 RATIO (10-20); Calcium,Total 9.3 mg/dL (7.6-11.0); Carbon Dioxide 24.0 mmol/L (21.0-32.0); Chloride 106 mmol/L (98-108); Globulin 2.3 g/dL (2.2-4.2); Glucose 85 mg/dL (70-99); Potassium 3.9 mmol/L (3.3-5.1)
== END | disposition home or self-care (01) ==
LOC: MTLAB 15:51
PROVIDERS: PCP Family Medicine; Referring Provider Internal Medicine Rheumatology; Visit Provider Internal Medicine Rheumatology
DX: M05.79 Rheumatoid arthritis with rheumatoid factor of multiple sites without organ or systems involvement (principal); Z79.899 Other long term (current) drug therapy
CPT/HCPCS: 36415; 80053; 85025